=== PATIENT | male | born 1945 | race Asian ===

== ENCOUNTER 2018-11-30 23:59 | Inpatient (IN) | payer MEDICARE ==
[~2018-11-30] VITALS: Ht 160 cm; Wt 64.4 kg
[2018-12-01] VITALS (24 sets, daily range): BP systolic 87–156; BP diastolic 38–96
[2018-12-01] MEDS ORDERED: Cefepime HCl 1 GM in NS 55 ML IV STA (00:03)
--- NOTE | 2018-12-01 00:05 | NUR ---
ED Nurse Note: RECIEVED PT BIBA FROM SNF WITH C/O ALOC SINCE AM, PT IS ON GURNEY VERY LETHARGIC, NON-VERBAL, EYES CLOSED AND POOR RESPONSE, PT ONLY RESPONDS TO PAINFUL STIMULI WITH SWINGING OR ARMS AND HEAD, PT IS DIALYSIS PT AND HAS PATENT SHUNT IN LEFT AV WITH POSITIVE BRUIT AND THRILL, PT INCONTINENT OF STOOL, VERY LARGE AMOUNT SOFT FORMED STOOL, PT IMMEDIATELY PLACED ON CARDIAC MONITORING, O2 SAT=98% ON MD MAJO IMMEDIATELY AT BEDSIDE AND PREPARING FOR INTUBATION.
[2018-12-01] MEDS ORDERED: EPOGEN20000 UNI1 SUBQ (00:07)
[2018-12-01] MEDS ORDERED: ACETAMINOPHEN325 M1 ORAL (00:09)
[2018-12-01] MEDS ORDERED: AMLODIPINE BESY10 MG ORAL (00:09)
[2018-12-01] MEDS ORDERED: ASCORBIC ACID500 MG ORAL (00:09)
[2018-12-01] MEDS ORDERED: ASPIRIN EC81 MG ORAL (00:10)
[2018-12-01] MEDS ORDERED: ATIVAN2 MG ORAL (00:10)
[2018-12-01] MEDS ORDERED: CATAPRES0.1 MG ORAL (00:11)
[2018-12-01] MEDS ORDERED: CATAPRES-TTS-21 EA TDERMAL (00:11)
[2018-12-01] MEDS ORDERED: FAMOTIDINE20 MG/2 ML IV (00:12)
[2018-12-01] MEDS ORDERED: GABAPENTIN300 MG ORAL (00:13)
[2018-12-01] MEDS ORDERED: HEPARIN SO5000 UNIT2 SUBQ (00:14)
[2018-12-01] MEDS ORDERED: IPRATROPIU0.2 MG/1 M HHN (00:14)
[2018-12-01] MEDS ORDERED: NORCO 5-325 TA1 EACH ORAL (00:14)
[2018-12-01] MEDS ORDERED: ACIDOPHILUS1 EAC6 PO (00:15)
[2018-12-01] MEDS ORDERED: Vancomycin 1 GM in NS 275 ML IV ONE (00:15)
[2018-12-01] MEDS ORDERED: Azithromycin 500 MG in D5W 275 ML IVPB ONE (00:15)
[2018-12-01] MEDS ORDERED: LOSARTAN POTASS50 MG ORAL (00:16)
[2018-12-01] MEDS ORDERED: MEGESTROL ACETAT5 GM MC (00:17)
[2018-12-01] MEDS ORDERED: NEPHROVITE1 TAB ORAL (00:18)
[2018-12-01] MEDS ORDERED: QUETIAPINE FUMA50 MG ORAL (00:19)
[2018-12-01] MEDS ORDERED: POTASSIUM CHLO20 ME1 ORAL (00:19)
[2018-12-01] MEDS ORDERED: HUMALOG100 UNIT/4 SUBQ (00:25)
--- NOTE | 2018-12-01 00:26 | Emergency Room Report ---
History of Present Illness General Chief Complaint: Altered Level of Consciousness Source: Family Member, EMS Present Illness HPI Patient is brought in by EMS for altered level of consciousness with low oxygen. He is a [facility] facility. He is a dialysis patient had dialysis earlier today. His oxygen saturation was 64% in the field and it improved with 100% nonrebreather. Apparently the patient is been febrile also. Paramedics were uncertain what the baseline mental status is. According to the family the patient has had recent episode of sepsis. He states that the patient ate earlier today. The patient does not make urine at this time. Per family, he has had side effects from antibiotics - mainly diarrhea which was treated. Allergies: Coded Allergies: NEOMYCIN (Verified Allergy, Mild, 12/01/18) Uncoded Allergies: plastics (Allergy, Mild, 12/01/18) Patient History Past Medical History: see triage record Social History Narrative [facility] facility Reviewed Nursing Documentation: PMH: Agreed; PSxH: Agreed Nursing Documentation-PMH Past Medical History: No History, Except For Hx Hypertension: Yes Hx COPD: Yes Hx Diabetes: Yes Hx Dialysis: Yes - on dialysis,ESRD Review of Systems All Other Systems: limited Physical Exam Vital Signs Date Time Temp Pulse Resp B/P (MAP) Pulse Ox O2 Delivery O2 Flow Rate FiO2 11/30/18 23:58 94 20 135/64 79 Room Air Sp02 EP Interpretation: reviewed, abnormal - interpreted as low by me General Appearance: moderate distress, other - unresponsive to pain Eyes: bilateral eye PERRL ENT: moist mucus membranes Neck: supple Respiratory: rales, other - inadequate tidal volume, rales Cardiovascular #1: regular rate, rhythm, no edema Cardiovascular #2: 2+ radial (L) - thrill L Gastrointestinal: non tender, decreased bowel sounds, scaphoid Musculoskeletal: other - atrophy Neurologic: other - flaccid, min response to pain Psychiatric: other - stupor Skin: mottled, other - fever, stage 3 decubiti sacrum Procedures Critical Care Time Critical Care Time Total Critical Care Time: 90 min bedside evaluation and treatment excludes procedures (EKG, intubation). Reason for critical care: respiratory failure, pneumonia, ESRD, repeated evaluations, discussion with family, correction of hypoglycemia and hypocalcemia Possible complications: hypotension, hypertension, [place], shock, arrhythmias, metabolic acidosis, end organ damage, respiratory failure. Interventions: intubation, sepsis resuscitation, antibiotics, repeat evaluations , discussions with family Course: Patient with fever and respiratory failure. Intubated. Judicious fluid resuscitation. Antibiotic administration. Discussion with family. Repeat evaluations - vent adjustment and evaluation for possible sedation. Low sugar treated. Low calcium also treated. Consultations: nursing staff, EMS, family, RT, admitting MD Performed by: Dr. Baumann Tolerated well condition = critical Intubation Intubation : Consent: Emergent Intubation Method: orotracheal Tube Size (cm): 7.5 Medications: Other - none Breath Sounds after Intubation: equal Post Intubation Xray: Yes Attempts: One Patient Tolerated: Well Complications: None Medical Decision Making Diagnostic Impression: Primary Impression: Respiratory failure Qualified Codes: J96.01 - Acute respiratory failure with hypoxia; J96.02 - Acute respiratory failure with hypercapnia Additional Impressions: Left lower lobe pneumonia Qualified Codes: J18.1 - Lobar pneumonia, unspecified organism ESRD (end stage renal disease) on dialysis Hypoglycemia Hypocalcemia ER Course Patient presents with hypoxia, poor tidal volume and fever. Differential includes pneumonia, sepsis, acute myocardial infarction amongst others. Evaluation will be with EKG chest x-ray and labs including blood cultures and lactate. Due to the patient's hypoxia and inadequate tidal volume the patient needs to be intubated immediately. INtubated @ 0:15 Blood sugar low. D50W ordered. Calcium low. Antibiotics ordered. Transient low BP. Minimally elevated troponin. Aspirin ordered. FIO2 adjusted down. BP better with bolus. Slightly more responsive. Cap fill good. Calcium and magnesium ordered. Discussed with family. Patient with improved HR and more responsive. Sat 100% on 35%. Admit ICU Dr. Cyr. Laboratory Tests Test 12/01/18 00:00 12/01/18 00:03 White Blood Count 15.7 K/UL (4.8-10.8) H Red Blood Count 3.17 M/UL (4.70-6.10) L Hemoglobin 10.7 G/DL (14.2-18.0) L Hematocrit 32.8 % (42.0-52.0) L Mean Corpuscular Volume 104 FL (80-99) H Mean Corpuscular Hemoglobin 33.9 PG (27.0-31.0) H Mean Corpuscular Hemoglobin Concent 32.8 G/DL (32.0-36.0) Red Cell Distribution Width 16.6 % (11.6-14.8) H Platelet Count 426 K/UL (150-450) Mean Platelet Volume 6.0 FL (6.5-10.1) L Neutrophils (%) (Auto) 65.7 % (45.0-75.0) Lymphocytes (%) (Auto) 21.7 % (20.0-45.0) Monocytes (%) (Auto) 10.6 % (1.0-10.0) H Eosinophils (%) (Auto) 1.2 % (0.0-3.0) Basophils (%) (Auto) 0.8 % (0.0-2.0) Prothrombin Time 11.0 SEC (9.30-11.50) Prothrombin Time INR 1.0 (0.9-1.1) PTT 32 SEC (23-33) Sodium Level 146 MMOL/L (136-145) H Potassium Level 3.2 MMOL/L (3.5-5.1) L Chloride Level 112 MMOL/L (98-107) H Carbon Dioxide Level 22 MMOL/L (21-32) Anion Gap 12 mmol/L (5-15) Blood Urea Nitrogen 24 mg/dL (7-18) H Creatinine 2.9 MG/DL (0.55-1.30) H Estimate Glomerular Filtration Rate mL/min (>60) Glucose Level 55 MG/DL (74-106) L Lactic Acid Level 1.70 mmol/L (0.4-2.0) Calcium Level 5.7 MG/DL (8.5-10.1) *L Magnesium Level 1.2 MG/DL (1.8-2.4) L Total Bilirubin 0.4 MG/DL (0.2-1.0) Aspartate Amino Transferase (AST) 12 U/L (15-37) L Alanine Aminotransferase (ALT) 12 U/L (12-78) Alkaline Phosphatase 65 U/L (46-116) Total Creatine Kinase 33 U/L (26-308) Troponin I 0.066 ng/mL (0.000-0.056) Pro-B-Type Natriuretic Peptide > 66691 pg/mL (0-125) H Total Protein 5.0 G/DL (6.4-8.2) L Albumin 1.9 G/DL (3.4-5.0) L Globulin 3.1 g/dL Albumin/Globulin Ratio 0.6 (1.0-2.7) L Lipase 74 U/L (73-393) Arterial Blood pH 7.492 (7.350-7.450) Arterial Blood Partial Pressure CO2 29.6 mmHg (35.0-45.0) L Arterial Blood Partial Pressure O2 200.4 mmHg (75.0-100.0) H Arterial Blood HCO3 22.2 mmol/L (22.0-26.0) Arterial Blood Oxygen Saturation 94.0 % (95-100) L Arterial Blood Base Excess -0.6 (-2-2) Rashi Test Positive Microbiology Date/Time Source Procedure Growth Status 12/01/18 00:30 Nasal Nares - Final Complete 12/01/18 00:30 Nasal Nares - Final Complete EKG Diagnostic Results Rate: normal Rhythm: NSR ST Segments: no acute changes Rhythm Strip Diag. Results EP Interpretation: yes Rhythm: NSR, no PVC's, no ectopy Chest X-Ray Diagnostic Results Chest X-Ray Diagnostic Results : Chest X-Ray Ordered: Yes # of Views/Limited/Complete: 1 View Indication: Other EP Interpretation: Yes Interpretation: no effusion, no pneumothorax, other - ET OK and LLL infiltrate Impression: Other Status: improved Disposition: ADMITTED INPATIENT Condition: Critical Francisco Baumann MD Dec 01, 2018 00:26
[2018-12-01 00:41] LABS: BASOPHILS % (AUTO) 0.8 % (0.0-2.0); EOSINOPHILS % (AUTO) 1.2 % (0.0-3.0); HEMATOCRIT 32.8 % (42.0-52.0); HEMOGLOBIN 10.7 G/DL (14.2-18.0); LYMPHOCYTES % (AUTO) 21.7 % (20.0-45.0); MEAN CORPUSCULAR VOLUME 104 FL (80-99); MONOCYTES % (AUTO) 10.6 % (1.0-10.0); NEUTROPHILS % (AUTO) 65.7 % (45.0-75.0); PLATELET COUNT 426 K/UL (150-450); RED BLOOD COUNT 3.17 M/UL (4.70-6.10); RED CELL DISTRIBUTION WIDTH 16.6 % (11.6-14.8); WHITE BLOOD COUNT 15.7 K/UL (4.8-10.8)
[2018-12-01] MEDS ORDERED: MILK OF MA400 MG/51 ORAL (00:56)
[2018-12-01] MEDS ORDERED: DULCOLAX10 MG RC (00:57)
[2018-12-01 01:06] LABS: ALANINE AMINOTRANSFERASE 12 U/L (12-78); ALBUMIN 1.9 G/DL (3.4-5.0); ALBUMIN/GLOBULIN RATIO 0.6 (1.0-2.7); ALKALINE PHOSPHATASE 65 U/L (46-116); ANION GAP 12 mmol/L (5-15); ASPARTATE AMINO TRANSFERASE 12 U/L (15-37); BILIRUBIN,TOTAL 0.4 MG/DL (0.2-1.0); BLOOD UREA NITROGEN 24 mg/dL (7-18); CARBON DIOXIDE 22 MMOL/L (21-32); CHLORIDE 112 MMOL/L (98-107); CREATINE KINASE 33 U/L (26-308); CREATININE 2.9 MG/DL (0.55-1.30); POTASSIUM 3.2 MMOL/L (3.5-5.1); SODIUM 146 MMOL/L (136-145)
[2018-12-01 01:15] LABS: CALCIUM 5.7 MG/DL (8.5-10.1)
--- NOTE | 2018-12-01 01:30 | NUR ---
ED Nurse Note: NO ACUTE CHANGES, PT REMAINS INTUBATED AND ON VENTILATOR SUPPORT, TOLERATING WELL, NO NEED FOR RESTRAINTS OR SEDATIVE MEDS, PT TOLERATING WELL, PT IS RESPONDING TO PAINFUL STIMULI, PT FAMILY NOW AT BEDSIDE, PT SWABBED FOR ADMIT AND PHOTOS OF BEDSORE ON COCCYX TAKEN, PT CHANGED AND GIVEN LINEN CHANGE DUE TO INCONTINENCE OF STOOL AGAIN, MD AWARE, NO S/S OF PAIN, WILL CONTINUE TO CLOSELY MONITOR AND PREPARE FOR HOSPITAL ADMISSION.
--- NOTE | 2018-12-01 02:09 | Diagnostic Imaging Report ---
EXAM: XR Chest, 1 View CLINICAL HISTORY: TUBE PLCMT TECHNIQUE: Frontal view of the chest. COMPARISON: No relevant prior studies available. FINDINGS: Lungs: Linear left perihilar atelectasis without focal consolidation. Pleural space: No pleural effusion or pneumothorax. Heart: Unremarkable. No cardiomegaly. Mediastinum: Unremarkable. Bones/joints: Unremarkable. Soft tissues: Hyperdensities projecting over the proximal left upper extremity likely reflect metallic foreign bodies. Vasculature: Vascular stent in the proximal left upper extremity/axilla. Tubes, lines and devices: Endotracheal tube 4.8 cm above the casey. Upper abdomen: Elevated left hemidiaphragm. IMPRESSION: Endotracheal tube 4.8 cm above the casey.
[2018-12-01] MEDS ORDERED: Calcium Gluconate 10% 1 GM in NS 110 ML IVPB ONE (02:30)
--- NOTE | 2018-12-01 03:00 | NUR ---
ED Nurse Note: PT CONTINUES TO REST IN BED, ON VENTILATOR SUPPORT, FI02 WAS DECREASED TO 35%, PT TOLERATING WELL, PT BEING TURNED EVERY TWO HOURS WITH PILLOW SUPPORT, REMAINS ON CARDIAC MONITORING, IV SITE PATENT, NO S/S OF PAIN, PT FAMILY AT BEDSIDE, PT SUCTIONED NEEDED VIA ET-TUBE, IV FLUIDS AND MEDS CONTINUING ORDERED, NO S/S OF ADVERSE REACTION NOTED, WILL CONTINUE CARE AND MONITORING WHILE PREPARING FOR ICU ADMISSION.
--- NOTE | 2018-12-01 04:05 | NUR ---
ED Nurse Note: REPORT CALLED TO ZENAIDA SALAS IN ICU, PT IN BED ON VENTILATOR SUPPORT, NO CHANGES OR INCREASED DISTRESS, 02 DRE=345%, PT TOLERATING WELL, IV SITE INTACT AND PATENT, MAGNESIUM INFUSING, PT TOLERATING WELL, NO S/S OF PAIN, V/S STABLE, BELONGINGS LIST COMPLETED, PT BEING TAKEN TO UNIT VIA GURTACOS AND ACLS PROTOCOLS WITH RN AND ER-TECHA ND RESPIRATORY THERAPIST.
--- NOTE | 2018-12-01 05:08 | NUR ---
NURSE NOTES: Received report from Heidy ESTEVEZ. Patient came from ER via rwren accompanied by RN and electronic communications technician. Admitted from [facility] under the care of Dr. Cyr with admitting diagnosis of Respiratory failure and ESRD. Patient lethargic, disoriented and on and off restless with episode of trying to pull out tubing reality orientation provided but pt lethargic. ETT to vent 7.5/24cm lip line, AC 16, TV 500,Fi02 35 Peep of 5. HOB elevated. Skin dry and warm to touch. Body assessment done patient with Full thickness pressure sore stage 3 on sacrum area initial treatment done. Left AV shunt dressing removed and cover with bandage no bleeding with + bruit and thrill. IV line on Right F/A intact running magnesium. bed bath given patient with soft form brown small BM. Bed alarm on. bed locked and in low position. Will continue plan of care. Will call Dr. Cyr.
--- NOTE | 2018-12-01 05:55 | NUR ---
NURSE NOTES: Called patient daughter Kiera Rios regarding the patient being admitted to ER and pt came with pressure sore. Patient in bed no s/s of acute distress noted. No moaning no facial grimaces. Repositioned. Will continue plan of care.
--- NOTE | 2018-12-01 06:00 | NUR ---
NURSE NOTES: left message to Dr. Cyr regarding admission order.
--- NOTE | 2018-12-01 06:48 | NUR ---
RESPIRATORY NOTE: Received pt. on 840 vent. Vent settings are: A/C rate of 16, Vt 500, FI02 35%, PEEP +5. No respiratory distress noted, pt sP02 @ 100%. Vent plugged on red outlet. Will continue to monitor pt.
--- NOTE | 2018-12-01 07:20 | NUR ---
HAND-OFF: Report given to Jazmin ESTEVEZ.still waiting for Dr Cyr to return call. Endorsed to Jazmin ESTEVEZ.
--- NOTE | 2018-12-01 07:21 | NUR ---
NURSE NOTES: End of shift report received from Tessa ESTEVEZ. Pt is lethargic, PERRL, and intubated. ETT 7.5 at 24cm at right lipline, AC16, VT500, Peep 5.0, FIO2 35% with O2sat 100%. Lung sounds are clear. telemetry monitor displays Sinus Bradycardia with HR 56-59. Weak peripheral pulses palpated with no extremity edema. Left AV shunt present with bruit/thrill, and right peripheral IV access on Right FA #18G, saline lock, patent/intact. Abdomen is round, and soft to the touch. Hypoactive bowel sounds present in all four quadrants. Pt has BM, soft/formed/brown. Skin has full thickness wound on sacral/buttocks area, covered with optifoam dressing. Bilateral soft wrist restraints in place, and skin integrity is within normal range at the restraint site. Per setter helper report, pt was dialyzed yesterday, prior to admission. Bed is locked with three side rails up and call light within reach. Will continue to monitor and follow up with MD for further new admission orders. Addendum: 12/01/18 at 0884 by HALEIGH SANCHEZ RN Patient is lethargic, disoriented and in/out of restless with episodes of attempting to pull out tubing.
--- NOTE | 2018-12-01 08:59 | NUR ---
NURSE NOTES: Pt suctioned; output of small, clear, thin mucous drained. Oral care given. Pt cleaned, repositioned, and sacral wound dressing changed.
--- NOTE | 2018-12-01 09:10 | NUR ---
NURSE NOTES: Orders received/acknowledged for new admission from Dr Arcos.
[2018-12-01] MEDS ORDERED: Miralax 17gm pkt ORAL PRN (09:15)
[2018-12-01] MEDS ORDERED: Albuterol/Ipratropium 3ml neb HHN PRN (09:15)
[2018-12-01] MEDS: Pantoprazole Inj IV SCH (09:55)
--- NOTE | 2018-12-01 10:00 | NUR ---
NURSE NOTES: Dr Fu at bedside. Order received to infuse NS 500mL Bolus x1, and DC [id number] @100ml/hour. Also order received for STAT lab draw, and Albuminar IV wide open. Orders will be processed and followed. Addendum: 12/01/18 at 1258 by HALEIGH SANCHEZ RN Order also received for D5NS at 50ml/hour. IV infusing as ordered.
--- NOTE | 2018-12-01 10:15 | Consultation ---
Consult Note Consult Note asked to eval for dialysis management patient intubated on vent no history available known ESRD has left arm shunt for dialysis Patient is brought in by EMS for altered level of consciousness with low oxygen. [facility] is a [facility] facility. He is a dialysis patient had dialysis earlier today. His oxygen saturation was 64% in the field and it improved with 100% nonrebreather. Apparently the patient is been febrile also. Paramedics were uncertain what the baseline mental status is. According to the family the patient has had recent episode of sepsis. He states that the patient ate earlier today. The patient does not make urine at this time. Allergies: NEOMYCIN (Verified Allergy, Mild, 12/01/18) Uncoded Allergies: plastics (Allergy, Mild, 12/01/18) Past Medical History: No History, Except For Hx Hypertension: Yes Hx COPD: Yes Hx Diabetes: Yes Hx Dialysis: Yes - on dialysis,ESRD . Assessment/Plan Respiratory failure on vent Left lower lobe pneumonia ESRD (end stage renal disease) on dialysis Hypoglycemia Hypocalcemia Anemia Plan: recheck labs fluid challenge antibiotics hemodynamic support pulmonary support Boo Fu MD Dec 01, 2018 10:15
[2018-12-01 10:44] LABS: EOSINOPHILS % (AUTO) 2.9 % (0.0-3.0); HEMATOCRIT 26.5 % (42.0-52.0); HEMOGLOBIN 8.8 G/DL (14.2-18.0); LYMPHOCYTES % (AUTO) 22.8 % (20.0-45.0); MEAN CORPUSCULAR VOLUME 102 FL (80-99); MONOCYTES % (AUTO) 13.1 % (1.0-10.0); NEUTROPHILS % (AUTO) 60.2 % (45.0-75.0); PLATELET COUNT 346 K/UL (150-450); RED BLOOD COUNT 2.59 M/UL (4.70-6.10); RED CELL DISTRIBUTION WIDTH 16.1 % (11.6-14.8); WHITE BLOOD COUNT 9.2 K/UL (4.8-10.8)
[2018-12-01] MEDS: D5NS 1,000 ML IV SCH (10:47)
[2018-12-01 10:57] LABS: ANION GAP 11 mmol/L (5-15); BLOOD UREA NITROGEN 42 mg/dL (7-18); CALCIUM 8.1 MG/DL (8.5-10.1); CARBON DIOXIDE 27 MMOL/L (21-32); CHLORIDE 99 MMOL/L (98-107); CREATININE 5.1 MG/DL (0.55-1.30); POTASSIUM 4.6 MMOL/L (3.5-5.1); SODIUM 137 MMOL/L (136-145)
[2018-12-01 11:08] LABS: ALANINE AMINOTRANSFERASE 9 U/L (12-78); ALBUMIN 2.3 G/DL (3.4-5.0); ALBUMIN/GLOBULIN RATIO 0.5 (1.0-2.7); ALKALINE PHOSPHATASE 72 U/L (46-116); ASPARTATE AMINO TRANSFERASE 11 U/L (15-37); BILIRUBIN,TOTAL 0.6 MG/DL (0.2-1.0); CREATINE KINASE 29 U/L (26-308); GAMMA GLUTAMYL TRANSPEPTIDASE 51 U/L (5-85); PHOSPHORUS 5.9 MG/DL (2.5-4.9)
[2018-12-01] MEDS ORDERED: NovoLOG Insulin Flexpen SUBQ SCH (11:30)
--- NOTE | 2018-12-01 11:31 | Consultation ---
History of Present Illness General Date patient seen: Dec 01, 2018 Time patient seen: 11:21 Chief Complaint: ALOC, hypoxia Referring physician: Dr Cyr Reason for Consultation: resp failure Present Illness HPI 73 years old male with PMH of hypertension, COPD, diabetes, end-stage renal disease on hemodialysis, was sent from the [facility] for evaluation due to altered level of consciousness and hypoxia. Patient received dialysis earlier prior to presentation to ED. Pulse oximetry was 64% in the field and improved to 100% with nonrebreathing mask. On evaluation patient was febrile, altered and hypoxic. Laboratory workup revealed leukocytosis WBC 15.7 hemoglobin 10.7 hematocrit 32.8. Platelet count 426. Neutrophils 65%. Potassium 3.2. BUN 24, creatinine 2.9. Lactic acid 1.7 Glucose 55 . Calcium 5.7 Stable LFT. Troponin minimally elevated 0.066. Pro BNP over 35,000. Albumin 1.9 . EKG revealed sinus rhythm , no acute ischemic changes Patient required emergency oral intubation. Chest x-ray demonstrated endotracheal tube 4.8 cm above the casey, which was addressed and adjusted . Possible left lower lobe pneumonia. Patient received calcium gluconate and repeated calcium pending. Patient admitted to ICU for further management Pulmonary consult was requested for management of respiratory failure. Allergies: Coded Allergies: NEOMYCIN (Verified Allergy, Mild, 12/01/18) Uncoded Allergies: plastics (Allergy, Mild, 12/01/18) Medication History Scheduled Amlodipine Besylate* (Amlodipine Besylate*), 10 MG ORAL DAILY, (Reported) Ascorbic Acid* (Ascorbic Acid*), 500 MG ORAL DAILY, (Reported) Aspirin Ec* (Aspirin Ec*), 81 MG ORAL DAILY, (Reported) Clonidine HCl (Catapres-Tts 2), 1 PATCH TDERMAL ONCE A WEEK, (Reported) Clonidine Hcl* (Catapres*), 0.1 MG ORAL EVERY 6 HOURS, (Reported) Epoetin Julio C (Epogen), 10,000 UNIT SUBQ DAILY, (Reported) Gabapentin* (Gabapentin*), 300 MG ORAL BEDTIME, (Reported) Heparin Sod (Porcine) (Heparin Sodium*), 5,000 UNITS SUBQ EVERY 12 HOURS, ( Reported) Lorazepam* (Ativan*), 2 MG ORAL BEDTIME, (Reported) Losartan Potassium* (Losartan Potassium*), 100 MG ORAL DAILY, (Reported) Magnesium Hydroxide* (Milk Of Magnesia*), 30 ML ORAL DAILY, (Reported) Potassium Chloride* (K-Dur*), 20 MEQ ORAL DAILY, (Reported) Quetiapine Fumarate* (Quetiapine Fumarate*), 25 MG ORAL DAILY, (Reported) Vitamin B Cmplx/Vit C/Folic AC (Nephro-Alexandro Tablet), 0.8 MG ORAL DAILY, ( Reported) Scheduled PRN Acetaminophen* (Acetaminophen 325MG Tablet*), 650 MG ORAL Q6H PRN for Pain Scale (3-5), (Reported) Hydrocodone Bit/Acetaminophen 5-325* (Letha 5-325*), 1 TAB ORAL Q4H PRN for For Pain, (Reported) Ipratropium [place] 0.5MG/2.5ML (Ipratropium [place] 0.5MG/2.5ML), 0.5 MG HHN Q6H PRN for Shortness of Breath, (Reported) Miscellaneous Medications Bisacodyl (Dulcolax), 10 MG RC, (Reported) Famotidine/Pf (Famotidine 20 Mg/2 Ml Vial), 20 MG IV, (Reported) Insulin Lispro (Humalog), 100 SUBQ, (Reported) Lactobacillus Acidophilus (Acidophilus), 1 EACH PO, (Reported) Megestrol Acetate,Micronized (Megestrol Acetate), 10 ML MC, (Reported) Patient History History Provided By: Medical Record Healthcare decision maker Resuscitation status Full Code Advanced Directive on File No Past Medical/Surgical History Past Medical/Surgical History: (1) HTN (hypertension) (2) DM (diabetes mellitus) (3) COPD (chronic obstructive pulmonary disease) (4) ESRD (end stage renal disease) on dialysis Review of Systems ROS Narrative ROS not available due to ALOC Physical Exam General Appearance: lethargic, other - bedridden, intubated on vent AC 500-16- 35% Lines, tubes and drains: peripheral HEENT: normocephalic, atraumatic, other - OP with ET in place, intact Respiratory/Chest: crackles/rales - few bibasilar crackles Cardiovascular/Chest: regular rhythm, no JVD, bradycardia - in 50th, SB on tele Abdomen: non tender, soft Extremities: normal capillary refill, no edema Neurologic: abnormal gait, other - lethargic Musculoskeletal: atrophy - BLE Last 24 Hour Vital Signs Date Time Temp Pulse Resp B/P (MAP) Pulse Ox O2 Delivery O2 Flow Rate FiO2 12/01/18 11:00 52 16 110/40 (63) 100 12/01/18 10:00 55 17 111/41 (64) 100 12/01/18 09:00 55 16 99/46 (63) 100 12/01/18 08:00 97.6 56 16 105/56 (72) 100 12/01/18 08:00 Mechanical Ventilator 12/01/18 07:00 56 16 98/42 (60) 100 12/01/18 06:47 56 16 35 12/01/18 06:00 57 16 98/42 (60) 100 12/01/18 05:52 59 17 87/42 (57) 100 12/01/18 05:18 62 17 35 12/01/18 05:00 Mechanical Ventilator 12/01/18 05:00 35 12/01/18 05:00 Mechanical Ventilator 12/01/18 05:00 97.7 62 17 90/38 (55) 100 12/01/18 04:54 71 12/01/18 04:10 98.8 61 18 121/44 100 Mechanical Ventilator 35 12/01/18 03:30 98.8 61 18 121/44 100 Mechanical Ventilator 35 12/01/18 03:19 69 21 35 12/01/18 02:30 99.4 60 21 113/39 100 Mechanical Ventilator 60 12/01/18 01:30 99.4 89 21 117/83 100 Mechanical Ventilator 60 12/01/18 00:39 85 21 60 12/01/18 00:38 85 21 Mechanical Ventilator 60 12/01/18 00:30 99.4 83 20 140/96 100 Mechanical Ventilator 60 12/01/18 00:05 94 20 Room Air 11/30/18 23:58 94 20 135/64 79 Room Air Intake and Output 11/30/18 12/01/18 19:00 07:00 Output Total 0 ml Balance 0 ml Output Urine Total 0 ml # Bowel Movements 4 Laboratory Tests Test 12/01/18 00:00 12/01/18 00:03 12/01/18 10:30 White Blood Count 15.7 K/UL (4.8-10.8) H 9.2 K/UL (4.8-10.8) Red Blood Count 3.17 M/UL (4.70-6.10) L 2.59 M/UL (4.70-6.10) L Hemoglobin 10.7 G/DL (14.2-18.0) L 8.8 G/DL (14.2-18.0) L Hematocrit 32.8 % (42.0-52.0) L 26.5 % (42.0-52.0) L Mean Corpuscular Volume 104 FL (80-99) H 102 FL (80-99) H Mean Corpuscular Hemoglobin 33.9 PG (27.0-31.0) H 33.9 PG (27.0-31.0) H Mean Corpuscular Hemoglobin Concent 32.8 G/DL (32.0-36.0) 33.2 G/DL (32.0-36.0) Red Cell Distribution Width 16.6 % (11.6-14.8) H 16.1 % (11.6-14.8) H Platelet Count 426 K/UL (150-450) 346 K/UL (150-450) Mean Platelet Volume 6.0 FL (6.5-10.1) L 5.5 FL (6.5-10.1) L Neutrophils (%) (Auto) 65.7 % (45.0-75.0) 60.2 % (45.0-75.0) Lymphocytes (%) (Auto) 21.7 % (20.0-45.0) 22.8 % (20.0-45.0) Monocytes (%) (Auto) 10.6 % (1.0-10.0) H 13.1 % (1.0-10.0) H Eosinophils (%) (Auto) 1.2 % (0.0-3.0) 2.9 % (0.0-3.0) Basophils (%) (Auto) 0.8 % (0.0-2.0) 1.0 % (0.0-2.0) Prothrombin Time 11.0 SEC (9.30-11.50) Prothromb Time International Ratio 1.0 (0.9-1.1) Activated Partial Thromboplast Time 32 SEC (23-33) Sodium Level 146 MMOL/L (136-145) H 137 MMOL/L (136-145) Potassium Level 3.2 MMOL/L (3.5-5.1) L 4.6 MMOL/L (3.5-5.1) Chloride Level 112 MMOL/L (98-107) H 99 MMOL/L (98-107) Carbon Dioxide Level 22 MMOL/L (21-32) 27 MMOL/L (21-32) Anion Gap 12 mmol/L (5-15) 11 mmol/L (5-15) Blood Urea Nitrogen 24 mg/dL (7-18) H 42 mg/dL (7-18) H Creatinine 2.9 MG/DL (0.55-1.30) H 5.1 MG/DL (0.55-1.30) #H Estimat Glomerular Filtration Rate mL/min (>60) mL/min (>60) Glucose Level 55 MG/DL (74-106) L 150 MG/DL (74-106) H Lactic Acid Level 1.70 mmol/L (0.4-2.0) Calcium Level 5.7 MG/DL (8.5-10.1) *L 8.1 MG/DL (8.5-10.1) #L Magnesium Level 1.2 MG/DL (1.8-2.4) L 2.2 MG/DL (1.8-2.4) Total Bilirubin 0.4 MG/DL (0.2-1.0) 0.6 MG/DL (0.2-1.0) Aspartate Amino Transf (AST/SGOT) 12 U/L (15-37) L 11 U/L (15-37) L Alanine Aminotransferase (ALT/SGPT) 12 U/L (12-78) 9 U/L (12-78) L Alkaline Phosphatase 65 U/L (46-116) 72 U/L (46-116) Total Creatine Kinase 33 U/L (26-308) 29 U/L (26-308) Troponin I 0.066 ng/mL (0.000-0.056) Pro-B-Type Natriuretic Peptide > 31881 pg/mL (0-125) H > 87189 pg/mL (0-125) H Total Protein 5.0 G/DL (6.4-8.2) L 6.9 G/DL (6.4-8.2) # Albumin 1.9 G/DL (3.4-5.0) L 2.3 G/DL (3.4-5.0) L Globulin 3.1 g/dL 4.6 g/dL Albumin/Globulin Ratio 0.6 (1.0-2.7) L 0.5 (1.0-2.7) L Lipase 74 U/L (73-393) Arterial Blood pH 7.492 (7.350-7.450) Arterial Blood Partial Pressure CO2 29.6 mmHg (35.0-45.0) L Arterial Blood Partial Pressure O2 200.4 mmHg (75.0-100.0) H Arterial Blood HCO3 22.2 mmol/L (22.0-26.0) Arterial Blood Oxygen Saturation 94.0 % (95-100) L Arterial Blood Base Excess -0.6 (-2-2) Rashi Test Positive Uric Acid 3.4 MG/DL (2.6-7.2) Phosphorus Level 5.9 MG/DL (2.5-4.9) H Gamma Glutamyl Transpeptidase 51 U/L (5-85) C-Reactive Protein, Quantitative 6.1 mg/dL (0.00-0.90) H Microbiology Date/Time Source Procedure Growth Status 12/01/18 00:30 Nasal Nares - Final Complete 12/01/18 00:30 Nasal Nares - Final Complete Height (Feet): 5 Height (Inches): 3.00 Weight (Pounds): 115 Medications Current Medications Medications (Trade) Dose Ordered Sig/Amber Route PRN Reason Start Time Stop Time Status Last Admin Dose Admin Acetaminophen (Tylenol) 650 mg Q4H PRN ORAL fever 12/01/18 09:15 12/31/18 09:14 Albuterol/ Ipratropium (Albuterol/ Ipratropium) 3 ml Q4H PRN HHN Shortness of Breath 12/01/18 09:15 12/06/18 09:14 Dextrose (Dextrose 50%) 25 ml Q30M PRN IV Hypoglycemia 12/01/18 09:15 12/31/18 09:14 Dextrose (Dextrose 50%) 50 ml Q30M PRN IV Hypoglycemia 12/01/18 09:15 12/31/18 09:14 Dextrose/Sodium Chloride 1,000 ml @ 50 mls/hr Q20H IV 12/01/18 10:15 12/31/18 10:14 12/01/18 10:47 Ertapenem 1 gm/ Sodium Chloride 55 ml @ 110 mls/hr ONCE IV 12/01/18 12:00 12/01/18 16:00 Heparin Sodium (Porcine) (Heparin 5000 units/ml) 5,000 units EVERY 12 HOURS SUBQ 12/01/18 21:00 12/31/18 20:59 Lorazepam (Ativan 2mg/ml 1ml) 2 mg Q2H PRN IV For Anxiety 12/01/18 09:15 12/08/18 09:14 Morphine Sulfate (Morphine Sulfate) 4 mg Q4H PRN IVP Severe Pain (Pain Scale 7-10) 12/01/18 09:15 12/08/18 09:14 Norepinephrine Bitartrate 4 mg/ Dextrose 254 ml @ 0 mls/hr Q24H IV 12/01/18 09:15 12/31/18 09:14 Ondansetron HCl (Zofran) 4 mg Q6H PRN IVP Nausea & Vomiting 12/01/18 09:15 12/31/18 09:14 Pantoprazole (Protonix) 40 mg DAILY IV 12/01/18 09:30 12/31/18 09:29 12/01/18 09:55 Polyethylene Glycol (Miralax) 17 gm DAILYPRN PRN ORAL Constipation 12/01/18 09:15 12/31/18 09:14 Vancomycin HCl (Vanco rx to dose) 1 ea DAILY PRN MISC Per rx protocol 12/01/18 09:00 12/31/18 08:59 Assessment/Plan Assessment: ASSESSMENT Acute hypoxemic respiratory failure requiring intubation Pneumonia Possible sepsis Hypoglycemia with history of diabetes mellitus Hypocalcemia COPD End-stage renal disease on hemodialysis Elevated troponin Anemia of chronic kidney disease History of hypertension Sacral decubitus ulcer stage III , present on admission PLAN OF CARE ICU Vent support , pulmonary toilet F/-up with ABG and CXR in am titrate setting further as needed Venous duplex bilateral lower extremity monitor hemodynamic status , at this time stable, no need for pressors noted bradycardia , however SB, no pauses/block, apparently at the [facility] facility was on amiodarone empiric antibiotic Zosyn and Vanco for now until seen by ID fup with culture ID consul NPO for now gentle IVF with dextrose monitor BS closely, no sliding scale for now nephro follows HD as per nephro with close monitoring of volumes , renal parameters and electrolytes calcium gluconate infusing , follow-up with calcium level monitor HH with goal to keep Hgb above 7 anemia workup initiated elevated troponin possibly due to renal failure, but we will check another troponin in the morning wound care as per protocol supportive care DVT/GI prophylaxis case discussed and evaluated by supervising physician Penny Mejia NP Dec 01, 2018 11:31
[2018-12-01] MEDS ORDERED: Ertapenem 1 GM in NS 55 ML IV SCH (12:00)
--- NOTE | 2018-12-01 12:30 | NUR ---
NURSE NOTES: Pt's and daughter at bedside. Pt is more awake and responsive now, however still attempting to pull out vent-tubing. Pt is Faroese speaking; family at bedside explained to pt the rationale for intubation/restraints in pt's language. Pt calm for a minute, however, reattempts to move/pull tubing out. Skin integrity at restraint site is within normal range. Vent settings maintained at AC16, VT500, Peep 5.0, FIO2 35% with O2sat of 100%, ETT7.5, at 24cm right lip line; panel monitor displays HR fluctuating 54-60, SB-SR. Per MD order, pt is currently NPO; with IV fluid infusing D5NS at 50ml/hour as ordered, with BS at 156 currently with no Insulin coverage per MD order. Pt had 2nd BM during my shift, soft/formed/brown. Pt was changed, repositioned, and suctioned. Abdomen is round, soft/nontender to touch. No extremity edema noted. Will continue to monitor.
--- NOTE | 2018-12-01 13:45 | NUR ---
NURSE NOTES: Order received from Dr Harley for repeat ECG, and troponin tomorrow AM. Order will be processed/followed.
--- NOTE | 2018-12-01 13:54 | Cardiac Electrophysiology PN ---
Subjective Subjective [id number] Objective Last 24 Hour Vital Signs Date Time Temp Pulse Resp B/P (MAP) Pulse Ox O2 Delivery O2 Flow Rate FiO2 12/01/18 13:01 97.1 59 16 149/53 (85) 100 12/01/18 12:05 35 12/01/18 12:01 59 16 98/44 (62) 100 12/01/18 12:00 Mechanical Ventilator 12/01/18 12:00 66 12/01/18 11:32 65 17 35 12/01/18 11:00 52 16 110/40 (63) 100 12/01/18 10:00 55 17 111/41 (64) 100 12/01/18 09:00 55 16 99/46 (63) 100 12/01/18 08:00 97.6 56 16 105/56 (72) 100 12/01/18 08:00 Mechanical Ventilator 12/01/18 07:00 56 16 98/42 (60) 100 12/01/18 06:47 56 16 35 12/01/18 06:00 57 16 98/42 (60) 100 12/01/18 05:52 59 17 87/42 (57) 100 12/01/18 05:18 62 17 35 12/01/18 05:00 Mechanical Ventilator 12/01/18 05:00 35 12/01/18 05:00 Mechanical Ventilator 12/01/18 05:00 97.7 62 17 90/38 (55) 100 12/01/18 04:54 71 12/01/18 04:10 98.8 61 18 121/44 100 Mechanical Ventilator 35 12/01/18 03:30 98.8 61 18 121/44 100 Mechanical Ventilator 35 12/01/18 03:19 69 21 35 12/01/18 02:30 99.4 60 21 113/39 100 Mechanical Ventilator 60 12/01/18 01:30 99.4 89 21 117/83 100 Mechanical Ventilator 60 12/01/18 00:39 85 21 60 12/01/18 00:38 85 21 Mechanical Ventilator 60 12/01/18 00:30 99.4 83 20 140/96 100 Mechanical Ventilator 60 12/01/18 00:05 94 20 Room Air 11/30/18 23:58 94 20 135/64 79 Room Air Intake and Output 11/30/18 12/01/18 19:00 07:00 Output Total 0 ml Balance 0 ml Output Urine Total 0 ml # Bowel Movements 4 Laboratory Tests Test 12/01/18 00:00 12/01/18 00:03 12/01/18 10:30 White Blood Count 15.7 K/UL (4.8-10.8) H 9.2 K/UL (4.8-10.8) Red Blood Count 3.17 M/UL (4.70-6.10) L 2.59 M/UL (4.70-6.10) L Hemoglobin 10.7 G/DL (14.2-18.0) L 8.8 G/DL (14.2-18.0) L Hematocrit 32.8 % (42.0-52.0) L 26.5 % (42.0-52.0) L Mean Corpuscular Volume 104 FL (80-99) H 102 FL (80-99) H Mean Corpuscular Hemoglobin 33.9 PG (27.0-31.0) H 33.9 PG (27.0-31.0) H Mean Corpuscular Hemoglobin Concent 32.8 G/DL (32.0-36.0) 33.2 G/DL (32.0-36.0) Red Cell Distribution Width 16.6 % (11.6-14.8) H 16.1 % (11.6-14.8) H Platelet Count 426 K/UL (150-450) 346 K/UL (150-450) Mean Platelet Volume 6.0 FL (6.5-10.1) L 5.5 FL (6.5-10.1) L Neutrophils (%) (Auto) 65.7 % (45.0-75.0) 60.2 % (45.0-75.0) Lymphocytes (%) (Auto) 21.7 % (20.0-45.0) 22.8 % (20.0-45.0) Monocytes (%) (Auto) 10.6 % (1.0-10.0) H 13.1 % (1.0-10.0) H Eosinophils (%) (Auto) 1.2 % (0.0-3.0) 2.9 % (0.0-3.0) Basophils (%) (Auto) 0.8 % (0.0-2.0) 1.0 % (0.0-2.0) Prothrombin Time 11.0 SEC (9.30-11.50) Prothromb Time International Ratio 1.0 (0.9-1.1) Activated Partial Thromboplast Time 32 SEC (23-33) Sodium Level 146 MMOL/L (136-145) H 137 MMOL/L (136-145) Potassium Level 3.2 MMOL/L (3.5-5.1) L 4.6 MMOL/L (3.5-5.1) Chloride Level 112 MMOL/L (98-107) H 99 MMOL/L (98-107) Carbon Dioxide Level 22 MMOL/L (21-32) 27 MMOL/L (21-32) Anion Gap 12 mmol/L (5-15) 11 mmol/L (5-15) Blood Urea Nitrogen 24 mg/dL (7-18) H 42 mg/dL (7-18) H Creatinine 2.9 MG/DL (0.55-1.30) H 5.1 MG/DL (0.55-1.30) #H Estimat Glomerular Filtration Rate mL/min (>60) mL/min (>60) Glucose Level 55 MG/DL (74-106) L 150 MG/DL (74-106) H Lactic Acid Level 1.70 mmol/L (0.4-2.0) Calcium Level 5.7 MG/DL (8.5-10.1) *L 8.1 MG/DL (8.5-10.1) #L Magnesium Level 1.2 MG/DL (1.8-2.4) L 2.2 MG/DL (1.8-2.4) Total Bilirubin 0.4 MG/DL (0.2-1.0) 0.6 MG/DL (0.2-1.0) Aspartate Amino Transf (AST/SGOT) 12 U/L (15-37) L 11 U/L (15-37) L Alanine Aminotransferase (ALT/SGPT) 12 U/L (12-78) 9 U/L (12-78) L Alkaline Phosphatase 65 U/L (46-116) 72 U/L (46-116) Total Creatine Kinase 33 U/L (26-308) 29 U/L (26-308) Troponin I 0.066 ng/mL (0.000-0.056) Pro-B-Type Natriuretic Peptide > 79047 pg/mL (0-125) H > 04095 pg/mL (0-125) H Total Protein 5.0 G/DL (6.4-8.2) L 6.9 G/DL (6.4-8.2) # Albumin 1.9 G/DL (3.4-5.0) L 2.3 G/DL (3.4-5.0) L Globulin 3.1 g/dL 4.6 g/dL Albumin/Globulin Ratio 0.6 (1.0-2.7) L 0.5 (1.0-2.7) L Lipase 74 U/L (73-393) Arterial Blood pH 7.492 (7.350-7.450) Arterial Blood Partial Pressure CO2 29.6 mmHg (35.0-45.0) L Arterial Blood Partial Pressure O2 200.4 mmHg (75.0-100.0) H Arterial Blood HCO3 22.2 mmol/L (22.0-26.0) Arterial Blood Oxygen Saturation 94.0 % (95-100) L Arterial Blood Base Excess -0.6 (-2-2) Rashi Test Positive Uric Acid 3.4 MG/DL (2.6-7.2) Phosphorus Level 5.9 MG/DL (2.5-4.9) H Gamma Glutamyl Transpeptidase 51 U/L (5-85) C-Reactive Protein, Quantitative 6.1 mg/dL (0.00-0.90) H Random Vancomycin Level 17.6 ug/mL Microbiology Date/Time Source Procedure Growth Status 12/01/18 00:30 Nasal Nares - Final Complete 12/01/18 00:30 Nasal Nares - Final Complete Ryan Harley MD Dec 01, 2018 13:54
[2018-12-01] MEDS ORDERED: Piperacillin/Tazobactam 2.25 GM in D5W 55 ML IVPB SCH (14:00)
[2018-12-01] MEDS: LORazepam Inj 2mg/ml 1ml IV PRN (14:10)
--- NOTE | 2018-12-01 14:28 | NUR ---
NURSE NOTES: Pt had BM, small amount, soft/formed/brown; pt was cleaned and repositioned. Pt also suctioned. Restraint site at bilateral wrists with skin integrity within normal limits. Addendum: 12/01/18 at 1553 by HALEIGH SANCHEZ RN Pt is on P200 mattress.
--- NOTE | 2018-12-01 14:49 | History & Physical ---
History and Physical History & Physicial Dictated for Int Med Dr Cyr no. [id number]. Aryan Brody MD Dec 01, 2018 14:49
[2018-12-01] MEDS ORDERED: D5 1/2NS 1000ml IV ONE (15:17)
[2018-12-01] MEDS ORDERED: D5NS 1000ml IV ONE (15:17)
[2018-12-01] MEDS ORDERED: Tubing IV Secondary IV ONE (15:17)
[2018-12-01] MEDS ORDERED: NS 275ml ONE (15:17)
[2018-12-01] MEDS ORDERED: NS 500ML ONE (15:17)
--- NOTE | 2018-12-01 15:36 | Consultation ---
History of Present Illness General Date patient seen: Dec 01, 2018 Chief Complaint: Altered Level of Consciousness Referring physician: Dr Cyr Present Illness HPI 73 years old male multiple medical comorbidities including hypertension, COPD, diabetes, end-stage renal disease on hemodialysis, who is a [facility] facility resident was sent for evaluation due to altered level of consciousness and hypoxia. Admitted to ICU for care and management. Labs abnormal. On admission noted to have large sacral decubitus ulcer. surgery called to evaluate and assist with care and management. patient seen, chart reviewed, patient examined. Allergies: Coded Allergies: NEOMYCIN (Verified Allergy, Mild, 12/01/18) Uncoded Allergies: plastics (Allergy, Mild, 12/01/18) Medication History Scheduled Amlodipine Besylate* (Amlodipine Besylate*), 10 MG ORAL DAILY, (Reported) Ascorbic Acid* (Ascorbic Acid*), 500 MG ORAL DAILY, (Reported) Aspirin Ec* (Aspirin Ec*), 81 MG ORAL DAILY, (Reported) Clonidine HCl (Catapres-Tts 2), 1 PATCH TDERMAL ONCE A WEEK, (Reported) Clonidine Hcl* (Catapres*), 0.1 MG ORAL EVERY 6 HOURS, (Reported) Epoetin Julio C (Epogen), 10,000 UNIT SUBQ DAILY, (Reported) Gabapentin* (Gabapentin*), 300 MG ORAL BEDTIME, (Reported) Heparin Sod (Porcine) (Heparin Sodium*), 5,000 UNITS SUBQ EVERY 12 HOURS, ( Reported) Lorazepam* (Ativan*), 2 MG ORAL BEDTIME, (Reported) Losartan Potassium* (Losartan Potassium*), 100 MG ORAL DAILY, (Reported) Magnesium Hydroxide* (Milk Of Magnesia*), 30 ML ORAL DAILY, (Reported) Potassium Chloride* (K-Dur*), 20 MEQ ORAL DAILY, (Reported) Quetiapine Fumarate* (Quetiapine Fumarate*), 25 MG ORAL DAILY, (Reported) Vitamin B Cmplx/Vit C/Folic AC (Nephro-Alexandro Tablet), 0.8 MG ORAL DAILY, ( Reported) Scheduled PRN Acetaminophen* (Acetaminophen 325MG Tablet*), 650 MG ORAL Q6H PRN for Pain Scale (3-5), (Reported) Hydrocodone Bit/Acetaminophen 5-325* (Babbitt 5-325*), 1 TAB ORAL Q4H PRN for For Pain, (Reported) Ipratropium [place] 0.5MG/2.5ML (Ipratropium [place] 0.5MG/2.5ML), 0.5 MG HHN Q6H PRN for Shortness of Breath, (Reported) Miscellaneous Medications Bisacodyl (Dulcolax), 10 MG RC, (Reported) Famotidine/Pf (Famotidine 20 Mg/2 Ml Vial), 20 MG IV, (Reported) Insulin Lispro (Humalog), 100 SUBQ, (Reported) Lactobacillus Acidophilus (Acidophilus), 1 EACH PO, (Reported) Megestrol Acetate,Micronized (Megestrol Acetate), 10 ML MC, (Reported) Patient History Limited by: medical condition History Provided By: Medical Record, PMD Healthcare decision maker Resuscitation status Full Code Advanced Directive on File No Past Medical/Surgical History Past Medical/Surgical History: (1) Hypoglycemia (2) Left lower lobe pneumonia (3) Hypocalcemia (4) Respiratory failure (5) COPD (chronic obstructive pulmonary disease) (6) HTN (hypertension) (7) DM (diabetes mellitus) (8) ESRD (end stage renal disease) on dialysis Review of Systems ROS Narrative cannot obtain given medical condition Physical Exam General Appearance: mild distress Lines, tubes and drains: peripheral HEENT: mucous membranes moist Neck: normal inspection Respiratory/Chest: lungs clear, normal breath sounds, on vent Cardiovascular/Chest: normal peripheral pulses, normal rate Abdomen: soft, no organomegaly Extremities: other Skin Exam: other Last 24 Hour Vital Signs Date Time Temp Pulse Resp B/P (MAP) Pulse Ox O2 Delivery O2 Flow Rate FiO2 12/01/18 15:25 51 16 35 12/01/18 15:00 51 16 111/46 (67) 100 12/01/18 14:00 51 16 131/50 (77) 100 12/01/18 13:01 97.1 59 16 149/53 (85) 100 12/01/18 12:05 35 12/01/18 12:01 59 16 98/44 (62) 100 12/01/18 12:00 Mechanical Ventilator 12/01/18 12:00 66 12/01/18 11:32 65 17 35 12/01/18 11:00 52 16 110/40 (63) 100 12/01/18 10:00 55 17 111/41 (64) 100 12/01/18 09:00 55 16 99/46 (63) 100 12/01/18 08:00 97.6 56 16 105/56 (72) 100 12/01/18 08:00 56 12/01/18 08:00 Mechanical Ventilator 12/01/18 07:00 56 16 98/42 (60) 100 12/01/18 06:47 56 16 35 12/01/18 06:00 57 16 98/42 (60) 100 12/01/18 05:52 59 17 87/42 (57) 100 12/01/18 05:18 62 17 35 12/01/18 05:00 Mechanical Ventilator 12/01/18 05:00 35 12/01/18 05:00 Mechanical Ventilator 12/01/18 05:00 97.7 62 17 90/38 (55) 100 12/01/18 04:54 71 12/01/18 04:10 98.8 61 18 121/44 100 Mechanical Ventilator 35 12/01/18 03:30 98.8 61 18 121/44 100 Mechanical Ventilator 35 12/01/18 03:19 69 21 35 12/01/18 02:30 99.4 60 21 113/39 100 Mechanical Ventilator 60 12/01/18 01:30 99.4 89 21 117/83 100 Mechanical Ventilator 60 12/01/18 00:39 85 21 60 12/01/18 00:38 85 21 Mechanical Ventilator 60 12/01/18 00:30 99.4 83 20 140/96 100 Mechanical Ventilator 60 12/01/18 00:05 94 20 Room Air 11/30/18 23:58 94 20 135/64 79 Room Air Intake and Output 11/30/18 12/01/18 19:00 07:00 Output Total 0 ml Balance 0 ml Output Urine Total 0 ml # Bowel Movements 4 Laboratory Tests Test 12/01/18 00:00 12/01/18 00:03 12/01/18 10:30 White Blood Count 15.7 K/UL (4.8-10.8) H 9.2 K/UL (4.8-10.8) Red Blood Count 3.17 M/UL (4.70-6.10) L 2.59 M/UL (4.70-6.10) L Hemoglobin 10.7 G/DL (14.2-18.0) L 8.8 G/DL (14.2-18.0) L Hematocrit 32.8 % (42.0-52.0) L 26.5 % (42.0-52.0) L Mean Corpuscular Volume 104 FL (80-99) H 102 FL (80-99) H Mean Corpuscular Hemoglobin 33.9 PG (27.0-31.0) H 33.9 PG (27.0-31.0) H Mean Corpuscular Hemoglobin Concent 32.8 G/DL (32.0-36.0) 33.2 G/DL (32.0-36.0) Red Cell Distribution Width 16.6 % (11.6-14.8) H 16.1 % (11.6-14.8) H Platelet Count 426 K/UL (150-450) 346 K/UL (150-450) Mean Platelet Volume 6.0 FL (6.5-10.1) L 5.5 FL (6.5-10.1) L Neutrophils (%) (Auto) 65.7 % (45.0-75.0) 60.2 % (45.0-75.0) Lymphocytes (%) (Auto) 21.7 % (20.0-45.0) 22.8 % (20.0-45.0) Monocytes (%) (Auto) 10.6 % (1.0-10.0) H 13.1 % (1.0-10.0) H Eosinophils (%) (Auto) 1.2 % (0.0-3.0) 2.9 % (0.0-3.0) Basophils (%) (Auto) 0.8 % (0.0-2.0) 1.0 % (0.0-2.0) Prothrombin Time 11.0 SEC (9.30-11.50) Prothromb Time International Ratio 1.0 (0.9-1.1) Activated Partial Thromboplast Time 32 SEC (23-33) Sodium Level 146 MMOL/L (136-145) H 137 MMOL/L (136-145) Potassium Level 3.2 MMOL/L (3.5-5.1) L 4.6 MMOL/L (3.5-5.1) Chloride Level 112 MMOL/L (98-107) H 99 MMOL/L (98-107) Carbon Dioxide Level 22 MMOL/L (21-32) 27 MMOL/L (21-32) Anion Gap 12 mmol/L (5-15) 11 mmol/L (5-15) Blood Urea Nitrogen 24 mg/dL (7-18) H 42 mg/dL (7-18) H Creatinine 2.9 MG/DL (0.55-1.30) H 5.1 MG/DL (0.55-1.30) #H Estimat Glomerular Filtration Rate mL/min (>60) mL/min (>60) Glucose Level 55 MG/DL (74-106) L 150 MG/DL (74-106) H Lactic Acid Level 1.70 mmol/L (0.4-2.0) Calcium Level 5.7 MG/DL (8.5-10.1) *L 8.1 MG/DL (8.5-10.1) #L Magnesium Level 1.2 MG/DL (1.8-2.4) L 2.2 MG/DL (1.8-2.4) Total Bilirubin 0.4 MG/DL (0.2-1.0) 0.6 MG/DL (0.2-1.0) Aspartate Amino Transf (AST/SGOT) 12 U/L (15-37) L 11 U/L (15-37) L Alanine Aminotransferase (ALT/SGPT) 12 U/L (12-78) 9 U/L (12-78) L Alkaline Phosphatase 65 U/L (46-116) 72 U/L (46-116) Total Creatine Kinase 33 U/L (26-308) 29 U/L (26-308) Troponin I 0.066 ng/mL (0.000-0.056) Pro-B-Type Natriuretic Peptide > 38869 pg/mL (0-125) H > 59101 pg/mL (0-125) H Total Protein 5.0 G/DL (6.4-8.2) L 6.9 G/DL (6.4-8.2) # Albumin 1.9 G/DL (3.4-5.0) L 2.3 G/DL (3.4-5.0) L Globulin 3.1 g/dL 4.6 g/dL Albumin/Globulin Ratio 0.6 (1.0-2.7) L 0.5 (1.0-2.7) L Lipase 74 U/L (73-393) Arterial Blood pH 7.492 (7.350-7.450) Arterial Blood Partial Pressure CO2 29.6 mmHg (35.0-45.0) L Arterial Blood Partial Pressure O2 200.4 mmHg (75.0-100.0) H Arterial Blood HCO3 22.2 mmol/L (22.0-26.0) Arterial Blood Oxygen Saturation 94.0 % (95-100) L Arterial Blood Base Excess -0.6 (-2-2) Rashi Test Positive Uric Acid 3.4 MG/DL (2.6-7.2) Phosphorus Level 5.9 MG/DL (2.5-4.9) H Gamma Glutamyl Transpeptidase 51 U/L (5-85) C-Reactive Protein, Quantitative 6.1 mg/dL (0.00-0.90) H Random Vancomycin Level 17.6 ug/mL Microbiology Date/Time Source Procedure Growth Status 12/01/18 00:30 Nasal Nares - Final Complete 12/01/18 00:30 Nasal Nares - Final Complete Height (Feet): 5 Height (Inches): 3.00 Weight (Pounds): 115 Medications Current Medications Medications (Trade) Dose Ordered Sig/Amber Route PRN Reason Start Time Stop Time Status Last Admin Dose Admin Acetaminophen (Tylenol) 650 mg Q4H PRN ORAL fever 12/01/18 09:15 12/31/18 09:14 Albuterol/ Ipratropium (Albuterol/ Ipratropium) 3 ml Q4H PRN HHN Shortness of Breath 12/01/18 09:15 12/06/18 09:14 Dextrose (Dextrose 50%) 25 ml Q30M PRN IV Hypoglycemia 12/01/18 09:15 12/31/18 09:14 Dextrose (Dextrose 50%) 50 ml Q30M PRN IV Hypoglycemia 12/01/18 09:15 12/31/18 09:14 Dextrose/Sodium Chloride 1,000 ml @ 50 mls/hr Q20H IV 12/01/18 10:15 12/31/18 10:14 12/01/18 10:47 Heparin Sodium (Porcine) (Heparin 5000 units/ml) 5,000 units EVERY 12 HOURS SUBQ 12/01/18 21:00 12/31/18 20:59 Lorazepam (Ativan 2mg/ml 1ml) 2 mg Q2H PRN IV For Anxiety 12/01/18 09:15 12/08/18 09:14 12/01/18 14:10 Morphine Sulfate (Morphine Sulfate) 4 mg Q4H PRN IVP Severe Pain (Pain Scale 7-10) 12/01/18 09:15 12/08/18 09:14 Norepinephrine Bitartrate 4 mg/ Dextrose 254 ml @ 0 mls/hr Q24H IV 12/01/18 09:15 12/31/18 09:14 Ondansetron HCl (Zofran) 4 mg Q6H PRN IVP Nausea & Vomiting 12/01/18 09:15 12/31/18 09:14 Pantoprazole (Protonix) 40 mg DAILY IV 12/01/18 09:30 12/31/18 09:29 12/01/18 09:55 Piperacillin Sod/ Tazobactam Sod 2.25 gm/Dextrose 55 ml @ 110 mls/hr Q8HR IVPB 12/02/18 06:00 12/09/18 05:59 Polyethylene Glycol (Miralax) 17 gm DAILYPRN PRN ORAL Constipation 12/01/18 09:15 12/31/18 09:14 Vancomycin HCl (Vanco rx to dose) 1 ea DAILY PRN MISC Per rx protocol 12/01/18 12:30 12/31/18 12:29 Assessment/Plan Problem List: (1) Sacral decubitus ulcer, stage III Assessment & Plan: Patient presents to sacral decubitus ulcer on admission. Significant portion of wound is partial thickness and small portion with full thickness breakdown approximately 1cm x 1cm at inferior yellow white portion. no drainage. periwound intact and stable. wound bed of partial thickness with healthy viable tissue. no signs of infection. no odor Pt presented on admission with Irregular shaped, full thickness Sacral pressure injury.Scattered areas of biofilm noted at base of wound .Other muñoz wound is moist and viable. Edges adherent to base of wound . Periwound with darker skin tone without induration or fluctuance. No odor or exudate noted.(L)7.5cm x (W) 8.5cm. Non-blanchable erythema with fluctuance and delineated margins noted to R heel(L )3cm x (W)4cm.Periwound is pink and blanchable. Non-blanchable erythema with fluctuance noted to L heel. Periwound pink and blanchable without induration or fluctuance. (L)3.8cm x (W)4.5cm. Tx.Plan: Cleanse Sacral wound with Saline.Apply Therahoney. Apply Triad Paste periwound. Cover with Optifoam drsg Daily and prn. Apply Cavilon Skin Barrier to R and L heels.Cover each Heel with Optifoam drsg. Change every 7 days and prn. APM/BOOGIE Mattress overlay. Reposition at least every 2hours or as tolerated. Off-load heels with pillow. will follow with recs thank you ICD Codes: L89.153 - Pressure ulcer of sacral region, stage 3 SNOMED: 535650735, 411099044 (2) Hypoglycemia ICD Codes: E16.2 - Hypoglycemia, unspecified SNOMED: 478094969 (3) Left lower lobe pneumonia ICD Codes: J18.1 - Lobar pneumonia, unspecified organism SNOMED: 631280625 Qualifiers: Qualified Codes: J18.1 - Lobar pneumonia, unspecified organism (4) Hypocalcemia ICD Codes: E83.51 - Hypocalcemia; Z99.2 - Dependence on renal dialysis SNOMED: 6366694 (5) COPD (chronic obstructive pulmonary disease) ICD Codes: J44.9 - Chronic obstructive pulmonary disease, unspecified SNOMED: 59666481 (6) HTN (hypertension) ICD Codes: I10 - Essential (primary) hypertension SNOMED: 01439320 (7) DM (diabetes mellitus) ICD Codes: E11.9 - Type 2 diabetes mellitus without complications SNOMED: 09926457 (8) Respiratory failure Assessment & Plan: requiring intubated for airway protection wean vent as tolerated AM ABG ICD Codes: J96.90 - Respiratory failure, unspecified, unspecified whether with hypoxia or hypercapnia SNOMED: 704359309 Qualifiers: Qualified Codes: J96.01 - Acute respiratory failure with hypoxia; J96.02 - Acute respiratory failure with hypercapnia (9) ESRD (end stage renal disease) on dialysis ICD Codes: N18.6 - End stage renal disease; Z99.2 - Dependence on renal dialysis SNOMED: 997422018 Florencio Herrera Dec 01, 2018 15:36
--- NOTE | 2018-12-01 16:15 | NUR ---
NURSE NOTES: Pt is asleep, awakens to touch. O2sat 100% at AC16, VT500, Peep5.0, FIO2 35%. child monitor displays Sinus Isaiah, with HR fluctuating from 52-55. No s/s of pain or discomfort noted. Temp 97.6F axillary. Peripheral IV infusing D5NS at 50ml/hour. Bilateral soft/wrist restraints in place for attempts of pulling/out vent-tubing. Pt is on P200 mattress with bilateral heel floating. Optifoam dressing in place, dry/intact on sacral wound. Will continue to monitor.
--- NOTE | 2018-12-01 17:30 | Consultation ---
DATE OF CONSULTATION: 12/01/2018 CARDIAC ELECTROPHYSIOLOGY CONSULTATION CONSULTING PHYSICIAN: Ryan Harley M.D. REFERRING PHYSICIAN: Tony Cyr M.D. REASON FOR CONSULTATION: Bradycardia, the patient with history of atrial fibrillation. HISTORY OF PRESENT ILLNESS: The patient is a 73-year-old gentleman with history of hypertension, COPD, diabetes, end-stage renal disease on hemodialysis, and history of paroxysmal atrial fibrillation on amiodarone, [facility] due to altered level of consciousness and hypoxia. The patient received dialysis earlier prior to presentation to the emergency room. The patient's pulse oximetry was 64% and this did improve to 100% with non-rebreather mask. The patient was subsequently intubated and was admitted to intensive care unit. The patient was bradycardic, heart rate dropped into 40s, sinus bradycardia. Cardiac electrophysiology consultation was obtained for further evaluation and management. REVIEW OF SYSTEMS: Cannot be obtained at this time. PAST MEDICAL HISTORY: As mentioned above. FAMILY HISTORY: Noncontributory. MEDICATIONS: Per reconciliation. PHYSICAL EXAMINATION: VITAL SIGNS: Blood pressure of 149/53, pulse 52, respirations 18, and temperature 97.1. HEAD AND NECK: Shows no JVD. He is orally intubated. LUNGS: Coarse rhonchi. CARDIOVASCULAR: Bradycardic S1 and S2 with no gallop or murmur. ABDOMEN: Soft. EXTREMITIES: No pitting edema. DIAGNOSTIC DATA: EKG shows sinus rhythm with no acute ST-T wave abnormalities. Labs show white count of 9.2, hemoglobin of 8.8, hematocrit 26, and platelet count of 346,000. Sodium is 137, potassium 4.6, BUN of 43, creatinine 5.1. Troponin is mildly elevated at 0.066. BNP is more than 35,000. ASSESSMENT AND PLAN: 1. Bradycardia. The patient was on amiodarone that has been discontinued. The patient is also on clonidine patch that I will discontinue as well in view of the patient's bradycardia. The patient was hypotensive and was on Levophed earlier. We will watch the patient on telemetry and we will get an echocardiogram for further evaluation and management. It is of note, the patient's preliminary echo showed ejection fraction of 55%. 2. History of hypertension, currently off antihypertensives. 3. Respiratory failure, on broad-spectrum antibiotic. Further evaluation by Dr. Arcos. 4. Troponin leak, likely due to renal failure. 5. End-stage renal disease, on hemodialysis. Thank you very much for allowing me to participate in the care of this patient. Please do not hesitate to contact me for any questions regarding my evaluation. Sincerely, Ryan Harley M.D. DR: Divya JOB#: [id number] CC:
--- NOTE | 2018-12-01 18:16 | NUR ---
NURSE NOTES: Pt was cleaned and repositioned. Pt had small amount of formed/soft/brown stool. Oral care and suctioning done, with small/thin/clear sputum suctioned. BS was 144, pt on D5NS at 50mL/hour, with no insulin coverage per MD order, and currently diet as NPO.
--- NOTE | 2018-12-01 18:45 | History and Physical Report ---
DATE OF ADMISSION: 12/01/2018 CHIEF COMPLAINT: The patient is a 73-year-old male, presents with chief complaint of altered mental status and hypoxia. HISTORY OF PRESENT ILLNESS: The patient is a resident of [facility]. The patient is currently intubated in the intensive care unit. Much of the history and physical is taken from the patient's chart. According to the notes from [facility], the patient began to experience altered mental status yesterday, November 30, 2018. The patient also was having difficulty breathing. The patient also had fevers. The patient is found to be hypoxic with pulse oximetry in the 80s. The patient was transferred to [facility]. The patient was placed on a non-rebreather. The patient was emergently intubated. The patient is admitted with respiratory failure and altered mental status. REVIEW OF SYSTEMS: Unable to assess secondary to the patient's mental status. PAST MEDICAL HISTORY: Significant for: 1. Type 2 diabetes. 2. Chronic obstructive pulmonary disease. 3. Hypertension. 4. End-stage renal disease, on hemodialysis every Sunday, , and Sunday. PAST SURGICAL HISTORY: Significant for right femur fracture open reduction and internal fixation. CURRENT MEDICATIONS: 1. Tylenol 650 mg p.o. q.4 h. p.r.n. 2. Amiodarone 200 mg p.o. daily. 3. Amlodipine 10 mg p.o. daily. 4. Vitamin C 500 mg p.o. daily. 5. Aspirin 81 mg p.o. daily. 6. Ativan 2 mg p.o. p.r.n. 7. Catapres patch 0.2 mg per 24 hour one patch applied every Sunday. 8. Clonidine 0.1 mg p.o. q.4 h. p.r.n. 9. Pepcid 20 mg p.o. nightly. 10. Gabapentin 300 mg p.o. three times daily. 11. Humalog sliding scale. 12. Blackwell 5/325 mg one tablet p.o. q.6 h. p.r.n. 13. DuoNeb nebulizer q.4 h. p.r.n. 14. Losartan 100 mg p.o. daily. 15. Megace 40 mg p.o. before every meal breakfast and lunch. 16. Nephro-Alexandro one tablet p.o. daily. 17. Potassium chloride 20 mEq p.o. daily. 18. Seroquel 25 mg p.o. nightly. ALLERGIES: Neomycin. SOCIAL HISTORY: The patient is single. The patient is a resident of [facility]. PHYSICAL EXAMINATION: VITAL SIGNS: Temperature 99.4 degrees, respirations 20, pulse 83, blood pressure 140/96, and pulse oximetry initially was 79 on room air. GENERAL: The patient is well-developed and well-nourished male, who is intubated and sedated. HEENT: Eyes, pupils equal and responsive to light and accommodation. Extraocular movements are intact. NECK: Supple without lymphadenopathy. CHEST: Coarse expiratory wheezes bilaterally with coarse upper airway sounds. Otherwise, without rales. Neurologically unable to assess. CARDIOVASCULAR: Bradycardic, regular rate. S1 and S2 normal without murmurs, rubs, or gallops. ABDOMEN: Soft, nontender, and nondistended. Positive bowel sounds. No evidence of hepatosplenomegaly. Currently, no rebound or guarding noted. RECTAL: Refused. GENITALIA: Refused. EXTREMITIES: Negative for clubbing, cyanosis, or edema. NEUROLOGIC: Unable to assess. LABORATORY STUDIES: WBC 15.7, hemoglobin 10.7, hematocrit 32.8, and platelets 226,000. Sodium 146, potassium 3.3, chloride 112, CO2 22, BUN 24, creatinine 2.9, glucose 55, troponin 0.066. BNP elevated greater than 35,000. A chest x-ray is reported as no acute disease. ASSESSMENT: This is a 73-year-old male with: 1. Respiratory failure. 2. Altered mental status. 3. Acute congestive heart failure. 4. Hypoxia. 5. Diabetes. 6. Chronic obstructive pulmonary disease. 7. Hypertension. 8. End-stage renal disease. 9. Sacral decubitus ulcer. TREATMENT: 1. Respiratory failure/chronic obstructive pulmonary disease. A Pulmonary consultation has been obtained with Dr. Sulaiman Arcos. The patient is currently intubated and sedated. The patient has been started empirically on ertapenem. 2. Acute congestive heart failure. Cardiology consultation has been obtained with Dr. Ryan Harley. BNP will be performed. Congestive heart failure may be secondary to volume overload secondary to end-stage renal disease. 3. Diabetes type 2. The patient has been placed on NovoLog sliding scale. 4. Hypertension. Continue losartan as above. 5. End-stage renal disease. A Nephrology consultation has been obtained with Dr. Fu. 6. Sacral decubitus ulcer. Aryan Brody M.D. DR: Luana JOB#: [id number] CC:
--- NOTE | 2018-12-01 18:47 | NUR ---
NURSE NOTES: Repeat ECG done per Dr Harley's order; Sinus Bradycardia. Filed in paper/chart.
--- NOTE | 2018-12-01 19:10 | NUR ---
RESPIRATORY NOTE: PT RECEIVED STABLE ON AC/VC 16, 500, 35%, +5. ALARMS ON AND AUDIBLE. VENT CIRCUIT SECURE AND OUT OF THE WAY. PT IS BEING VENTILATED VIA AND ETT 7.5 @ 24 CM LIPLINE. BILATERAL SOFT WRIST RESTRAINS ARE SECURELY IN PLACE. RHONCHI BREATH SOUNDS HEARD UPON AUSCULTATION. SMALL AMOUNT OF CLEAR/ WHITE SECRETIONS OBTAINED FROM THIS PT. NO S/S OF RESPIRATORY DISTRESS NOTED AT THIS TIME. WILL CONTINUE TO MONITOR.
--- NOTE | 2018-12-01 19:15 | NUR ---
HAND-OFF: Change of shift report given to Ryan ESTEVEZ. Pt is resting in stable condition. Endorsed plan of care.
--- NOTE | 2018-12-01 19:30 | NUR ---
NURSE NOTES: Received pt in no acute distress; asleep but opens eyes to pain. Remains orally intubated with #7.5 ETT placed over right lip at 24cm. Noted vent settings of AC16 TV 500 fiO2 .35 peep 5; saturating 100%. Secretions small amt, thin, white; chest sounds with scattered rhonchi and diminished air entry at bases. Pt i mpulsive and remains on bilat soft wrist restraints. NPO; no tubes. Left arm AV graft with mod strong bruit and thrill. Anuric. No BM; wound dressing on sacral area dry and intact. PIV site on RFA patent with IVF of D5NS running at 50ml/h. Willl continue to monitor
[2018-12-01] MEDS: Heparin 5000 units/ml inj SUBQ SCH (21:13)
--- NOTE | 2018-12-01 22:00 | NUR ---
NURSE NOTES: Remains asleep; no distress; VSS.
[2018-12-01] MEDS ORDERED: Vancomycin 1 GM in D5W 275 ML IV SCH (23:45)
[2018-12-02] VITALS (24 sets, daily range): BP systolic 110–185; BP diastolic 39–72
--- NOTE | 2018-12-02 | NUR ---
NURSE NOTES: Afebrile. Oral care and suctioning done; obtained mod amt of whitish secretions. SB on the scope;BP stable; PIV site patent. Accucheck 145, no coverage. Restraints maintained.
[2018-12-02] MEDS: LORazepam Inj 2mg/ml 1ml IV PRN ×4 (01:45→16:32)
--- NOTE | 2018-12-02 01:45 | NUR ---
NURSE NOTES: Restless and agitated. Attempts to get up. Ativan 2mg IVP given
--- NOTE | 2018-12-02 04:00 | NUR ---
NURSE NOTES: Had 1 small amt of soft BM; wound dressing contaminated; redressed wound.Complete bed bath done. VSS otherwise.
[2018-12-02 04:43] LABS: HEMATOCRIT 24.6 % (42.0-52.0); HEMOGLOBIN 7.9 G/DL (14.2-18.0); MEAN CORPUSCULAR VOLUME 105 FL (80-99); PLATELET COUNT 349 K/UL (150-450); RED BLOOD COUNT 2.35 M/UL (4.70-6.10); RED CELL DISTRIBUTION WIDTH 16.3 % (11.6-14.8); WHITE BLOOD COUNT 8.6 K/UL (4.8-10.8)
[2018-12-02 04:53] LABS: INR 1.1 (0.9-1.1)
[2018-12-02 05:10] LABS: % IRON SATURATION 35 % (15-50); IRON 30 ug/dL (50-175); TOTAL IRON BINDING CAPACITY 85 ug/dL (250-450)
--- NOTE | 2018-12-02 05:10 | NUR ---
RESPIRATORY NOTE: PT REMAINED STABLE ON CMV WITH CURRENT SETTINGS. SXN'd PRN WITHOUT ADVERSE REACTION. VENT CIRCUIT SECURE AND OUT OF THE WAY. NO S/S OF RESPIRATORY DISTRESS NOTED AT THIS TIME.
[2018-12-02 05:12] LABS: ALANINE AMINOTRANSFERASE 8 U/L (12-78); ALBUMIN 2.4 G/DL (3.4-5.0); ALBUMIN/GLOBULIN RATIO 0.6 (1.0-2.7); ALKALINE PHOSPHATASE 58 U/L (46-116); ANION GAP 15 mmol/L (5-15); ASPARTATE AMINO TRANSFERASE 11 U/L (15-37); BILIRUBIN,TOTAL 0.5 MG/DL (0.2-1.0); BLOOD UREA NITROGEN 46 mg/dL (7-18); CALCIUM 7.5 MG/DL (8.5-10.1); CARBON DIOXIDE 23 MMOL/L (21-32); CHLORIDE 103 MMOL/L (98-107); PHOSPHORUS 6.5 MG/DL (2.5-4.9); POTASSIUM 3.9 MMOL/L (3.5-5.1); SODIUM 140 MMOL/L (136-145)
[2018-12-02] MEDS: D5NS 1,000 ML IV SCH (05:46)
[2018-12-02] MEDS ORDERED: Piperacillin/Tazobactam 2.25 GM in D5W 55 ML IVPB SCH (06:00)
--- NOTE | 2018-12-02 07:12 | NUR ---
RESPIRATORY NOTE: received pt, intubated with ett 7.5, placed 24cm at the lip. secured via anchor fast. no redness or skin breakdown visible around facial area noted. no resp distress noted on current vent settings. alarms are set and audible with ambu bag at bedside. will cont to monitor.
--- NOTE | 2018-12-02 07:17 | NUR ---
HAND-OFF: Report given to ZENAIDA Wu.
--- NOTE | 2018-12-02 07:18 | NUR ---
NURSE NOTES: End of shift report received from Ryan ESTEVEZ. Pt is asleep, awakens to touch/pain. Currently intubated, ETT 7.5 at 24cm left lipline, with vent settings, AC16, VT500, Peep 5.0, FIO2 35% with O2sat at 100%. Lung sounds are clear. quality assurance monitor final displays NSR with heart rate at 60. Weak pulses palpated on bilateral extremities. Pt has left upper extremity AV shunt for HD, with bruit/thrill present. Also, peripheral IV access on right FA, currently infusing D5NS at 50mL/hour. No edema on extremities. Skin has sacral st3 wound, covered with optifoam dressing, and bilateral heels DTI, covered with optifoam dressing. Pt is on P200 pressure-releasing mattress with bilateral heels floating. Abdomen is round, soft and nontender to touch. Hypoactive bowel sounds present in all four quadrants. Pt is currently NPO. Bilateral soft wrist restraints present with skin integrity at restraint site within normal limits. Pt opens eyes and attempts to pull out vent-tubing, despite multiple reorientation and distraction attempts. Bed is locked with three side rails up and call light within reach. Will continue to monitor pt and follow plan of care per MD orders and protocol. Addendum: 12/02/18 at 2008 by HALEIGH SANCHEZ RN CORRECTION: Bilateral heels have mild pink/redness, and heels are floated off mattress. Optifoam dressing on heels for cushion/support and to prevent pressure sore.
--- NOTE | 2018-12-02 08:14 | NUR ---
RADIOLOGY: PCXR COMPLETED 0815 HRS. BY NF, FA
[2018-12-02] MEDS: Pantoprazole Inj IV SCH (08:18)
[2018-12-02] MEDS: Heparin 5000 units/ml inj SUBQ SCH ×2 (08:19→21:09)
--- NOTE | 2018-12-02 10:05 | Pulmonolgy Critical Care Note ---
Critical Care - Asmt/Plan Problems: (1) Respiratory failure, acute (2) Sepsis (3) ESRD (end stage renal disease) on dialysis (4) COPD (chronic obstructive pulmonary disease) (5) HTN (hypertension) (6) DM (diabetes mellitus) (7) Bacteremia (8) Sacral decubitus ulcer, stage III Respiratory: monitor respiratory rate, adjust FIO2, CXR Cardiac: continue pressors, continue to monitor HR/BP Renal: F/U I&O, keep IV fluid Infectious Disease: check cultures, continue antibiotics Gastrointestinal: start feedings Endocrine: monitor blood sugar, continue sliding scale insulin Hematologic: monitor H/H Neurologic: PRN Morphine Affect: PRN ativan Prophylaxis: Protonix Disposition: keep in ICU 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, 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, 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 Discussed with: nurses, consultants, correctional counselor/case managerassembly manager - Objective Last 24 Hour Vital Signs Date Time Temp Pulse Resp B/P (MAP) Pulse Ox O2 Delivery O2 Flow Rate FiO2 12/02/18 09:00 61 16 158/58 (91) 100 60 12/02/18 08:35 60 17 35 12/02/18 08:00 98.0 60 16 159/42 (81) 100 60 12/02/18 08:00 35 12/02/18 07:08 59 16 35 12/02/18 07:00 66 19 152/47 (82) 100 12/02/18 06:06 59 16 164/58 (93) 100 12/02/18 05:10 54 16 35 12/02/18 05:00 57 16 168/64 (98) 100 12/02/18 04:00 63 12/02/18 04:00 Mechanical Ventilator 12/02/18 04:00 35 12/02/18 04:00 98.6 63 17 166/65 (98) 100 12/02/18 03:00 52 17 110/40 (63) 100 12/02/18 02:39 51 16 35 12/02/18 02:00 61 17 151/62 (91) 100 12/02/18 01:00 58 16 145/47 (79) 100 12/02/18 00:42 61 18 35 12/02/18 00:00 35 12/02/18 00:00 98.4 63 17 156/57 (90) 100 12/02/18 00:00 63 12/02/18 00:00 Mechanical Ventilator 12/01/18 23:06 52 16 35 12/01/18 23:00 52 16 140/49 (79) 100 12/01/18 22:00 63 18 156/45 (82) 100 12/01/18 21:00 56 18 149/50 (83) 100 12/01/18 20:35 58 16 35 12/01/18 20:00 60 12/01/18 20:00 98.5 60 18 143/53 (83) 100 12/01/18 20:00 Mechanical Ventilator 12/01/18 20:00 35 12/01/18 19:10 53 16 35 12/01/18 19:00 52 16 128/52 (77) 100 12/01/18 18:00 55 16 148/50 (82) 100 12/01/18 17:00 51 16 133/45 (74) 100 12/01/18 16:56 58 16 35 12/01/18 16:00 51 12/01/18 16:00 97.4 51 16 155/50 (85) 100 12/01/18 16:00 35 12/01/18 16:00 Mechanical Ventilator 12/01/18 15:25 51 16 35 12/01/18 15:00 51 16 111/46 (67) 100 12/01/18 14:00 51 16 131/50 (77) 100 12/01/18 13:01 97.1 59 16 149/53 (85) 100 12/01/18 12:05 35 12/01/18 12:01 59 16 98/44 (62) 100 12/01/18 12:00 Mechanical Ventilator 12/01/18 12:00 66 12/01/18 11:32 65 17 35 12/01/18 11:00 52 16 110/40 (63) 100 Status: sedated Condition: critical HEENT: atraumatic Lungs: clear Heart: HR/BP stable Abdomen: soft, non-tender Extremities: no C/C/E Decubiti: location Micro: Microbiology Date/Time Source Procedure Growth Status 12/01/18 00:15 Blood Blood Culture - Preliminary NO GROWTH AFTER 24 HOURS Resulted 12/01/18 00:00 Blood Blood Culture - Preliminary Gram Positive Cocci Resulted 12/01/18 00:30 Nasal Nares - Final Complete 12/01/18 00:30 Nasal Nares - Final Complete 12/01/18 08:30 Stool Clostridium difficile Toxin Assay - Final Complete 12/01/18 06:00 Sacral Wound Gram Stain - Final Resulted 12/01/18 06:00 Sacral Wound Wound Culture Pending Resulted Accucheck: 142 Critical Care - Subjective ROS Limited/Unobtainable: Yes ICU Day: 2 Intubation Day: 2 FI02: 35 Vent Support Breath Rate: 16 Vent Support Mode: AC Vent Tidal Volume: 500 Sputum Amount: Scant PEEP: 5.0 PIP: 18 I&O: Intake and Output 12/01/18 12/02/18 18:59 06:59 Intake Total 1510 ml 500 ml Output Total 0 ml 0 ml Balance 1510 ml 500 ml Intake Oral 0 ml IV Total 1510 ml 500 ml Output Urine Total 0 ml 0 ml # Bowel Movements 7 4 CXR: ET in good position ET-Tube: 7.5 ET Position: 24 Labs: Laboratory Tests Test 12/01/18 10:30 12/02/18 03:20 12/02/18 06:40 White Blood Count 9.2 K/UL (4.8-10.8) 8.6 K/UL (4.8-10.8) Red Blood Count 2.59 M/UL (4.70-6.10) L 2.35 M/UL (4.70-6.10) L Hemoglobin 8.8 G/DL (14.2-18.0) L 7.9 G/DL (14.2-18.0) L Hematocrit 26.5 % (42.0-52.0) L 24.6 % (42.0-52.0) L Mean Corpuscular Volume 102 FL (80-99) H 105 FL (80-99) H Mean Corpuscular Hemoglobin 33.9 PG (27.0-31.0) H 33.6 PG (27.0-31.0) H Mean Corpuscular Hemoglobin Concent 33.2 G/DL (32.0-36.0) 32.0 G/DL (32.0-36.0) Red Cell Distribution Width 16.1 % (11.6-14.8) H 16.3 % (11.6-14.8) H Platelet Count 346 K/UL (150-450) 349 K/UL (150-450) Mean Platelet Volume 5.5 FL (6.5-10.1) L 5.8 FL (6.5-10.1) L Neutrophils (%) (Auto) 60.2 % (45.0-75.0) % (45.0-75.0) Lymphocytes (%) (Auto) 22.8 % (20.0-45.0) % (20.0-45.0) Monocytes (%) (Auto) 13.1 % (1.0-10.0) H % (1.0-10.0) Eosinophils (%) (Auto) 2.9 % (0.0-3.0) % (0.0-3.0) Basophils (%) (Auto) 1.0 % (0.0-2.0) % (0.0-2.0) Sodium Level 137 MMOL/L (136-145) 140 MMOL/L (136-145) Potassium Level 4.6 MMOL/L (3.5-5.1) 3.9 MMOL/L (3.5-5.1) Chloride Level 99 MMOL/L (98-107) 103 MMOL/L (98-107) Carbon Dioxide Level 27 MMOL/L (21-32) 23 MMOL/L (21-32) Anion Gap 11 mmol/L (5-15) 15 mmol/L (5-15) Blood Urea Nitrogen 42 mg/dL (7-18) H 46 mg/dL (7-18) H Creatinine 5.1 MG/DL (0.55-1.30) #H 6.0 MG/DL (0.55-1.30) H Estimat Glomerular Filtration Rate mL/min (>60) mL/min (>60) Glucose Level 150 MG/DL (74-106) H 423 MG/DL (74-106) #H Uric Acid 3.4 MG/DL (2.6-7.2) Calcium Level 8.1 MG/DL (8.5-10.1) #L 7.5 MG/DL (8.5-10.1) L Phosphorus Level 5.9 MG/DL (2.5-4.9) H 6.5 MG/DL (2.5-4.9) H Magnesium Level 2.2 MG/DL (1.8-2.4) 1.9 MG/DL (1.8-2.4) Total Bilirubin 0.6 MG/DL (0.2-1.0) 0.5 MG/DL (0.2-1.0) Gamma Glutamyl Transpeptidase 51 U/L (5-85) Aspartate Amino Transf (AST/SGOT) 11 U/L (15-37) L 11 U/L (15-37) L Alanine Aminotransferase (ALT/SGPT) 9 U/L (12-78) L 8 U/L (12-78) L Alkaline Phosphatase 72 U/L (46-116) 58 U/L (46-116) Total Creatine Kinase 29 U/L (26-308) C-Reactive Protein, Quantitative 6.1 mg/dL (0.00-0.90) H 5.0 mg/dL (0.00-0.90) H Pro-B-Type Natriuretic Peptide > 74467 pg/mL (0-125) H 45379 pg/mL (0-125) H Total Protein 6.9 G/DL (6.4-8.2) # 6.2 G/DL (6.4-8.2) L Albumin 2.3 G/DL (3.4-5.0) L 2.4 G/DL (3.4-5.0) L Globulin 4.6 g/dL 3.8 g/dL Albumin/Globulin Ratio 0.5 (1.0-2.7) L 0.6 (1.0-2.7) L Random Vancomycin Level 17.6 ug/mL Prothrombin Time 12.0 SEC (9.30-11.50) H Prothromb Time International Ratio 1.1 (0.9-1.1) Activated Partial Thromboplast Time 34 SEC (23-33) H Hemoglobin A1c 5.8 % (4.3-6.0) Lactic Acid Level 0.70 mmol/L (0.4-2.0) Iron Level 30 ug/dL (50-175) L Total Iron Binding Capacity 85 ug/dL (250-450) L Percent Iron Saturation 35 % (15-50) Unsaturated Iron Binding 55 ug/dL (112-346) L Ferritin 1007 NG/ML (8-388) H Troponin I 0.079 ng/mL (0.000-0.056) Vitamin B12 Level 650 PG/ML (193-986) Folate 15.4 NG/ML (8.6-58.9) Thyroid Stimulating Hormone (TSH) 2.050 uiU/mL (0.358-3.740) Cortisol AM Sample Pending Arterial Blood pH 7.458 (7.350-7.450) Arterial Blood Partial Pressure CO2 30.6 mmHg (35.0-45.0) L Arterial Blood Partial Pressure O2 136.3 mmHg (75.0-100.0) H Arterial Blood HCO3 21.2 mmol/L (22.0-26.0) L Arterial Blood Oxygen Saturation 93.5 % (95-100) L Arterial Blood Base Excess -2.2 (-2-2) L Rashi Test Positive Sulaiman Arcos MD Dec 02, 2018 10:05
--- NOTE | 2018-12-02 10:19 | Diagnostic Imaging Report ---
Indication: Shortness of breath Technique: One view of the chest Comparison: 12/01/2018 Findings: Stable satisfactory position of endotracheal tube. Lungs and pleural spaces remain clear. No significant interim change Impression: Unchanged, over one day, findings as above.
--- NOTE | 2018-12-02 10:30 | NUR ---
NURSE NOTES: Oral care and suctioning provided. Pt cleaned and repositioned. Pt had small/formed/soft/brown BM/stool. Pt is still attempting to pull out vent/tubing despite reorientation/distraction. Bilateral soft wrist restraints continue. Skin integrity at restraint site is within normal range. Vital signs are stable. Pt is resting in stable condition.
[2018-12-02 10:38] LABS: ALANINE AMINOTRANSFERASE 8 U/L (12-78); ALBUMIN 2.6 G/DL (3.4-5.0); ALBUMIN/GLOBULIN RATIO 0.6 (1.0-2.7); ALKALINE PHOSPHATASE 65 U/L (46-116); ANION GAP 16 mmol/L (5-15); ASPARTATE AMINO TRANSFERASE 11 U/L (15-37); BILIRUBIN,TOTAL 0.6 MG/DL (0.2-1.0); BLOOD UREA NITROGEN 50 mg/dL (7-18); CALCIUM 8.2 MG/DL (8.5-10.1); CARBON DIOXIDE 23 MMOL/L (21-32); CHLORIDE 101 MMOL/L (98-107); CREATININE 6.9 MG/DL (0.55-1.30); POTASSIUM 4.1 MMOL/L (3.5-5.1); SODIUM 140 MMOL/L (136-145)
--- NOTE | 2018-12-02 10:58 | NUR ---
RD ASSESSMENT & RECOMMENDATIONS SEE CARE ACTIVITY FOR COMPLETE ASSESSMENT DAILY ESTIMATED NEEDS: Needs based on ESRD, HD, wounds, critical care 50kg 25-30 kcals/kg [id number] total kcals 1.25-2 g protein/kg 63-100 g total protein Fluid per MD, on HD NUTRITION DIAGNOSIS: 1) Swallowing difficulty r/t respiratory status as evidenced by s/p acute resp failure w/ oral intubation, pending NGT/ OGT feeds. 2) Increased kcal and protein needs r/t renal dysfunction, wound healing as evidenced by pt w/ ESRD on HD, w/ open sacral and buttock wound, pending eval. CURRENT TF: Glucerna 1.2 @30 ENTERAL NUTRITION RECOMMENDATIONS: NEPRO @35ml/hr x24 hrs + Prosource 1 pack daily to provide 840ml, 1512 kcal, 68g + 11g pro, 611ml free fluid per day - With stability rec to start NEPRO @15ml/hr x6 hrs. - Advance as tolerated 10ml/hr q4-6 hrs to goal - Add PROSOURCE 1 pack daily to better meet est pro needs - Flush per , HOB over 30 degrees ADDITIONAL RECOMMENDATIONS: 1) TF recs as above 2) F/up w/ WC eval -> rec to add VERONICA BID + Nephrovite x1 daily 3) Per SNF: weight 110#/ 50kg (11/11/18) 4) Feed w/ hemodynamic stability 5) Weekly weights on calibrated bed scale
[2018-12-02] MEDS ORDERED: Vancomycin 1gm in D5W 275ml IVPB SCH (11:00)
--- NOTE | 2018-12-02 11:13 | Diagnostic Imaging Report ---
APPROVED REPORT CPT Code: 84764 Present Symptoms Shortness of breath BILATERAL: Imaging reveals a patent deep venous system bilaterally. There is no evidence of thrombus within the common femoral, superficial femoral, popliteal or tibial segments. The greater saphenous veins are within normal limits. Doppler indicates normal spontaneous flow within these segments.
--- NOTE | 2018-12-02 12:11 | NUR ---
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 HYPOGLYCEMIA . LL PNA VS; BP113/39, P 83, T 99.4, RR 21, SpO2 79 RBC 2.35,Hgb 7.9, Hct 24.6, BUN 50, CR 6.9 IS:CEFEPIME HCI 55ml IV NS x1L IV AZITHROMYCIN 275ml IVPB VANCOMYCIN HCI 275ml IV D50 50ml IV MAGNESIUM 100ml IVPB CALCIUM GLUCONATE 120ml IVPB ADMITTED TO ICU DCP: RETURN TO [facility]
--- NOTE | 2018-12-02 12:23 | Cardiology Report ---
APPROVED REPORT EKG Measurement Heart [id number] Sinus bradycardia with premature atrial complexes Prolonged QT Abnormal ECG
--- NOTE | 2018-12-02 12:25 | Cardiology Report ---
APPROVED REPORT EKG Measurement Heart [id number] [place] [id number] Sinus bradycardia Septal infarct, age undetermined Abnormal ECG
[2018-12-02] MEDS: NovoLOG Insulin Flexpen SUBQ SCH ×3 (12:29→21:10)
--- NOTE | 2018-12-02 12:30 | NUR ---
NURSE NOTES: Pt is asleep, awakens to touch/pain, still confused. Continues AC16, VT500, Peep 5.0, FIO2 35% with O2sat at 100% on oral intubation. shelter monitor displays sinus dona with heart rate fluctuating from 54-68. Weak pulses palpated on bilateral extremities. No edema on extremities. Currently NPO, with hypoactive bowel sounds, and BM of soft/brown/formed stool. Sacral dressing was changed. Bilateral heel mild pink/redness noted, and covered with optifoam dressing per wound care nurse recommendation. Bilateral soft wrist restraints present with skin integrity at restraint site within normal limits. Pt opens eyes and attempts to pull out vent-tubing, despite multiple reorientation and distraction attempts. Bed is locked with three side rails up and call light within reach. Will continue to monitor pt and follow plan of care per MD orders and protocol.
--- NOTE | 2018-12-02 12:50 | Consultation ---
History of Present Illness General Date patient seen: Dec 02, 2018 Chief Complaint: Altered Level of Consciousness Referring physician: Dr Cyr Present Illness HPI 73 y/o M with hx of HTN, COPD, DM2, R femur fx s/p ORIF, ESRD on HD via L arm shunt, pAfib on amiodarone, SNF resident presents to ED on 12/01 with AMS, hypoxia. Patient was hypoxic to 64% and which improved to 100% with NRB mask. Patient subsequently required intubation and was admitted to ICU. Patient was bradycardic to 40s (sinus bradycardia). Patient also noted ot have large sacral decubitus ulcer and leukocytosis to 15.7 upon admission. CXR showed possible LLL PNA. Allergies: Coded Allergies: NEOMYCIN (Verified Allergy, Mild, 12/01/18) Uncoded Allergies: plastics (Allergy, Mild, 12/01/18) Medication History Scheduled Amlodipine Besylate* (Amlodipine Besylate*), 10 MG ORAL DAILY, (Reported) Ascorbic Acid* (Ascorbic Acid*), 500 MG ORAL DAILY, (Reported) Aspirin Ec* (Aspirin Ec*), 81 MG ORAL DAILY, (Reported) Clonidine HCl (Catapres-Tts 2), 1 PATCH TDERMAL ONCE A WEEK, (Reported) Clonidine Hcl* (Catapres*), 0.1 MG ORAL EVERY 6 HOURS, (Reported) Epoetin Julio C (Epogen), 10,000 UNIT SUBQ DAILY, (Reported) Gabapentin* (Gabapentin*), 300 MG ORAL BEDTIME, (Reported) Heparin Sod (Porcine) (Heparin Sodium*), 5,000 UNITS SUBQ EVERY 12 HOURS, ( Reported) Lorazepam* (Ativan*), 2 MG ORAL BEDTIME, (Reported) Losartan Potassium* (Losartan Potassium*), 100 MG ORAL DAILY, (Reported) Magnesium Hydroxide* (Milk Of Magnesia*), 30 ML ORAL DAILY, (Reported) Potassium Chloride* (K-Dur*), 20 MEQ ORAL DAILY, (Reported) Quetiapine Fumarate* (Quetiapine Fumarate*), 25 MG ORAL DAILY, (Reported) Vitamin B Cmplx/Vit C/Folic AC (Nephro-Alexanrdo Tablet), 0.8 MG ORAL DAILY, ( Reported) Scheduled PRN Acetaminophen* (Acetaminophen 325MG Tablet*), 650 MG ORAL Q6H PRN for Pain Scale (3-5), (Reported) Hydrocodone Bit/Acetaminophen 5-325* ([place] 5-325*), 1 TAB ORAL Q4H PRN for For Pain, (Reported) Ipratropium Linneus 0.5MG/2.5ML (Ipratropium Linneus 0.5MG/2.5ML), 0.5 MG HHN Q6H PRN for Shortness of Breath, (Reported) Miscellaneous Medications Bisacodyl (Dulcolax), 10 MG RC, (Reported) Famotidine/Pf (Famotidine 20 Mg/2 Ml Vial), 20 MG IV, (Reported) Insulin Lispro (Humalog), 100 SUBQ, (Reported) Lactobacillus Acidophilus (Acidophilus), 1 EACH PO, (Reported) Megestrol Acetate,Micronized (Megestrol Acetate), 10 ML MC, (Reported) Patient History Healthcare decision maker Resuscitation status Full Code Advanced Directive on File No Patient History Narrative Pmhx: as above Shx: The patient is single. The patient is a resident of [facility]. Fhx: non contributory Review of Systems All Other Systems: negative except mentioned in HPI Physical Exam Physical Exam Narrative GENERAL: The patient is well-developed and well-nourished male, who is intubated and sedated. HEENT: Eyes, pupils equal and responsive to light and accommodation. Extraocular movements are intact. NECK: Supple without lymphadenopathy. CHEST: Coarse expiratory wheezes bilaterally with coarse upper airway sounds. Otherwise, without rales. Neurologically unable to assess. CARDIOVASCULAR: Bradycardic, regular rate. S1 and S2 normal without murmurs, rubs, or gallops. ABDOMEN: Soft, nontender, and nondistended. Positive bowel sounds. No evidence of hepatosplenomegaly. Currently, no rebound or guarding noted. EXTREMITIES: Negative for clubbing, cyanosis, or edema. NEUROLOGIC: Unable to assess. Last 24 Hour Vital Signs Date Time Temp Pulse Resp B/P (MAP) Pulse Ox O2 Delivery O2 Flow Rate FiO2 12/02/18 12:00 35 12/02/18 11:00 60 15 171/51 (91) 100 60 12/02/18 10:34 50 17 35 12/02/18 10:00 56 16 151/48 (82) 100 60 12/02/18 09:00 61 16 158/58 (91) 100 60 12/02/18 08:35 60 17 35 12/02/18 08:00 98.0 60 16 159/42 (81) 100 60 12/02/18 08:00 64 12/02/18 08:00 35 12/02/18 08:00 Mechanical Ventilator 12/02/18 07:08 59 16 35 12/02/18 07:00 66 19 152/47 (82) 100 12/02/18 06:06 59 16 164/58 (93) 100 12/02/18 05:10 54 16 35 12/02/18 05:00 57 16 168/64 (98) 100 12/02/18 04:00 63 12/02/18 04:00 Mechanical Ventilator 12/02/18 04:00 35 12/02/18 04:00 98.6 63 17 166/65 (98) 100 12/02/18 03:00 52 17 110/40 (63) 100 12/02/18 02:39 51 16 35 12/02/18 02:00 61 17 151/62 (91) 100 12/02/18 01:00 58 16 145/47 (79) 100 12/02/18 00:42 61 18 35 12/02/18 00:00 35 12/02/18 00:00 98.4 63 17 156/57 (90) 100 12/02/18 00:00 63 12/02/18 00:00 Mechanical Ventilator 12/01/18 23:06 52 16 35 12/01/18 23:00 52 16 140/49 (79) 100 12/01/18 22:00 63 18 156/45 (82) 100 12/01/18 21:00 56 18 149/50 (83) 100 12/01/18 20:35 58 16 35 12/01/18 20:00 60 12/01/18 20:00 98.5 60 18 143/53 (83) 100 12/01/18 20:00 Mechanical Ventilator 12/01/18 20:00 35 12/01/18 19:10 53 16 35 12/01/18 19:00 52 16 128/52 (77) 100 12/01/18 18:00 55 16 148/50 (82) 100 12/01/18 17:00 51 16 133/45 (74) 100 12/01/18 16:56 58 16 35 12/01/18 16:00 51 12/01/18 16:00 97.4 51 16 155/50 (85) 100 12/01/18 16:00 35 12/01/18 16:00 Mechanical Ventilator 12/01/18 15:25 51 16 35 12/01/18 15:00 51 16 111/46 (67) 100 12/01/18 14:00 51 16 131/50 (77) 100 12/01/18 13:01 97.1 59 16 149/53 (85) 100 Intake and Output 12/01/18 12/02/18 18:59 06:59 Intake Total 1510 ml 500 ml Output Total 0 ml 0 ml Balance 1510 ml 500 ml Intake Oral 0 ml IV Total 1510 ml 500 ml Output Urine Total 0 ml 0 ml # Bowel Movements 7 4 Laboratory Tests Test 12/02/18 03:20 12/02/18 06:40 12/02/18 09:40 White Blood Count 8.6 K/UL (4.8-10.8) Red Blood Count 2.35 M/UL (4.70-6.10) L Hemoglobin 7.9 G/DL (14.2-18.0) L Hematocrit 24.6 % (42.0-52.0) L Mean Corpuscular Volume 105 FL (80-99) H Mean Corpuscular Hemoglobin 33.6 PG (27.0-31.0) H Mean Corpuscular Hemoglobin Concent 32.0 G/DL (32.0-36.0) Red Cell Distribution Width 16.3 % (11.6-14.8) H Platelet Count 349 K/UL (150-450) Mean Platelet Volume 5.8 FL (6.5-10.1) L Neutrophils (%) (Auto) % (45.0-75.0) Lymphocytes (%) (Auto) % (20.0-45.0) Monocytes (%) (Auto) % (1.0-10.0) Eosinophils (%) (Auto) % (0.0-3.0) Basophils (%) (Auto) % (0.0-2.0) Prothrombin Time 12.0 SEC (9.30-11.50) H Prothromb Time International Ratio 1.1 (0.9-1.1) Activated Partial Thromboplast Time 34 SEC (23-33) H Sodium Level 140 MMOL/L (136-145) 140 MMOL/L (136-145) Potassium Level 3.9 MMOL/L (3.5-5.1) 4.1 MMOL/L (3.5-5.1) Chloride Level 103 MMOL/L (98-107) 101 MMOL/L (98-107) Carbon Dioxide Level 23 MMOL/L (21-32) 23 MMOL/L (21-32) Anion Gap 15 mmol/L (5-15) 16 mmol/L (5-15) H Blood Urea Nitrogen 46 mg/dL (7-18) H 50 mg/dL (7-18) H Creatinine 6.0 MG/DL (0.55-1.30) H 6.9 MG/DL (0.55-1.30) H Estimat Glomerular Filtration Rate mL/min (>60) mL/min (>60) Glucose Level 423 MG/DL (74-106) #H 207 MG/DL (74-106) #H Hemoglobin A1c 5.8 % (4.3-6.0) Lactic Acid Level 0.70 mmol/L (0.4-2.0) Calcium Level 7.5 MG/DL (8.5-10.1) L 8.2 MG/DL (8.5-10.1) L Phosphorus Level 6.5 MG/DL (2.5-4.9) H Magnesium Level 1.9 MG/DL (1.8-2.4) Iron Level 30 ug/dL (50-175) L Total Iron Binding Capacity 85 ug/dL (250-450) L Percent Iron Saturation 35 % (15-50) Unsaturated Iron Binding 55 ug/dL (112-346) L Ferritin 1007 NG/ML (8-388) H Total Bilirubin 0.5 MG/DL (0.2-1.0) 0.6 MG/DL (0.2-1.0) Aspartate Amino Transf (AST/SGOT) 11 U/L (15-37) L 11 U/L (15-37) L Alanine Aminotransferase (ALT/SGPT) 8 U/L (12-78) L 8 U/L (12-78) L Alkaline Phosphatase 58 U/L (46-116) 65 U/L (46-116) Troponin I 0.079 ng/mL (0.000-0.056) C-Reactive Protein, Quantitative 5.0 mg/dL (0.00-0.90) H Pro-B-Type Natriuretic Peptide 88979 pg/mL (0-125) H Total Protein 6.2 G/DL (6.4-8.2) L 7.1 G/DL (6.4-8.2) Albumin 2.4 G/DL (3.4-5.0) L 2.6 G/DL (3.4-5.0) L Globulin 3.8 g/dL 4.5 g/dL Albumin/Globulin Ratio 0.6 (1.0-2.7) L 0.6 (1.0-2.7) L Vitamin B12 Level 650 PG/ML (193-986) Folate 15.4 NG/ML (8.6-58.9) Thyroid Stimulating Hormone (TSH) 2.050 uiU/mL (0.358-3.740) Cortisol AM Sample Pending Arterial Blood pH 7.458 (7.350-7.450) Arterial Blood Partial Pressure CO2 30.6 mmHg (35.0-45.0) L Arterial Blood Partial Pressure O2 136.3 mmHg (75.0-100.0) H Arterial Blood HCO3 21.2 mmol/L (22.0-26.0) L Arterial Blood Oxygen Saturation 93.5 % (95-100) L Arterial Blood Base Excess -2.2 (-2-2) L Rashi Test Positive Height (Feet): 5 Height (Inches): 3.00 Weight (Pounds): 120 Medications Current Medications Medications (Trade) Dose Ordered Sig/Amber Route PRN Reason Start Time Stop Time Status Last Admin Dose Admin Acetaminophen (Tylenol) 650 mg Q4H PRN ORAL fever 12/01/18 09:15 12/31/18 09:14 Albuterol/ Ipratropium (Albuterol/ Ipratropium) 3 ml Q4H PRN HHN Shortness of Breath 12/01/18 09:15 12/06/18 09:14 Dextrose (Dextrose 50%) 25 ml Q30M PRN IV Hypoglycemia 12/01/18 09:15 12/31/18 09:14 Dextrose (Dextrose 50%) 50 ml Q30M PRN IV Hypoglycemia 12/01/18 09:15 12/31/18 09:14 Heparin Sodium (Porcine) (Heparin 5000 units/ml) 5,000 units EVERY 12 HOURS SUBQ 12/01/18 21:00 12/31/18 20:59 12/02/18 08:19 Insulin Aspart (NovoLOG) BEFORE MEALS AND HS SUBQ 12/02/18 11:30 01/01/19 11:29 Lorazepam (Ativan 2mg/ml 1ml) 2 mg Q2H PRN IV For Anxiety 12/01/18 09:15 12/08/18 09:14 12/02/18 12:03 Morphine Sulfate (Morphine Sulfate) 4 mg Q4H PRN IVP Severe Pain (Pain Scale 7-10) 12/01/18 09:15 12/08/18 09:14 Norepinephrine Bitartrate 4 mg/ Dextrose 254 ml @ 0 mls/hr Q24H IV 12/01/18 09:15 12/31/18 09:14 Ondansetron HCl (Zofran) 4 mg Q6H PRN IVP Nausea & Vomiting 12/01/18 09:15 12/31/18 09:14 Pantoprazole (Protonix) 40 mg DAILY IV 12/01/18 09:30 12/31/18 09:29 12/02/18 08:18 Piperacillin Sod/ Tazobactam Sod 2.25 gm/Dextrose 55 ml @ 110 mls/hr Q8HR IVPB 12/02/18 06:00 12/09/18 05:59 12/02/18 05:46 Polyethylene Glycol (Miralax) 17 gm DAILYPRN PRN ORAL Constipation 12/01/18 09:15 12/31/18 09:14 Vancomycin HCl (Vanco rx to dose) 1 ea DAILY PRN MISC Per rx protocol 12/01/18 12:30 12/31/18 12:29 Vancomycin HCl 1 gm/Dextrose 275 ml @ 183.708 mls/hr ONCE IVPB 12/02/18 11:00 12/02/18 13:00 12/02/18 11:37 Assessment/Plan Assessment: Abx: IV Vancomycin 12/01- Zosyn 12/01- Ertapenem x1 12/01 Azithromycin x1 12/01 Cefepime x1 12/01 Assessment: Probable Sepsis Gram positive bacteremia- ? real vs contaminant Acute hypoxic respiratory failure s/p intubation 12/01- likely 2ry to Acute CHF and COPD exacerbation- no obvious PNA on CXR -12/02 CXR: Stable satisfactory position of endotracheal tube. Lungs and pleural spaces remain clear. No significant interim change -influenza sc neg -sp cx p Afebrile Leukocytosis , SP Diarrhea -cdiff neg Bradycardia Acute encephalopathy Sacral decubitus ulcer- not infected HTN COPD DM2 R femur fx s/p ORIF ESRD on HD via L arm shunt pAfib on amiodarone SNF resident Plan: -Continue empiric IV Vancomycin #2 and d/c ZOsyn #2 -Repeat Bcx x2 -f/u cx -Monitor CBC/CMP, temperatures -ICU/ETT care -wound care per surgical team Thank you for this consultation. Will continue to follow along with you. Discussed with ZENAIDA. Joyce Jones M.D. Dec 02, 2018 12:50
--- NOTE | 2018-12-02 13:09 | Nephrology Progress Note ---
Assessment/Plan Problem List: (1) ESRD (end stage renal disease) on dialysis (2) Respiratory failure, acute (3) Sepsis (4) Left lower lobe pneumonia (5) Anemia in chronic kidney disease (CKD) Assessment Respiratory failure on vent Left lower lobe pneumonia ESRD (end stage renal disease) on dialysis Hypoglycemia Hypocalcemia on admit Anemia Plan start OG feeding with Nepro antibiotics hemodynamic support pulmonary support HD in am Objective Objective Last 24 Hour Vital Signs Date Time Temp Pulse Resp B/P (MAP) Pulse Ox O2 Delivery O2 Flow Rate FiO2 12/02/18 12:55 52 16 35 12/02/18 12:00 98.1 61 16 169/54 (92) 100 60 12/02/18 12:00 Mechanical Ventilator 12/02/18 12:00 35 12/02/18 11:00 60 15 171/51 (91) 100 60 12/02/18 10:34 50 17 35 12/02/18 10:00 56 16 151/48 (82) 100 60 12/02/18 09:00 61 16 158/58 (91) 100 60 12/02/18 08:35 60 17 35 12/02/18 08:00 98.0 60 16 159/42 (81) 100 60 12/02/18 08:00 64 12/02/18 08:00 35 12/02/18 08:00 Mechanical Ventilator 12/02/18 07:08 59 16 35 12/02/18 07:00 66 19 152/47 (82) 100 12/02/18 06:06 59 16 164/58 (93) 100 12/02/18 05:10 54 16 35 12/02/18 05:00 57 16 168/64 (98) 100 12/02/18 04:00 63 12/02/18 04:00 Mechanical Ventilator 12/02/18 04:00 35 12/02/18 04:00 98.6 63 17 166/65 (98) 100 12/02/18 03:00 52 17 110/40 (63) 100 12/02/18 02:39 51 16 35 12/02/18 02:00 61 17 151/62 (91) 100 12/02/18 01:00 58 16 145/47 (79) 100 12/02/18 00:42 61 18 35 12/02/18 00:00 35 12/02/18 00:00 98.4 63 17 156/57 (90) 100 12/02/18 00:00 63 12/02/18 00:00 Mechanical Ventilator 12/01/18 23:06 52 16 35 12/01/18 23:00 52 16 140/49 (79) 100 12/01/18 22:00 63 18 156/45 (82) 100 12/01/18 21:00 56 18 149/50 (83) 100 12/01/18 20:35 58 16 35 12/01/18 20:00 60 12/01/18 20:00 98.5 60 18 143/53 (83) 100 12/01/18 20:00 Mechanical Ventilator 12/01/18 20:00 35 12/01/18 19:10 53 16 35 12/01/18 19:00 52 16 128/52 (77) 100 12/01/18 18:00 55 16 148/50 (82) 100 12/01/18 17:00 51 16 133/45 (74) 100 12/01/18 16:56 58 16 35 12/01/18 16:00 51 12/01/18 16:00 97.4 51 16 155/50 (85) 100 12/01/18 16:00 35 12/01/18 16:00 Mechanical Ventilator 12/01/18 15:25 51 16 35 12/01/18 15:00 51 16 111/46 (67) 100 12/01/18 14:00 51 16 131/50 (77) 100 Intake and Output 12/01/18 12/02/18 18:59 06:59 Intake Total 1510 ml 500 ml Output Total 0 ml 0 ml Balance 1510 ml 500 ml Intake Oral 0 ml IV Total 1510 ml 500 ml Output Urine Total 0 ml 0 ml # Bowel Movements 7 4 Laboratory Tests 12/02/18 03:20: White Blood Count 8.6, Red Blood Count 2.35L, Hemoglobin 7.9L, Hematocrit 24.6L , Mean Corpuscular Volume 105H, Mean Corpuscular Hemoglobin 33.6H, Mean Corpuscular Hemoglobin Concent 32.0, Red Cell Distribution Width 16.3H, Platelet Count 349, Mean Platelet Volume 5.8L, Neutrophils (%) (Auto) , Lymphocytes (%) (Auto) , Monocytes (%) (Auto) , Eosinophils (%) (Auto) , Basophils (%) (Auto) , Prothrombin Time 12.0H, Prothromb Time International Ratio 1.1, Activated Partial Thromboplast Time 34H, Sodium Level 140, Potassium Level 3.9, Chloride Level 103, Carbon Dioxide Level 23, Anion Gap 15, Blood Urea Nitrogen 46H, Creatinine 6.0H, Estimat Glomerular Filtration Rate , Glucose Level 423#H, Hemoglobin A1c 5.8, Lactic Acid Level 0.70, Calcium Level 7.5L, Phosphorus Level 6.5H, Magnesium Level 1.9, Iron Level 30L, Total Iron Binding Capacity 85L, Percent Iron Saturation 35, Unsaturated Iron Binding 55L, Ferritin 1007H, Total Bilirubin 0.5, Aspartate Amino Transf (AST/SGOT) 11L, Alanine Aminotransferase (ALT/SGPT) 8L, Alkaline Phosphatase 58, Troponin I 0.079H, C-Reactive Protein, Quantitative 5.0H, Pro-B-Type Natriuretic Peptide 71069T, Total Protein 6.2L, Albumin 2.4L, Globulin 3.8, Albumin/Globulin Ratio 0.6L, Vitamin B12 Level 650, Folate 15.4, Thyroid Stimulating Hormone (TSH) 2.050, Cortisol AM Sample < 1.0 12/02/18 06:40: Arterial Blood pH 7.458H, Arterial Blood Partial Pressure CO2 30.6L, Arterial Blood Partial Pressure O2 136.3H, Arterial Blood HCO3 21.2L, Arterial Blood Oxygen Saturation 93.5L, Arterial Blood Base Excess -2.2L, Rashi Test Positive 12/02/18 09:40: Sodium Level 140, Potassium Level 4.1, Chloride Level 101, Carbon Dioxide Level 23, Anion Gap 16H, Blood Urea Nitrogen 50H, Creatinine 6.9H, Estimat Glomerular Filtration Rate , Glucose Level 207#H, Calcium Level 8.2L, Total Bilirubin 0.6, Aspartate Amino Transf (AST/SGOT) 11L, Alanine Aminotransferase (ALT/SGPT) 8L, Alkaline Phosphatase 65, Total Protein 7.1, Albumin 2.6L, Globulin 4.5, Albumin/ Globulin Ratio 0.6L Height (Feet): 5 Height (Inches): 3.00 Weight (Pounds): 120 Boo Fu MD Dec 02, 2018 13:09
--- NOTE | 2018-12-02 13:15 | NUR ---
NURSE NOTES: Order acknowledged for HD tomorrow, [facility] contacted at [phone], spoke with Gel and confirmed tomorrow's dialysis schedule. Call back received from audio technician and confirmed for tomorrow.
--- NOTE | 2018-12-02 13:21 | Cardiac Electrophysiology PN ---
Assessment/Plan Assessment/Plan 1. Bradycardia. Now off clonidine patch We will watch the patient on telemetry.E cho showed ejection fraction of 55%. 2. History of hypertension, currently off antihypertensives. 3. Respiratory failure, on the vent and broad-spectrum antibiotic. Further evaluation by Dr. Arcos. 4. Troponin leak, likely due to renal failure. 5. End-stage renal disease, on hemodialysis. JOSE ALEJANDRO RN Subjective Subjective In ICU on the vent off pressors. Weaning in progress. Dialysis scheduled for tomorrow.Still in 50s Objective Last 24 Hour Vital Signs Date Time Temp Pulse Resp B/P (MAP) Pulse Ox O2 Delivery O2 Flow Rate FiO2 12/02/18 13:00 52 16 148/39 (75) 52 12/02/18 12:55 52 16 35 12/02/18 12:00 98.1 61 16 169/54 (92) 100 61 12/02/18 12:00 Mechanical Ventilator 12/02/18 12:00 35 12/02/18 12:00 59 12/02/18 11:00 60 15 171/51 (91) 100 60 12/02/18 10:34 50 17 35 12/02/18 10:00 56 16 151/48 (82) 100 56 12/02/18 09:00 61 16 158/58 (91) 100 61 12/02/18 08:35 60 17 35 12/02/18 08:00 98.0 60 16 159/42 (81) 100 60 12/02/18 08:00 64 12/02/18 08:00 35 12/02/18 08:00 Mechanical Ventilator 12/02/18 07:08 59 16 35 12/02/18 07:00 66 19 152/47 (82) 100 12/02/18 06:06 59 16 164/58 (93) 100 12/02/18 05:10 54 16 35 12/02/18 05:00 57 16 168/64 (98) 100 12/02/18 04:00 63 12/02/18 04:00 Mechanical Ventilator 12/02/18 04:00 35 12/02/18 04:00 98.6 63 17 166/65 (98) 100 12/02/18 03:00 52 17 110/40 (63) 100 12/02/18 02:39 51 16 35 12/02/18 02:00 61 17 151/62 (91) 100 12/02/18 01:00 58 16 145/47 (79) 100 12/02/18 00:42 61 18 35 12/02/18 00:00 35 12/02/18 00:00 98.4 63 17 156/57 (90) 100 12/02/18 00:00 63 12/02/18 00:00 Mechanical Ventilator 12/01/18 23:06 52 16 35 12/01/18 23:00 52 16 140/49 (79) 100 12/01/18 22:00 63 18 156/45 (82) 100 12/01/18 21:00 56 18 149/50 (83) 100 12/01/18 20:35 58 16 35 12/01/18 20:00 60 12/01/18 20:00 98.5 60 18 143/53 (83) 100 12/01/18 20:00 Mechanical Ventilator 12/01/18 20:00 35 12/01/18 19:10 53 16 35 12/01/18 19:00 52 16 128/52 (77) 100 12/01/18 18:00 55 16 148/50 (82) 100 12/01/18 17:00 51 16 133/45 (74) 100 12/01/18 16:56 58 16 35 12/01/18 16:00 51 12/01/18 16:00 97.4 51 16 155/50 (85) 100 12/01/18 16:00 35 12/01/18 16:00 Mechanical Ventilator 12/01/18 15:25 51 16 35 12/01/18 15:00 51 16 111/46 (67) 100 12/01/18 14:00 51 16 131/50 (77) 100 Intake and Output 12/01/18 12/02/18 18:59 06:59 Intake Total 1510 ml 500 ml Output Total 0 ml 0 ml Balance 1510 ml 500 ml Intake Oral 0 ml IV Total 1510 ml 500 ml Output Urine Total 0 ml 0 ml # Bowel Movements 7 4 Laboratory Tests Test 12/02/18 03:20 12/02/18 06:40 12/02/18 09:40 White Blood Count 8.6 K/UL (4.8-10.8) Red Blood Count 2.35 M/UL (4.70-6.10) L Hemoglobin 7.9 G/DL (14.2-18.0) L Hematocrit 24.6 % (42.0-52.0) L Mean Corpuscular Volume 105 FL (80-99) H Mean Corpuscular Hemoglobin 33.6 PG (27.0-31.0) H Mean Corpuscular Hemoglobin Concent 32.0 G/DL (32.0-36.0) Red Cell Distribution Width 16.3 % (11.6-14.8) H Platelet Count 349 K/UL (150-450) Mean Platelet Volume 5.8 FL (6.5-10.1) L Neutrophils (%) (Auto) % (45.0-75.0) Lymphocytes (%) (Auto) % (20.0-45.0) Monocytes (%) (Auto) % (1.0-10.0) Eosinophils (%) (Auto) % (0.0-3.0) Basophils (%) (Auto) % (0.0-2.0) Prothrombin Time 12.0 SEC (9.30-11.50) H Prothromb Time International Ratio 1.1 (0.9-1.1) Activated Partial Thromboplast Time 34 SEC (23-33) H Sodium Level 140 MMOL/L (136-145) 140 MMOL/L (136-145) Potassium Level 3.9 MMOL/L (3.5-5.1) 4.1 MMOL/L (3.5-5.1) Chloride Level 103 MMOL/L (98-107) 101 MMOL/L (98-107) Carbon Dioxide Level 23 MMOL/L (21-32) 23 MMOL/L (21-32) Anion Gap 15 mmol/L (5-15) 16 mmol/L (5-15) H Blood Urea Nitrogen 46 mg/dL (7-18) H 50 mg/dL (7-18) H Creatinine 6.0 MG/DL (0.55-1.30) H 6.9 MG/DL (0.55-1.30) H Estimat Glomerular Filtration Rate mL/min (>60) mL/min (>60) Glucose Level 423 MG/DL (74-106) #H 207 MG/DL (74-106) #H Hemoglobin A1c 5.8 % (4.3-6.0) Lactic Acid Level 0.70 mmol/L (0.4-2.0) Calcium Level 7.5 MG/DL (8.5-10.1) L 8.2 MG/DL (8.5-10.1) L Phosphorus Level 6.5 MG/DL (2.5-4.9) H Magnesium Level 1.9 MG/DL (1.8-2.4) Iron Level 30 ug/dL (50-175) L Total Iron Binding Capacity 85 ug/dL (250-450) L Percent Iron Saturation 35 % (15-50) Unsaturated Iron Binding 55 ug/dL (112-346) L Ferritin 1007 NG/ML (8-388) H Total Bilirubin 0.5 MG/DL (0.2-1.0) 0.6 MG/DL (0.2-1.0) Aspartate Amino Transf (AST/SGOT) 11 U/L (15-37) L 11 U/L (15-37) L Alanine Aminotransferase (ALT/SGPT) 8 U/L (12-78) L 8 U/L (12-78) L Alkaline Phosphatase 58 U/L (46-116) 65 U/L (46-116) Troponin I 0.079 ng/mL (0.000-0.056) C-Reactive Protein, Quantitative 5.0 mg/dL (0.00-0.90) H Pro-B-Type Natriuretic Peptide 14954 pg/mL (0-125) H Total Protein 6.2 G/DL (6.4-8.2) L 7.1 G/DL (6.4-8.2) Albumin 2.4 G/DL (3.4-5.0) L 2.6 G/DL (3.4-5.0) L Globulin 3.8 g/dL 4.5 g/dL Albumin/Globulin Ratio 0.6 (1.0-2.7) L 0.6 (1.0-2.7) L Vitamin B12 Level 650 PG/ML (193-986) Folate 15.4 NG/ML (8.6-58.9) Thyroid Stimulating Hormone (TSH) 2.050 uiU/mL (0.358-3.740) Cortisol AM Sample < 1.0 UG/DL Arterial Blood pH 7.458 (7.350-7.450) Arterial Blood Partial Pressure CO2 30.6 mmHg (35.0-45.0) L Arterial Blood Partial Pressure O2 136.3 mmHg (75.0-100.0) H Arterial Blood HCO3 21.2 mmol/L (22.0-26.0) L Arterial Blood Oxygen Saturation 93.5 % (95-100) L Arterial Blood Base Excess -2.2 (-2-2) L Rashi Test Positive Microbiology Date/Time Source Procedure Growth Status 12/01/18 00:15 Blood Blood Culture - Preliminary NO GROWTH AFTER 24 HOURS Resulted 12/01/18 00:00 Blood Blood Culture - Preliminary Gram Positive Cocci Resulted 12/01/18 00:30 Nasal Nares - Final Complete 12/01/18 00:30 Nasal Nares - Final Complete 12/01/18 08:30 Stool Clostridium difficile Toxin Assay - Final Complete 12/01/18 06:00 Sacral Wound Gram Stain - Final Resulted 12/01/18 06:00 Sacral Wound Wound Culture Pending Resulted Objective HEAD AND NECK: Shows no JVD. He is orally intubated. LUNGS: Coarse rhonchi. CARDIOVASCULAR: Bradycardic S1 and S2 with no gallop or murmur. ABDOMEN: Soft. EXTREMITIES: No pitting edema. Ryan Harley MD Dec 02, 2018 13:21
--- NOTE | 2018-12-02 14:38 | Surgery Progress Note ---
Surgery Progress Note Subjective Additional Comments no acute events. off pressors. vent weaned a bit. exam unchanged. slowly improving. labs noted. Objective Last 24 Hour Vital Signs Date Time Temp Pulse Resp B/P (MAP) Pulse Ox O2 Delivery O2 Flow Rate FiO2 12/02/18 14:00 49 16 124/41 (68) 100 49 12/02/18 13:00 52 16 148/39 (75) 100 52 12/02/18 12:55 52 16 35 12/02/18 12:00 98.1 61 16 169/54 (92) 100 61 12/02/18 12:00 Mechanical Ventilator 12/02/18 12:00 35 12/02/18 12:00 59 12/02/18 11:00 60 15 171/51 (91) 100 60 12/02/18 10:34 50 17 35 12/02/18 10:00 56 16 151/48 (82) 100 56 12/02/18 09:00 61 16 158/58 (91) 100 61 12/02/18 08:35 60 17 35 12/02/18 08:00 98.0 60 16 159/42 (81) 100 60 12/02/18 08:00 64 12/02/18 08:00 35 12/02/18 08:00 Mechanical Ventilator 12/02/18 07:08 59 16 35 12/02/18 07:00 66 19 152/47 (82) 100 12/02/18 06:06 59 16 164/58 (93) 100 12/02/18 05:10 54 16 35 12/02/18 05:00 57 16 168/64 (98) 100 12/02/18 04:00 63 12/02/18 04:00 Mechanical Ventilator 12/02/18 04:00 35 12/02/18 04:00 98.6 63 17 166/65 (98) 100 12/02/18 03:00 52 17 110/40 (63) 100 12/02/18 02:39 51 16 35 12/02/18 02:00 61 17 151/62 (91) 100 12/02/18 01:00 58 16 145/47 (79) 100 12/02/18 00:42 61 18 35 12/02/18 00:00 35 12/02/18 00:00 98.4 63 17 156/57 (90) 100 12/02/18 00:00 63 12/02/18 00:00 Mechanical Ventilator 12/01/18 23:06 52 16 35 12/01/18 23:00 52 16 140/49 (79) 100 12/01/18 22:00 63 18 156/45 (82) 100 12/01/18 21:00 56 18 149/50 (83) 100 12/01/18 20:35 58 16 35 12/01/18 20:00 60 12/01/18 20:00 98.5 60 18 143/53 (83) 100 12/01/18 20:00 Mechanical Ventilator 12/01/18 20:00 35 12/01/18 19:10 53 16 35 12/01/18 19:00 52 16 128/52 (77) 100 12/01/18 18:00 55 16 148/50 (82) 100 12/01/18 17:00 51 16 133/45 (74) 100 12/01/18 16:56 58 16 35 12/01/18 16:00 51 12/01/18 16:00 97.4 51 16 155/50 (85) 100 12/01/18 16:00 35 12/01/18 16:00 Mechanical Ventilator 12/01/18 15:25 51 16 35 12/01/18 15:00 51 16 111/46 (67) 100 I&O Intake and Output 12/01/18 12/02/18 19:00 07:00 Intake Total 1510 ml 500 ml Output Total 0 ml 0 ml Balance 1510 ml 500 ml Intake Oral 0 ml IV Total 1510 ml 500 ml Output Urine Total 0 ml 0 ml # Bowel Movements 7 4 Dressing: saturated Wound: other Drains: other Cardiovascular: RSR Respiratory: clear Abdomen: soft, present bowel sounds Laboratory Tests Test 12/02/18 03:20 12/02/18 06:40 12/02/18 09:40 White Blood Count 8.6 K/UL (4.8-10.8) Red Blood Count 2.35 M/UL (4.70-6.10) L Hemoglobin 7.9 G/DL (14.2-18.0) L Hematocrit 24.6 % (42.0-52.0) L Mean Corpuscular Volume 105 FL (80-99) H Mean Corpuscular Hemoglobin 33.6 PG (27.0-31.0) H Mean Corpuscular Hemoglobin Concent 32.0 G/DL (32.0-36.0) Red Cell Distribution Width 16.3 % (11.6-14.8) H Platelet Count 349 K/UL (150-450) Mean Platelet Volume 5.8 FL (6.5-10.1) L Neutrophils (%) (Auto) % (45.0-75.0) Lymphocytes (%) (Auto) % (20.0-45.0) Monocytes (%) (Auto) % (1.0-10.0) Eosinophils (%) (Auto) % (0.0-3.0) Basophils (%) (Auto) % (0.0-2.0) Prothrombin Time 12.0 SEC (9.30-11.50) H Prothromb Time International Ratio 1.1 (0.9-1.1) Activated Partial Thromboplast Time 34 SEC (23-33) H Sodium Level 140 MMOL/L (136-145) 140 MMOL/L (136-145) Potassium Level 3.9 MMOL/L (3.5-5.1) 4.1 MMOL/L (3.5-5.1) Chloride Level 103 MMOL/L (98-107) 101 MMOL/L (98-107) Carbon Dioxide Level 23 MMOL/L (21-32) 23 MMOL/L (21-32) Anion Gap 15 mmol/L (5-15) 16 mmol/L (5-15) H Blood Urea Nitrogen 46 mg/dL (7-18) H 50 mg/dL (7-18) H Creatinine 6.0 MG/DL (0.55-1.30) H 6.9 MG/DL (0.55-1.30) H Estimat Glomerular Filtration Rate mL/min (>60) mL/min (>60) Glucose Level 423 MG/DL (74-106) #H 207 MG/DL (74-106) #H Hemoglobin A1c 5.8 % (4.3-6.0) Lactic Acid Level 0.70 mmol/L (0.4-2.0) Calcium Level 7.5 MG/DL (8.5-10.1) L 8.2 MG/DL (8.5-10.1) L Phosphorus Level 6.5 MG/DL (2.5-4.9) H Magnesium Level 1.9 MG/DL (1.8-2.4) Iron Level 30 ug/dL (50-175) L Total Iron Binding Capacity 85 ug/dL (250-450) L Percent Iron Saturation 35 % (15-50) Unsaturated Iron Binding 55 ug/dL (112-346) L Ferritin 1007 NG/ML (8-388) H Total Bilirubin 0.5 MG/DL (0.2-1.0) 0.6 MG/DL (0.2-1.0) Aspartate Amino Transf (AST/SGOT) 11 U/L (15-37) L 11 U/L (15-37) L Alanine Aminotransferase (ALT/SGPT) 8 U/L (12-78) L 8 U/L (12-78) L Alkaline Phosphatase 58 U/L (46-116) 65 U/L (46-116) Troponin I 0.079 ng/mL (0.000-0.056) C-Reactive Protein, Quantitative 5.0 mg/dL (0.00-0.90) H Pro-B-Type Natriuretic Peptide 75127 pg/mL (0-125) H Total Protein 6.2 G/DL (6.4-8.2) L 7.1 G/DL (6.4-8.2) Albumin 2.4 G/DL (3.4-5.0) L 2.6 G/DL (3.4-5.0) L Globulin 3.8 g/dL 4.5 g/dL Albumin/Globulin Ratio 0.6 (1.0-2.7) L 0.6 (1.0-2.7) L Vitamin B12 Level 650 PG/ML (193-986) Folate 15.4 NG/ML (8.6-58.9) Thyroid Stimulating Hormone (TSH) 2.050 uiU/mL (0.358-3.740) Cortisol AM Sample < 1.0 UG/DL Arterial Blood pH 7.458 (7.350-7.450) Arterial Blood Partial Pressure CO2 30.6 mmHg (35.0-45.0) L Arterial Blood Partial Pressure O2 136.3 mmHg (75.0-100.0) H Arterial Blood HCO3 21.2 mmol/L (22.0-26.0) L Arterial Blood Oxygen Saturation 93.5 % (95-100) L Arterial Blood Base Excess -2.2 (-2-2) L Rashi Test Positive Plan Problems: (1) Sacral decubitus ulcer, stage III Assessment & Plan: Patient presents to sacral decubitus ulcer on admission. Significant portion of wound is partial thickness and small portion with full thickness breakdown approximately 1cm x 1cm at inferior yellow white portion. no drainage. periwound intact and stable. wound bed of partial thickness with healthy viable tissue. no signs of infection. no odor Pt presented on admission with Irregular shaped, full thickness Sacral pressure injury.Scattered areas of biofilm noted at base of wound .Other muñoz wound is moist and viable. Edges adherent to base of wound . Periwound with darker skin tone without induration or fluctuance. No odor or exudate noted.(L)7.5cm x (W) 8.5cm. Non-blanchable erythema with fluctuance and delineated margins noted to R heel(L )3cm x (W)4cm.Periwound is pink and blanchable. Non-blanchable erythema with fluctuance noted to L heel. Periwound pink and blanchable without induration or fluctuance. (L)3.8cm x (W)4.5cm. Tx.Plan: Cleanse Sacral wound with Saline.Apply Therahoney. Apply Triad Paste periwound. Cover with Optifoam drsg Daily and prn. Apply Cavilon Skin Barrier to R and L heels.Cover each Heel with Optifoam drsg. Change every 7 days and prn. APM/BOOGIE Mattress overlay. Reposition at least every 2hours or as tolerated. Off-load heels with pillow. will follow with recs thank you (2) Hypoglycemia (3) Left lower lobe pneumonia (4) Hypocalcemia (5) COPD (chronic obstructive pulmonary disease) (6) HTN (hypertension) (7) DM (diabetes mellitus) (8) Respiratory failure Assessment & Plan: requiring intubated for airway protection wean vent as tolerated AM ABG (9) ESRD (end stage renal disease) on dialysis Florencio Herrera Dec 02, 2018 14:38
--- NOTE | 2018-12-02 14:47 | NUR ---
NURSE NOTES: Pt's daughter Kiera ARCHULETA (listed on facesheet as NOK) is here at bedside requesting to have case preparer and liner see if [facility] will accept her father during [place] [facility]. Per daughter, [facility] is a temporary stay with max stay of 3 months (where her father was staying prior to admission). Spoke with Hellen and relayed the message.
--- NOTE | 2018-12-02 15:30 | Diagnostic Imaging Report ---
Indication: Post orogastric tube placement Technique: Supine view of the upper abdomen Comparison: none Findings: There is an orogastric tube in place, tip projected level gastric fundus, proximal side port at or just beyond the gastroesophageal junction. There is suggestion of a small left pleural effusion incidentally noted Impression: Borderline adequate orogastric tube placement; slight advancement would be prudent Findings discussed by phone with patient's nurse at the time of interpretation
--- NOTE | 2018-12-02 15:34 | NUR ---
NURSE NOTES: OG tube inserted and KUB done. Per Dr Miller's order, OG tube was advanced by 5cm. Will set up feeding as ordered.
--- NOTE | 2018-12-02 15:37 | NUR ---
NURSE NOTES:WOUND CARE NOTES:Pt presented on admission with Irregular shaped, full thickness Sacral pressure injury.Scattered areas of biofilm noted at base of wound .Other muñoz wound is moist and viable. Edges adherent to base of wound . Periwound with darker skin tone without induration or fluctuance. No odor or exudate noted.(L)7.5cm x (W)8.5cm. Non-blanchable erythema with fluctuance and delineated margins noted to R heel(L)3cm x (W)4cm.Periwound is pink and blanchable. Non-blanchable erythema with fluctuance noted to L heel. Periwound pink and blanchable without induration or fluctuance. (L)3.8cm x (W)4.5cm. Tx.Plan: Cleanse Sacral wound with Saline.Apply Therahoney. Apply Triad Paste periwound. Cover with Optifoam drsg Daily and prn. Apply Cavilon Skin Barrier to R and L heels.Cover each Heel with Optifoam drsg. Change every 7 days and prn. APM/BOOGIE Mattress overlay. Reposition at least every 2hours or as tolerated. Off-load heels with pillow.
--- NOTE | 2018-12-02 16:00 | NUR ---
NURSE NOTES: OG feeding started as ordered; feeding is infusing Nepro at start rate of 10ml/hour with goal of 30ml/hour. Tube placement was confirmed with KUB/Dr Guzman from radiology. VS are within normal range. Head of bed at 30 degrees. Oral care provided. Will continue to monitor.
--- NOTE | 2018-12-02 18:00 | NUR ---
NURSE NOTES: Pt was cleaned and repositioned. Oral care provided, and pt suctioned, with output of small/thin/clear sputum.
--- NOTE | 2018-12-02 18:58 | Internal Med Progress Note ---
Subjective Date of Service: Dec 02, 2018 Physician Name Aryan Brody Attending Physician Tony Cyr MD Current Medications Medications (Trade) Dose Ordered Sig/Amber Route PRN Reason Start Time Stop Time Status Last Admin Dose Admin Acetaminophen (Tylenol) 650 mg Q4H PRN ORAL fever 12/01/18 09:15 12/31/18 09:14 Albuterol/ Ipratropium (Albuterol/ Ipratropium) 3 ml Q4H PRN HHN Shortness of Breath 12/01/18 09:15 12/06/18 09:14 Dextrose (Dextrose 50%) 25 ml Q30M PRN IV Hypoglycemia 12/01/18 09:15 12/31/18 09:14 Dextrose (Dextrose 50%) 50 ml Q30M PRN IV Hypoglycemia 12/01/18 09:15 12/31/18 09:14 Heparin Sodium (Porcine) (Heparin 5000 units/ml) 5,000 units EVERY 12 HOURS SUBQ 12/01/18 21:00 12/31/18 20:59 12/02/18 08:19 Insulin Aspart (NovoLOG) BEFORE MEALS AND HS SUBQ 12/02/18 11:30 01/01/19 11:29 12/02/18 16:44 Lorazepam (Ativan 2mg/ml 1ml) 2 mg Q2H PRN IV For Anxiety 12/01/18 09:15 12/08/18 09:14 12/02/18 16:32 Morphine Sulfate (Morphine Sulfate) 4 mg Q4H PRN IVP Severe Pain (Pain Scale 7-10) 12/01/18 09:15 12/08/18 09:14 Norepinephrine Bitartrate 4 mg/ Dextrose 254 ml @ 0 mls/hr Q24H IV 12/01/18 09:15 12/31/18 09:14 Ondansetron HCl (Zofran) 4 mg Q6H PRN IVP Nausea & Vomiting 12/01/18 09:15 12/31/18 09:14 Pantoprazole (Protonix) 40 mg DAILY IV 12/01/18 09:30 12/31/18 09:29 12/02/18 08:18 Polyethylene Glycol (Miralax) 17 gm DAILYPRN PRN ORAL Constipation 12/01/18 09:15 12/31/18 09:14 Vancomycin HCl (Vanco rx to dose) 1 ea DAILY PRN MISC Per rx protocol 12/01/18 12:30 12/31/18 12:29 Allergies: Coded Allergies: NEOMYCIN (Verified Allergy, Mild, 12/01/18) Uncoded Allergies: plastics (Allergy, Mild, 12/01/18) ROS Limited/Unobtainable: Yes Subjective 73 YO M admitted with respiratory failure. Intubated and sedated. Cover for Int Jareth-Dr Cyr. ICU Objective Last Vital Signs Date Time Temp Pulse Resp B/P (MAP) Pulse Ox O2 Delivery O2 Flow Rate FiO2 12/02/18 17:09 56 16 35 12/02/18 17:00 180/50 (93) 100 12/02/18 16:00 Mechanical Ventilator 12/02/18 16:00 98.1 Laboratory Tests Test 12/02/18 03:20 12/02/18 06:40 12/02/18 09:40 White Blood Count 8.6 K/UL (4.8-10.8) Red Blood Count 2.35 M/UL (4.70-6.10) L Hemoglobin 7.9 G/DL (14.2-18.0) L Hematocrit 24.6 % (42.0-52.0) L Mean Corpuscular Volume 105 FL (80-99) H Mean Corpuscular Hemoglobin 33.6 PG (27.0-31.0) H Mean Corpuscular Hemoglobin Concent 32.0 G/DL (32.0-36.0) Red Cell Distribution Width 16.3 % (11.6-14.8) H Platelet Count 349 K/UL (150-450) Mean Platelet Volume 5.8 FL (6.5-10.1) L Neutrophils (%) (Auto) % (45.0-75.0) Lymphocytes (%) (Auto) % (20.0-45.0) Monocytes (%) (Auto) % (1.0-10.0) Eosinophils (%) (Auto) % (0.0-3.0) Basophils (%) (Auto) % (0.0-2.0) Prothrombin Time 12.0 SEC (9.30-11.50) H Prothromb Time International Ratio 1.1 (0.9-1.1) Activated Partial Thromboplast Time 34 SEC (23-33) H Sodium Level 140 MMOL/L (136-145) 140 MMOL/L (136-145) Potassium Level 3.9 MMOL/L (3.5-5.1) 4.1 MMOL/L (3.5-5.1) Chloride Level 103 MMOL/L (98-107) 101 MMOL/L (98-107) Carbon Dioxide Level 23 MMOL/L (21-32) 23 MMOL/L (21-32) Anion Gap 15 mmol/L (5-15) 16 mmol/L (5-15) H Blood Urea Nitrogen 46 mg/dL (7-18) H 50 mg/dL (7-18) H Creatinine 6.0 MG/DL (0.55-1.30) H 6.9 MG/DL (0.55-1.30) H Estimat Glomerular Filtration Rate mL/min (>60) mL/min (>60) Glucose Level 423 MG/DL (74-106) #H 207 MG/DL (74-106) #H Hemoglobin A1c 5.8 % (4.3-6.0) Lactic Acid Level 0.70 mmol/L (0.4-2.0) Calcium Level 7.5 MG/DL (8.5-10.1) L 8.2 MG/DL (8.5-10.1) L Phosphorus Level 6.5 MG/DL (2.5-4.9) H Magnesium Level 1.9 MG/DL (1.8-2.4) Iron Level 30 ug/dL (50-175) L Total Iron Binding Capacity 85 ug/dL (250-450) L Percent Iron Saturation 35 % (15-50) Unsaturated Iron Binding 55 ug/dL (112-346) L Ferritin 1007 NG/ML (8-388) H Total Bilirubin 0.5 MG/DL (0.2-1.0) 0.6 MG/DL (0.2-1.0) Aspartate Amino Transf (AST/SGOT) 11 U/L (15-37) L 11 U/L (15-37) L Alanine Aminotransferase (ALT/SGPT) 8 U/L (12-78) L 8 U/L (12-78) L Alkaline Phosphatase 58 U/L (46-116) 65 U/L (46-116) Troponin I 0.079 ng/mL (0.000-0.056) C-Reactive Protein, Quantitative 5.0 mg/dL (0.00-0.90) H Pro-B-Type Natriuretic Peptide 99708 pg/mL (0-125) H Total Protein 6.2 G/DL (6.4-8.2) L 7.1 G/DL (6.4-8.2) Albumin 2.4 G/DL (3.4-5.0) L 2.6 G/DL (3.4-5.0) L Globulin 3.8 g/dL 4.5 g/dL Albumin/Globulin Ratio 0.6 (1.0-2.7) L 0.6 (1.0-2.7) L Vitamin B12 Level 650 PG/ML (193-986) Folate 15.4 NG/ML (8.6-58.9) Thyroid Stimulating Hormone (TSH) 2.050 uiU/mL (0.358-3.740) Cortisol AM Sample < 1.0 UG/DL Arterial Blood pH 7.458 (7.350-7.450) Arterial Blood Partial Pressure CO2 30.6 mmHg (35.0-45.0) L Arterial Blood Partial Pressure O2 136.3 mmHg (75.0-100.0) H Arterial Blood HCO3 21.2 mmol/L (22.0-26.0) L Arterial Blood Oxygen Saturation 93.5 % (95-100) L Arterial Blood Base Excess -2.2 (-2-2) L Rashi Test Positive Microbiology Date/Time Source Procedure Growth Status 12/01/18 00:15 Blood Blood Culture - Preliminary NO GROWTH AFTER 24 HOURS Resulted 12/01/18 00:00 Blood Blood Culture - Preliminary Gram Positive Cocci Resulted 12/01/18 00:30 Nasal Nares - Final Complete 12/01/18 00:30 Nasal Nares - Final Complete 12/01/18 08:30 Stool Clostridium difficile Toxin Assay - Final Complete 12/01/18 06:00 Sacral Wound Gram Stain - Final Resulted 12/01/18 06:00 Sacral Wound Wound Culture Pending Resulted Intake and Output 12/01/18 12/02/18 19:00 07:00 Intake Total 1510 ml 605 ml Output Total 0 ml 0 ml Balance 1510 ml 605 ml Intake Oral 0 ml IV Total 1510 ml 605 ml Output Urine Total 0 ml 0 ml # Bowel Movements 7 4 Objective PHYSICAL EXAMINATION: VITAL SIGNS: Temperature 99.4 degrees, respirations 20, pulse 83, blood pressure 140/96, and pulse oximetry initially was 79 on room air. GENERAL: The patient is well-developed and well-nourished male, who is intubated and sedated. HEENT: Eyes, pupils equal and responsive to light and accommodation. Extraocular movements are intact. NECK: Supple without lymphadenopathy. CHEST: Mech vent; Coarse expiratory wheezes bilaterally with coarse upper airway sounds. Otherwise, without rales. Neurologically unable to assess. CARDIOVASCULAR: Bradycardic, regular rate. S1 and S2 normal without murmurs, rubs, or gallops. ABDOMEN: Soft, nontender, and nondistended. Positive bowel sounds. No evidence of hepatosplenomegaly. Currently, no rebound or guarding noted. RECTAL: Refused. GENITALIA: Refused. EXTREMITIES: Negative for clubbing, cyanosis, or edema. NEUROLOGIC: Unable to assess. Assessment/Plan Assessment/Plan ASSESSMENT: This is a 73-year-old male with: 1. Respiratory failure. 2. Altered mental status. 3. Acute congestive heart failure. 4. Hypoxia. 5. Diabetes. 6. Chronic obstructive pulmonary disease. 7. Hypertension. 8. End-stage renal disease. 9. Sacral decubitus ulcer. TREATMENT: 1. Respiratory failure/chronic obstructive pulmonary disease. A Pulmonary consultation has been obtained with Dr. Sulaiman Arcos. The patient is currently intubated and sedated. The patient has been started empirically on ertapenem. 2. Acute congestive heart failure. Cardiology consultation has been obtained with Dr. Ryan Harley. BNP will be performed. Congestive heart failure may be secondary to volume overload secondary to end-stage renal disease. 3. Diabetes type 2. The patient has been placed on NovoLog sliding scale. 4. Hypertension. Continue losartan as above. 5. End-stage renal disease. A Nephrology consultation has been obtained with Dr. Fu. 6. Sacral decubitus ulcer. Aryan Brody MD Dec 02, 2018 18:58
--- NOTE | 2018-12-02 19:00 | NUR ---
NURSE NOTES: Photos taken of bilateral heels and uploaded into system/computer chart.
--- NOTE | 2018-12-02 19:16 | NUR ---
RESPIRATORY NOTE: Received pt. on 840 vent. Vent setting are: A/C rate of 16, Vt 500, FI02 35%, PEEP +5. No respiratory distress noted, pt. sP02 @100%. Ambu bag @ BS. Vent plugged on red outlet. Will continue to monitor pt.
--- NOTE | 2018-12-02 19:30 | NUR ---
HAND-OFF: End of shift report given to Zane ESTEVEZ. Pt is resting in stable condition. Endorsed plan of care.
--- NOTE | 2018-12-02 19:44 | NUR ---
NURSE NOTES: pt ORALY INTUBATED -VENT WITH O2 SAT 100 0/0 NO ACUTE RESP DISTRESS NOTED ON JOHANNE SOFT WEST RESTRAINTS NON COMPLAINTS ON HD IN AM AV SHUNI LEFT AAYUSH REPOSITION AND SUCTION
--- NOTE | 2018-12-02 22:00 | NUR ---
NURSE NOTES: asleep reposition and suction tolerating tube feeding at 2o cc no residual
[2018-12-03] VITALS (24 sets, daily range): BP systolic 95–189; BP diastolic 18–160
--- NOTE | 2018-12-03 | NUR ---
NURSE NOTES: restless and adgited soft restraint on medicated with ativan as order
[2018-12-03] MEDS: LORazepam Inj 2mg/ml 1ml IV PRN ×3 (00:55→19:56)
--- NOTE | 2018-12-03 02:00 | NUR ---
NURSE NOTES: restless at in verble no c/o pain reposition and suction
--- NOTE | 2018-12-03 04:00 | NUR ---
NURSE NOTES: complete bed bath oral care and back care wound care done reposition and suction
[2018-12-03 04:27] LABS: BASOPHILS % (AUTO) 1.1 % (0.0-2.0); EOSINOPHILS % (AUTO) 7.3 % (0.0-3.0); HEMATOCRIT 28.8 % (42.0-52.0); HEMOGLOBIN 9.5 G/DL (14.2-18.0); MEAN CORPUSCULAR VOLUME 102 FL (80-99); MONOCYTES % (AUTO) 9.9 % (1.0-10.0); NEUTROPHILS % (AUTO) 60.6 % (45.0-75.0); PLATELET COUNT 426 K/UL (150-450); RED BLOOD COUNT 2.82 M/UL (4.70-6.10); RED CELL DISTRIBUTION WIDTH 16.2 % (11.6-14.8); WHITE BLOOD COUNT 10.8 K/UL (4.8-10.8)
[2018-12-03 05:04] LABS: ALANINE AMINOTRANSFERASE 6 U/L (12-78); ALBUMIN 2.7 G/DL (3.4-5.0); ALBUMIN/GLOBULIN RATIO 0.6 (1.0-2.7); ALKALINE PHOSPHATASE 86 U/L (46-116); ANION GAP 18 mmol/L (5-15); ASPARTATE AMINO TRANSFERASE 13 U/L (15-37); BILIRUBIN,TOTAL 0.6 MG/DL (0.2-1.0); BLOOD UREA NITROGEN 60 mg/dL (7-18); CALCIUM 8.6 MG/DL (8.5-10.1); CARBON DIOXIDE 20 MMOL/L (21-32); CHLORIDE 97 MMOL/L (98-107); CREATININE 8.5 MG/DL (0.55-1.30); PHOSPHORUS 7.8 MG/DL (2.5-4.9); POTASSIUM 4.2 MMOL/L (3.5-5.1); SODIUM 135 MMOL/L (136-145)
[2018-12-03] MEDS: NovoLOG Insulin Flexpen SUBQ SCH ×4 (05:40→20:25)
--- NOTE | 2018-12-03 06:00 | NUR ---
NURSE NOTES: asleep on dalton soft restraints non complaints
--- NOTE | 2018-12-03 07:00 | NUR ---
RESPIRATORY NOTE: Received Patient on Vent ACVC RR 16, VT 500, FIO2 35%, PEEP +5. Patient is intubated with a 7.5 ETT with a 24cm lip line, secured by anchorfast. Diminished breath sounds/ rhonchi heard bilaterally throughout both lung harris. Patient alert but lethargic. Vent plugged into red outlet. Alarms on and audible. Will continue to monitor throughout the day.
--- NOTE | 2018-12-03 07:42 | NUR ---
NURSE NOTES: Report received from Ruthy ESTEVEZ. Pt alert and oriented x1 , confused, icelandic speaking. 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 Pt orally intubated ETT 7.5, 24 cm lip line, AC 16. TV 500, 35 % fiO2, PEEP 5. GTF Nepro at 30 cc/hr. Pt with AAYUSH AV fistula, positive bruit/thrill, RH 20 G and RFA 20 G heplock noted and intact. Bilateral soft wrist restraints noted intact, pt trying to pull out lines and tubes and attempts to climb out of bed. Safety measures in place with bed locked and in lowest position, side rails x3 up and bed alarm on. Will continue to monitor and continue plan of care.
--- NOTE | 2018-12-03 07:43 | NUR ---
HAND-OFF: Report given to geri nice using rn
[2018-12-03] MEDS: Renvela 800mg Pkt NG SCH ×4 (08:21→23:58)
[2018-12-03] MEDS: Pantoprazole Inj IV SCH (08:21)
--- NOTE | 2018-12-03 08:21 | NUR ---
NURSE NOTES: Pt is confused and agitated, constantly trying to get up and pull out ETT even with the bilateral soft wrist restraints on. Ativan 2mg IV PRN given for agitation and restlessness. Will closely monitor pt.
[2018-12-03] MEDS: Heparin 5000 units/ml inj SUBQ SCH ×2 (08:22→20:24)
--- NOTE | 2018-12-03 08:55 | NUR ---
NURSE NOTES: Hydralazine 10mg IV PRN given for BP 204/48. Will continue to monitor BP.
--- NOTE | 2018-12-03 09:15 | Diagnostic Imaging Report ---
Indication: Dyspnea Technique: One view of the chest Comparison: 12/02/2018 Findings: Stable satisfactory position of endotracheal tube. Interim placement of nasogastric tube, tip which projects beyond the edge of image, presumably good position. The lungs and pleural spaces remain clear. The heart size is normal. Left axillary vascular stent again demonstrated Impression: Apparent satisfactory nasogastric intubation. Otherwise, little change of address clerk one day, findings as noted
--- NOTE | 2018-12-03 10:26 | NUR ---
Weaning started at 1026. Placed Patient on PS +8 PEEP +5 Fio2 35%. Continuing with SBT. Will continue to monitor.
--- NOTE | 2018-12-03 10:33 | Pulmonolgy Critical Care Note ---
Critical Care - Asmt/Plan Problems: (1) Respiratory failure, acute (2) Sepsis (3) ESRD (end stage renal disease) on dialysis (4) COPD (chronic obstructive pulmonary disease) (5) HTN (hypertension) (6) DM (diabetes mellitus) (7) Bacteremia (8) Sacral decubitus ulcer, stage III Respiratory: monitor respiratory rate, adjust FIO2, CXR Cardiac: continue to monitor HR/BP Renal: F/U I&O, keep IV fluid Infectious Disease: check cultures Gastrointestinal: continue feedings/current rate Endocrine: monitor blood sugar, check HgA1C, continue sliding scale insulin Hematologic: transfuse if hgb<8.5 Neurologic: PRN Ativan, keep patient comfortable Affect: PRN ativan Prophylaxis: Protonix, Heparin Time Spent (Minutes): 40 Notes Reviewed: cardio, renal Discussed with: nurses, consultants, geriatric case managerhotel sales manager - Objective Last 24 Hour Vital Signs Date Time Temp Pulse Resp B/P (MAP) Pulse Ox O2 Delivery O2 Flow Rate FiO2 12/03/18 10:00 69 16 148/41 (76) 100 12/03/18 09:00 67 19 181/60 (100) 100 12/03/18 08:55 204/48 12/03/18 08:47 66 21 35 12/03/18 08:17 189/160 12/03/18 08:00 35 12/03/18 08:00 98.3 69 20 189/160 (170) 100 12/03/18 08:00 Mechanical Ventilator 12/03/18 07:32 62 12/03/18 07:00 65 18 189/50 (96) 100 12/03/18 06:49 65 19 35 12/03/18 06:00 66 18 182/48 (92) 100 12/03/18 05:21 69 19 35 12/03/18 05:00 66 18 186/60 (102) 100 12/03/18 04:00 Mechanical Ventilator 12/03/18 04:00 35 12/03/18 04:00 64 12/03/18 04:00 67 17 181/57 (98) 100 12/03/18 03:27 63 19 35 12/03/18 03:00 65 17 164/90 (114) 100 12/03/18 02:00 68 17 187/48 (94) 100 12/03/18 01:07 67 18 35 12/03/18 01:00 67 17 187/50 (95) 100 12/03/18 00:00 Mechanical Ventilator 12/03/18 00:00 67 12/03/18 00:00 35 12/03/18 00:00 98.5 65 17 186/62 (103) 100 12/02/18 23:26 75 19 35 12/02/18 23:00 60 15 177/48 (91) 100 12/02/18 22:00 66 17 162/53 (89) 100 12/02/18 21:00 63 15 177/44 (88) 99 12/02/18 20:03 Mechanical Ventilator 12/02/18 20:00 35 12/02/18 20:00 61 12/02/18 20:00 98.0 62 17 172/52 (92) 100 12/02/18 19:16 60 16 35 12/02/18 19:00 62 14 170/72 (104) 100 62 12/02/18 18:00 53 16 133/47 (75) 100 53 12/02/18 17:09 56 16 35 12/02/18 17:00 63 14 180/50 (93) 100 63 12/02/18 16:00 35 12/02/18 16:00 61 12/02/18 16:00 Mechanical Ventilator 12/02/18 16:00 98.1 66 8 185/56 (99) 81 66 12/02/18 15:00 57 16 167/47 (87) 100 57 12/02/18 14:41 60 19 35 12/02/18 14:00 49 16 124/41 (68) 100 49 12/02/18 13:00 52 16 148/39 (75) 100 52 12/02/18 12:55 52 16 35 12/02/18 12:00 98.1 61 16 169/54 (92) 100 61 12/02/18 12:00 Mechanical Ventilator 12/02/18 12:00 35 12/02/18 12:00 59 12/02/18 11:00 60 15 171/51 (91) 100 60 12/02/18 10:34 50 17 35 Status: sedated Condition: critical HEENT: atraumatic Neck: full ROM Lungs: rhonchi Heart: HR/BP stable Abdomen: soft, non-tender, active bowel sounds, feeding tube, low residual Extremities: no C/C/E, edema Micro: Microbiology Date/Time Source Procedure Growth Status 12/01/18 00:15 Blood Blood Culture - Preliminary Gram Positive Cocci Resulted 12/01/18 00:00 Blood Blood Culture - Preliminary Staphylococcus Species Resulted 12/01/18 00:30 Nasal Nares - Final Complete 12/01/18 00:30 Nasal Nares - Final Complete 12/01/18 08:30 Stool Clostridium difficile Toxin Assay - Final Complete 12/01/18 06:00 Sacral Wound Gram Stain - Final Resulted 12/01/18 06:00 Wound Culture - Preliminary Streptococcus Group G Diphtheroids Resulted Accucheck: 156 Critical Care - Subjective ROS Limited/Unobtainable: Yes Condition: critical EKG Rhythm: Sinus Bradycardia FI02: 35 Vent Support Breath Rate: 16 Vent Support Mode: AC Vent Tidal Volume: 500 Sputum Amount: Scant PEEP: 5.0 PIP: 19 Tube Feeding Amount: 30 I&O: Intake and Output 12/02/18 12/03/18 19:00 07:00 Intake Total 727.416 ml 350 ml Output Total 0 ml 0 ml Balance 727.416 ml 350 ml Intake Oral 0 ml 0 ml Free Water 120 ml 30 ml IV Total 567.416 ml Tube Feeding 40 ml 320 ml Output Urine Total 0 ml 0 ml # Bowel Movements 5 5 CXR: no change ET-Tube: 7.5 ET Position: 24 Labs: Laboratory Tests Test 12/03/18 03:45 12/03/18 08:25 White Blood Count 10.8 K/UL (4.8-10.8) Red Blood Count 2.82 M/UL (4.70-6.10) L Hemoglobin 9.5 G/DL (14.2-18.0) L Hematocrit 28.8 % (42.0-52.0) L Mean Corpuscular Volume 102 FL (80-99) H Mean Corpuscular Hemoglobin 33.5 PG (27.0-31.0) H Mean Corpuscular Hemoglobin Concent 32.8 G/DL (32.0-36.0) Red Cell Distribution Width 16.2 % (11.6-14.8) H Platelet Count 426 K/UL (150-450) Mean Platelet Volume 6.0 FL (6.5-10.1) L Neutrophils (%) (Auto) 60.6 % (45.0-75.0) Lymphocytes (%) (Auto) 21.0 % (20.0-45.0) Monocytes (%) (Auto) 9.9 % (1.0-10.0) Eosinophils (%) (Auto) 7.3 % (0.0-3.0) H Basophils (%) (Auto) 1.1 % (0.0-2.0) Sodium Level 135 MMOL/L (136-145) L Potassium Level 4.2 MMOL/L (3.5-5.1) Chloride Level 97 MMOL/L (98-107) L Carbon Dioxide Level 20 MMOL/L (21-32) L Anion Gap 18 mmol/L (5-15) H Blood Urea Nitrogen 60 mg/dL (7-18) H Creatinine 8.5 MG/DL (0.55-1.30) H Estimat Glomerular Filtration Rate mL/min (>60) Glucose Level 150 MG/DL (74-106) H Calcium Level 8.6 MG/DL (8.5-10.1) Phosphorus Level 7.8 MG/DL (2.5-4.9) H Magnesium Level 2.3 MG/DL (1.8-2.4) Total Bilirubin 0.6 MG/DL (0.2-1.0) Aspartate Amino Transf (AST/SGOT) 13 U/L (15-37) L Alanine Aminotransferase (ALT/SGPT) 6 U/L (12-78) L Alkaline Phosphatase 86 U/L (46-116) Total Protein 7.4 G/DL (6.4-8.2) Albumin 2.7 G/DL (3.4-5.0) L Globulin 4.7 g/dL Albumin/Globulin Ratio 0.6 (1.0-2.7) L Arterial Blood pH 7.454 (7.350-7.450) Arterial Blood Partial Pressure CO2 30.5 mmHg (35.0-45.0) L Arterial Blood Partial Pressure O2 135.8 mmHg (75.0-100.0) H Arterial Blood HCO3 20.9 mmol/L (22.0-26.0) L Arterial Blood Oxygen Saturation 93.8 % (95-100) L Arterial Blood Base Excess -2.4 (-2-2) L Rashi Test Positive Sulaiman Arcos MD Dec 03, 2018 10:33
--- NOTE | 2018-12-03 10:52 | Infectious Diseases Prog Note ---
Assessment/Plan Assessment/Plan Abx: IV Vancomycin 12/01- Zosyn 12/01- Ertapenem x1 12/01 Azithromycin x1 12/01 Cefepime x1 12/01 Assessment: Probable Sepsis Gram positive bacteremia- ? real vs contaminant -12/01 10/14 Staph sp Acute hypoxic respiratory failure s/p intubation 12/01- likely 2ry to Acute CHF and COPD exacerbation- no obvious PNA on CXR -12/02 CXR: Stable satisfactory position of endotracheal tube. Lungs and pleural spaces remain clear. No significant interim change -influenza sc neg -sp cx p Afebrile Leukocytosis , SP Diarrhea -cdiff neg Bradycardia Acute encephalopathy Sacral decubitus ulcer- not infected -wound cx: Group G strep, diphteroids HTN COPD DM2 R femur fx s/p ORIF ESRD on HD via L arm shunt pAfib on [facility] SN[facility] resident Plan: -Continue empiric IV Vancomycin #3 -12/02 SP ZOsyn #2 -12/01 SP Ertapenem, Cefepime, azithromycin x1 -f/u Repeat Bcx x2 -f/u cx -Monitor CBC/CMP, temperatures -ICU/ETT care -wound care per surgical team Thank you for this consultation. Will continue to follow along with you. Discussed with RN. Subjective Allergies: Coded Allergies: NEOMYCIN (Verified Allergy, Mild, 12/01/18) Uncoded Allergies: plastics (Allergy, Mild, 12/01/18) Subjective afebrile no leukocytosis repeat Bcx p Objective Vital Signs Last 24 Hour Vital Signs Date Time Temp Pulse Resp B/P (MAP) Pulse Ox O2 Delivery O2 Flow Rate FiO2 12/03/18 10:33 67 16 35 12/03/18 10:26 63 13 35 35 12/03/18 10:00 69 16 148/41 (76) 100 12/03/18 09:00 67 19 181/60 (100) 100 12/03/18 08:55 204/48 12/03/18 08:47 66 21 35 12/03/18 08:17 189/160 12/03/18 08:00 35 12/03/18 08:00 98.3 69 20 189/160 (170) 100 12/03/18 08:00 Mechanical Ventilator 12/03/18 07:32 62 12/03/18 07:00 65 18 189/50 (96) 100 12/03/18 06:49 65 19 35 12/03/18 06:00 66 18 182/48 (92) 100 12/03/18 05:21 69 19 35 12/03/18 05:00 66 18 186/60 (102) 100 12/03/18 04:00 Mechanical Ventilator 12/03/18 04:00 35 12/03/18 04:00 64 12/03/18 04:00 67 17 181/57 (98) 100 12/03/18 03:27 63 19 35 12/03/18 03:00 65 17 164/90 (114) 100 12/03/18 02:00 68 17 187/48 (94) 100 12/03/18 01:07 67 18 35 12/03/18 01:00 67 17 187/50 (95) 100 12/03/18 00:00 Mechanical Ventilator 12/03/18 00:00 67 12/03/18 00:00 35 12/03/18 00:00 98.5 65 17 186/62 (103) 100 12/02/18 23:26 75 19 35 12/02/18 23:00 60 15 177/48 (91) 100 12/02/18 22:00 66 17 162/53 (89) 100 12/02/18 21:00 63 15 177/44 (88) 99 12/02/18 20:03 Mechanical Ventilator 12/02/18 20:00 35 12/02/18 20:00 61 12/02/18 20:00 98.0 62 17 172/52 (92) 100 12/02/18 19:16 60 16 35 12/02/18 19:00 62 14 170/72 (104) 100 62 12/02/18 18:00 53 16 133/47 (75) 100 53 12/02/18 17:09 56 16 35 12/02/18 17:00 63 14 180/50 (93) 100 63 12/02/18 16:00 35 12/02/18 16:00 61 12/02/18 16:00 Mechanical Ventilator 12/02/18 16:00 98.1 66 8 185/56 (99) 81 66 12/02/18 15:00 57 16 167/47 (87) 100 57 12/02/18 14:41 60 19 35 12/02/18 14:00 49 16 124/41 (68) 100 49 12/02/18 13:00 52 16 148/39 (75) 100 52 12/02/18 12:55 52 16 35 12/02/18 12:00 98.1 61 16 169/54 (92) 100 61 12/02/18 12:00 Mechanical Ventilator 12/02/18 12:00 35 12/02/18 12:00 59 12/02/18 11:00 60 15 171/51 (91) 100 60 Height (Feet): 5 Height (Inches): 3.00 Weight (Pounds): 126 Objective GENERAL: The patient is well-developed and well-nourished male, who is intubated and sedated. HEENT: Eyes, pupils equal and responsive to light and accommodation. Extraocular movements are intact. NECK: Supple without lymphadenopathy. CHEST: Coarse expiratory wheezes bilaterally with coarse upper airway sounds. Otherwise, without rales. Neurologically unable to assess. CARDIOVASCULAR: Bradycardic, regular rate. S1 and S2 normal without murmurs, rubs, or gallops. ABDOMEN: Soft, nontender, and nondistended. Positive bowel sounds. No evidence of hepatosplenomegaly. Currently, no rebound or guarding noted. EXTREMITIES: Negative for clubbing, cyanosis, or edema. NEUROLOGIC: Unable to assess. Microbiology Date/Time Source Procedure Growth Status 12/01/18 00:15 Blood Blood Culture - Preliminary Gram Positive Cocci Resulted 12/01/18 00:00 Blood Blood Culture - Preliminary Staphylococcus Species Resulted 12/01/18 00:30 Nasal Nares - Final Complete 12/01/18 00:30 Nasal Nares - Final Complete 12/01/18 08:30 Stool Clostridium difficile Toxin Assay - Final Complete 12/01/18 06:00 Sacral Wound Gram Stain - Final Resulted 12/01/18 06:00 Wound Culture - Preliminary Streptococcus Group G Diphtheroids Resulted Laboratory Tests Test 12/03/18 03:45 12/03/18 08:25 White Blood Count 10.8 K/UL (4.8-10.8) Red Blood Count 2.82 M/UL (4.70-6.10) L Hemoglobin 9.5 G/DL (14.2-18.0) L Hematocrit 28.8 % (42.0-52.0) L Mean Corpuscular Volume 102 FL (80-99) H Mean Corpuscular Hemoglobin 33.5 PG (27.0-31.0) H Mean Corpuscular Hemoglobin Concent 32.8 G/DL (32.0-36.0) Red Cell Distribution Width 16.2 % (11.6-14.8) H Platelet Count 426 K/UL (150-450) Mean Platelet Volume 6.0 FL (6.5-10.1) L Neutrophils (%) (Auto) 60.6 % (45.0-75.0) Lymphocytes (%) (Auto) 21.0 % (20.0-45.0) Monocytes (%) (Auto) 9.9 % (1.0-10.0) Eosinophils (%) (Auto) 7.3 % (0.0-3.0) H Basophils (%) (Auto) 1.1 % (0.0-2.0) Sodium Level 135 MMOL/L (136-145) L Potassium Level 4.2 MMOL/L (3.5-5.1) Chloride Level 97 MMOL/L (98-107) L Carbon Dioxide Level 20 MMOL/L (21-32) L Anion Gap 18 mmol/L (5-15) H Blood Urea Nitrogen 60 mg/dL (7-18) H Creatinine 8.5 MG/DL (0.55-1.30) H Estimat Glomerular Filtration Rate mL/min (>60) Glucose Level 150 MG/DL (74-106) H Calcium Level 8.6 MG/DL (8.5-10.1) Phosphorus Level 7.8 MG/DL (2.5-4.9) H Magnesium Level 2.3 MG/DL (1.8-2.4) Total Bilirubin 0.6 MG/DL (0.2-1.0) Aspartate Amino Transf (AST/SGOT) 13 U/L (15-37) L Alanine Aminotransferase (ALT/SGPT) 6 U/L (12-78) L Alkaline Phosphatase 86 U/L (46-116) Total Protein 7.4 G/DL (6.4-8.2) Albumin 2.7 G/DL (3.4-5.0) L Globulin 4.7 g/dL Albumin/Globulin Ratio 0.6 (1.0-2.7) L Arterial Blood pH 7.454 (7.350-7.450) Arterial Blood Partial Pressure CO2 30.5 mmHg (35.0-45.0) L Arterial Blood Partial Pressure O2 135.8 mmHg (75.0-100.0) H Arterial Blood HCO3 20.9 mmol/L (22.0-26.0) L Arterial Blood Oxygen Saturation 93.8 % (95-100) L Arterial Blood Base Excess -2.4 (-2-2) L Rashi Test Positive Current Medications Medications (Trade) Dose Ordered Sig/Amber Route PRN Reason Start Time Stop Time Status Last Admin Dose Admin Acetaminophen (Tylenol) 650 mg Q4H PRN ORAL fever 12/01/18 09:15 12/31/18 09:14 Albuterol/ Ipratropium (Albuterol/ Ipratropium) 3 ml Q4H PRN HHN Shortness of Breath 12/01/18 09:15 12/06/18 09:14 Dextrose (Dextrose 50%) 25 ml Q30M PRN IV Hypoglycemia 12/01/18 09:15 12/31/18 09:14 Dextrose (Dextrose 50%) 50 ml Q30M PRN IV Hypoglycemia 12/01/18 09:15 12/31/18 09:14 Heparin Sodium (Porcine) (Heparin 5000 units/ml) 5,000 units EVERY 12 HOURS SUBQ 12/01/18 21:00 12/31/18 20:59 12/03/18 08:22 Hydralazine HCl (Apresoline) 10 mg Q4H PRN IV bp over 160 syst 12/03/18 08:00 01/02/19 07:59 12/03/18 08:55 Insulin Aspart (NovoLOG) BEFORE MEALS AND HS SUBQ 12/02/18 11:30 01/01/19 11:29 12/03/18 05:40 Lorazepam (Ativan 2mg/ml 1ml) 2 mg Q2H PRN IV For Anxiety 12/01/18 09:15 12/08/18 09:14 12/03/18 08:21 Morphine Sulfate (Morphine Sulfate) 4 mg Q4H PRN IVP Severe Pain (Pain Scale 7-10) 12/01/18 09:15 12/08/18 09:14 Norepinephrine Bitartrate 4 mg/ Dextrose 254 ml @ 0 mls/hr Q24H IV 12/01/18 09:15 12/31/18 09:14 Ondansetron HCl (Zofran) 4 mg Q6H PRN IVP Nausea & Vomiting 12/01/18 09:15 12/31/18 09:14 Pantoprazole (Protonix) 40 mg DAILY IV 12/01/18 09:30 12/31/18 09:29 12/03/18 08:21 Polyethylene Glycol (Miralax) 17 gm DAILYPRN PRN ORAL Constipation 12/01/18 09:15 12/31/18 09:14 Sevelamer Carbonate (Renvela) 800 mg Q6HR NG 12/03/18 08:00 01/02/19 07:59 12/03/18 08:21 Vancomycin HCl (Vanco rx to dose) 1 ea DAILY PRN MISC Per rx protocol 12/01/18 12:30 12/31/18 12:29 Joyce Jones M.D. Dec 03, 2018 10:52
--- NOTE | 2018-12-03 12:33 | NUR ---
NURSE NOTES: Pt turned and repositioned. Pt had BM. VSS. Will continue to monitor.
--- NOTE | 2018-12-03 12:50 | NUR ---
Weaning stopped. Placed back onto previous settings for dialysis.
--- NOTE | 2018-12-03 13:29 | NUR ---
NURSE NOTES: Dialysis on-going. VSS. Will continue to monitor.
--- NOTE | 2018-12-03 13:45 | Surgery Progress Note ---
Surgery Progress Note Subjective Additional Comments no acute events. slowly improving. HD stable. labs improved. Objective Last 24 Hour Vital Signs Date Time Temp Pulse Resp B/P (MAP) Pulse Ox O2 Delivery O2 Flow Rate FiO2 12/03/18 13:00 68 10 138/40 (72) 100 12/03/18 12:00 Mechanical Ventilator 12/03/18 12:00 35 12/03/18 12:00 98.0 58 14 118/47 (70) 100 12/03/18 11:27 57 12/03/18 11:00 60 11 147/37 (73) 100 12/03/18 10:33 67 16 35 12/03/18 10:26 63 13 35 35 12/03/18 10:00 69 16 148/41 (76) 100 12/03/18 09:00 67 19 181/60 (100) 100 12/03/18 08:55 204/48 12/03/18 08:47 66 21 35 12/03/18 08:17 189/160 12/03/18 08:00 35 12/03/18 08:00 98.3 69 20 189/160 (170) 100 12/03/18 08:00 Mechanical Ventilator 12/03/18 07:32 62 12/03/18 07:00 65 18 189/50 (96) 100 12/03/18 06:49 65 19 35 12/03/18 06:00 66 18 182/48 (92) 100 12/03/18 05:21 69 19 35 12/03/18 05:00 66 18 186/60 (102) 100 12/03/18 04:00 Mechanical Ventilator 12/03/18 04:00 35 12/03/18 04:00 64 12/03/18 04:00 67 17 181/57 (98) 100 12/03/18 03:27 63 19 35 12/03/18 03:00 65 17 164/90 (114) 100 12/03/18 02:00 68 17 187/48 (94) 100 12/03/18 01:07 67 18 35 12/03/18 01:00 67 17 187/50 (95) 100 12/03/18 00:00 Mechanical Ventilator 12/03/18 00:00 67 12/03/18 00:00 35 12/03/18 00:00 98.5 65 17 186/62 (103) 100 12/02/18 23:26 75 19 35 12/02/18 23:00 60 15 177/48 (91) 100 12/02/18 22:00 66 17 162/53 (89) 100 12/02/18 21:00 63 15 177/44 (88) 99 12/02/18 20:03 Mechanical Ventilator 12/02/18 20:00 35 12/02/18 20:00 61 12/02/18 20:00 98.0 62 17 172/52 (92) 100 12/02/18 19:16 60 16 35 12/02/18 19:00 62 14 170/72 (104) 100 62 12/02/18 18:00 53 16 133/47 (75) 100 53 12/02/18 17:09 56 16 35 12/02/18 17:00 63 14 180/50 (93) 100 63 12/02/18 16:00 35 12/02/18 16:00 61 12/02/18 16:00 Mechanical Ventilator 12/02/18 16:00 98.1 66 8 185/56 (99) 81 66 12/02/18 15:00 57 16 167/47 (87) 100 57 12/02/18 14:41 60 19 35 12/02/18 14:00 49 16 124/41 (68) 100 49 I&O Intake and Output 12/02/18 12/03/18 18:59 06:59 Intake Total 792.416 ml 360 ml Output Total 0 ml 0 ml Balance 792.416 ml 360 ml Intake Oral 0 ml 0 ml Free Water 90 ml 60 ml IV Total 672.416 ml Tube Feeding 30 ml 300 ml Output Urine Total 0 ml 0 ml # Bowel Movements 5 5 Dressing: saturated Wound: clean Drains: other Cardiovascular: RSR Respiratory: decreased breath sounds Abdomen: soft, present bowel sounds Extremities: no cyanosis Laboratory Tests Test 12/03/18 03:45 12/03/18 08:25 White Blood Count 10.8 K/UL (4.8-10.8) Red Blood Count 2.82 M/UL (4.70-6.10) L Hemoglobin 9.5 G/DL (14.2-18.0) L Hematocrit 28.8 % (42.0-52.0) L Mean Corpuscular Volume 102 FL (80-99) H Mean Corpuscular Hemoglobin 33.5 PG (27.0-31.0) H Mean Corpuscular Hemoglobin Concent 32.8 G/DL (32.0-36.0) Red Cell Distribution Width 16.2 % (11.6-14.8) H Platelet Count 426 K/UL (150-450) Mean Platelet Volume 6.0 FL (6.5-10.1) L Neutrophils (%) (Auto) 60.6 % (45.0-75.0) Lymphocytes (%) (Auto) 21.0 % (20.0-45.0) Monocytes (%) (Auto) 9.9 % (1.0-10.0) Eosinophils (%) (Auto) 7.3 % (0.0-3.0) H Basophils (%) (Auto) 1.1 % (0.0-2.0) Sodium Level 135 MMOL/L (136-145) L Potassium Level 4.2 MMOL/L (3.5-5.1) Chloride Level 97 MMOL/L (98-107) L Carbon Dioxide Level 20 MMOL/L (21-32) L Anion Gap 18 mmol/L (5-15) H Blood Urea Nitrogen 60 mg/dL (7-18) H Creatinine 8.5 MG/DL (0.55-1.30) H Estimat Glomerular Filtration Rate mL/min (>60) Glucose Level 150 MG/DL (74-106) H Calcium Level 8.6 MG/DL (8.5-10.1) Phosphorus Level 7.8 MG/DL (2.5-4.9) H Magnesium Level 2.3 MG/DL (1.8-2.4) Total Bilirubin 0.6 MG/DL (0.2-1.0) Aspartate Amino Transf (AST/SGOT) 13 U/L (15-37) L Alanine Aminotransferase (ALT/SGPT) 6 U/L (12-78) L Alkaline Phosphatase 86 U/L (46-116) Total Protein 7.4 G/DL (6.4-8.2) Albumin 2.7 G/DL (3.4-5.0) L Globulin 4.7 g/dL Albumin/Globulin Ratio 0.6 (1.0-2.7) L Arterial Blood pH 7.454 (7.350-7.450) Arterial Blood Partial Pressure CO2 30.5 mmHg (35.0-45.0) L Arterial Blood Partial Pressure O2 135.8 mmHg (75.0-100.0) H Arterial Blood HCO3 20.9 mmol/L (22.0-26.0) L Arterial Blood Oxygen Saturation 93.8 % (95-100) L Arterial Blood Base Excess -2.4 (-2-2) L Rashi Test Positive Plan Problems: (1) Sacral decubitus ulcer, stage III Assessment & Plan: Pt presented on admission with Irregular shaped, full thickness Sacral pressure injury.Scattered areas of biofilm noted at base of wound .Other muñoz wound is moist and viable. Edges adherent to base of wound . Periwound with darker skin tone without induration or fluctuance. No odor or exudate noted.(L)7.5cm x (W)8.5cm.Significant portion of wound is partial thickness and small portion with full thickness breakdown approximately 1cm x 1cm at inferior yellow white portion. no drainage. periwound intact and stable. wound bed of partial thickness with healthy viable tissue. no signs of infection. no odor Non-blanchable erythema with fluctuance and delineated margins noted to R heel(L )3cm x (W)4cm.Periwound is pink and blanchable. Non-blanchable erythema with fluctuance noted to L heel. Periwound pink and blanchable without induration or fluctuance. (L)3.8cm x (W)4.5cm. Tx.Plan: Cleanse Sacral wound with Saline.Apply Therahoney. Apply Triad Paste periwound. Cover with Optifoam drsg Daily and prn. Apply Cavilon Skin Barrier to R and L heels.Cover each Heel with Optifoam drsg. Change every 7 days and prn. APM/BOOGIE Mattress overlay. Reposition at least every 2hours or as tolerated. Off-load heels with pillow. will follow with recs thank you (2) Hypoglycemia (3) Left lower lobe pneumonia (4) Hypocalcemia (5) COPD (chronic obstructive pulmonary disease) (6) HTN (hypertension) (7) DM (diabetes mellitus) (8) Respiratory failure Assessment & Plan: slowly improving will follow with recs thank you (9) ESRD (end stage renal disease) on dialysis (10) Bacteremia (11) Respiratory failure, acute (12) Sepsis (13) Anemia in chronic kidney disease (CKD) Florencio Herrera Dec 03, 2018 13:45
[2018-12-03] MEDS ORDERED: 1/2 NS 1000ml IV ONE (15:37)
[2018-12-03] MEDS ORDERED: NS 275ml ONE (15:37)
[2018-12-03] MEDS ORDERED: Tubing IV Secondary IV ONE (15:37)
--- NOTE | 2018-12-03 15:38 | Nephrology Progress Note ---
Assessment/Plan Problem List: (1) ESRD (end stage renal disease) on dialysis (2) Respiratory failure, acute (3) Sepsis (4) Left lower lobe pneumonia (5) Anemia in chronic kidney disease (CKD) Assessment Respiratory failure on vent Left lower lobe pneumonia ESRD (end stage renal disease) on dialysis Hypoglycemia Hypocalcemia on admit Anemia Plan start OG feeding with Nepro antibiotics hemodynamic support pulmonary support HD today Subjective ROS Limited/Unobtainable: Yes Objective Objective Last 24 Hour Vital Signs Date Time Temp Pulse Resp B/P (MAP) Pulse Ox O2 Delivery O2 Flow Rate FiO2 12/03/18 15:15 79 23 35 12/03/18 14:00 81 16 132/100 (111) 100 12/03/18 13:28 81 24 35 12/03/18 13:00 68 10 138/40 (72) 100 12/03/18 12:00 Mechanical Ventilator 12/03/18 12:00 35 12/03/18 12:00 98.0 58 14 118/47 (70) 100 12/03/18 11:27 57 12/03/18 11:00 60 11 147/37 (73) 100 12/03/18 10:33 67 16 35 12/03/18 10:26 63 13 35 35 12/03/18 10:00 69 16 148/41 (76) 100 12/03/18 09:00 67 19 181/60 (100) 100 12/03/18 08:55 204/48 12/03/18 08:47 66 21 35 12/03/18 08:17 189/160 12/03/18 08:00 35 12/03/18 08:00 98.3 69 20 189/160 (170) 100 12/03/18 08:00 Mechanical Ventilator 12/03/18 07:32 62 12/03/18 07:00 65 18 189/50 (96) 100 12/03/18 06:49 65 19 35 12/03/18 06:00 66 18 182/48 (92) 100 12/03/18 05:21 69 19 35 12/03/18 05:00 66 18 186/60 (102) 100 12/03/18 04:00 Mechanical Ventilator 12/03/18 04:00 35 12/03/18 04:00 64 12/03/18 04:00 67 17 181/57 (98) 100 12/03/18 03:27 63 19 35 12/03/18 03:00 65 17 164/90 (114) 100 12/03/18 02:00 68 17 187/48 (94) 100 12/03/18 01:07 67 18 35 12/03/18 01:00 67 17 187/50 (95) 100 12/03/18 00:00 Mechanical Ventilator 12/03/18 00:00 67 12/03/18 00:00 35 12/03/18 00:00 98.5 65 17 186/62 (103) 100 12/02/18 23:26 75 19 35 12/02/18 23:00 60 15 177/48 (91) 100 12/02/18 22:00 66 17 162/53 (89) 100 12/02/18 21:00 63 15 177/44 (88) 99 12/02/18 20:03 Mechanical Ventilator 12/02/18 20:00 35 12/02/18 20:00 61 12/02/18 20:00 98.0 62 17 172/52 (92) 100 12/02/18 19:16 60 16 35 12/02/18 19:00 62 14 170/72 (104) 100 62 12/02/18 18:00 53 16 133/47 (75) 100 53 12/02/18 17:09 56 16 35 12/02/18 17:00 63 14 180/50 (93) 100 63 12/02/18 16:00 35 12/02/18 16:00 61 12/02/18 16:00 Mechanical Ventilator 12/02/18 16:00 98.1 66 8 185/56 (99) 81 66 Intake and Output 12/02/18 12/03/18 18:59 06:59 Intake Total 792.416 ml 360 ml Output Total 0 ml 0 ml Balance 792.416 ml 360 ml Intake Oral 0 ml 0 ml Free Water 90 ml 60 ml IV Total 672.416 ml Tube Feeding 30 ml 300 ml Output Urine Total 0 ml 0 ml # Bowel Movements 5 5 Laboratory Tests 12/03/18 03:45: White Blood Count 10.8, Red Blood Count 2.82L, Hemoglobin 9.5L, Hematocrit 28.8L , Mean Corpuscular Volume 102H, Mean Corpuscular Hemoglobin 33.5H, Mean Corpuscular Hemoglobin Concent 32.8, Red Cell Distribution Width 16.2H, Platelet Count 426, Mean Platelet Volume 6.0L, Neutrophils (%) (Auto) 60.6, Lymphocytes (%) (Auto) 21.0, Monocytes (%) (Auto) 9.9, Eosinophils (%) (Auto) 7.3H, Basophils (%) (Auto) 1.1, Sodium Level 135L, Potassium Level 4.2, Chloride Level 97L, Carbon Dioxide Level 20L, Anion Gap 18H, Blood Urea Nitrogen 60H, Creatinine 8.5H, Estimat Glomerular Filtration Rate , Glucose Level 150H, Calcium Level 8.6, Phosphorus Level 7.8H, Magnesium Level 2.3, Total Bilirubin 0.6, Aspartate Amino Transf (AST/SGOT) 13L, Alanine Aminotransferase (ALT/SGPT) 6L, Alkaline Phosphatase 86, Total Protein 7.4, Albumin 2.7L, Globulin 4.7, Albumin/Globulin Ratio 0.6L 12/03/18 08:25: Arterial Blood pH 7.454H, Arterial Blood Partial Pressure CO2 30.5L, Arterial Blood Partial Pressure O2 135.8H, Arterial Blood HCO3 20.9L, Arterial Blood Oxygen Saturation 93.8L, Arterial Blood Base Excess -2.4L, Rashi Test Positive Height (Feet): 5 Height (Inches): 3.00 Weight (Pounds): 126 EENT: other - on vent Cardiovascular: normal rate Respiratory/Chest: decreased breath sounds Abdomen: soft, distended Boo Fu MD Dec 03, 2018 15:38
--- NOTE | 2018-12-03 16:32 | Cardiac Electrophysiology PN ---
Assessment/Plan Assessment/Plan 1. Bradycardia. Better off clonidine patch Echo showed ejection fraction of 55%. 2. History of hypertension, currently off antihypertensives. 3. Respiratory failure, on the vent and broad-spectrum antibiotic. Further evaluation by Dr. Arcos. 4. Troponin leak, likely due to renal failure. 5. End-stage renal disease, on hemodialysis. JOSE ALEJANDRO RN Subjective Subjective In ICU on the vent off pressors. Had Dialysis today with 2 liters out. Had 6 brownish BM today. Objective Last 24 Hour Vital Signs Date Time Temp Pulse Resp B/P (MAP) Pulse Ox O2 Delivery O2 Flow Rate FiO2 12/03/18 16:00 98.2 79 17 105/74 (84) 98 12/03/18 15:15 79 23 35 12/03/18 15:00 79 19 112/76 (88) 100 12/03/18 14:00 81 16 132/100 (111) 100 12/03/18 13:28 81 24 35 12/03/18 13:00 68 10 138/40 (72) 100 12/03/18 12:00 Mechanical Ventilator 12/03/18 12:00 35 12/03/18 12:00 98.0 58 14 118/47 (70) 100 12/03/18 11:27 57 12/03/18 11:00 60 11 147/37 (73) 100 12/03/18 10:33 67 16 35 12/03/18 10:26 63 13 35 35 12/03/18 10:00 69 16 148/41 (76) 100 12/03/18 09:00 67 19 181/60 (100) 100 12/03/18 08:55 204/48 12/03/18 08:47 66 21 35 12/03/18 08:17 189/160 12/03/18 08:00 35 12/03/18 08:00 98.3 69 20 189/160 (170) 100 12/03/18 08:00 Mechanical Ventilator 12/03/18 07:32 62 12/03/18 07:00 65 18 189/50 (96) 100 12/03/18 06:49 65 19 35 12/03/18 06:00 66 18 182/48 (92) 100 12/03/18 05:21 69 19 35 12/03/18 05:00 66 18 186/60 (102) 100 12/03/18 04:00 Mechanical Ventilator 12/03/18 04:00 35 12/03/18 04:00 64 12/03/18 04:00 67 17 181/57 (98) 100 12/03/18 03:27 63 19 35 12/03/18 03:00 65 17 164/90 (114) 100 12/03/18 02:00 68 17 187/48 (94) 100 12/03/18 01:07 67 18 35 12/03/18 01:00 67 17 187/50 (95) 100 12/03/18 00:00 Mechanical Ventilator 12/03/18 00:00 67 12/03/18 00:00 35 12/03/18 00:00 98.5 65 17 186/62 (103) 100 12/02/18 23:26 75 19 35 12/02/18 23:00 60 15 177/48 (91) 100 12/02/18 22:00 66 17 162/53 (89) 100 12/02/18 21:00 63 15 177/44 (88) 99 12/02/18 20:03 Mechanical Ventilator 12/02/18 20:00 35 12/02/18 20:00 61 12/02/18 20:00 98.0 62 17 172/52 (92) 100 12/02/18 19:16 60 16 35 12/02/18 19:00 62 14 170/72 (104) 100 62 12/02/18 18:00 53 16 133/47 (75) 100 53 12/02/18 17:09 56 16 35 12/02/18 17:00 63 14 180/50 (93) 100 63 Intake and Output 12/02/18 12/03/18 18:59 06:59 Intake Total 792.416 ml 360 ml Output Total 0 ml 0 ml Balance 792.416 ml 360 ml Intake Oral 0 ml 0 ml Free Water 90 ml 60 ml IV Total 672.416 ml Tube Feeding 30 ml 300 ml Output Urine Total 0 ml 0 ml # Bowel Movements 5 5 Laboratory Tests Test 12/03/18 03:45 12/03/18 08:25 White Blood Count 10.8 K/UL (4.8-10.8) Red Blood Count 2.82 M/UL (4.70-6.10) L Hemoglobin 9.5 G/DL (14.2-18.0) L Hematocrit 28.8 % (42.0-52.0) L Mean Corpuscular Volume 102 FL (80-99) H Mean Corpuscular Hemoglobin 33.5 PG (27.0-31.0) H Mean Corpuscular Hemoglobin Concent 32.8 G/DL (32.0-36.0) Red Cell Distribution Width 16.2 % (11.6-14.8) H Platelet Count 426 K/UL (150-450) Mean Platelet Volume 6.0 FL (6.5-10.1) L Neutrophils (%) (Auto) 60.6 % (45.0-75.0) Lymphocytes (%) (Auto) 21.0 % (20.0-45.0) Monocytes (%) (Auto) 9.9 % (1.0-10.0) Eosinophils (%) (Auto) 7.3 % (0.0-3.0) H Basophils (%) (Auto) 1.1 % (0.0-2.0) Sodium Level 135 MMOL/L (136-145) L Potassium Level 4.2 MMOL/L (3.5-5.1) Chloride Level 97 MMOL/L (98-107) L Carbon Dioxide Level 20 MMOL/L (21-32) L Anion Gap 18 mmol/L (5-15) H Blood Urea Nitrogen 60 mg/dL (7-18) H Creatinine 8.5 MG/DL (0.55-1.30) H Estimat Glomerular Filtration Rate mL/min (>60) Glucose Level 150 MG/DL (74-106) H Calcium Level 8.6 MG/DL (8.5-10.1) Phosphorus Level 7.8 MG/DL (2.5-4.9) H Magnesium Level 2.3 MG/DL (1.8-2.4) Total Bilirubin 0.6 MG/DL (0.2-1.0) Aspartate Amino Transf (AST/SGOT) 13 U/L (15-37) L Alanine Aminotransferase (ALT/SGPT) 6 U/L (12-78) L Alkaline Phosphatase 86 U/L (46-116) Total Protein 7.4 G/DL (6.4-8.2) Albumin 2.7 G/DL (3.4-5.0) L Globulin 4.7 g/dL Albumin/Globulin Ratio 0.6 (1.0-2.7) L Arterial Blood pH 7.454 (7.350-7.450) Arterial Blood Partial Pressure CO2 30.5 mmHg (35.0-45.0) L Arterial Blood Partial Pressure O2 135.8 mmHg (75.0-100.0) H Arterial Blood HCO3 20.9 mmol/L (22.0-26.0) L Arterial Blood Oxygen Saturation 93.8 % (95-100) L Arterial Blood Base Excess -2.4 (-2-2) L Rashi Test Positive Microbiology Date/Time Source Procedure Growth Status 12/01/18 00:15 Blood Blood Culture - Preliminary Gram Positive Cocci Resulted 12/01/18 00:00 Blood Blood Culture - Preliminary Staphylococcus Species Resulted 12/01/18 00:30 Nasal Nares - Final Complete 12/01/18 00:30 Nasal Nares - Final Complete 12/01/18 08:30 Stool Clostridium difficile Toxin Assay - Final Complete 12/01/18 06:00 Sacral Wound Gram Stain - Final Resulted 12/01/18 06:00 Wound Culture - Preliminary Streptococcus Group G Diphtheroids Resulted Objective HEAD AND NECK: No JVD, orally intubated. LUNGS: Coarse rhonchi. CARDIOVASCULAR: Regular S1 and S2 with no gallop or murmur. ABDOMEN: Soft. EXTREMITIES: No pitting edema. Ryan Harley MD Dec 03, 2018 16:32
--- NOTE | 2018-12-03 16:38 | NUR ---
NURSE NOTES: Pt had 5th BM this shift, pasty. Pt turned and repositioned. Will continue to monitor.
--- NOTE | 2018-12-03 18:49 | Internal Med Progress Note ---
Subjective Date of Service: Dec 03, 2018 Physician Name Aryan Brody Attending Physician Tony Cyr MD Current Medications Medications (Trade) Dose Ordered Sig/Amber Route PRN Reason Start Time Stop Time Status Last Admin Dose Admin Acetaminophen (Tylenol) 650 mg Q4H PRN ORAL fever 12/01/18 09:15 12/31/18 09:14 Albuterol/ Ipratropium (Albuterol/ Ipratropium) 3 ml Q4H PRN HHN Shortness of Breath 12/01/18 09:15 12/06/18 09:14 Dextrose (Dextrose 50%) 25 ml Q30M PRN IV Hypoglycemia 12/01/18 09:15 12/31/18 09:14 Dextrose (Dextrose 50%) 50 ml Q30M PRN IV Hypoglycemia 12/01/18 09:15 12/31/18 09:14 Heparin Sodium (Porcine) (Heparin 5000 units/ml) 5,000 units EVERY 12 HOURS SUBQ 12/01/18 21:00 12/31/18 20:59 12/03/18 08:22 Hydralazine HCl (Apresoline) 10 mg Q4H PRN IV bp over 160 syst 12/03/18 08:00 01/02/19 07:59 12/03/18 08:55 Insulin Aspart (NovoLOG) BEFORE MEALS AND HS SUBQ 12/02/18 11:30 01/01/19 11:29 12/03/18 12:00 Lorazepam (Ativan 2mg/ml 1ml) 2 mg Q2H PRN IV For Anxiety 12/01/18 09:15 12/08/18 09:14 12/03/18 08:21 Morphine Sulfate (Morphine Sulfate) 4 mg Q4H PRN IVP Severe Pain (Pain Scale 7-10) 12/01/18 09:15 12/08/18 09:14 Norepinephrine Bitartrate 4 mg/ Dextrose 254 ml @ 0 mls/hr Q24H IV 12/01/18 09:15 12/31/18 09:14 Ondansetron HCl (Zofran) 4 mg Q6H PRN IVP Nausea & Vomiting 12/01/18 09:15 12/31/18 09:14 Pantoprazole (Protonix) 40 mg DAILY IV 12/01/18 09:30 12/31/18 09:29 12/03/18 08:21 Polyethylene Glycol (Miralax) 17 gm DAILYPRN PRN ORAL Constipation 12/01/18 09:15 12/31/18 09:14 Sevelamer Carbonate (Renvela) 800 mg Q6HR NG 12/03/18 08:00 01/02/19 07:59 12/03/18 18:24 Vancomycin HCl (Vanco rx to dose) 1 ea DAILY PRN MISC Per rx protocol 12/01/18 12:30 12/31/18 12:29 Allergies: Coded Allergies: NEOMYCIN (Verified Allergy, Mild, 12/01/18) Uncoded Allergies: plastics (Allergy, Mild, 12/01/18) Subjective 73 YO M admitted with respiratory failure. Intubated and sedated. Cover for Int Jareth-Dr Cyr. ICU Objective Last Vital Signs Date Time Temp Pulse Resp B/P (MAP) Pulse Ox O2 Delivery O2 Flow Rate FiO2 12/03/18 18:00 81 19 134/72 (92) 100 12/03/18 17:29 35 12/03/18 16:00 98.2 12/03/18 16:00 Mechanical Ventilator Laboratory Tests Test 12/03/18 03:45 12/03/18 08:25 White Blood Count 10.8 K/UL (4.8-10.8) Red Blood Count 2.82 M/UL (4.70-6.10) L Hemoglobin 9.5 G/DL (14.2-18.0) L Hematocrit 28.8 % (42.0-52.0) L Mean Corpuscular Volume 102 FL (80-99) H Mean Corpuscular Hemoglobin 33.5 PG (27.0-31.0) H Mean Corpuscular Hemoglobin Concent 32.8 G/DL (32.0-36.0) Red Cell Distribution Width 16.2 % (11.6-14.8) H Platelet Count 426 K/UL (150-450) Mean Platelet Volume 6.0 FL (6.5-10.1) L Neutrophils (%) (Auto) 60.6 % (45.0-75.0) Lymphocytes (%) (Auto) 21.0 % (20.0-45.0) Monocytes (%) (Auto) 9.9 % (1.0-10.0) Eosinophils (%) (Auto) 7.3 % (0.0-3.0) H Basophils (%) (Auto) 1.1 % (0.0-2.0) Sodium Level 135 MMOL/L (136-145) L Potassium Level 4.2 MMOL/L (3.5-5.1) Chloride Level 97 MMOL/L (98-107) L Carbon Dioxide Level 20 MMOL/L (21-32) L Anion Gap 18 mmol/L (5-15) H Blood Urea Nitrogen 60 mg/dL (7-18) H Creatinine 8.5 MG/DL (0.55-1.30) H Estimat Glomerular Filtration Rate mL/min (>60) Glucose Level 150 MG/DL (74-106) H Calcium Level 8.6 MG/DL (8.5-10.1) Phosphorus Level 7.8 MG/DL (2.5-4.9) H Magnesium Level 2.3 MG/DL (1.8-2.4) Total Bilirubin 0.6 MG/DL (0.2-1.0) Aspartate Amino Transf (AST/SGOT) 13 U/L (15-37) L Alanine Aminotransferase (ALT/SGPT) 6 U/L (12-78) L Alkaline Phosphatase 86 U/L (46-116) Total Protein 7.4 G/DL (6.4-8.2) Albumin 2.7 G/DL (3.4-5.0) L Globulin 4.7 g/dL Albumin/Globulin Ratio 0.6 (1.0-2.7) L Arterial Blood pH 7.454 (7.350-7.450) Arterial Blood Partial Pressure CO2 30.5 mmHg (35.0-45.0) L Arterial Blood Partial Pressure O2 135.8 mmHg (75.0-100.0) H Arterial Blood HCO3 20.9 mmol/L (22.0-26.0) L Arterial Blood Oxygen Saturation 93.8 % (95-100) L Arterial Blood Base Excess -2.4 (-2-2) L Rashi Test Positive Microbiology Date/Time Source Procedure Growth Status 12/01/18 00:15 Blood Blood Culture - Preliminary Gram Positive Cocci Resulted 12/01/18 00:00 Blood Blood Culture - Preliminary Staphylococcus Species Resulted 12/01/18 00:30 Nasal Nares - Final Complete 12/01/18 00:30 Nasal Nares - Final Complete 12/01/18 08:30 Stool Clostridium difficile Toxin Assay - Final Complete 12/01/18 06:00 Sacral Wound Gram Stain - Final Resulted 12/01/18 06:00 Wound Culture - Preliminary Streptococcus Group G Diphtheroids Resulted Intake and Output 12/02/18 12/03/18 19:00 07:00 Intake Total 727.416 ml 350 ml Output Total 0 ml 0 ml Balance 727.416 ml 350 ml Intake Oral 0 ml 0 ml Free Water 120 ml 30 ml IV Total 567.416 ml Tube Feeding 40 ml 320 ml Output Urine Total 0 ml 0 ml # Bowel Movements 5 5 Objective PHYSICAL EXAMINATION: VITAL SIGNS: Temperature 99.4 degrees, respirations 20, pulse 83, blood pressure 140/96, and pulse oximetry initially was 79 on room air. GENERAL: The patient is well-developed and well-nourished male, who is intubated and sedated. HEENT: Eyes, pupils equal and responsive to light and accommodation. Extraocular movements are intact. NECK: Supple without lymphadenopathy. CHEST: Mech vent; Coarse expiratory wheezes bilaterally with coarse upper airway sounds. Otherwise, without rales. Neurologically unable to assess. CARDIOVASCULAR: Bradycardic, regular rate. S1 and S2 normal without murmurs, rubs, or gallops. ABDOMEN: Soft, nontender, and nondistended. Positive bowel sounds. No evidence of hepatosplenomegaly. Currently, no rebound or guarding noted. RECTAL: Refused. GENITALIA: Refused. EXTREMITIES: Negative for clubbing, cyanosis, or edema. NEUROLOGIC: Unable to assess. Assessment/Plan Assessment/Plan ASSESSMENT: This is a 73-year-old male with: 1. Respiratory failure. 2. Altered mental status. 3. Acute congestive heart failure. 4. Hypoxia. 5. Diabetes. 6. Chronic obstructive pulmonary disease. 7. Hypertension. 8. End-stage renal disease. 9. Sacral decubitus ulcer. TREATMENT: 1. Respiratory failure/chronic obstructive pulmonary disease. A Pulmonary consultation has been obtained with Dr. Sulaiman Arcos. The patient is currently intubated and sedated. The patient has been started empirically on ertapenem. 2. Acute congestive heart failure. Cardiology consultation has been obtained with Dr. Ryan Harley. BNP will be performed. Congestive heart failure may be secondary to volume overload secondary to end-stage renal disease. 3. Diabetes type 2. The patient has been placed on NovoLog sliding scale. 4. Hypertension. Continue losartan as above. 5. End-stage renal disease. A Nephrology consultation has been obtained with Dr. Fu. 6. Sacral decubitus ulcer. Aryan Brody MD Dec 03, 2018 18:49
--- NOTE | 2018-12-03 19:07 | NUR ---
HAND-OFF: Report given to Dl ESTEVEZ.
--- NOTE | 2018-12-03 19:21 | NUR ---
RESPIRATORY NOTE: Received pt on AC 16, 500VT, 35%, PEEP +5. Pt intubated w/ ETT 7.5 @ 24cm lipline, secured by anchorfast. Pt awake, needs a little reinforcement. B/S dalton. diminished, sxn minimal amounts of thin, frothy, clear-white secretions. Vent plugged into red outlet, ambubag at bedside. Pt resting comfortably, in no apparent distress at this time. Will continue to monitor pt.
--- NOTE | 2018-12-03 19:23 | NUR ---
NURSE NOTES: Report received from Otilio RN. Pt alert and oriented x1 , confused, vietnamese speaking. Pt on manager cardiac, SR. Pt orally intubated ETT 7.5, 24 cm lip line, AC 16. TV 500, 35 % fiO2, PEEP 5. GTF Nepro at 30 cc/hr. Pt with AAYUSH AV fistula, positive bruit/thrill, RH 20 G and RFA 20 G heplock noted and intact. Bilateral soft wrist restraints noted intact, pt trying to pull out lines and tubes and attempts to climb out of bed. Safety measures in place with bed locked and in lowest position, side rails x3 up and bed alarm on. Will continue to monitor and continue plan of care.
[2018-12-03] MEDS: Morphine Sulfate 4mg/ml Inj (IV USE ONLY) IVP PRN (19:56)
--- NOTE | 2018-12-03 20:00 | NUR ---
NURSE NOTES: Patient had small BM. Skin assessment performed. Patient cleaned and repositioned. VS remains stable.
--- NOTE | 2018-12-03 22:00 | NUR ---
NURSE NOTES: Patient repositioned and performed oral care. VS remains stable.
[2018-12-04] VITALS (27 sets, daily range): BP systolic 93–210; BP diastolic 19–76
--- NOTE | 2018-12-04 | NUR ---
NURSE NOTES: Repositioned patient and provided oral care. Vitals remains stable at this time, no new changes, will continue to monitor.
--- NOTE | 2018-12-04 02:00 | NUR ---
NURSE NOTES: Repositioned patient and provided oral care. Vitals remains stable
--- NOTE | 2018-12-04 04:00 | NUR ---
NURSE NOTES: Patient cleaned, pericare done, AM blood drawn and sent to lab, vitals remains stable.
[2018-12-04 04:54] LABS: BASOPHILS % (AUTO) 1.8 % (0.0-2.0); EOSINOPHILS % (AUTO) 6.1 % (0.0-3.0); HEMATOCRIT 32.8 % (42.0-52.0); HEMOGLOBIN 10.7 G/DL (14.2-18.0); LYMPHOCYTES % (AUTO) 30.1 % (20.0-45.0); MEAN CORPUSCULAR VOLUME 104 FL (80-99); MONOCYTES % (AUTO) 14.6 % (1.0-10.0); NEUTROPHILS % (AUTO) 47.4 % (45.0-75.0); PLATELET COUNT 412 K/UL (150-450); RED BLOOD COUNT 3.16 M/UL (4.70-6.10); RED CELL DISTRIBUTION WIDTH 16.5 % (11.6-14.8); WHITE BLOOD COUNT 7.8 K/UL (4.8-10.8)
[2018-12-04] MEDS: Renvela 800mg Pkt NG SCH ×3 (05:18→17:07)
[2018-12-04] MEDS: NovoLOG Insulin Flexpen SUBQ SCH ×4 (05:19→20:52)
[2018-12-04 05:31] LABS: ALANINE AMINOTRANSFERASE 10 U/L (12-78); ALBUMIN 2.9 G/DL (3.4-5.0); ALBUMIN/GLOBULIN RATIO 0.5 (1.0-2.7); ALKALINE PHOSPHATASE 90 U/L (46-116); ANION GAP 14 mmol/L (5-15); ASPARTATE AMINO TRANSFERASE 14 U/L (15-37); BILIRUBIN,TOTAL 0.7 MG/DL (0.2-1.0); BLOOD UREA NITROGEN 37 mg/dL (7-18); CALCIUM 9.2 MG/DL (8.5-10.1); CARBON DIOXIDE 29 MMOL/L (21-32); CHLORIDE 95 MMOL/L (98-107); CREATININE 6.4 MG/DL (0.55-1.30); PHOSPHORUS 6.5 MG/DL (2.5-4.9); POTASSIUM 4.3 MMOL/L (3.5-5.1); SODIUM 138 MMOL/L (136-145)
--- NOTE | 2018-12-04 06:00 | NUR ---
NURSE NOTES: Patient repositioned and provided oral care. NAD at this time.
--- NOTE | 2018-12-04 07:36 | NUR ---
RESPIRATORY NOTE: Patient received mechanically ventilated on PB 840 with current ordered vent settings. Patient is orally intubated with 7.5 ETT tube ans 24cm at the lip line and it is secured with an anchor fast. There are bilateral decreased breath sounds auscultated and small amount of thick clear and white secretions were suctioned without incident. There is an ambu bag available at the bedside and the vent is connected to a red outlet. Vent alarms are functional and audible. Will continue to monitor.
--- NOTE | 2018-12-04 07:47 | NUR ---
NURSE NOTES: Received the patient from ZENAIDA Lizama. Patient is asleep, easily arousable, able to follow simple commands, communicates by nodding. Patient is orally intubated, ETT size 7.5, 24cm at lip line, vent settings: AC 16, TV 500, FIO2 35%, PEEP 5, O2 sat 100%. No acute distress noted. SR noted on the monitor. OGT intact, running Nepro at 30ml/hr. Right wrist 20G intact, saline locked, Left upper arm AV shunt noted. Patient on bilateral soft wrist restraints, no skin breakdown noted, pulses present. Bed in lowest position, locked, side rails upx3. Bed alarm on. Will continue to monitor.
[2018-12-04] MEDS: Pantoprazole Inj IV SCH (08:51)
[2018-12-04] MEDS: Heparin 5000 units/ml inj SUBQ SCH ×2 (08:55→20:51)
--- NOTE | 2018-12-04 09:03 | NUR ---
RADIOLOGY DEPT., CHEST X-RAY DONE.-P.DYE
--- NOTE | 2018-12-04 09:57 | Pulmonolgy Critical Care Note ---
Critical Care - Asmt/Plan Problems: (1) Respiratory failure, acute (2) Sepsis (3) ESRD (end stage renal disease) on dialysis (4) HTN (hypertension) (5) COPD (chronic obstructive pulmonary disease) (6) DM (diabetes mellitus) (7) Bacteremia (8) Sacral decubitus ulcer, stage III Respiratory: monitor respiratory rate, adjust FIO2, CXR Cardiac: continue pressors, continue to monitor HR/BP Renal: F/U I&O, keep IV fluid Infectious Disease: check cultures Gastrointestinal: continue feedings/current rate Endocrine: monitor blood sugar, check HgA1C Hematologic: monitor H/H, transfuse if hgb<8.5 Neurologic: keep patient comfortable Time Spent (Minutes): 40 Notes 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, 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 Discussed with: nurses, consultants, 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 - Objective Last 24 Hour Vital Signs Date Time Temp Pulse Resp B/P (MAP) Pulse Ox O2 Delivery O2 Flow Rate FiO2 12/04/18 09:18 66 21 35 12/04/18 09:16 210/56 12/04/18 09:00 67 17 210/56 (107) 100 12/04/18 08:53 65 18 163/35 (77) 100 12/04/18 08:00 64 12/04/18 08:00 Mechanical Ventilator 12/04/18 08:00 97.8 69 16 93/76 (82) 100 12/04/18 08:00 35 12/04/18 07:31 67 24 35 12/04/18 07:00 65 16 129/27 (61) 99 12/04/18 06:00 64 18 104/32 (56) 99 12/04/18 05:22 70 16 35 12/04/18 05:00 73 18 118/62 (80) 99 12/04/18 04:00 Mechanical Ventilator 12/04/18 04:00 71 12/04/18 04:00 99.1 71 15 118/19 (52) 100 12/04/18 04:00 35 12/04/18 03:01 69 16 35 12/04/18 03:00 65 16 160/44 (82) 100 12/04/18 02:00 64 16 137/29 (65) 100 12/04/18 01:00 70 16 134/29 (64) 100 12/04/18 01:00 65 16 35 12/04/18 00:00 98.5 62 16 119/51 (73) 100 12/04/18 00:00 35 12/04/18 00:00 Mechanical Ventilator 12/03/18 23:22 62 16 35 12/03/18 23:00 61 18 106/18 (47) 100 12/03/18 22:00 69 18 100/55 (70) 100 12/03/18 21:20 70 17 35 12/03/18 21:00 68 17 95/54 (68) 98 12/03/18 20:23 68 12/03/18 20:00 35 12/03/18 20:00 Mechanical Ventilator 12/03/18 20:00 99.2 77 14 129/86 (100) 100 12/03/18 19:18 75 17 35 12/03/18 19:00 76 19 119/31 (60) 100 12/03/18 18:00 81 19 134/72 (92) 100 12/03/18 17:29 69 18 35 12/03/18 17:00 76 19 149/88 (108) 96 12/03/18 16:00 98.2 79 17 105/74 (84) 98 12/03/18 16:00 Mechanical Ventilator 12/03/18 16:00 35 12/03/18 16:00 74 12/03/18 15:15 79 23 35 12/03/18 15:00 79 19 112/76 (88) 100 12/03/18 14:00 81 16 132/100 (111) 100 12/03/18 13:28 81 24 35 12/03/18 13:00 68 10 138/40 (72) 100 12/03/18 12:00 Mechanical Ventilator 12/03/18 12:00 35 12/03/18 12:00 98.0 58 14 118/47 (70) 100 12/03/18 11:27 57 12/03/18 11:00 60 11 147/37 (73) 100 12/03/18 10:33 67 16 35 12/03/18 10:26 63 13 35 35 12/03/18 10:00 69 16 148/41 (76) 100 Status: awake Condition: critical HEENT: atraumatic Neck: full ROM Lungs: chest wall tender Heart: HR/BP stable Abdomen: non-tender, feeding tube Extremities: no C/C/E Decubiti: stage Micro: Microbiology Date/Time Source Procedure Growth Status 12/02/18 15:50 Blood Blood Culture - Preliminary NO GROWTH AFTER 24 HOURS Resulted 12/02/18 15:40 Blood Blood Culture - Preliminary NO GROWTH AFTER 24 HOURS Resulted Accucheck: 150 Critical Care - Subjective ROS Limited/Unobtainable: Yes Condition: critical EKG Rhythm: Sinus Rhythm FI02: 35 Vent Support Breath Rate: 16 Vent Support Mode: AC Vent Tidal Volume: 500 Sputum Amount: Scant PEEP: 5.0 PIP: 29 Tube Feeding Amount: 30 I&O: Intake and Output 12/03/18 12/04/18 19:00 07:00 Intake Total 420 ml 440 ml Output Total 2000 ml 0 ml Balance -1580 ml 440 ml Free Water 60 ml 80 ml Tube Feeding 360 ml 360 ml Output Urine Total 0 ml 0 ml Hemodialysis UF 2000 ml # Bowel Movements 10 2 CXR: no change ET-Tube: 7.5 ET Position: 24 Labs: Laboratory Tests Test 12/04/18 04:30 12/04/18 09:16 White Blood Count 7.8 K/UL (4.8-10.8) Red Blood Count 3.16 M/UL (4.70-6.10) L Hemoglobin 10.7 G/DL (14.2-18.0) L Hematocrit 32.8 % (42.0-52.0) L Mean Corpuscular Volume 104 FL (80-99) H Mean Corpuscular Hemoglobin 33.7 PG (27.0-31.0) H Mean Corpuscular Hemoglobin Concent 32.6 G/DL (32.0-36.0) Red Cell Distribution Width 16.5 % (11.6-14.8) H Platelet Count 412 K/UL (150-450) Mean Platelet Volume 5.8 FL (6.5-10.1) L Neutrophils (%) (Auto) 47.4 % (45.0-75.0) Lymphocytes (%) (Auto) 30.1 % (20.0-45.0) Monocytes (%) (Auto) 14.6 % (1.0-10.0) H Eosinophils (%) (Auto) 6.1 % (0.0-3.0) H Basophils (%) (Auto) 1.8 % (0.0-2.0) Sodium Level 138 MMOL/L (136-145) Potassium Level 4.3 MMOL/L (3.5-5.1) Chloride Level 95 MMOL/L (98-107) L Carbon Dioxide Level 29 MMOL/L (21-32) Anion Gap 14 mmol/L (5-15) Blood Urea Nitrogen 37 mg/dL (7-18) H Creatinine 6.4 MG/DL (0.55-1.30) H Estimat Glomerular Filtration Rate mL/min (>60) Glucose Level 137 MG/DL (74-106) H Uric Acid 4.2 MG/DL (2.6-7.2) Calcium Level 9.2 MG/DL (8.5-10.1) Phosphorus Level 6.5 MG/DL (2.5-4.9) H Magnesium Level 2.1 MG/DL (1.8-2.4) Total Bilirubin 0.7 MG/DL (0.2-1.0) Aspartate Amino Transf (AST/SGOT) 14 U/L (15-37) L Alanine Aminotransferase (ALT/SGPT) 10 U/L (12-78) L Alkaline Phosphatase 90 U/L (46-116) C-Reactive Protein, Quantitative 7.5 mg/dL (0.00-0.90) H Pro-B-Type Natriuretic Peptide 49191 pg/mL (0-125) H Total Protein 8.2 G/DL (6.4-8.2) Albumin 2.9 G/DL (3.4-5.0) L Globulin 5.3 g/dL Albumin/Globulin Ratio 0.5 (1.0-2.7) L Arterial Blood pH 7.501 (7.350-7.450) Arterial Blood Partial Pressure CO2 36.6 mmHg (35.0-45.0) Arterial Blood Partial Pressure O2 114.3 mmHg (75.0-100.0) H Arterial Blood HCO3 28.0 mmol/L (22.0-26.0) H Arterial Blood Oxygen Saturation 93.8 % (95-100) L Arterial Blood Base Excess 4.6 (-2-2) H Rashi Test Positive Sulaiman Arcos MD Dec 04, 2018 09:57
--- NOTE | 2018-12-04 10:47 | NUR ---
Social Work This SW met with patient, currently unresponsive, on vent. Patient is from [facility] and has a POLST on file requesting full code, full treatment. Kiera ARCHULETA ([phone]) is the primary contact/decision maker for patient. No further changes or concerns at this time.
[2018-12-04] MEDS ORDERED: Acetaminophen 650mg/20.3ml NG PRN (11:00)
[2018-12-04] MEDS ORDERED: Miralax 17gm pkt NG PRN (11:00)
--- NOTE | 2018-12-04 11:07 | NUR ---
NURSE NOTES: Started weaning by RT. pt on CPAP PS 8. will continue to monitor.
--- NOTE | 2018-12-04 11:07 | NUR ---
RESPIRATORY NOTE: Patient initiated on weaning per Dr's order. RN made aware. Will follow with ABG.
--- NOTE | 2018-12-04 12:28 | Infectious Diseases Prog Note ---
Assessment/Plan Assessment/Plan Abx: IV Vancomycin 12/01- Zosyn 12/01- Ertapenem x1 12/01 Azithromycin x1 12/01 Cefepime x1 12/01 Assessment: Probable Sepsis Gram positive bacteremia- ? real vs contaminant -12/01 10/14 Staph capitis; 12/02 Bcx NTD Acute hypoxic respiratory failure s/p intubation 12/01- likely 2ry to Acute CHF and COPD exacerbation- no obvious PNA on CXR -12/02 CXR: Stable satisfactory position of endotracheal tube. Lungs and pleural spaces remain clear. No significant interim change -influenza sc neg -sp cx p Afebrile Leukocytosis , SP Diarrhea -cdiff neg Bradycardia Acute encephalopathy Sacral decubitus ulcer- not infected -wound cx: Group G strep, diphteroids HTN COPD DM2 R femur fx s/p ORIF ESRD on HD via L arm shunt pAfib on amiodarone SNF resident Plan: -Continue empiric IV Vancomycin #4/5-7 -12/02 SP ZOsyn #2 -12/01 SP Ertapenem, Cefepime, azithromycin x1 -f/u Repeat Bcx x2 -f/u cx -Monitor CBC/CMP, temperatures -ICU/ETT care -wound care per surgical team Thank you for this consultation. Will continue to follow along with you. Discussed with RN. Subjective Allergies: Coded Allergies: NEOMYCIN (Verified Allergy, Mild, 12/01/18) Uncoded Allergies: plastics (Allergy, Mild, 12/01/18) Subjective afebrile no leukocytosis repeat Bcx NTD Objective Vital Signs Last 24 Hour Vital Signs Date Time Temp Pulse Resp B/P (MAP) Pulse Ox O2 Delivery O2 Flow Rate FiO2 12/04/18 12:00 Mechanical Ventilator 12/04/18 11:10 70 171/43 12/04/18 11:03 35 12/04/18 11:00 75 18 171/43 (85) 100 12/04/18 10:50 71 22 35 12/04/18 10:00 76 19 183/54 (97) 100 12/04/18 09:30 74 15 170/49 (89) 100 12/04/18 09:18 66 21 35 12/04/18 09:16 210/56 12/04/18 09:00 67 17 210/56 (107) 100 12/04/18 08:53 65 18 163/35 (77) 100 12/04/18 08:00 64 12/04/18 08:00 Mechanical Ventilator 12/04/18 08:00 97.8 69 16 93/76 (82) 100 12/04/18 08:00 35 12/04/18 07:31 67 24 35 12/04/18 07:00 65 16 129/27 (61) 99 12/04/18 06:00 64 18 104/32 (56) 99 12/04/18 05:22 70 16 35 12/04/18 05:00 73 18 118/62 (80) 99 12/04/18 04:00 Mechanical Ventilator 12/04/18 04:00 71 12/04/18 04:00 99.1 71 15 118/19 (52) 100 12/04/18 04:00 35 12/04/18 03:01 69 16 35 12/04/18 03:00 65 16 160/44 (82) 100 12/04/18 02:00 64 16 137/29 (65) 100 12/04/18 01:00 70 16 134/29 (64) 100 12/04/18 01:00 65 16 35 12/04/18 00:00 98.5 62 16 119/51 (73) 100 12/04/18 00:00 35 12/04/18 00:00 Mechanical Ventilator 12/03/18 23:22 62 16 35 12/03/18 23:00 61 18 106/18 (47) 100 12/03/18 22:00 69 18 100/55 (70) 100 12/03/18 21:20 70 17 35 12/03/18 21:00 68 17 95/54 (68) 98 12/03/18 20:23 68 12/03/18 20:00 35 12/03/18 20:00 Mechanical Ventilator 12/03/18 20:00 99.2 77 14 129/86 (100) 100 12/03/18 19:18 75 17 35 12/03/18 19:00 76 19 119/31 (60) 100 12/03/18 18:00 81 19 134/72 (92) 100 12/03/18 17:29 69 18 35 12/03/18 17:00 76 19 149/88 (108) 96 12/03/18 16:00 98.2 79 17 105/74 (84) 98 12/03/18 16:00 Mechanical Ventilator 12/03/18 16:00 35 12/03/18 16:00 74 12/03/18 15:15 79 23 35 12/03/18 15:00 79 19 112/76 (88) 100 12/03/18 14:00 81 16 132/100 (111) 100 12/03/18 13:28 81 24 35 12/03/18 13:00 68 10 138/40 (72) 100 Height (Feet): 5 Height (Inches): 3.00 Weight (Pounds): 123 Objective GENERAL: The patient is well-developed and well-nourished male, who is intubated and sedated. HEENT: Eyes, pupils equal and responsive to light and accommodation. Extraocular movements are intact. NECK: Supple without lymphadenopathy. CHEST: Coarse expiratory wheezes bilaterally with coarse upper airway sounds. Otherwise, without rales. Neurologically unable to assess. CARDIOVASCULAR: Bradycardic, regular rate. S1 and S2 normal without murmurs, rubs, or gallops. ABDOMEN: Soft, nontender, and nondistended. Positive bowel sounds. No evidence of hepatosplenomegaly. Currently, no rebound or guarding noted. EXTREMITIES: Negative for clubbing, cyanosis, or edema. NEUROLOGIC: Unable to assess. Microbiology Date/Time Source Procedure Growth Status 12/02/18 15:50 Blood Blood Culture - Preliminary NO GROWTH AFTER 24 HOURS Resulted 12/02/18 15:40 Blood Blood Culture - Preliminary NO GROWTH AFTER 24 HOURS Resulted Laboratory Tests Test 12/04/18 04:30 12/04/18 09:12 White Blood Count 7.8 K/UL (4.8-10.8) Red Blood Count 3.16 M/UL (4.70-6.10) L Hemoglobin 10.7 G/DL (14.2-18.0) L Hematocrit 32.8 % (42.0-52.0) L Mean Corpuscular Volume 104 FL (80-99) H Mean Corpuscular Hemoglobin 33.7 PG (27.0-31.0) H Mean Corpuscular Hemoglobin Concent 32.6 G/DL (32.0-36.0) Red Cell Distribution Width 16.5 % (11.6-14.8) H Platelet Count 412 K/UL (150-450) Mean Platelet Volume 5.8 FL (6.5-10.1) L Neutrophils (%) (Auto) 47.4 % (45.0-75.0) Lymphocytes (%) (Auto) 30.1 % (20.0-45.0) Monocytes (%) (Auto) 14.6 % (1.0-10.0) H Eosinophils (%) (Auto) 6.1 % (0.0-3.0) H Basophils (%) (Auto) 1.8 % (0.0-2.0) Sodium Level 138 MMOL/L (136-145) Potassium Level 4.3 MMOL/L (3.5-5.1) Chloride Level 95 MMOL/L (98-107) L Carbon Dioxide Level 29 MMOL/L (21-32) Anion Gap 14 mmol/L (5-15) Blood Urea Nitrogen 37 mg/dL (7-18) H Creatinine 6.4 MG/DL (0.55-1.30) H Estimat Glomerular Filtration Rate mL/min (>60) Glucose Level 137 MG/DL (74-106) H Uric Acid 4.2 MG/DL (2.6-7.2) Calcium Level 9.2 MG/DL (8.5-10.1) Phosphorus Level 6.5 MG/DL (2.5-4.9) H Magnesium Level 2.1 MG/DL (1.8-2.4) Total Bilirubin 0.7 MG/DL (0.2-1.0) Aspartate Amino Transf (AST/SGOT) 14 U/L (15-37) L Alanine Aminotransferase (ALT/SGPT) 10 U/L (12-78) L Alkaline Phosphatase 90 U/L (46-116) C-Reactive Protein, Quantitative 7.5 mg/dL (0.00-0.90) H Pro-B-Type Natriuretic Peptide 40174 pg/mL (0-125) H Total Protein 8.2 G/DL (6.4-8.2) Albumin 2.9 G/DL (3.4-5.0) L Globulin 5.3 g/dL Albumin/Globulin Ratio 0.5 (1.0-2.7) L Arterial Blood pH 7.501 (7.350-7.450) Arterial Blood Partial Pressure CO2 36.6 mmHg (35.0-45.0) Arterial Blood Partial Pressure O2 114.3 mmHg (75.0-100.0) H Arterial Blood HCO3 28.0 mmol/L (22.0-26.0) H Arterial Blood Oxygen Saturation 93.8 % (95-100) L Arterial Blood Base Excess 4.6 (-2-2) H Rashi Test Positive Current Medications Medications (Trade) Dose Ordered Sig/Amber Route PRN Reason Start Time Stop Time Status Last Admin Dose Admin Acetaminophen (Tylenol) 650 mg Q4H PRN NG fever 12/04/18 11:00 12/31/18 09:14 Albuterol/ Ipratropium (Albuterol/ Ipratropium) 3 ml Q4H PRN HHN Shortness of Breath 12/01/18 09:15 12/06/18 09:14 Amlodipine Besylate (Norvasc) 10 mg DAILY NG 12/04/18 11:00 01/03/19 10:59 12/04/18 11:10 Clonidine HCl (Catapres Tab) 0.1 mg EVERY 8 HOURS NG 12/04/18 14:00 01/03/19 13:59 Dextrose (Dextrose 50%) 25 ml Q30M PRN IV Hypoglycemia 12/01/18 09:15 12/31/18 09:14 Dextrose (Dextrose 50%) 50 ml Q30M PRN IV Hypoglycemia 12/01/18 09:15 12/31/18 09:14 Heparin Sodium (Porcine) (Heparin 5000 units/ml) 5,000 units EVERY 12 HOURS SUBQ 12/01/18 21:00 12/31/18 20:59 12/04/18 08:55 Hydralazine HCl (Apresoline) 10 mg Q4H PRN IV bp over 160 syst 12/03/18 08:00 01/02/19 07:59 12/04/18 09:16 Insulin Aspart (NovoLOG) BEFORE MEALS AND HS SUBQ 12/02/18 11:30 01/01/19 11:29 12/04/18 11:14 Lorazepam (Ativan 2mg/ml 1ml) 2 mg Q2H PRN IV For Anxiety 12/01/18 09:15 12/08/18 09:14 12/03/18 19:56 Losartan Potassium (Cozaar) 50 mg BID NG 12/04/18 18:00 01/03/19 17:59 Morphine Sulfate (Morphine Sulfate) 4 mg Q4H PRN IVP Severe Pain (Pain Scale 7-10) 12/01/18 09:15 12/08/18 09:14 12/03/18 19:56 Norepinephrine Bitartrate 4 mg/ Dextrose 254 ml @ 0 mls/hr Q24H IV 12/01/18 09:15 12/31/18 09:14 Ondansetron HCl (Zofran) 4 mg Q6H PRN IVP Nausea & Vomiting 12/01/18 09:15 12/31/18 09:14 Pantoprazole (Protonix) 40 mg DAILY IV 12/01/18 09:30 12/31/18 09:29 12/04/18 08:51 Polyethylene Glycol (Miralax) 17 gm DAILYPRN PRN NG Constipation 12/04/18 11:00 12/31/18 09:14 Sevelamer Carbonate (Renvela) 1,600 mg Q6HR NG 12/04/18 12:00 01/02/19 07:59 12/04/18 11:10 Vancomycin HCl (Vanco rx to dose) 1 ea DAILY PRN MISC Per rx protocol 12/01/18 12:30 12/31/18 12:29 Joyce Jnoes M.D. Dec 04, 2018 12:28
--- NOTE | 2018-12-04 12:31 | NUR ---
RESPIRATORY NOTE: Weaning ABG broadcasted and reported to RN. Awaiting further orders. Will continue to monitor.
--- NOTE | 2018-12-04 12:39 | Nephrology Progress Note ---
Assessment/Plan Problem List: (1) ESRD (end stage renal disease) on dialysis (2) Respiratory failure, acute (3) Sepsis (4) Left lower lobe pneumonia (5) Anemia in chronic kidney disease (CKD) (6) HTN (hypertension) Assessment: hypertensive kidney disease Assessment Respiratory failure on vent Left lower lobe pneumonia ESRD (end stage renal disease) on dialysis Hypoglycemia Hypocalcemia on admit Anemia Plan remains intubated- BP meds adjusted for high bp dialysed yesterday , next 12/05 start OG feeding with Nepro antibiotics hemodynamic support pulmonary support Objective Objective Last 24 Hour Vital Signs Date Time Temp Pulse Resp B/P (MAP) Pulse Ox O2 Delivery O2 Flow Rate FiO2 12/04/18 12:00 35 12/04/18 12:00 Mechanical Ventilator 12/04/18 12:00 70 12/04/18 12:00 97.6 67 11 165/46 (85) 100 12/04/18 11:10 70 171/43 12/04/18 11:03 35 12/04/18 11:00 75 18 171/43 (85) 100 12/04/18 10:50 71 22 35 12/04/18 10:00 76 19 183/54 (97) 100 12/04/18 09:30 74 15 170/49 (89) 100 12/04/18 09:18 66 21 35 12/04/18 09:16 210/56 12/04/18 09:00 67 17 210/56 (107) 100 12/04/18 08:53 65 18 163/35 (77) 100 12/04/18 08:00 64 12/04/18 08:00 Mechanical Ventilator 12/04/18 08:00 97.8 69 16 93/76 (82) 100 12/04/18 08:00 35 12/04/18 07:31 67 24 35 12/04/18 07:00 65 16 129/27 (61) 99 12/04/18 06:00 64 18 104/32 (56) 99 12/04/18 05:22 70 16 35 12/04/18 05:00 73 18 118/62 (80) 99 12/04/18 04:00 Mechanical Ventilator 12/04/18 04:00 71 12/04/18 04:00 99.1 71 15 118/19 (52) 100 12/04/18 04:00 35 12/04/18 03:01 69 16 35 12/04/18 03:00 65 16 160/44 (82) 100 12/04/18 02:00 64 16 137/29 (65) 100 12/04/18 01:00 70 16 134/29 (64) 100 12/04/18 01:00 65 16 35 12/04/18 00:00 98.5 62 16 119/51 (73) 100 12/04/18 00:00 35 12/04/18 00:00 Mechanical Ventilator 12/03/18 23:22 62 16 35 12/03/18 23:00 61 18 106/18 (47) 100 12/03/18 22:00 69 18 100/55 (70) 100 12/03/18 21:20 70 17 35 12/03/18 21:00 68 17 95/54 (68) 98 12/03/18 20:23 68 12/03/18 20:00 35 12/03/18 20:00 Mechanical Ventilator 12/03/18 20:00 99.2 77 14 129/86 (100) 100 12/03/18 19:18 75 17 35 12/03/18 19:00 76 19 119/31 (60) 100 12/03/18 18:00 81 19 134/72 (92) 100 12/03/18 17:29 69 18 35 12/03/18 17:00 76 19 149/88 (108) 96 12/03/18 16:00 98.2 79 17 105/74 (84) 98 12/03/18 16:00 Mechanical Ventilator 12/03/18 16:00 35 12/03/18 16:00 74 12/03/18 15:15 79 23 35 12/03/18 15:00 79 19 112/76 (88) 100 12/03/18 14:00 81 16 132/100 (111) 100 12/03/18 13:28 81 24 35 12/03/18 13:00 68 10 138/40 (72) 100 Intake and Output 12/03/18 12/04/18 18:59 06:59 Intake Total 420 ml 440 ml Output Total 2000 ml 0 ml Balance -1580 ml 440 ml Free Water 60 ml 80 ml Tube Feeding 360 ml 360 ml Output Urine Total 0 ml 0 ml Hemodialysis UF 2000 ml # Bowel Movements 10 2 Laboratory Tests 12/04/18 04:30: White Blood Count 7.8, Red Blood Count 3.16L, Hemoglobin 10.7L, Hematocrit 32.8L , Mean Corpuscular Volume 104H, Mean Corpuscular Hemoglobin 33.7H, Mean Corpuscular Hemoglobin Concent 32.6, Red Cell Distribution Width 16.5H, Platelet Count 412, Mean Platelet Volume 5.8L, Neutrophils (%) (Auto) 47.4, Lymphocytes (%) (Auto) 30.1, Monocytes (%) (Auto) 14.6H, Eosinophils (%) (Auto) 6.1H, Basophils (%) (Auto) 1.8, Sodium Level 138, Potassium Level 4.3, Chloride Level 95L, Carbon Dioxide Level 29, Anion Gap 14, Blood Urea Nitrogen 37H, Creatinine 6.4H, Estimat Glomerular Filtration Rate , Glucose Level 137H, Uric Acid 4.2, Calcium Level 9.2, Phosphorus Level 6.5H, Magnesium Level 2.1, Total Bilirubin 0.7, Aspartate Amino Transf (AST/SGOT) 14L, Alanine Aminotransferase ( ALT/SGPT) 10L, Alkaline Phosphatase 90, C-Reactive Protein, Quantitative 7.5H, Pro-B-Type Natriuretic Peptide 30752B, Total Protein 8.2, Albumin 2.9L, Globulin 5.3, Albumin/Globulin Ratio 0.5L 12/04/18 09:12: Arterial Blood pH 7.501H, Arterial Blood Partial Pressure CO2 36.6, Arterial Blood Partial Pressure O2 114.3H, Arterial Blood HCO3 28.0H, Arterial Blood Oxygen Saturation 93.8L, Arterial Blood Base Excess 4.6H, Rashi Test Positive 12/04/18 12:20: Arterial Blood pH 7.502H, Arterial Blood Partial Pressure CO2 37.1, Arterial Blood Partial Pressure O2 113.5H, Arterial Blood HCO3 28.4H, Arterial Blood Oxygen Saturation 93.5L, Arterial Blood Base Excess 5.0H, Rashi Test Positive Height (Feet): 5 Height (Inches): 3.00 Weight (Pounds): 123 EENT: other - vented Respiratory/Chest: decreased breath sounds Abdomen: distended Boo Fu MD Dec 04, 2018 12:39
--- NOTE | 2018-12-04 13:01 | Cardiac Electrophysiology PN ---
Assessment/Plan Assessment/Plan 1. Bradycardia. Resolved off clonidine patch Echo EF 55%. 2. History of hypertension, currently off antihypertensives. 3. Respiratory failure, on the vent and broad-spectrum antibiotic. Fu by Dr. Arcos. 4. Troponin leak, likely due to renal failure. 5. End-stage renal disease, on hemodialysis. JOSE ALEJANDRO RN Subjective Subjective In ICU on the vent off pressors. Had Dialysis yesterday with 2 liters out. Objective Last 24 Hour Vital Signs Date Time Temp Pulse Resp B/P (MAP) Pulse Ox O2 Delivery O2 Flow Rate FiO2 12/04/18 12:35 64 8 35 12/04/18 12:00 35 12/04/18 12:00 Mechanical Ventilator 12/04/18 12:00 70 12/04/18 12:00 97.6 67 11 165/46 (85) 100 12/04/18 11:10 70 171/43 12/04/18 11:03 35 12/04/18 11:00 75 18 171/43 (85) 100 12/04/18 10:50 71 22 35 12/04/18 10:00 76 19 183/54 (97) 100 12/04/18 09:30 74 15 170/49 (89) 100 12/04/18 09:18 66 21 35 12/04/18 09:16 210/56 12/04/18 09:00 67 17 210/56 (107) 100 12/04/18 08:53 65 18 163/35 (77) 100 12/04/18 08:00 64 12/04/18 08:00 Mechanical Ventilator 12/04/18 08:00 97.8 69 16 93/76 (82) 100 12/04/18 08:00 35 12/04/18 07:31 67 24 35 12/04/18 07:00 65 16 129/27 (61) 99 12/04/18 06:00 64 18 104/32 (56) 99 12/04/18 05:22 70 16 35 12/04/18 05:00 73 18 118/62 (80) 99 12/04/18 04:00 Mechanical Ventilator 12/04/18 04:00 71 12/04/18 04:00 99.1 71 15 118/19 (52) 100 12/04/18 04:00 35 12/04/18 03:01 69 16 35 12/04/18 03:00 65 16 160/44 (82) 100 12/04/18 02:00 64 16 137/29 (65) 100 12/04/18 01:00 70 16 134/29 (64) 100 12/04/18 01:00 65 16 35 12/04/18 00:00 98.5 62 16 119/51 (73) 100 12/04/18 00:00 35 12/04/18 00:00 Mechanical Ventilator 12/03/18 23:22 62 16 35 12/03/18 23:00 61 18 106/18 (47) 100 12/03/18 22:00 69 18 100/55 (70) 100 12/03/18 21:20 70 17 35 12/03/18 21:00 68 17 95/54 (68) 98 12/03/18 20:23 68 12/03/18 20:00 35 12/03/18 20:00 Mechanical Ventilator 12/03/18 20:00 99.2 77 14 129/86 (100) 100 12/03/18 19:18 75 17 35 12/03/18 19:00 76 19 119/31 (60) 100 12/03/18 18:00 81 19 134/72 (92) 100 12/03/18 17:29 69 18 35 12/03/18 17:00 76 19 149/88 (108) 96 12/03/18 16:00 98.2 79 17 105/74 (84) 98 12/03/18 16:00 Mechanical Ventilator 12/03/18 16:00 35 12/03/18 16:00 74 12/03/18 15:15 79 23 35 12/03/18 15:00 79 19 112/76 (88) 100 12/03/18 14:00 81 16 132/100 (111) 100 12/03/18 13:28 81 24 35 12/03/18 13:00 68 10 138/40 (72) 100 Intake and Output 12/03/18 12/04/18 18:59 06:59 Intake Total 420 ml 440 ml Output Total 2000 ml 0 ml Balance -1580 ml 440 ml Free Water 60 ml 80 ml Tube Feeding 360 ml 360 ml Output Urine Total 0 ml 0 ml Hemodialysis UF 2000 ml # Bowel Movements 10 2 Laboratory Tests Test 12/04/18 04:30 12/04/18 09:12 12/04/18 12:20 White Blood Count 7.8 K/UL (4.8-10.8) Red Blood Count 3.16 M/UL (4.70-6.10) L Hemoglobin 10.7 G/DL (14.2-18.0) L Hematocrit 32.8 % (42.0-52.0) L Mean Corpuscular Volume 104 FL (80-99) H Mean Corpuscular Hemoglobin 33.7 PG (27.0-31.0) H Mean Corpuscular Hemoglobin Concent 32.6 G/DL (32.0-36.0) Red Cell Distribution Width 16.5 % (11.6-14.8) H Platelet Count 412 K/UL (150-450) Mean Platelet Volume 5.8 FL (6.5-10.1) L Neutrophils (%) (Auto) 47.4 % (45.0-75.0) Lymphocytes (%) (Auto) 30.1 % (20.0-45.0) Monocytes (%) (Auto) 14.6 % (1.0-10.0) H Eosinophils (%) (Auto) 6.1 % (0.0-3.0) H Basophils (%) (Auto) 1.8 % (0.0-2.0) Sodium Level 138 MMOL/L (136-145) Potassium Level 4.3 MMOL/L (3.5-5.1) Chloride Level 95 MMOL/L (98-107) L Carbon Dioxide Level 29 MMOL/L (21-32) Anion Gap 14 mmol/L (5-15) Blood Urea Nitrogen 37 mg/dL (7-18) H Creatinine 6.4 MG/DL (0.55-1.30) H Estimat Glomerular Filtration Rate mL/min (>60) Glucose Level 137 MG/DL (74-106) H Uric Acid 4.2 MG/DL (2.6-7.2) Calcium Level 9.2 MG/DL (8.5-10.1) Phosphorus Level 6.5 MG/DL (2.5-4.9) H Magnesium Level 2.1 MG/DL (1.8-2.4) Total Bilirubin 0.7 MG/DL (0.2-1.0) Aspartate Amino Transf (AST/SGOT) 14 U/L (15-37) L Alanine Aminotransferase (ALT/SGPT) 10 U/L (12-78) L Alkaline Phosphatase 90 U/L (46-116) C-Reactive Protein, Quantitative 7.5 mg/dL (0.00-0.90) H Pro-B-Type Natriuretic Peptide 44147 pg/mL (0-125) H Total Protein 8.2 G/DL (6.4-8.2) Albumin 2.9 G/DL (3.4-5.0) L Globulin 5.3 g/dL Albumin/Globulin Ratio 0.5 (1.0-2.7) L Arterial Blood pH 7.501 (7.350-7.450) 7.502 (7.350-7.450) Arterial Blood Partial Pressure CO2 36.6 mmHg (35.0-45.0) 37.1 mmHg (35.0-45.0) Arterial Blood Partial Pressure O2 114.3 mmHg (75.0-100.0) H 113.5 mmHg (75.0-100.0) H Arterial Blood HCO3 28.0 mmol/L (22.0-26.0) H 28.4 mmol/L (22.0-26.0) H Arterial Blood Oxygen Saturation 93.8 % (95-100) L 93.5 % (95-100) L Arterial Blood Base Excess 4.6 (-2-2) H 5.0 (-2-2) H Rashi Test Positive Positive Microbiology Date/Time Source Procedure Growth Status 12/02/18 15:50 Blood Blood Culture - Preliminary NO GROWTH AFTER 24 HOURS Resulted 12/02/18 15:40 Blood Blood Culture - Preliminary NO GROWTH AFTER 24 HOURS Resulted Objective HEAD AND NECK: No JVD, orally intubated. LUNGS: Coarse rhonchi. CARDIOVASCULAR: Regular S1 and S2 with no gallop or murmur. ABDOMEN: Soft. EXTREMITIES: No pitting edema. Ryan Harley MD Dec 04, 2018 13:01
--- NOTE | 2018-12-04 13:09 | NUR ---
NURSE NOTES: Notified Dr Arcos regarding ABG result and low RR 10-11, lowest 7. Order for extubation received, noted, and carried out. Notified RT.
--- NOTE | 2018-12-04 13:10 | NUR ---
NURSE NOTES: Called [facility] dialysis center to inform HD order for tomorrow.
--- NOTE | 2018-12-04 13:24 | NUR ---
NURSE NOTES: Notified Dr Arcos regarding 3 episodes of slow breathing. Notified him that time between breaths is too long as per RT. Extubation is held for now per Dr Arcos. Pt is back on AC mode.
--- NOTE | 2018-12-04 13:45 | NUR ---
HAND-OFF: Report given to ZENAIDA Harrell.
--- NOTE | 2018-12-04 13:50 | NUR ---
NURSE NOTES: Received pt from Sharron Maciel RN in stable condition with no cardiopulmonary distress noted. Pt is wake in bed on vent, ETT 7.5- 24cm at the lip. AC 16 TV 500 FiO2 35% Peep 5. OGT noted running Nepro at 30cc/hr. No BM or urine noted at this time. Skin alterations noted. Pt has a AAYUSH AV shunt. Pt has a right wrist 20g IV patent and flushed. Bilat soft wrist restraints noted- radial pulses present bilaterally and skin on wrist is intact. Bed is in lowest position with alarm on, side rails up x 3, call light within reach. Daughter at bedside. Will continue to monitor pt.
--- NOTE | 2018-12-04 14:35 | NUR ---
Left a message for Hellen Balderrama from Case management about pt's family disposition preference- Daughter (Kiera Rios) states she does not want her father d/c back to [place] and [facility].
--- NOTE | 2018-12-04 15:26 | Diagnostic Imaging Report ---
Indication: Dyspnea Technique: One view of the chest Comparison: 12/03/2018 Findings: Stable satisfactory positions of endotracheal and nasogastric tubes. The lungs and pleural spaces are clear. Normal heart size. Left axillary stent again noted. Findings are unchanged. Impression: Unchanged, over one day, findings as above.
--- NOTE | 2018-12-04 16:30 | NUR ---
NURSE NOTES: Pt is asleep, aroused by voice. Oral care provided. Pt repositioned in bed. Bilat soft wrist restraints on, radial pulses present and bilat wrist skin intact. Pt HR currently 57 bpm on monitor. Bed in lowest position and alarm on, side rails up x3m, call light within reach, will continue to monitor pt.
--- NOTE | 2018-12-04 16:53 | Surgery Progress Note ---
Surgery Progress Note Subjective Symptoms: improved Objective Last 24 Hour Vital Signs Date Time Temp Pulse Resp B/P (MAP) Pulse Ox O2 Delivery O2 Flow Rate FiO2 12/04/18 16:00 Mechanical Ventilator 12/04/18 16:00 98.2 56 16 142/53 (82) 100 12/04/18 16:00 35 12/04/18 16:00 57 12/04/18 15:00 63 19 156/43 (80) 100 12/04/18 14:30 58 18 35 12/04/18 14:21 153/42 12/04/18 14:00 61 18 159/44 (82) 100 12/04/18 13:00 63 14 163/47 (85) 100 12/04/18 12:35 64 8 35 12/04/18 12:00 35 12/04/18 12:00 Mechanical Ventilator 12/04/18 12:00 70 12/04/18 12:00 97.6 67 11 165/46 (85) 100 12/04/18 11:10 70 171/43 12/04/18 11:03 35 12/04/18 11:00 75 18 171/43 (85) 100 12/04/18 10:50 71 22 35 12/04/18 10:00 76 19 183/54 (97) 100 12/04/18 09:30 74 15 170/49 (89) 100 12/04/18 09:18 66 21 35 12/04/18 09:16 210/56 12/04/18 09:00 67 17 210/56 (107) 100 12/04/18 08:53 65 18 163/35 (77) 100 12/04/18 08:00 64 12/04/18 08:00 Mechanical Ventilator 12/04/18 08:00 97.8 69 16 93/76 (82) 100 12/04/18 08:00 35 12/04/18 07:31 67 24 35 12/04/18 07:00 65 16 129/27 (61) 99 12/04/18 06:00 64 18 104/32 (56) 99 12/04/18 05:22 70 16 35 12/04/18 05:00 73 18 118/62 (80) 99 12/04/18 04:00 Mechanical Ventilator 12/04/18 04:00 71 12/04/18 04:00 99.1 71 15 118/19 (52) 100 12/04/18 04:00 35 12/04/18 03:01 69 16 35 12/04/18 03:00 65 16 160/44 (82) 100 12/04/18 02:00 64 16 137/29 (65) 100 12/04/18 01:00 70 16 134/29 (64) 100 12/04/18 01:00 65 16 35 12/04/18 00:00 98.5 62 16 119/51 (73) 100 12/04/18 00:00 35 12/04/18 00:00 Mechanical Ventilator 12/03/18 23:22 62 16 35 12/03/18 23:00 61 18 106/18 (47) 100 12/03/18 22:00 69 18 100/55 (70) 100 12/03/18 21:20 70 17 35 12/03/18 21:00 68 17 95/54 (68) 98 12/03/18 20:23 68 12/03/18 20:00 35 12/03/18 20:00 Mechanical Ventilator 12/03/18 20:00 99.2 77 14 129/86 (100) 100 12/03/18 19:18 75 17 35 12/03/18 19:00 76 19 119/31 (60) 100 12/03/18 18:00 81 19 134/72 (92) 100 12/03/18 17:29 69 18 35 12/03/18 17:00 76 19 149/88 (108) 96 I&O Intake and Output 12/03/18 12/04/18 18:59 06:59 Intake Total 420 ml 440 ml Output Total 2000 ml 0 ml Balance -1580 ml 440 ml Free Water 60 ml 80 ml Tube Feeding 360 ml 360 ml Output Urine Total 0 ml 0 ml Hemodialysis UF 2000 ml # Bowel Movements 10 2 Dressing: saturated Wound: other Drains: other Cardiovascular: RSR Respiratory: decreased breath sounds Abdomen: soft, present bowel sounds, non-distended Extremities: no cyanosis Laboratory Tests Test 12/04/18 04:30 12/04/18 09:12 12/04/18 12:20 White Blood Count 7.8 K/UL (4.8-10.8) Red Blood Count 3.16 M/UL (4.70-6.10) L Hemoglobin 10.7 G/DL (14.2-18.0) L Hematocrit 32.8 % (42.0-52.0) L Mean Corpuscular Volume 104 FL (80-99) H Mean Corpuscular Hemoglobin 33.7 PG (27.0-31.0) H Mean Corpuscular Hemoglobin Concent 32.6 G/DL (32.0-36.0) Red Cell Distribution Width 16.5 % (11.6-14.8) H Platelet Count 412 K/UL (150-450) Mean Platelet Volume 5.8 FL (6.5-10.1) L Neutrophils (%) (Auto) 47.4 % (45.0-75.0) Lymphocytes (%) (Auto) 30.1 % (20.0-45.0) Monocytes (%) (Auto) 14.6 % (1.0-10.0) H Eosinophils (%) (Auto) 6.1 % (0.0-3.0) H Basophils (%) (Auto) 1.8 % (0.0-2.0) Sodium Level 138 MMOL/L (136-145) Potassium Level 4.3 MMOL/L (3.5-5.1) Chloride Level 95 MMOL/L (98-107) L Carbon Dioxide Level 29 MMOL/L (21-32) Anion Gap 14 mmol/L (5-15) Blood Urea Nitrogen 37 mg/dL (7-18) H Creatinine 6.4 MG/DL (0.55-1.30) H Estimat Glomerular Filtration Rate mL/min (>60) Glucose Level 137 MG/DL (74-106) H Uric Acid 4.2 MG/DL (2.6-7.2) Calcium Level 9.2 MG/DL (8.5-10.1) Phosphorus Level 6.5 MG/DL (2.5-4.9) H Magnesium Level 2.1 MG/DL (1.8-2.4) Total Bilirubin 0.7 MG/DL (0.2-1.0) Aspartate Amino Transf (AST/SGOT) 14 U/L (15-37) L Alanine Aminotransferase (ALT/SGPT) 10 U/L (12-78) L Alkaline Phosphatase 90 U/L (46-116) C-Reactive Protein, Quantitative 7.5 mg/dL (0.00-0.90) H Pro-B-Type Natriuretic Peptide 23772 pg/mL (0-125) H Total Protein 8.2 G/DL (6.4-8.2) Albumin 2.9 G/DL (3.4-5.0) L Globulin 5.3 g/dL Albumin/Globulin Ratio 0.5 (1.0-2.7) L Arterial Blood pH 7.501 (7.350-7.450) 7.502 (7.350-7.450) Arterial Blood Partial Pressure CO2 36.6 mmHg (35.0-45.0) 37.1 mmHg (35.0-45.0) Arterial Blood Partial Pressure O2 114.3 mmHg (75.0-100.0) H 113.5 mmHg (75.0-100.0) H Arterial Blood HCO3 28.0 mmol/L (22.0-26.0) H 28.4 mmol/L (22.0-26.0) H Arterial Blood Oxygen Saturation 93.8 % (95-100) L 93.5 % (95-100) L Arterial Blood Base Excess 4.6 (-2-2) H 5.0 (-2-2) H Rashi Test Positive Positive Plan Problems: (1) Sacral decubitus ulcer, stage III Assessment & Plan: Pt presented on admission with Irregular shaped, full thickness Sacral pressure injury.Scattered areas of biofilm noted at base of wound .Other muñoz wound is moist and viable. Edges adherent to base of wound . Periwound with darker skin tone without induration or fluctuance. No odor or exudate noted.(L)7.5cm x (W)8.5cm.Significant portion of wound is partial thickness and small portion with full thickness breakdown approximately 1cm x 1cm at inferior yellow white portion. no drainage. periwound intact and stable. wound bed of partial thickness with healthy viable tissue. no signs of infection. no odor Non-blanchable erythema with fluctuance and delineated margins noted to R heel(L )3cm x (W)4cm.Periwound is pink and blanchable. Non-blanchable erythema with fluctuance noted to L heel. Periwound pink and blanchable without induration or fluctuance. (L)3.8cm x (W)4.5cm. Tx.Plan: Cleanse Sacral wound with Saline.Apply Therahoney. Apply Triad Paste periwound. Cover with Optifoam drsg Daily and prn. Apply Cavilon Skin Barrier to R and L heels.Cover each Heel with Optifoam drsg. Change every 7 days and prn. APM/BOOGIE Mattress overlay. Reposition at least every 2hours or as tolerated. Off-load heels with pillow. will follow with recs thank you (2) Hypoglycemia (3) Left lower lobe pneumonia (4) Hypocalcemia (5) COPD (chronic obstructive pulmonary disease) (6) HTN (hypertension) (7) DM (diabetes mellitus) (8) Respiratory failure Assessment & Plan: slowly improving will follow with recs thank you (9) ESRD (end stage renal disease) on dialysis (10) Bacteremia (11) Respiratory failure, acute (12) Sepsis Assessment & Plan: cont IV Abx trend labs (13) Anemia in chronic kidney disease (CKD) Florencio Herrera Dec 04, 2018 16:53
[2018-12-04] MEDS: Losartan 50mg tab NG SCH (17:08)
--- NOTE | 2018-12-04 18:12 | NUR ---
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 Sacral pressure injury skin care orders carried out. New optifoam applied at sacrum - dry and intact. No BM as of yet noted. Pt repositioned in bed. Bilat soft wrist restraints on, radial pulses present and bilat wrist skin intact. Pt asleep but arousable to name. No c/o pain or discomfort at this time. HR currently 57 bpm. Bed in lowest position with alarm on, call light within reach, side rails up x 3. Will continue to monitor pt.
--- NOTE | 2018-12-04 18:36 | NUR ---
CASE MANAGEMENT: REVIEW SI: RESP FAILURE . ESRD ON HD . COPD T 98.2 HR 56 RR 16 BP 156/43 SAT 100% MECH VENT FIO2 35 H/H 10.7/32.8 BUN 37 CR 6.4 BNP 06432 IS: LOSARTAN GT BID CLONIDINE GT Q8HR NORVASC GT QD LEVOPHED IV Q24HR HD PRN ICU STATUS DCP: [facility]: EXTUBATION ENDOTRACHEAL
--- NOTE | 2018-12-04 19:07 | NUR ---
RESPIRATORY NOTE: Received pt on AC 16, 500VT, 35%, PEEP +5. Pt intubated w/ ETT 7.5 @ 24cm lipline, secured by anchorfast. Pt asleep, responds to stimuli. B/S dalton. clear/diminished, sxn minimal amounts of thin, frothy, clear-white secretions. Both hands on soft restraints to prevent pt from self-extubation. Vent plugged into red outlet, ambubag at bedside. Pt in no apparent distress at this time. Will continue to monitor pt.
--- NOTE | 2018-12-04 19:22 | NUR ---
HAND-OFF: Report given to ZENAIDA Donald. Pt in stable condition.
--- NOTE | 2018-12-04 19:23 | NUR ---
NURSE NOTES: Endorsement received from ZENAIDA Harrell. Patient opens eyes to name, light touch. Follows simple commands. Orally intubated 7.5, 24 lipline. AC 16, Vt 500, PEEP 5, 35% FiO2. OGT present. Receiving Nepro 30ml/hr. No residual noted. With left upper arm shunt, bruit and thrill present. Dressing intact. Right wrist heplock g20. On P200 mattress. Head of bed elevated. Bed alarm on. Call light within reach. Bed locked and in low position.
--- NOTE | 2018-12-04 19:45 | NUR ---
NURSE NOTES: Called [facility] dialysis left a message with Jones. Received a return call for confirmation of dialysis tomorrow 12/05/18
--- NOTE | 2018-12-04 19:50 | Internal Med Progress Note ---
Subjective Date of Service: Dec 04, 2018 Physician Name Aryan Brody Attending Physician Tony Cyr MD Current Medications Medications (Trade) Dose Ordered Sig/Amber Route PRN Reason Start Time Stop Time Status Last Admin Dose Admin Acetaminophen (Tylenol) 650 mg Q4H PRN NG fever 12/04/18 11:00 12/31/18 09:14 Albuterol/ Ipratropium (Albuterol/ Ipratropium) 3 ml Q4H PRN HHN Shortness of Breath 12/01/18 09:15 12/06/18 09:14 Amlodipine Besylate (Norvasc) 10 mg DAILY NG 12/04/18 11:00 01/03/19 10:59 12/04/18 11:10 Clonidine HCl (Catapres Tab) 0.1 mg EVERY 8 HOURS NG 12/04/18 14:00 01/03/19 13:59 12/04/18 14:21 Dextrose (Dextrose 50%) 25 ml Q30M PRN IV Hypoglycemia 12/01/18 09:15 12/31/18 09:14 Dextrose (Dextrose 50%) 50 ml Q30M PRN IV Hypoglycemia 12/01/18 09:15 12/31/18 09:14 Heparin Sodium (Porcine) (Heparin 5000 units/ml) 5,000 units EVERY 12 HOURS SUBQ 12/01/18 21:00 12/31/18 20:59 12/04/18 08:55 Hydralazine HCl (Apresoline) 10 mg Q4H PRN IV bp over 160 syst 12/03/18 08:00 01/02/19 07:59 12/04/18 09:16 Insulin Aspart (NovoLOG) BEFORE MEALS AND HS SUBQ 12/02/18 11:30 01/01/19 11:29 12/04/18 16:49 Lorazepam (Ativan 2mg/ml 1ml) 2 mg Q2H PRN IV For Anxiety 12/01/18 09:15 12/08/18 09:14 12/03/18 19:56 Losartan Potassium (Cozaar) 50 mg BID NG 12/04/18 18:00 01/03/19 17:59 12/04/18 17:08 Morphine Sulfate (Morphine Sulfate) 4 mg Q4H PRN IVP Severe Pain (Pain Scale 7-10) 12/01/18 09:15 12/08/18 09:14 12/03/18 19:56 Norepinephrine Bitartrate 4 mg/ Dextrose 254 ml @ 0 mls/hr Q24H IV 12/01/18 09:15 12/31/18 09:14 Ondansetron HCl (Zofran) 4 mg Q6H PRN IVP Nausea & Vomiting 12/01/18 09:15 12/31/18 09:14 Pantoprazole (Protonix) 40 mg DAILY IV 12/01/18 09:30 12/31/18 09:29 12/04/18 08:51 Polyethylene Glycol (Miralax) 17 gm DAILYPRN PRN NG Constipation 12/04/18 11:00 12/31/18 09:14 Sevelamer Carbonate (Renvela) 1,600 mg Q6HR NG 12/04/18 12:00 01/02/19 07:59 12/04/18 17:07 Vancomycin HCl (Vanco rx to dose) 1 ea DAILY PRN MISC Per rx protocol 12/01/18 12:30 12/31/18 12:29 Allergies: Coded Allergies: NEOMYCIN (Verified Allergy, Mild, 12/01/18) Uncoded Allergies: plastics (Allergy, Mild, 12/01/18) ROS Limited/Unobtainable: Yes Subjective 73 YO M admitted with respiratory failure. Intubated and sedated. Cover for Int Med-Dr Cyr. ICU Objective Last Vital Signs Date Time Temp Pulse Resp B/P (MAP) Pulse Ox O2 Delivery O2 Flow Rate FiO2 12/04/18 19:05 54 16 35 12/04/18 19:00 126/42 (70) 100 12/04/18 16:00 Mechanical Ventilator 12/04/18 16:00 98.2 Laboratory Tests Test 12/04/18 04:30 12/04/18 09:12 12/04/18 12:20 White Blood Count 7.8 K/UL (4.8-10.8) Red Blood Count 3.16 M/UL (4.70-6.10) L Hemoglobin 10.7 G/DL (14.2-18.0) L Hematocrit 32.8 % (42.0-52.0) L Mean Corpuscular Volume 104 FL (80-99) H Mean Corpuscular Hemoglobin 33.7 PG (27.0-31.0) H Mean Corpuscular Hemoglobin Concent 32.6 G/DL (32.0-36.0) Red Cell Distribution Width 16.5 % (11.6-14.8) H Platelet Count 412 K/UL (150-450) Mean Platelet Volume 5.8 FL (6.5-10.1) L Neutrophils (%) (Auto) 47.4 % (45.0-75.0) Lymphocytes (%) (Auto) 30.1 % (20.0-45.0) Monocytes (%) (Auto) 14.6 % (1.0-10.0) H Eosinophils (%) (Auto) 6.1 % (0.0-3.0) H Basophils (%) (Auto) 1.8 % (0.0-2.0) Sodium Level 138 MMOL/L (136-145) Potassium Level 4.3 MMOL/L (3.5-5.1) Chloride Level 95 MMOL/L (98-107) L Carbon Dioxide Level 29 MMOL/L (21-32) Anion Gap 14 mmol/L (5-15) Blood Urea Nitrogen 37 mg/dL (7-18) H Creatinine 6.4 MG/DL (0.55-1.30) H Estimat Glomerular Filtration Rate mL/min (>60) Glucose Level 137 MG/DL (74-106) H Uric Acid 4.2 MG/DL (2.6-7.2) Calcium Level 9.2 MG/DL (8.5-10.1) Phosphorus Level 6.5 MG/DL (2.5-4.9) H Magnesium Level 2.1 MG/DL (1.8-2.4) Total Bilirubin 0.7 MG/DL (0.2-1.0) Aspartate Amino Transf (AST/SGOT) 14 U/L (15-37) L Alanine Aminotransferase (ALT/SGPT) 10 U/L (12-78) L Alkaline Phosphatase 90 U/L (46-116) C-Reactive Protein, Quantitative 7.5 mg/dL (0.00-0.90) H Pro-B-Type Natriuretic Peptide 45780 pg/mL (0-125) H Total Protein 8.2 G/DL (6.4-8.2) Albumin 2.9 G/DL (3.4-5.0) L Globulin 5.3 g/dL Albumin/Globulin Ratio 0.5 (1.0-2.7) L Arterial Blood pH 7.501 (7.350-7.450) 7.502 (7.350-7.450) Arterial Blood Partial Pressure CO2 36.6 mmHg (35.0-45.0) 37.1 mmHg (35.0-45.0) Arterial Blood Partial Pressure O2 114.3 mmHg (75.0-100.0) H 113.5 mmHg (75.0-100.0) H Arterial Blood HCO3 28.0 mmol/L (22.0-26.0) H 28.4 mmol/L (22.0-26.0) H Arterial Blood Oxygen Saturation 93.8 % (95-100) L 93.5 % (95-100) L Arterial Blood Base Excess 4.6 (-2-2) H 5.0 (-2-2) H Rashi Test Positive Positive Microbiology Date/Time Source Procedure Growth Status 12/02/18 15:50 Blood Blood Culture - Preliminary NO GROWTH AFTER 24 HOURS Resulted 12/02/18 15:40 Blood Blood Culture - Preliminary NO GROWTH AFTER 24 HOURS Resulted Intake and Output 12/03/18 12/04/18 18:59 06:59 Intake Total 420 ml 440 ml Output Total 2000 ml 0 ml Balance -1580 ml 440 ml Free Water 60 ml 80 ml Tube Feeding 360 ml 360 ml Output Urine Total 0 ml 0 ml Hemodialysis UF 2000 ml # Bowel Movements 10 2 Objective PHYSICAL EXAMINATION: VITAL SIGNS: Temperature 99.4 degrees, respirations 20, pulse 83, blood pressure 140/96, and pulse oximetry initially was 79 on room air. GENERAL: The patient is well-developed and well-nourished male, who is intubated and sedated. HEENT: Eyes, pupils equal and responsive to light and accommodation. Extraocular movements are intact. NECK: Supple without lymphadenopathy. CHEST: Mech vent; Coarse expiratory wheezes bilaterally with coarse upper airway sounds. Otherwise, without rales. Neurologically unable to assess. CARDIOVASCULAR: Bradycardic, regular rate. S1 and S2 normal without murmurs, rubs, or gallops. ABDOMEN: Soft, nontender, and nondistended. Positive bowel sounds. No evidence of hepatosplenomegaly. Currently, no rebound or guarding noted. RECTAL: Refused. GENITALIA: Refused. EXTREMITIES: Negative for clubbing, cyanosis, or edema. NEUROLOGIC: Unable to assess. Assessment/Plan Assessment/Plan ASSESSMENT: This is a 73-year-old male with: 1. Respiratory failure. 2. Altered mental status. 3. Acute congestive heart failure. 4. Hypoxia. 5. Diabetes. 6. Chronic obstructive pulmonary disease. 7. Hypertension. 8. End-stage renal disease. 9. Sacral decubitus ulcer. TREATMENT: 1. Respiratory failure/chronic obstructive pulmonary disease. A Pulmonary consultation has been obtained with Dr. Sulaiman Arcos. The patient is currently intubated and sedated. The patient has been started empirically on ertapenem. 2. Acute congestive heart failure. Cardiology consultation has been obtained with Dr. Ryan Harley. BNP will be performed. Congestive heart failure may be secondary to volume overload secondary to end-stage renal disease. 3. Diabetes type 2. The patient has been placed on NovoLog sliding scale. 4. Hypertension. Continue losartan as above. 5. End-stage renal disease. A Nephrology consultation has been obtained with Dr. Fu. 6. Sacral decubitus ulcer. Aryan Brody MD Dec 04, 2018 19:49
--- NOTE | 2018-12-04 22:00 | NUR ---
NURSE NOTES: Patient restless, constantly shifting position. Patient nodded his head when asked if he is in pain. PRN morphine given.
[2018-12-04] MEDS: Morphine Sulfate 4mg/ml Inj (IV USE ONLY) IVP PRN (22:18)
[2018-12-05] VITALS (24 sets, daily range): BP systolic 105–178; BP diastolic 38–50
--- NOTE | 2018-12-05 | NUR ---
NURSE NOTES: Patient asleep. Appears comfortable. Still sinus dona on the monitor. Arousable to name, heart rate 60s-70s when awake.
[2018-12-05] MEDS: HydrALAZINE 10mg Tab ORAL SCH ×2 (00:09→06:24)
[2018-12-05] MEDS: Renvela 800mg Pkt NG SCH ×5 (00:10→23:41)
--- NOTE | 2018-12-05 02:00 | NUR ---
NURSE NOTES: Bed bath, oral care, change of linens done.
[2018-12-05] MEDS: Morphine Sulfate 4mg/ml Inj (IV USE ONLY) IVP PRN (03:32)
--- NOTE | 2018-12-05 04:00 | NUR ---
NURSE NOTES: Patient asleep. No shortness of breath. Tolerating feeding.
--- NOTE | 2018-12-05 06:00 | NUR ---
NURSE NOTES: Blood sugar checked and covered with insulin as per sliding scale. Catapres not given du to heart rate 50-53. Patient asleep, arousable by name.
[2018-12-05] MEDS: NovoLOG Insulin Flexpen SUBQ SCH ×4 (06:26→21:09)
--- NOTE | 2018-12-05 06:59 | NUR ---
RESPIRATORY NOTE: received pt on current vent settings, intubated with ETT 7.5, placed 23cm at the lip. ETT is secured via anchor fast with no redness or skin tear visible around face, neck or mouth area. vent alarms are set and audible and also plugged into the red outlet and ambu bag at bedside. weaning order to be followed later this morning. will cont to monitor.
--- NOTE | 2018-12-05 07:09 | NUR ---
HAND-OFF: Report given to Sharron osorio RN.
--- NOTE | 2018-12-05 07:45 | NUR ---
NURSE NOTES: Received the patient from ZENAIAD Donald. Patient is asleep, easily arousable, able to follow commands. Patient is orally intubated, ETT size 7.5, 24cm at lip line, vent settings: AC 16, TV 500, FIO2 35%, PEEP 5, O2 sat 100%. No acute distress noted. SB HR 50s noted on the monitor. OGT intact, running Nepro at 30ml/hr. HOB elevated. Right wrist 20G intact, saline locked, Left upper arm AV shunt noted. Patient on bilateral soft wrist restraints, no skin breakdown noted, pulses present. On P200 for sacral wound. Dressing intact, clean and dry. Bed in lowest position, locked, side rails upx3. Bed alarm on. Will continue to monitor.
[2018-12-05 08:00] LABS: BASOPHILS % (AUTO) 1.2 % (0.0-2.0); EOSINOPHILS % (AUTO) 7.8 % (0.0-3.0); HEMATOCRIT 27.4 % (42.0-52.0); HEMOGLOBIN 9.1 G/DL (14.2-18.0); LYMPHOCYTES % (AUTO) 31.5 % (20.0-45.0); MEAN CORPUSCULAR VOLUME 102 FL (80-99); MONOCYTES % (AUTO) 13.9 % (1.0-10.0); NEUTROPHILS % (AUTO) 45.7 % (45.0-75.0); PLATELET COUNT 382 K/UL (150-450); RED BLOOD COUNT 2.68 M/UL (4.70-6.10); RED CELL DISTRIBUTION WIDTH 15.8 % (11.6-14.8); WHITE BLOOD COUNT 6.7 K/UL (4.8-10.8)
[2018-12-05 08:17] LABS: ALANINE AMINOTRANSFERASE 8 U/L (12-78); ALBUMIN 2.6 G/DL (3.4-5.0); ALBUMIN/GLOBULIN RATIO 0.5 (1.0-2.7); ALKALINE PHOSPHATASE 93 U/L (46-116); ANION GAP 14 mmol/L (5-15); ASPARTATE AMINO TRANSFERASE 15 U/L (15-37); BILIRUBIN,TOTAL 0.5 MG/DL (0.2-1.0); CALCIUM 9.1 MG/DL (8.5-10.1); CARBON DIOXIDE 28 MMOL/L (21-32); CHLORIDE 95 MMOL/L (98-107); CREATININE 8.2 MG/DL (0.55-1.30); POTASSIUM 4.5 MMOL/L (3.5-5.1); SODIUM 136 MMOL/L (136-145)
[2018-12-05 08:28] LABS: BLOOD UREA NITROGEN 58 mg/dL (7-18)
[2018-12-05] MEDS: Pantoprazole Inj IV SCH (08:51)
[2018-12-05] MEDS: Losartan 50mg tab NG SCH ×2 (08:52→17:02)
[2018-12-05] MEDS: Heparin 5000 units/ml inj SUBQ SCH ×2 (08:54→21:08)
--- NOTE | 2018-12-05 09:07 | NUR ---
RESPIRATORY NOTE: placed pt on cpap ps8 with RN at bedside to clarify what is being done to the pt. no resp distress into 8 mins of weaning. will cont to monitor.
--- NOTE | 2018-12-05 09:23 | NUR ---
NURSE NOTES: Patient on CPAP PS 8, No acute distress noted. VSS. Will continue to monitor.
--- NOTE | 2018-12-05 10:01 | NUR ---
RESPIRATORY NOTE: pt placed back on AC mode. did not tolerate CPAP. Apnea noted on vent. RN aware
--- NOTE | 2018-12-05 10:10 | NUR ---
NURSE NOTES: Dr. Harley at bedside to see the patient, Notified that AM BP meds were held due to HD later today, BP 163/40. New order to change PRN hydralazine parameter to sbp>170.
--- NOTE | 2018-12-05 10:24 | NUR ---
RD ASSESSMENT & RECOMMENDATIONS SEE CARE ACTIVITY FOR COMPLETE ASSESSMENT DAILY ESTIMATED NEEDS: Needs based on ESRD, HD, wounds, critical care 50kg 25-30 kcals/kg 6540-2161 total kcals 1.25-2 g protein/kg 63-100 g total protein Fluid per MD, on HD NUTRITION DIAGNOSIS: 1) Swallowing difficulty r/t respiratory status as evidenced by s/p acute resp failure w/ oral intubation, pending NGT/ OGT feeds. 2) Increased kcal and protein needs r/t renal dysfuntion, wound healing as evidenced by pt w/ ESRD on HD, w/ full thickness sacral and buttock wound, refer to WC eval. CURRENT TF: Nepro @30 ENTERAL NUTRITION RECOMMENDATIONS: NEPRO @35ml/hr x24 hrs + Prosource 1 pack daily to provide 840ml, 1512 kcal, 68g + 11g pro, 611ml free fluid per day - With stability rec to INCREASE NEPRO to goal of 35ml/hr - add PROSOURCE 1 pack daily to better meet est pro needs - Flush per MD, HOB over 30 degrees ADDITIONAL RECOMMENDATIONS: 1) TF recs as above 2) F/up w/ WC eval -> rec to add VERONICA BID + Nephrovite x1 daily 3) Per SNF: weight 110#/ 50kg (11/11/18) 4) Feed w/ hemodynamic stability 5) Weekly weights on calibrated bed scale 6) Wound care: Vit C as per nephrology
--- NOTE | 2018-12-05 10:27 | Pulmonolgy Critical Care Note ---
Critical Care - Asmt/Plan Problems: (1) Respiratory failure, acute (2) Sepsis (3) ESRD (end stage renal disease) on dialysis (4) HTN (hypertension) (5) COPD (chronic obstructive pulmonary disease) (6) DM (diabetes mellitus) (7) Bacteremia (8) Sacral decubitus ulcer, stage III Respiratory: monitor respiratory rate Cardiac: start pressors, continue pressors, continue to monitor HR/BP Renal: F/U I&O, keep IV fluid Infectious Disease: check cultures Gastrointestinal: continue feedings/current rate, hold feedings Endocrine: monitor blood sugar Hematologic: transfuse if hgb<8.5 Neurologic: PRN Ativan, PRN Morphine, keep patient comfortable Affect: PRN ativan Prophylaxis: Heparin Time Spent (Minutes): 40 Notes 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, 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 Discussed with: nurses, consultants, manager rn casecommissions manager - Objective Last 24 Hour Vital Signs Date Time Temp Pulse Resp B/P (MAP) Pulse Ox O2 Delivery O2 Flow Rate FiO2 12/05/18 10:00 55 16 160/40 (80) 100 12/05/18 10:00 35 12/05/18 09:04 35 12/05/18 09:00 54 16 147/46 (79) 100 12/05/18 08:52 128/43 12/05/18 08:52 52 128/43 12/05/18 08:52 128/43 12/05/18 08:00 Mechanical Ventilator 12/05/18 08:00 35 12/05/18 08:00 98.0 53 16 128/43 (71) 100 12/05/18 08:00 53 12/05/18 07:00 53 16 141/41 (74) 100 53 12/05/18 06:58 52 17 35 12/05/18 06:24 147/42 12/05/18 06:00 51 16 147/42 (77) 100 51 12/05/18 06:00 147/42 12/05/18 05:00 54 16 147/40 (75) 100 54 12/05/18 04:46 98.0 12/05/18 04:46 55 16 35 12/05/18 04:00 35 12/05/18 04:00 66 12/05/18 04:00 Mechanical Ventilator 12/05/18 04:00 98.0 56 16 157/44 (81) 100 56 12/05/18 03:00 65 21 178/46 (90) 100 65 12/05/18 03:00 60 20 35 12/05/18 02:00 53 17 136/42 (73) 100 53 12/05/18 01:00 53 16 151/42 (78) 100 53 12/05/18 01:00 53 16 35 12/05/18 00:09 136/40 12/05/18 00:00 53 12/05/18 00:00 Mechanical Ventilator 12/05/18 00:00 98.0 52 16 136/40 (72) 100 52 12/05/18 00:00 35 12/04/18 23:20 53 16 35 12/04/18 23:00 56 16 118/40 (66) 100 56 12/04/18 22:17 172/46 12/04/18 22:00 73 18 172/46 (88) 100 73 12/04/18 21:45 75 20 35 12/04/18 21:19 57 16 135/46 (75) 100 57 12/04/18 21:00 57 16 146/42 (76) 100 57 12/04/18 20:00 54 12/04/18 20:00 35 12/04/18 20:00 98.1 54 16 137/42 (73) 100 12/04/18 20:00 Mechanical Ventilator 12/04/18 19:05 54 16 35 12/04/18 19:00 56 16 126/42 (70) 100 12/04/18 18:00 57 16 136/42 (73) 100 12/04/18 17:08 137/41 12/04/18 17:05 59 16 35 12/04/18 17:00 56 16 140/47 (78) 100 12/04/18 16:00 Mechanical Ventilator 12/04/18 16:00 98.2 56 16 142/53 (82) 100 12/04/18 16:00 35 12/04/18 16:00 57 12/04/18 15:00 63 19 156/43 (80) 100 12/04/18 14:30 58 18 35 12/04/18 14:21 153/42 12/04/18 14:00 61 18 159/44 (82) 100 12/04/18 13:00 63 14 163/47 (85) 100 12/04/18 12:35 64 8 35 12/04/18 12:00 35 12/04/18 12:00 Mechanical Ventilator 12/04/18 12:00 70 12/04/18 12:00 97.6 67 11 165/46 (85) 100 12/04/18 11:10 70 171/43 12/04/18 11:03 35 12/04/18 11:00 75 18 171/43 (85) 100 12/04/18 10:50 71 22 35 Status: awake Condition: critical HEENT: atraumatic, normocephalic Neck: full ROM Lungs: chest wall tender Heart: HR/BP stable Abdomen: soft, non-tender, feeding tube Extremities: edema Micro: Microbiology Date/Time Source Procedure Growth Status 12/02/18 15:50 Blood Blood Culture - Preliminary NO GROWTH AFTER 48 HOURS Resulted 12/02/18 15:40 Blood Blood Culture - Preliminary NO GROWTH AFTER 48 HOURS Resulted 12/04/18 20:00 Rectum Received Accucheck: 164 Critical Care - Subjective ROS Limited/Unobtainable: Yes Condition: critical EKG Rhythm: Sinus Rhythm FI02: 35 Vent Support Breath Rate: 16 Vent Support Mode: AC Vent Tidal Volume: 500 Sputum Amount: Scant PEEP: 5.0 PIP: 19 Tube Feeding Amount: 30 I&O: Intake and Output 12/04/18 12/05/18 19:00 07:00 Intake Total 440 ml 470 ml Output Total 0 ml 0 ml Balance 440 ml 470 ml Free Water 80 ml 50 ml Tube Feeding 360 ml 360 ml Other 60 ml Output Urine Total 0 ml 0 ml CXR: no change ET-Tube: 7.5 ET Position: 24 Labs: Laboratory Tests Test 12/04/18 12:20 12/05/18 03:45 Arterial Blood pH 7.502 (7.350-7.450) Arterial Blood Partial Pressure CO2 37.1 mmHg (35.0-45.0) Arterial Blood Partial Pressure O2 113.5 mmHg (75.0-100.0) H Arterial Blood HCO3 28.4 mmol/L (22.0-26.0) H Arterial Blood Oxygen Saturation 93.5 % (95-100) L Arterial Blood Base Excess 5.0 (-2-2) H Rashi Test Positive White Blood Count 6.7 K/UL (4.8-10.8) Red Blood Count 2.68 M/UL (4.70-6.10) L Hemoglobin 9.1 G/DL (14.2-18.0) L Hematocrit 27.4 % (42.0-52.0) L Mean Corpuscular Volume 102 FL (80-99) H Mean Corpuscular Hemoglobin 33.9 PG (27.0-31.0) H Mean Corpuscular Hemoglobin Concent 33.2 G/DL (32.0-36.0) Red Cell Distribution Width 15.8 % (11.6-14.8) H Platelet Count 382 K/UL (150-450) Mean Platelet Volume 5.8 FL (6.5-10.1) L Neutrophils (%) (Auto) 45.7 % (45.0-75.0) Lymphocytes (%) (Auto) 31.5 % (20.0-45.0) Monocytes (%) (Auto) 13.9 % (1.0-10.0) H Eosinophils (%) (Auto) 7.8 % (0.0-3.0) H Basophils (%) (Auto) 1.2 % (0.0-2.0) Sodium Level 136 MMOL/L (136-145) Potassium Level 4.5 MMOL/L (3.5-5.1) Chloride Level 95 MMOL/L (98-107) L Carbon Dioxide Level 28 MMOL/L (21-32) Anion Gap 14 mmol/L (5-15) Blood Urea Nitrogen 58 mg/dL (7-18) H Creatinine 8.2 MG/DL (0.55-1.30) H Estimat Glomerular Filtration Rate mL/min (>60) Glucose Level 135 MG/DL (74-106) H Calcium Level 9.1 MG/DL (8.5-10.1) Total Bilirubin 0.5 MG/DL (0.2-1.0) Aspartate Amino Transf (AST/SGOT) 15 U/L (15-37) Alanine Aminotransferase (ALT/SGPT) 8 U/L (12-78) L Alkaline Phosphatase 93 U/L (46-116) Total Protein 7.4 G/DL (6.4-8.2) Albumin 2.6 G/DL (3.4-5.0) L Globulin 4.8 g/dL Albumin/Globulin Ratio 0.5 (1.0-2.7) L Random Vancomycin Level 21.3 ug/mL Sulaiman Arcos MD Dec 05, 2018 10:27
--- NOTE | 2018-12-05 10:30 | NUR ---
NURSE NOTES: Dr. Arcos here to see the patient, updated on pt's condition and weaning trial this morning.
--- NOTE | 2018-12-05 10:31 | Cardiac Electrophysiology PN ---
Assessment/Plan Assessment/Plan 1. Bradycardia. Resolved off clonidine patch EF 55%. 2. History of hypertension, currently off antihypertensives. 3. Respiratory failure, on the vent and broad-spectrum antibiotic. Fu by Dr. Arcos. Weaning in progress 4. Troponin leak, likely due to renal failure. 5. End-stage renal disease, on hemodialysis. JOSE ALEJANDRO RN and Dr Arcos Subjective Subjective In ICU on the vent off pressors. Has dialysis scheduled today Objective Last 24 Hour Vital Signs Date Time Temp Pulse Resp B/P (MAP) Pulse Ox O2 Delivery O2 Flow Rate FiO2 12/05/18 10:00 55 16 160/40 (80) 100 12/05/18 10:00 35 12/05/18 09:04 35 12/05/18 09:00 54 16 147/46 (79) 100 12/05/18 08:52 128/43 12/05/18 08:52 52 128/43 12/05/18 08:52 128/43 12/05/18 08:00 Mechanical Ventilator 12/05/18 08:00 35 12/05/18 08:00 98.0 53 16 128/43 (71) 100 12/05/18 08:00 53 12/05/18 07:00 53 16 141/41 (74) 100 53 12/05/18 06:58 52 17 35 12/05/18 06:24 147/42 12/05/18 06:00 51 16 147/42 (77) 100 51 12/05/18 06:00 147/42 12/05/18 05:00 54 16 147/40 (75) 100 54 12/05/18 04:46 98.0 12/05/18 04:46 55 16 35 12/05/18 04:00 35 12/05/18 04:00 66 12/05/18 04:00 Mechanical Ventilator 12/05/18 04:00 98.0 56 16 157/44 (81) 100 56 12/05/18 03:00 65 21 178/46 (90) 100 65 12/05/18 03:00 60 20 35 12/05/18 02:00 53 17 136/42 (73) 100 53 12/05/18 01:00 53 16 151/42 (78) 100 53 12/05/18 01:00 53 16 35 12/05/18 00:09 136/40 12/05/18 00:00 53 12/05/18 00:00 Mechanical Ventilator 12/05/18 00:00 98.0 52 16 136/40 (72) 100 52 12/05/18 00:00 35 12/04/18 23:20 53 16 35 12/04/18 23:00 56 16 118/40 (66) 100 56 12/04/18 22:17 172/46 12/04/18 22:00 73 18 172/46 (88) 100 73 12/04/18 21:45 75 20 35 12/04/18 21:19 57 16 135/46 (75) 100 57 12/04/18 21:00 57 16 146/42 (76) 100 57 12/04/18 20:00 54 12/04/18 20:00 35 12/04/18 20:00 98.1 54 16 137/42 (73) 100 12/04/18 20:00 Mechanical Ventilator 12/04/18 19:05 54 16 35 12/04/18 19:00 56 16 126/42 (70) 100 12/04/18 18:00 57 16 136/42 (73) 100 12/04/18 17:08 137/41 12/04/18 17:05 59 16 35 12/04/18 17:00 56 16 140/47 (78) 100 12/04/18 16:00 Mechanical Ventilator 12/04/18 16:00 98.2 56 16 142/53 (82) 100 12/04/18 16:00 35 12/04/18 16:00 57 12/04/18 15:00 63 19 156/43 (80) 100 12/04/18 14:30 58 18 35 12/04/18 14:21 153/42 12/04/18 14:00 61 18 159/44 (82) 100 12/04/18 13:00 63 14 163/47 (85) 100 12/04/18 12:35 64 8 35 12/04/18 12:00 35 12/04/18 12:00 Mechanical Ventilator 12/04/18 12:00 70 12/04/18 12:00 97.6 67 11 165/46 (85) 100 12/04/18 11:10 70 171/43 12/04/18 11:03 35 12/04/18 11:00 75 18 171/43 (85) 100 12/04/18 10:50 71 22 35 Intake and Output 12/04/18 12/05/18 19:00 07:00 Intake Total 440 ml 470 ml Output Total 0 ml 0 ml Balance 440 ml 470 ml Free Water 80 ml 50 ml Tube Feeding 360 ml 360 ml Other 60 ml Output Urine Total 0 ml 0 ml Laboratory Tests Test 12/04/18 12:20 12/05/18 03:45 Arterial Blood pH 7.502 (7.350-7.450) Arterial Blood Partial Pressure CO2 37.1 mmHg (35.0-45.0) Arterial Blood Partial Pressure O2 113.5 mmHg (75.0-100.0) H Arterial Blood HCO3 28.4 mmol/L (22.0-26.0) H Arterial Blood Oxygen Saturation 93.5 % (95-100) L Arterial Blood Base Excess 5.0 (-2-2) H Rashi Test Positive White Blood Count 6.7 K/UL (4.8-10.8) Red Blood Count 2.68 M/UL (4.70-6.10) L Hemoglobin 9.1 G/DL (14.2-18.0) L Hematocrit 27.4 % (42.0-52.0) L Mean Corpuscular Volume 102 FL (80-99) H Mean Corpuscular Hemoglobin 33.9 PG (27.0-31.0) H Mean Corpuscular Hemoglobin Concent 33.2 G/DL (32.0-36.0) Red Cell Distribution Width 15.8 % (11.6-14.8) H Platelet Count 382 K/UL (150-450) Mean Platelet Volume 5.8 FL (6.5-10.1) L Neutrophils (%) (Auto) 45.7 % (45.0-75.0) Lymphocytes (%) (Auto) 31.5 % (20.0-45.0) Monocytes (%) (Auto) 13.9 % (1.0-10.0) H Eosinophils (%) (Auto) 7.8 % (0.0-3.0) H Basophils (%) (Auto) 1.2 % (0.0-2.0) Sodium Level 136 MMOL/L (136-145) Potassium Level 4.5 MMOL/L (3.5-5.1) Chloride Level 95 MMOL/L (98-107) L Carbon Dioxide Level 28 MMOL/L (21-32) Anion Gap 14 mmol/L (5-15) Blood Urea Nitrogen 58 mg/dL (7-18) H Creatinine 8.2 MG/DL (0.55-1.30) H Estimat Glomerular Filtration Rate mL/min (>60) Glucose Level 135 MG/DL (74-106) H Calcium Level 9.1 MG/DL (8.5-10.1) Total Bilirubin 0.5 MG/DL (0.2-1.0) Aspartate Amino Transf (AST/SGOT) 15 U/L (15-37) Alanine Aminotransferase (ALT/SGPT) 8 U/L (12-78) L Alkaline Phosphatase 93 U/L (46-116) Total Protein 7.4 G/DL (6.4-8.2) Albumin 2.6 G/DL (3.4-5.0) L Globulin 4.8 g/dL Albumin/Globulin Ratio 0.5 (1.0-2.7) L Random Vancomycin Level 21.3 ug/mL Microbiology Date/Time Source Procedure Growth Status 12/02/18 15:50 Blood Blood Culture - Preliminary NO GROWTH AFTER 48 HOURS Resulted 12/02/18 15:40 Blood Blood Culture - Preliminary NO GROWTH AFTER 48 HOURS Resulted 12/04/18 20:00 Rectum Received Objective HEAD AND NECK: No JVD orally intubated. LUNGS: Coarse rhonchi. CARDIOVASCULAR: Regular S1 and S2 with no gallop or murmur. ABDOMEN: Soft. EXTREMITIES: No pitting edema. Ryan Harley MD Dec 05, 2018 10:31
--- NOTE | 2018-12-05 10:34 | NUR ---
NURSE NOTES: Dr. Harley made aware of pt's bradycardia HR in 50s. BP meds adjusted.
--- NOTE | 2018-12-05 10:37 | Infectious Diseases Prog Note ---
Assessment/Plan Assessment/Plan Abx: IV Vancomycin 12/01- Zosyn 12/01- Ertapenem x1 12/01 Azithromycin x1 12/01 Cefepime x1 12/01 Assessment: Probable Sepsis Gram positive bacteremia- ? real vs contaminant -12/01 10/14 Staph capitis; 12/02 Bcx NTD Acute hypoxic respiratory failure s/p intubation 12/01- likely 2ry to Acute CHF and COPD exacerbation- no obvious PNA on CXR -12/05 CXR: The lungs and pleural spaces are clear -12/02 CXR: Stable satisfactory position of endotracheal tube. Lungs and pleural spaces remain clear. No significant interim change -influenza sc neg -sp cx p Afebrile Leukocytosis , SP Diarrhea -cdiff neg Bradycardia Acute encephalopathy Sacral decubitus ulcer- not infected -wound cx: Group G strep, diphteroids HTN COPD DM2 R femur fx s/p ORIF ESRD on HD via L arm shunt pAfib on amiodarone SNF resident Plan: -Continue empiric IV Vancomycin #5/5 -12/02 SP ZOsyn #2 -12/01 SP Ertapenem, Cefepime, azithromycin x1 -f/u Repeat Bcx x2 -f/u cx -Monitor CBC/CMP, temperatures -ICU/ETT care -wound care per surgical team Thank you for this consultation. Will continue to follow along with you. Discussed with RN. Subjective Allergies: Coded Allergies: NEOMYCIN (Verified Allergy, Mild, 12/01/18) Uncoded Allergies: plastics (Allergy, Mild, 12/01/18) Subjective afebrile no leukocytosis repeat Bcx NTD Objective Vital Signs Last 24 Hour Vital Signs Date Time Temp Pulse Resp B/P (MAP) Pulse Ox O2 Delivery O2 Flow Rate FiO2 12/05/18 10:00 55 16 160/40 (80) 100 12/05/18 10:00 35 12/05/18 09:04 35 12/05/18 09:00 54 16 147/46 (79) 100 12/05/18 08:52 128/43 12/05/18 08:52 52 128/43 12/05/18 08:52 128/43 12/05/18 08:00 Mechanical Ventilator 12/05/18 08:00 35 12/05/18 08:00 98.0 53 16 128/43 (71) 100 12/05/18 08:00 53 12/05/18 07:00 53 16 141/41 (74) 100 53 12/05/18 06:58 52 17 35 12/05/18 06:24 147/42 12/05/18 06:00 51 16 147/42 (77) 100 51 12/05/18 06:00 147/42 12/05/18 05:00 54 16 147/40 (75) 100 54 12/05/18 04:46 98.0 12/05/18 04:46 55 16 35 12/05/18 04:00 35 12/05/18 04:00 66 12/05/18 04:00 Mechanical Ventilator 12/05/18 04:00 98.0 56 16 157/44 (81) 100 56 12/05/18 03:00 65 21 178/46 (90) 100 65 12/05/18 03:00 60 20 35 12/05/18 02:00 53 17 136/42 (73) 100 53 12/05/18 01:00 53 16 151/42 (78) 100 53 12/05/18 01:00 53 16 35 12/05/18 00:09 136/40 12/05/18 00:00 53 12/05/18 00:00 Mechanical Ventilator 12/05/18 00:00 98.0 52 16 136/40 (72) 100 52 12/05/18 00:00 35 12/04/18 23:20 53 16 35 12/04/18 23:00 56 16 118/40 (66) 100 56 12/04/18 22:17 172/46 12/04/18 22:00 73 18 172/46 (88) 100 73 12/04/18 21:45 75 20 35 12/04/18 21:19 57 16 135/46 (75) 100 57 12/04/18 21:00 57 16 146/42 (76) 100 57 12/04/18 20:00 54 12/04/18 20:00 35 12/04/18 20:00 98.1 54 16 137/42 (73) 100 12/04/18 20:00 Mechanical Ventilator 12/04/18 19:05 54 16 35 12/04/18 19:00 56 16 126/42 (70) 100 12/04/18 18:00 57 16 136/42 (73) 100 12/04/18 17:08 137/41 4/24/19 17:05 59 16 35 12/04/18 17:00 56 16 140/47 (78) 100 12/04/18 16:00 Mechanical Ventilator 12/04/18 16:00 98.2 56 16 142/53 (82) 100 12/04/18 16:00 35 12/04/18 16:00 57 12/04/18 15:00 63 19 156/43 (80) 100 12/04/18 14:30 58 18 35 12/04/18 14:21 153/42 12/04/18 14:00 61 18 159/44 (82) 100 12/04/18 13:00 63 14 163/47 (85) 100 12/04/18 12:35 64 8 35 12/04/18 12:00 35 12/04/18 12:00 Mechanical Ventilator 12/04/18 12:00 70 12/04/18 12:00 97.6 67 11 165/46 (85) 100 12/04/18 11:10 70 171/43 12/04/18 11:03 35 12/04/18 11:00 75 18 171/43 (85) 100 12/04/18 10:50 71 22 35 Height (Feet): 5 Height (Inches): 3.00 Weight (Pounds): 120 Objective GENERAL: The patient is well-developed and well-nourished male, who is intubated and sedated. HEENT: Eyes, pupils equal and responsive to light and accommodation. Extraocular movements are intact. NECK: Supple without lymphadenopathy. CHEST: Coarse expiratory wheezes bilaterally with coarse upper airway sounds. Otherwise, without rales. Neurologically unable to assess. CARDIOVASCULAR: Bradycardic, regular rate. S1 and S2 normal without murmurs, rubs, or gallops. ABDOMEN: Soft, nontender, and nondistended. Positive bowel sounds. No evidence of hepatosplenomegaly. Currently, no rebound or guarding noted. EXTREMITIES: Negative for clubbing, cyanosis, or edema. NEUROLOGIC: Unable to assess. Microbiology Date/Time Source Procedure Growth Status 12/02/18 15:50 Blood Blood Culture - Preliminary NO GROWTH AFTER 48 HOURS Resulted 12/02/18 15:40 Blood Blood Culture - Preliminary NO GROWTH AFTER 48 HOURS Resulted 12/04/18 20:00 Rectum Received Laboratory Tests Test 12/04/18 12:20 12/05/18 03:45 Arterial Blood pH 7.502 (7.350-7.450) Arterial Blood Partial Pressure CO2 37.1 mmHg (35.0-45.0) Arterial Blood Partial Pressure O2 113.5 mmHg (75.0-100.0) H Arterial Blood HCO3 28.4 mmol/L (22.0-26.0) H Arterial Blood Oxygen Saturation 93.5 % (95-100) L Arterial Blood Base Excess 5.0 (-2-2) H Rashi Test Positive White Blood Count 6.7 K/UL (4.8-10.8) Red Blood Count 2.68 M/UL (4.70-6.10) L Hemoglobin 9.1 G/DL (14.2-18.0) L Hematocrit 27.4 % (42.0-52.0) L Mean Corpuscular Volume 102 FL (80-99) H Mean Corpuscular Hemoglobin 33.9 PG (27.0-31.0) H Mean Corpuscular Hemoglobin Concent 33.2 G/DL (32.0-36.0) Red Cell Distribution Width 15.8 % (11.6-14.8) H Platelet Count 382 K/UL (150-450) Mean Platelet Volume 5.8 FL (6.5-10.1) L Neutrophils (%) (Auto) 45.7 % (45.0-75.0) Lymphocytes (%) (Auto) 31.5 % (20.0-45.0) Monocytes (%) (Auto) 13.9 % (1.0-10.0) H Eosinophils (%) (Auto) 7.8 % (0.0-3.0) H Basophils (%) (Auto) 1.2 % (0.0-2.0) Sodium Level 136 MMOL/L (136-145) Potassium Level 4.5 MMOL/L (3.5-5.1) Chloride Level 95 MMOL/L (98-107) L Carbon Dioxide Level 28 MMOL/L (21-32) Anion Gap 14 mmol/L (5-15) Blood Urea Nitrogen 58 mg/dL (7-18) H Creatinine 8.2 MG/DL (0.55-1.30) H Estimat Glomerular Filtration Rate mL/min (>60) Glucose Level 135 MG/DL (74-106) H Calcium Level 9.1 MG/DL (8.5-10.1) Total Bilirubin 0.5 MG/DL (0.2-1.0) Aspartate Amino Transf (AST/SGOT) 15 U/L (15-37) Alanine Aminotransferase (ALT/SGPT) 8 U/L (12-78) L Alkaline Phosphatase 93 U/L (46-116) Total Protein 7.4 G/DL (6.4-8.2) Albumin 2.6 G/DL (3.4-5.0) L Globulin 4.8 g/dL Albumin/Globulin Ratio 0.5 (1.0-2.7) L Random Vancomycin Level 21.3 ug/mL Current Medications Medications (Trade) Dose Ordered Sig/Amber Route PRN Reason Start Time Stop Time Status Last Admin Dose Admin Acetaminophen (Tylenol) 650 mg Q4H PRN NG fever 12/04/18 11:00 12/31/18 09:14 Albuterol/ Ipratropium (Albuterol/ Ipratropium) 3 ml Q4H PRN HHN Shortness of Breath 12/01/18 09:15 12/06/18 09:14 Amlodipine Besylate (Norvasc) 10 mg DAILY NG 12/04/18 11:00 01/03/19 10:59 12/04/18 11:10 Dextrose (Dextrose 50%) 25 ml Q30M PRN IV Hypoglycemia 12/01/18 09:15 12/31/18 09:14 Dextrose (Dextrose 50%) 50 ml Q30M PRN IV Hypoglycemia 12/01/18 09:15 12/31/18 09:14 Heparin Sodium (Porcine) (Heparin 5000 units/ml) 5,000 units EVERY 12 HOURS SUBQ 12/01/18 21:00 12/31/18 20:59 12/05/18 08:54 Hydralazine HCl (Apresoline) 10 mg Q4H PRN IV bp over 170 syst 12/05/18 10:22 01/04/19 10:21 Hydralazine HCl (Apresoline) 25 mg Q8HR ORAL 12/05/18 14:00 01/04/19 00:00 UNV Insulin Aspart (NovoLOG) BEFORE MEALS AND HS SUBQ 12/02/18 11:30 01/01/19 11:29 12/05/18 06:26 Lorazepam (Ativan 2mg/ml 1ml) 2 mg Q2H PRN IV For Anxiety 12/01/18 09:15 12/08/18 09:14 12/03/18 19:56 Losartan Potassium (Cozaar) 50 mg BID NG 12/04/18 18:00 01/03/19 17:59 12/04/18 17:08 Morphine Sulfate (Morphine Sulfate) 4 mg Q4H PRN IVP Severe Pain (Pain Scale 7-10) 12/01/18 09:15 12/08/18 09:14 12/05/18 03:32 Norepinephrine Bitartrate 4 mg/ Dextrose 254 ml @ 0 mls/hr Q24H IV 12/01/18 09:15 12/31/18 09:14 Ondansetron HCl (Zofran) 4 mg Q6H PRN IVP Nausea & Vomiting 12/01/18 09:15 12/31/18 09:14 Pantoprazole (Protonix) 40 mg DAILY IV 12/01/18 09:30 12/31/18 09:29 12/05/18 08:51 Polyethylene Glycol (Miralax) 17 gm DAILYPRN PRN NG Constipation 12/04/18 11:00 12/31/18 09:14 Sevelamer Carbonate (Renvela) 1,600 mg Q6HR NG 12/04/18 12:00 01/02/19 07:59 12/05/18 06:23 Vancomycin HCl (Vanco rx to dose) 1 ea DAILY PRN MISC Per rx protocol 12/01/18 12:30 12/31/18 12:29 Joyce Jones M.D. Dec 05, 2018 10:37
--- NOTE | 2018-12-05 11:57 | NUR ---
NURSE NOTES: Patient awake, resting in bed. Patient was turned and repositioned. Sacral dressing intact.
--- NOTE | 2018-12-05 12:56 | Nephrology Progress Note ---
Assessment/Plan Problem List: (1) ESRD (end stage renal disease) on dialysis (2) Respiratory failure, acute (3) Sepsis (4) Left lower lobe pneumonia (5) Anemia in chronic kidney disease (CKD) (6) HTN (hypertension) Assessment: hypertensive kidney disease Assessment Respiratory failure on vent Left lower lobe pneumonia ESRD (end stage renal disease) on dialysis Hypoglycemia Hypocalcemia on admit Anemia Plan remains intubated- due dialysis today- clonidin was held for low HR , hydralazine dose increased BP meds adjusted for high bp dialysed yesterday , next 12/05 weaning?? start OG feeding with Nepro antibiotics hemodynamic support pulmonary support Subjective ROS Limited/Unobtainable: Yes Objective Objective Last 24 Hour Vital Signs Date Time Temp Pulse Resp B/P (MAP) Pulse Ox O2 Delivery O2 Flow Rate FiO2 12/05/18 12:00 Mechanical Ventilator 12/05/18 12:00 98.5 62 17 166/49 (88) 100 12/05/18 12:00 35 12/05/18 11:00 53 16 156/41 (79) 100 12/05/18 10:46 56 16 35 12/05/18 10:00 55 16 160/40 (80) 100 12/05/18 10:00 35 12/05/18 09:04 35 12/05/18 09:00 54 16 147/46 (79) 100 12/05/18 08:52 128/43 12/05/18 08:52 52 128/43 12/05/18 08:52 128/43 12/05/18 08:00 Mechanical Ventilator 12/05/18 08:00 35 12/05/18 08:00 98.0 53 16 128/43 (71) 100 12/05/18 08:00 53 12/05/18 07:00 53 16 141/41 (74) 100 53 12/05/18 06:58 52 17 35 12/05/18 06:24 147/42 12/05/18 06:00 51 16 147/42 (77) 100 51 12/05/18 06:00 147/42 12/05/18 05:00 54 16 147/40 (75) 100 54 12/05/18 04:46 98.0 12/05/18 04:46 55 16 35 12/05/18 04:00 35 12/05/18 04:00 66 12/05/18 04:00 Mechanical Ventilator 12/05/18 04:00 98.0 56 16 157/44 (81) 100 56 12/05/18 03:00 65 21 178/46 (90) 100 65 12/05/18 03:00 60 20 35 12/05/18 02:00 53 17 136/42 (73) 100 53 12/05/18 01:00 53 16 151/42 (78) 100 53 12/05/18 01:00 53 16 35 12/05/18 00:09 136/40 12/05/18 00:00 53 12/05/18 00:00 Mechanical Ventilator 12/05/18 00:00 98.0 52 16 136/40 (72) 100 52 12/05/18 00:00 35 12/04/18 23:20 53 16 35 12/04/18 23:00 56 16 118/40 (66) 100 56 12/04/18 22:17 172/46 12/04/18 22:00 73 18 172/46 (88) 100 73 12/04/18 21:45 75 20 35 12/04/18 21:19 57 16 135/46 (75) 100 57 12/04/18 21:00 57 16 146/42 (76) 100 57 12/04/18 20:00 54 12/04/18 20:00 35 12/04/18 20:00 98.1 54 16 137/42 (73) 100 12/04/18 20:00 Mechanical Ventilator 12/04/18 19:05 54 16 35 12/04/18 19:00 56 16 126/42 (70) 100 12/04/18 18:00 57 16 136/42 (73) 100 12/04/18 17:08 137/41 12/04/18 17:05 59 16 35 12/04/18 17:00 56 16 140/47 (78) 100 12/04/18 16:00 Mechanical Ventilator 12/04/18 16:00 98.2 56 16 142/53 (82) 100 12/04/18 16:00 35 12/04/18 16:00 57 12/04/18 15:00 63 19 156/43 (80) 100 12/04/18 14:30 58 18 35 12/04/18 14:21 153/42 12/04/18 14:00 61 18 159/44 (82) 100 12/04/18 13:00 63 14 163/47 (85) 100 Intake and Output 12/04/18 12/05/18 19:00 07:00 Intake Total 440 ml 470 ml Output Total 0 ml 0 ml Balance 440 ml 470 ml Free Water 80 ml 50 ml Tube Feeding 360 ml 360 ml Other 60 ml Output Urine Total 0 ml 0 ml Laboratory Tests 12/05/18 03:45: White Blood Count 6.7, Red Blood Count 2.68L, Hemoglobin 9.1L, Hematocrit 27.4L , Mean Corpuscular Volume 102H, Mean Corpuscular Hemoglobin 33.9H, Mean Corpuscular Hemoglobin Concent 33.2, Red Cell Distribution Width 15.8H, Platelet Count 382, Mean Platelet Volume 5.8L, Neutrophils (%) (Auto) 45.7, Lymphocytes (%) (Auto) 31.5, Monocytes (%) (Auto) 13.9H, Eosinophils (%) (Auto) 7.8H, Basophils (%) (Auto) 1.2, Sodium Level 136, Potassium Level 4.5, Chloride Level 95L, Carbon Dioxide Level 28, Anion Gap 14, Blood Urea Nitrogen 58H, Creatinine 8.2H, Estimat Glomerular Filtration Rate , Glucose Level 135H, Calcium Level 9.1, Total Bilirubin 0.5, Aspartate Amino Transf (AST/SGOT) 15, Alanine Aminotransferase (ALT/SGPT) 8L, Alkaline Phosphatase 93, Total Protein 7.4, Albumin 2.6L, Globulin 4.8, Albumin/Globulin Ratio 0.5L, Random Vancomycin Level 21.3 Height (Feet): 5 Height (Inches): 3.00 Weight (Pounds): 120 EENT: other - vented Cardiovascular: bradycardia Respiratory/Chest: decreased breath sounds Abdomen: distended Boo Fu MD Dec 05, 2018 12:56
--- NOTE | 2018-12-05 13:00 | NUR ---
NURSE NOTES: HD ongoing, dialysis nurse at bedside.
[2018-12-05] MEDS: HydrALAZINE 50mg tab ORAL SCH ×2 (13:27→21:33)
--- NOTE | 2018-12-05 13:55 | Surgery Progress Note ---
Surgery Progress Note Subjective Additional Comments in icu on vent support. plan HD today. no acute events. comfortable. exam unchanged. Objective Last 24 Hour Vital Signs Date Time Temp Pulse Resp B/P (MAP) Pulse Ox O2 Delivery O2 Flow Rate FiO2 12/05/18 13:00 56 16 118/38 (64) 100 12/05/18 12:57 55 16 35 12/05/18 12:00 56 12/05/18 12:00 Mechanical Ventilator 12/05/18 12:00 98.5 62 17 166/49 (88) 100 12/05/18 12:00 35 12/05/18 11:00 53 16 156/41 (79) 100 12/05/18 10:46 56 16 35 12/05/18 10:00 55 16 160/40 (80) 100 12/05/18 10:00 35 12/05/18 09:04 35 12/05/18 09:00 54 16 147/46 (79) 100 12/05/18 08:52 128/43 12/05/18 08:52 52 128/43 12/05/18 08:52 128/43 12/05/18 08:00 Mechanical Ventilator 12/05/18 08:00 35 12/05/18 08:00 98.0 53 16 128/43 (71) 100 12/05/18 08:00 53 12/05/18 07:00 53 16 141/41 (74) 100 53 12/05/18 06:58 52 17 35 12/05/18 06:24 147/42 12/05/18 06:00 51 16 147/42 (77) 100 51 12/05/18 06:00 147/42 12/05/18 05:00 54 16 147/40 (75) 100 54 12/05/18 04:46 98.0 12/05/18 04:46 55 16 35 12/05/18 04:00 35 12/05/18 04:00 66 12/05/18 04:00 Mechanical Ventilator 12/05/18 04:00 98.0 56 16 157/44 (81) 100 56 12/05/18 03:00 65 21 178/46 (90) 100 65 12/05/18 03:00 60 20 35 12/05/18 02:00 53 17 136/42 (73) 100 53 12/05/18 01:00 53 16 151/42 (78) 100 53 12/05/18 01:00 53 16 35 12/05/18 00:09 136/40 12/05/18 00:00 53 12/05/18 00:00 Mechanical Ventilator 12/05/18 00:00 98.0 52 16 136/40 (72) 100 52 12/05/18 00:00 35 12/04/18 23:20 53 16 35 12/04/18 23:00 56 16 118/40 (66) 100 56 12/04/18 22:17 172/46 12/04/18 22:00 73 18 172/46 (88) 100 73 12/04/18 21:45 75 20 35 12/04/18 21:19 57 16 135/46 (75) 100 57 12/04/18 21:00 57 16 146/42 (76) 100 57 12/04/18 20:00 54 12/04/18 20:00 35 12/04/18 20:00 98.1 54 16 137/42 (73) 100 12/04/18 20:00 Mechanical Ventilator 12/04/18 19:05 54 16 35 12/04/18 19:00 56 16 126/42 (70) 100 12/04/18 18:00 57 16 136/42 (73) 100 12/04/18 17:08 137/41 12/04/18 17:05 59 16 35 12/04/18 17:00 56 16 140/47 (78) 100 12/04/18 16:00 Mechanical Ventilator 12/04/18 16:00 98.2 56 16 142/53 (82) 100 12/04/18 16:00 35 12/04/18 16:00 57 12/04/18 15:00 63 19 156/43 (80) 100 12/04/18 14:30 58 18 35 12/04/18 14:21 153/42 12/04/18 14:00 61 18 159/44 (82) 100 I&O Intake and Output 12/04/18 12/05/18 19:00 07:00 Intake Total 440 ml 470 ml Output Total 0 ml 0 ml Balance 440 ml 470 ml Free Water 80 ml 50 ml Tube Feeding 360 ml 360 ml Other 60 ml Output Urine Total 0 ml 0 ml Dressing: saturated Wound: other Drains: other Cardiovascular: RSR Respiratory: decreased breath sounds Abdomen: soft, decreased bowel sounds Extremities: no cyanosis Laboratory Tests Test 12/05/18 03:45 White Blood Count 6.7 K/UL (4.8-10.8) Red Blood Count 2.68 M/UL (4.70-6.10) L Hemoglobin 9.1 G/DL (14.2-18.0) L Hematocrit 27.4 % (42.0-52.0) L Mean Corpuscular Volume 102 FL (80-99) H Mean Corpuscular Hemoglobin 33.9 PG (27.0-31.0) H Mean Corpuscular Hemoglobin Concent 33.2 G/DL (32.0-36.0) Red Cell Distribution Width 15.8 % (11.6-14.8) H Platelet Count 382 K/UL (150-450) Mean Platelet Volume 5.8 FL (6.5-10.1) L Neutrophils (%) (Auto) 45.7 % (45.0-75.0) Lymphocytes (%) (Auto) 31.5 % (20.0-45.0) Monocytes (%) (Auto) 13.9 % (1.0-10.0) H Eosinophils (%) (Auto) 7.8 % (0.0-3.0) H Basophils (%) (Auto) 1.2 % (0.0-2.0) Sodium Level 136 MMOL/L (136-145) Potassium Level 4.5 MMOL/L (3.5-5.1) Chloride Level 95 MMOL/L (98-107) L Carbon Dioxide Level 28 MMOL/L (21-32) Anion Gap 14 mmol/L (5-15) Blood Urea Nitrogen 58 mg/dL (7-18) H Creatinine 8.2 MG/DL (0.55-1.30) H Estimat Glomerular Filtration Rate mL/min (>60) Glucose Level 135 MG/DL (74-106) H Calcium Level 9.1 MG/DL (8.5-10.1) Total Bilirubin 0.5 MG/DL (0.2-1.0) Aspartate Amino Transf (AST/SGOT) 15 U/L (15-37) Alanine Aminotransferase (ALT/SGPT) 8 U/L (12-78) L Alkaline Phosphatase 93 U/L (46-116) Total Protein 7.4 G/DL (6.4-8.2) Albumin 2.6 G/DL (3.4-5.0) L Globulin 4.8 g/dL Albumin/Globulin Ratio 0.5 (1.0-2.7) L Random Vancomycin Level 21.3 ug/mL Plan Problems: (1) Sacral decubitus ulcer, stage III Assessment & Plan: Pt presented on admission with Irregular shaped, full thickness Sacral pressure injury.Scattered areas of biofilm noted at base of wound .Other muñoz wound is moist and viable. Edges adherent to base of wound . Periwound with darker skin tone without induration or fluctuance. No odor or exudate noted.(L)7.5cm x (W)8.5cm.Significant portion of wound is partial thickness and small portion with full thickness breakdown approximately 1cm x 1cm at inferior yellow white portion. no drainage. periwound intact and stable. wound bed of partial thickness with healthy viable tissue. no signs of infection. no odor Non-blanchable erythema with fluctuance and delineated margins noted to R heel(L )3cm x (W)4cm.Periwound is pink and blanchable. Non-blanchable erythema with fluctuance noted to L heel. Periwound pink and blanchable without induration or fluctuance. (L)3.8cm x (W)4.5cm. Tx.Plan: Cleanse Sacral wound with Saline.Apply Therahoney. Apply Triad Paste periwound. Cover with Optifoam drsg Daily and prn. Apply Cavilon Skin Barrier to R and L heels.Cover each Heel with Optifoam drsg. Change every 7 days and prn. APM/BOOGIE Mattress overlay. Reposition at least every 2hours or as tolerated. Off-load heels with pillow. will follow with recs thank you (2) Hypoglycemia (3) Left lower lobe pneumonia (4) Hypocalcemia (5) COPD (chronic obstructive pulmonary disease) (6) HTN (hypertension) (7) DM (diabetes mellitus) (8) Respiratory failure Assessment & Plan: slowly improving will follow with recs thank you (9) ESRD (end stage renal disease) on dialysis (10) Bacteremia (11) Respiratory failure, acute (12) Sepsis Assessment & Plan: cont IV Abx trend labs (13) Anemia in chronic kidney disease (CKD) Florencio Herrera Dec 05, 2018 13:55
[2018-12-05] MEDS ORDERED: HydrALAZINE 25mg tab ORAL SCH (14:00)
--- NOTE | 2018-12-05 14:13 | NUR ---
NURSE NOTES: Patient resting in bed. No acute distress noted. VSS. HD ongoing. pt's daughter at bedside.
--- NOTE | 2018-12-05 14:26 | NUR ---
NURSE NOTES: Patient's daughter requesting patient to be discharged to [facility], left a message to CM.
--- NOTE | 2018-12-05 15:13 | NUR ---
NURSE NOTES: HD done, patient resting in bed comfortably. 2L out. VSS.
--- NOTE | 2018-12-05 15:44 | NUR ---
NURSE NOTES: Patient was turned and repositioned. No BM at this time. VSS.
--- NOTE | 2018-12-05 17:00 | NUR ---
NURSE NOTES: Patient tried to remove ETT, patient on bilateral soft wrist restraints. no skin breakdown noted. pulses present. patient education reinforced.
--- NOTE | 2018-12-05 19:02 | NUR ---
RESPIRATORY NOTE: Received pt on AC 16, 500VT, 35%, PEEP +5. Pt intubated w/ ETT 7.5 @ 24cm lipline, secured by anchorfast. Pt alert/awake, follows commands. B/S dalton. clear/diminished, sxn minimal amounts of thin, frothy, clear-white secretions. Both hands on soft restraints to prevent pt from self-extubation. Vent plugged into red outlet, ambubag at bedside. Pt in no apparent distress at this time. Will continue to monitor pt.
--- NOTE | 2018-12-05 19:15 | NUR ---
HAND-OFF: Report given to ZENAIDA Gallagher.
--- NOTE | 2018-12-05 19:35 | NUR ---
NURSE NOTES: PATIENT OPEN EYES, DENIED PAIN OR DISTRESS AT THIS TIME, ON ETT TO VENT AC 16/ TV 500/ FIO2 35%/PEEP 5 STATUS, O2 SATURATION 100% NOTED,OGT INTACT AND PATENT, ONGOING NEPRO AT 30ML/HR, RESIDUE 20 ML NOTED, ABDOMEN SOFT, NON TENDER, HYPOACTIVE BOWEL SOUND TO 4 QUADRANTS, NO BOWEL MOVEMENT STATUS, KEPT 2 POINT SOFT RESTRAINTS FOR SAFETY AND HOB 30 DEGREE, ON P200 BED, MADE LOWER BED POSITION, PROVIDED CALL LIGHT WITHIN REACH, WILL CONTINUE TO MONITOR.
--- NOTE | 2018-12-05 20:12 | NUR ---
NURSE NOTES: AV SHUNT TO LEFT UPPER ARM, KEPT LEFT ARM PRECAUTION, PERIPHERAL LINE TO RIGHT WRIST, INTACT AND PATENT.
--- NOTE | 2018-12-05 20:54 | Internal Med Progress Note ---
Subjective Date of Service: Dec 05, 2018 Physician Name Aryan Brody Attending Physician Tony Cyr MD Current Medications Medications (Trade) Dose Ordered Sig/Amber Route PRN Reason Start Time Stop Time Status Last Admin Dose Admin Acetaminophen (Tylenol) 650 mg Q4H PRN NG fever 12/04/18 11:00 12/31/18 09:14 Albuterol/ Ipratropium (Albuterol/ Ipratropium) 3 ml Q4H PRN HHN Shortness of Breath 12/01/18 09:15 12/06/18 09:14 Amlodipine Besylate (Norvasc) 10 mg DAILY NG 12/04/18 11:00 01/03/19 10:59 12/04/18 11:10 Dextrose (Dextrose 50%) 25 ml Q30M PRN IV Hypoglycemia 12/01/18 09:15 12/31/18 09:14 Dextrose (Dextrose 50%) 50 ml Q30M PRN IV Hypoglycemia 12/01/18 09:15 12/31/18 09:14 Heparin Sodium (Porcine) (Heparin 5000 units/ml) 5,000 units EVERY 12 HOURS SUBQ 12/01/18 21:00 12/31/18 20:59 12/05/18 08:54 Hydralazine HCl (Apresoline) 10 mg Q4H PRN IV bp over 170 syst 12/05/18 10:22 01/04/19 10:21 Hydralazine HCl (Apresoline) 50 mg Q8HR ORAL 12/05/18 14:00 01/04/19 00:00 Insulin Aspart (NovoLOG) BEFORE MEALS AND HS SUBQ 12/02/18 11:30 01/01/19 11:29 12/05/18 16:57 Lorazepam (Ativan 2mg/ml 1ml) 2 mg Q2H PRN IV For Anxiety 12/01/18 09:15 12/08/18 09:14 12/03/18 19:56 Losartan Potassium (Cozaar) 50 mg BID NG 12/04/18 18:00 01/03/19 17:59 12/05/18 17:02 Morphine Sulfate (Morphine Sulfate) 4 mg Q4H PRN IVP Severe Pain (Pain Scale 7-10) 12/01/18 09:15 12/08/18 09:14 12/05/18 03:32 Norepinephrine Bitartrate 4 mg/ Dextrose 254 ml @ 0 mls/hr Q24H IV 12/01/18 09:15 12/31/18 09:14 Ondansetron HCl (Zofran) 4 mg Q6H PRN IVP Nausea & Vomiting 12/01/18 09:15 12/31/18 09:14 Pantoprazole (Protonix) 40 mg DAILY IV 12/01/18 09:30 12/31/18 09:29 12/05/18 08:51 Polyethylene Glycol (Miralax) 17 gm DAILYPRN PRN NG Constipation 12/04/18 11:00 12/31/18 09:14 Sevelamer Carbonate (Renvela) 1,600 mg Q6HR NG 12/04/18 12:00 01/02/19 07:59 12/05/18 17:01 Vancomycin HCl (Vanco rx to dose) 1 ea DAILY PRN MISC Per rx protocol 12/01/18 12:30 12/31/18 12:29 Allergies: Coded Allergies: NEOMYCIN (Verified Allergy, Mild, 12/01/18) Uncoded Allergies: plastics (Allergy, Mild, 12/01/18) ROS Limited/Unobtainable: Yes Subjective 73 YO M admitted with respiratory failure. Intubated and sedated. Cover for Int Med-Dr Cyr. ICU Objective Last Vital Signs Date Time Temp Pulse Resp B/P (MAP) Pulse Ox O2 Delivery O2 Flow Rate FiO2 12/05/18 19:00 62 16 35 12/05/18 19:00 149/45 (79) 100 12/05/18 16:00 98.3 12/05/18 16:00 Mechanical Ventilator Laboratory Tests Test 12/05/18 03:45 White Blood Count 6.7 K/UL (4.8-10.8) Red Blood Count 2.68 M/UL (4.70-6.10) L Hemoglobin 9.1 G/DL (14.2-18.0) L Hematocrit 27.4 % (42.0-52.0) L Mean Corpuscular Volume 102 FL (80-99) H Mean Corpuscular Hemoglobin 33.9 PG (27.0-31.0) H Mean Corpuscular Hemoglobin Concent 33.2 G/DL (32.0-36.0) Red Cell Distribution Width 15.8 % (11.6-14.8) H Platelet Count 382 K/UL (150-450) Mean Platelet Volume 5.8 FL (6.5-10.1) L Neutrophils (%) (Auto) 45.7 % (45.0-75.0) Lymphocytes (%) (Auto) 31.5 % (20.0-45.0) Monocytes (%) (Auto) 13.9 % (1.0-10.0) H Eosinophils (%) (Auto) 7.8 % (0.0-3.0) H Basophils (%) (Auto) 1.2 % (0.0-2.0) Sodium Level 136 MMOL/L (136-145) Potassium Level 4.5 MMOL/L (3.5-5.1) Chloride Level 95 MMOL/L (98-107) L Carbon Dioxide Level 28 MMOL/L (21-32) Anion Gap 14 mmol/L (5-15) Blood Urea Nitrogen 58 mg/dL (7-18) H Creatinine 8.2 MG/DL (0.55-1.30) H Estimat Glomerular Filtration Rate mL/min (>60) Glucose Level 135 MG/DL (74-106) H Calcium Level 9.1 MG/DL (8.5-10.1) Total Bilirubin 0.5 MG/DL (0.2-1.0) Aspartate Amino Transf (AST/SGOT) 15 U/L (15-37) Alanine Aminotransferase (ALT/SGPT) 8 U/L (12-78) L Alkaline Phosphatase 93 U/L (46-116) Total Protein 7.4 G/DL (6.4-8.2) Albumin 2.6 G/DL (3.4-5.0) L Globulin 4.8 g/dL Albumin/Globulin Ratio 0.5 (1.0-2.7) L Random Vancomycin Level 21.3 ug/mL Microbiology Date/Time Source Procedure Growth Status 12/04/18 20:00 Rectum Received Intake and Output 12/04/18 12/05/18 18:59 06:59 Intake Total 440 ml 470 ml Output Total 0 ml 0 ml Balance 440 ml 470 ml Free Water 80 ml 50 ml Tube Feeding 360 ml 360 ml Other 60 ml Output Urine Total 0 ml 0 ml Objective PHYSICAL EXAMINATION: VITAL SIGNS: Temperature 99.4 degrees, respirations 20, pulse 83, blood pressure 140/96, and pulse oximetry initially was 79 on room air. GENERAL: The patient is well-developed and well-nourished male, who is intubated and sedated. HEENT: Eyes, pupils equal and responsive to light and accommodation. Extraocular movements are intact. NECK: Supple without lymphadenopathy. CHEST: Mech vent; Coarse expiratory wheezes bilaterally with coarse upper airway sounds. Otherwise, without rales. Neurologically unable to assess. CARDIOVASCULAR: Bradycardic, regular rate. S1 and S2 normal without murmurs, rubs, or gallops. ABDOMEN: Soft, nontender, and nondistended. Positive bowel sounds. No evidence of hepatosplenomegaly. Currently, no rebound or guarding noted. RECTAL: Refused. GENITALIA: Refused. EXTREMITIES: Negative for clubbing, cyanosis, or edema. NEUROLOGIC: Unable to assess. Assessment/Plan Assessment/Plan ASSESSMENT: This is a 73-year-old male with: 1. Respiratory failure. 2. Altered mental status. 3. Acute congestive heart failure. 4. Hypoxia. 5. Diabetes. 6. Chronic obstructive pulmonary disease. 7. Hypertension. 8. End-stage renal disease. 9. Sacral decubitus ulcer. TREATMENT: 1. Respiratory failure/chronic obstructive pulmonary disease. A Pulmonary consultation has been obtained with Dr. Sulaiman Arcos. The patient is currently intubated and sedated. The patient has been started empirically on ertapenem. 2. Acute congestive heart failure. Cardiology consultation has been obtained with Dr. Ryan Harley. BNP will be performed. Congestive heart failure may be secondary to volume overload secondary to end-stage renal disease. 3. Diabetes type 2. The patient has been placed on NovoLog sliding scale. 4. Hypertension. Continue losartan as above. 5. End-stage renal disease. A Nephrology consultation has been obtained with Dr. Fu. 6. Sacral decubitus ulcer. Aryan Brody MD Dec 05, 2018 20:54
--- NOTE | 2018-12-05 22:00 | NUR ---
NURSE NOTES: REPOSITIONED, ORAL CARE WAS DONE.
[2018-12-06] VITALS (25 sets, daily range): BP systolic 119–187; BP diastolic 39–125
--- NOTE | 2018-12-06 00:20 | NUR ---
NURSE NOTES: PATIENT AWOKE, NO PAIN OR DISTRESS NOTED AT THIS TIME, WILL CONTINUE PLAN OF CARE.
--- NOTE | 2018-12-06 00:45 | NUR ---
HAND-OFF: Report given to ZENAIDA MARTIN.
--- NOTE | 2018-12-06 01:00 | NUR ---
NURSE NOTES: Received pt for continuity of care. Pt awake, alert, agitated and restless but not in any distress. Remains orally intubated, saturating 100% on .35fiO2. Tolerating current Tf rate of 30ml/h with 0 residuals. Bilateral soft wrist restraints on. Ativan 2mg IVP given for agitation and restlesness
[2018-12-06] MEDS: LORazepam Inj 2mg/ml 1ml IV PRN (01:10)
--- NOTE | 2018-12-06 02:00 | NUR ---
NURSE NOTES: Calm,asleep, no distress, VSS.
--- NOTE | 2018-12-06 03:33 | NUR ---
NURSE NOTES: Pt awake and mildly restless.No distress otherwise. Reendorsed back to Alyse Guevara RN.
--- NOTE | 2018-12-06 05:00 | NUR ---
NURSE NOTES: MORNING CARE WAS DONE, NO BOWEL MOVEMENT STATUS, WILL CONTINUE TO MONITOR.
[2018-12-06 05:04] LABS: BASOPHILS % (AUTO) 1.3 % (0.0-2.0); HEMATOCRIT 27.6 % (42.0-52.0); HEMOGLOBIN 8.9 G/DL (14.2-18.0); MEAN CORPUSCULAR VOLUME 104 FL (80-99); MONOCYTES % (AUTO) 12.4 % (1.0-10.0); NEUTROPHILS % (AUTO) 46.3 % (45.0-75.0); PLATELET COUNT 356 K/UL (150-450); RED BLOOD COUNT 2.65 M/UL (4.70-6.10); RED CELL DISTRIBUTION WIDTH 15.1 % (11.6-14.8); WHITE BLOOD COUNT 7.4 K/UL (4.8-10.8)
[2018-12-06 05:30] LABS: PHOSPHORUS 6.4 MG/DL (2.5-4.9)
[2018-12-06 05:34] LABS: ALANINE AMINOTRANSFERASE 12 U/L (12-78); ALBUMIN 2.7 G/DL (3.4-5.0); ALBUMIN/GLOBULIN RATIO 0.6 (1.0-2.7); ALKALINE PHOSPHATASE 94 U/L (46-116); ANION GAP 11 mmol/L (5-15); ASPARTATE AMINO TRANSFERASE 17 U/L (15-37); BILIRUBIN,TOTAL 0.5 MG/DL (0.2-1.0); BLOOD UREA NITROGEN 40 mg/dL (7-18); CALCIUM 8.7 MG/DL (8.5-10.1); CARBON DIOXIDE 31 MMOL/L (21-32); CHLORIDE 95 MMOL/L (98-107); CREATININE 6.8 MG/DL (0.55-1.30); POTASSIUM 4.3 MMOL/L (3.5-5.1); SODIUM 137 MMOL/L (136-145)
[2018-12-06] MEDS: Renvela 800mg Pkt NG SCH ×3 (06:08→17:41)
[2018-12-06] MEDS: HydrALAZINE 50mg tab ORAL SCH (06:08)
[2018-12-06] MEDS: NovoLOG Insulin Flexpen SUBQ SCH ×4 (06:10→20:36)
--- NOTE | 2018-12-06 06:53 | NUR ---
NURSE NOTES: ASLEEP STATUS, NO PAIN OR DISTRESS NOTED.
--- NOTE | 2018-12-06 07:10 | NUR ---
HAND-OFF: Report given to ZENAIDA PETERSEN.
--- NOTE | 2018-12-06 07:17 | NUR ---
NURSE NOTES: Patient report received from ZENAIDA Winters.Afebrile an orally intubated ETT 7.5 AC 16 Vt 500 FiO2 35 peep 5. HOB elevated to prevent aspiration.OGT in place running Nepro at 30cc/hr. GT placement intact, 15cc residual.RFA /@0G , AAYUSH AV shunt,thrill and bruit present.Mouth care done.Non behavioral restraints both wrist with no apparent skin impairment.Capillary refill less than 3 s, no cyanosis.Abdomen rounded with hypoactive sound and bilateral lungs sounds clear. Call light within easy reach.Kept clean dry and comfortable.
[2018-12-06] MEDS: Pantoprazole Inj IV SCH (08:14)
[2018-12-06] MEDS: Losartan 50mg tab NG SCH ×2 (08:15→17:41)
[2018-12-06] MEDS: Heparin 5000 units/ml inj SUBQ SCH ×2 (08:17→20:35)
--- NOTE | 2018-12-06 09:09 | NUR ---
NURSE NOTES: Patient turned and repositioned.HOB elevated to prevent aspiration.Seen by Dr Harley will follow up with new orders.Kept clean dry and comfortable. Will continue to monitor.
--- NOTE | 2018-12-06 09:14 | Cardiac Electrophysiology PN ---
Assessment/Plan Assessment/Plan 1. Bradycardia. Resolved off clonidine patch EF 55%. 2. History of hypertension, currently off antihypertensives. 3. Respiratory failure, on the vent and broad-spectrum antibiotic. Fu by Dr. Arcos. Weaning in progress again 4. Troponin leak, due to renal failure. 5. End-stage renal disease, on hemodialysis. JOSE ALEJANDRO RN and Dr Arcos Subjective Subjective In ICU on the vent off pressors.Had dialysis yesterday Objective Last 24 Hour Vital Signs Date Time Temp Pulse Resp B/P (MAP) Pulse Ox O2 Delivery O2 Flow Rate FiO2 12/06/18 09:08 72 17 35 12/06/18 09:00 61 18 166/52 (90) 100 12/06/18 08:15 166/52 12/06/18 08:15 60 166/52 12/06/18 08:00 35 12/06/18 08:00 Mechanical Ventilator 12/06/18 08:00 98.0 60 18 125/45 (71) 100 12/06/18 07:25 67 17 35 12/06/18 07:00 60 16 125/45 (71) 100 12/06/18 06:30 60 16 126/42 (70) 100 12/06/18 06:08 186/47 12/06/18 06:00 65 17 186/47 (93) 100 12/06/18 05:00 72 16 175/48 (90) 100 12/06/18 04:48 75 21 35 12/06/18 04:00 98.1 72 18 148/42 (77) 100 12/06/18 04:00 Mechanical Ventilator 12/06/18 04:00 35 12/06/18 03:12 173/54 12/06/18 03:09 69 12/06/18 03:01 61 16 173/54 (93) 100 12/06/18 03:01 68 16 35 12/06/18 02:00 57 16 119/39 (65) 100 12/06/18 01:07 68 20 35 12/06/18 01:07 68 20 Mechanical Ventilator 35 12/06/18 01:00 67 17 178/44 (88) 97 12/06/18 00:00 66 12/06/18 00:00 35 12/06/18 00:00 Mechanical Ventilator 12/06/18 00:00 98.0 66 16 156/49 (84) 100 12/05/18 23:10 66 16 35 12/05/18 23:00 67 16 128/43 (71) 100 12/05/18 22:00 69 16 124/40 (68) 100 12/05/18 21:33 165/50 12/05/18 21:07 63 16 35 12/05/18 21:00 98.2 62 16 165/50 (88) 100 12/05/18 20:24 61 12/05/18 20:00 63 16 151/47 (81) 100 12/05/18 20:00 35 12/05/18 20:00 Mechanical Ventilator 12/05/18 19:00 62 16 35 12/05/18 19:00 64 16 149/45 (79) 100 12/05/18 18:00 62 16 122/40 (67) 100 12/05/18 17:02 175/44 12/05/18 17:00 73 17 175/44 (87) 100 12/05/18 16:52 85 16 35 12/05/18 16:00 71 12/05/18 16:00 98.3 70 17 105/38 (60) 95 12/05/18 16:00 Mechanical Ventilator 12/05/18 16:00 35 12/05/18 15:00 67 16 152/41 (78) 100 12/05/18 14:59 66 16 35 12/05/18 14:00 67 21 149/41 (77) 100 12/05/18 13:00 56 16 118/38 (64) 100 12/05/18 12:57 55 16 35 12/05/18 12:00 56 12/05/18 12:00 Mechanical Ventilator 12/05/18 12:00 98.5 62 17 166/49 (88) 100 12/05/18 12:00 35 12/05/18 11:00 53 16 156/41 (79) 100 12/05/18 10:46 56 16 35 12/05/18 10:00 55 16 160/40 (80) 100 12/05/18 10:00 35 Intake and Output 12/05/18 12/06/18 19:00 07:00 Intake Total 490 ml 560 ml Output Total 0 ml 0 ml Balance 490 ml 560 ml Free Water 130 ml Tube Feeding 360 ml 360 ml Other 200 ml Output Urine Total 0 ml 0 ml Laboratory Tests Test 12/06/18 03:35 White Blood Count 7.4 K/UL (4.8-10.8) Red Blood Count 2.65 M/UL (4.70-6.10) L Hemoglobin 8.9 G/DL (14.2-18.0) L Hematocrit 27.6 % (42.0-52.0) L Mean Corpuscular Volume 104 FL (80-99) H Mean Corpuscular Hemoglobin 33.5 PG (27.0-31.0) H Mean Corpuscular Hemoglobin Concent 32.2 G/DL (32.0-36.0) Red Cell Distribution Width 15.1 % (11.6-14.8) H Platelet Count 356 K/UL (150-450) Mean Platelet Volume 6.1 FL (6.5-10.1) L Neutrophils (%) (Auto) 46.3 % (45.0-75.0) Lymphocytes (%) (Auto) 34.0 % (20.0-45.0) Monocytes (%) (Auto) 12.4 % (1.0-10.0) H Eosinophils (%) (Auto) 6.0 % (0.0-3.0) H Basophils (%) (Auto) 1.3 % (0.0-2.0) Sodium Level 137 MMOL/L (136-145) Potassium Level 4.3 MMOL/L (3.5-5.1) Chloride Level 95 MMOL/L (98-107) L Carbon Dioxide Level 31 MMOL/L (21-32) Anion Gap 11 mmol/L (5-15) Blood Urea Nitrogen 40 mg/dL (7-18) H Creatinine 6.8 MG/DL (0.55-1.30) H Estimat Glomerular Filtration Rate mL/min (>60) Glucose Level 155 MG/DL (74-106) H Uric Acid 3.8 MG/DL (2.6-7.2) Calcium Level 8.7 MG/DL (8.5-10.1) Phosphorus Level 6.4 MG/DL (2.5-4.9) H Magnesium Level 2.5 MG/DL (1.8-2.4) H Total Bilirubin 0.5 MG/DL (0.2-1.0) Aspartate Amino Transf (AST/SGOT) 17 U/L (15-37) Alanine Aminotransferase (ALT/SGPT) 12 U/L (12-78) Alkaline Phosphatase 94 U/L (46-116) Troponin I 0.088 ng/mL (0.000-0.056) C-Reactive Protein, Quantitative 5.2 mg/dL (0.00-0.90) H Pro-B-Type Natriuretic Peptide 61838 pg/mL (0-125) H Total Protein 6.9 G/DL (6.4-8.2) Albumin 2.7 G/DL (3.4-5.0) L Globulin 4.2 g/dL Albumin/Globulin Ratio 0.6 (1.0-2.7) L Microbiology Date/Time Source Procedure Growth Status 12/04/18 20:00 Rectum Received Objective HEAD AND NECK: No JVD orally intubated. LUNGS: Coarse rhonchi. CARDIOVASCULAR: Regular S1 and S2 with no gallop or murmur. ABDOMEN: Soft. EXTREMITIES: No pitting edema. Ryan Harley MD Dec 06, 2018 09:14
--- NOTE | 2018-12-06 09:34 | Pulmonolgy Critical Care Note ---
Critical Care - Asmt/Plan Problems: (1) Respiratory failure, acute (2) Sepsis (3) ESRD (end stage renal disease) on dialysis (4) HTN (hypertension) (5) COPD (chronic obstructive pulmonary disease) (6) DM (diabetes mellitus) (7) Bacteremia (8) Sacral decubitus ulcer, stage III Respiratory: monitor respiratory rate Cardiac: continue to monitor HR/BP Renal: F/U I&O Infectious Disease: check cultures Gastrointestinal: continue feedings/current rate Endocrine: check TSH Hematologic: transfuse if hgb<8.5 Neurologic: PRN Ativan, keep patient comfortable Time Spent (Minutes): 40 Notes Reviewed: cardio, renal Discussed with: 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, 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 - Objective Last 24 Hour Vital Signs Date Time Temp Pulse Resp B/P (MAP) Pulse Ox O2 Delivery O2 Flow Rate FiO2 12/06/18 09:15 166/54 12/06/18 09:08 72 17 35 12/06/18 09:00 61 18 166/52 (90) 100 12/06/18 08:15 166/52 12/06/18 08:15 60 166/52 12/06/18 08:00 35 12/06/18 08:00 Mechanical Ventilator 12/06/18 08:00 98.0 60 18 125/45 (71) 100 12/06/18 07:25 67 17 35 12/06/18 07:00 60 16 125/45 (71) 100 12/06/18 06:30 60 16 126/42 (70) 100 12/06/18 06:08 186/47 12/06/18 06:00 65 17 186/47 (93) 100 12/06/18 05:00 72 16 175/48 (90) 100 12/06/18 04:48 75 21 35 12/06/18 04:00 98.1 72 18 148/42 (77) 100 12/06/18 04:00 Mechanical Ventilator 12/06/18 04:00 35 12/06/18 03:12 173/54 12/06/18 03:09 69 12/06/18 03:01 61 16 173/54 (93) 100 12/06/18 03:01 68 16 35 12/06/18 02:00 57 16 119/39 (65) 100 12/06/18 01:07 68 20 35 12/06/18 01:07 68 20 Mechanical Ventilator 35 12/06/18 01:00 67 17 178/44 (88) 97 12/06/18 00:00 66 12/06/18 00:00 35 12/06/18 00:00 Mechanical Ventilator 12/06/18 00:00 98.0 66 16 156/49 (84) 100 12/05/18 23:10 66 16 35 12/05/18 23:00 67 16 128/43 (71) 100 12/05/18 22:00 69 16 124/40 (68) 100 12/05/18 21:33 165/50 12/05/18 21:07 63 16 35 12/05/18 21:00 98.2 62 16 165/50 (88) 100 12/05/18 20:24 61 12/05/18 20:00 63 16 151/47 (81) 100 12/05/18 20:00 35 12/05/18 20:00 Mechanical Ventilator 12/05/18 19:00 62 16 35 12/05/18 19:00 64 16 149/45 (79) 100 12/05/18 18:00 62 16 122/40 (67) 100 12/05/18 17:02 175/44 12/05/18 17:00 73 17 175/44 (87) 100 12/05/18 16:52 85 16 35 12/05/18 16:00 71 12/05/18 16:00 98.3 70 17 105/38 (60) 95 12/05/18 16:00 Mechanical Ventilator 12/05/18 16:00 35 12/05/18 15:00 67 16 152/41 (78) 100 12/05/18 14:59 66 16 35 12/05/18 14:00 67 21 149/41 (77) 100 12/05/18 13:00 56 16 118/38 (64) 100 12/05/18 12:57 55 16 35 12/05/18 12:00 56 12/05/18 12:00 Mechanical Ventilator 12/05/18 12:00 98.5 62 17 166/49 (88) 100 12/05/18 12:00 35 12/05/18 11:00 53 16 156/41 (79) 100 12/05/18 10:46 56 16 35 12/05/18 10:00 55 16 160/40 (80) 100 12/05/18 10:00 35 Status: awake Condition: critical HEENT: atraumatic Neck: full ROM Lungs: clear, rhonchi Heart: HR/BP stable Abdomen: soft, active bowel sounds Extremities: edema Micro: Microbiology Date/Time Source Procedure Growth Status 12/04/18 20:00 Rectum Received Accucheck: 150 Critical Care - Subjective ROS Limited/Unobtainable: Yes Condition: critical EKG Rhythm: Sinus Rhythm FI02: 35 Vent Support Breath Rate: 16 Vent Support Mode: AC Vent Tidal Volume: 500 Sputum Amount: Small PEEP: 5.0 PIP: 28 Tube Feeding Amount: 30 I&O: Intake and Output 12/05/18 12/06/18 19:00 07:00 Intake Total 490 ml 560 ml Output Total 0 ml 0 ml Balance 490 ml 560 ml Free Water 130 ml Tube Feeding 360 ml 360 ml Other 200 ml Output Urine Total 0 ml 0 ml CXR: no change ET-Tube: 7.5 ET Position: 24 Labs: Laboratory Tests Test 12/06/18 03:35 White Blood Count 7.4 K/UL (4.8-10.8) Red Blood Count 2.65 M/UL (4.70-6.10) L Hemoglobin 8.9 G/DL (14.2-18.0) L Hematocrit 27.6 % (42.0-52.0) L Mean Corpuscular Volume 104 FL (80-99) H Mean Corpuscular Hemoglobin 33.5 PG (27.0-31.0) H Mean Corpuscular Hemoglobin Concent 32.2 G/DL (32.0-36.0) Red Cell Distribution Width 15.1 % (11.6-14.8) H Platelet Count 356 K/UL (150-450) Mean Platelet Volume 6.1 FL (6.5-10.1) L Neutrophils (%) (Auto) 46.3 % (45.0-75.0) Lymphocytes (%) (Auto) 34.0 % (20.0-45.0) Monocytes (%) (Auto) 12.4 % (1.0-10.0) H Eosinophils (%) (Auto) 6.0 % (0.0-3.0) H Basophils (%) (Auto) 1.3 % (0.0-2.0) Sodium Level 137 MMOL/L (136-145) Potassium Level 4.3 MMOL/L (3.5-5.1) Chloride Level 95 MMOL/L (98-107) L Carbon Dioxide Level 31 MMOL/L (21-32) Anion Gap 11 mmol/L (5-15) Blood Urea Nitrogen 40 mg/dL (7-18) H Creatinine 6.8 MG/DL (0.55-1.30) H Estimat Glomerular Filtration Rate mL/min (>60) Glucose Level 155 MG/DL (74-106) H Uric Acid 3.8 MG/DL (2.6-7.2) Calcium Level 8.7 MG/DL (8.5-10.1) Phosphorus Level 6.4 MG/DL (2.5-4.9) H Magnesium Level 2.5 MG/DL (1.8-2.4) H Total Bilirubin 0.5 MG/DL (0.2-1.0) Aspartate Amino Transf (AST/SGOT) 17 U/L (15-37) Alanine Aminotransferase (ALT/SGPT) 12 U/L (12-78) Alkaline Phosphatase 94 U/L (46-116) Troponin I 0.088 ng/mL (0.000-0.056) C-Reactive Protein, Quantitative 5.2 mg/dL (0.00-0.90) H Pro-B-Type Natriuretic Peptide 00924 pg/mL (0-125) H Total Protein 6.9 G/DL (6.4-8.2) Albumin 2.7 G/DL (3.4-5.0) L Globulin 4.2 g/dL Albumin/Globulin Ratio 0.6 (1.0-2.7) L Sulaiman Arcos MD Dec 06, 2018 09:33
--- NOTE | 2018-12-06 09:45 | NUR ---
RESPIRATORY NOTE:pt placed on weaning trial no SOB or discomfort noted, pt is alert , CPAP +5 PS10 100% sat will continue to monior the pts progress
--- NOTE | 2018-12-06 09:55 | NUR ---
NURSE NOTES: Pt placed on Cpap PS 10, tolerate well at this time.Deep breathing exercise teaching provided.Kept on close monitoring
--- NOTE | 2018-12-06 10:49 | NUR ---
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 ESRD ON HD . COPD VS: BP 175/46, P 72, T 98.0, RR 18, SpO2 100 on VENT AC 16, TV 500, PEEP 5.0, FiO2 35 RBC 2.65, Hgb 8.9, Hct 27.6, TROPONIN I 0.088 CXR Findings: Stable satisfactory positions of endotracheal and nasogastric tube IS:APRESOLINE 10mg IV COZAAR 50mg NG RENVELA 1,600mg NG NORVASC 10mg NG HEPARIN SUBQ PROTONIX 40mg IV Weaning in progress ICU STATUS
--- NOTE | 2018-12-06 10:57 | Nephrology Progress Note ---
Assessment/Plan Problem List: (1) ESRD (end stage renal disease) on dialysis (2) Respiratory failure, acute (3) Sepsis (4) Left lower lobe pneumonia (5) Anemia in chronic kidney disease (CKD) (6) HTN (hypertension) Assessment: hypertensive kidney disease Assessment Respiratory failure on vent Left lower lobe pneumonia ESRD (end stage renal disease) on dialysis Hypoglycemia Hypocalcemia on admit Anemia Plan remains intubated- due dialysis 12/07 done 12/05 clonidin was held for low HR , hydralazine dose increased BP meds adjusted for high bp per orders weaning?? start OG feeding with Nepro antibiotics hemodynamic support pulmonary support Subjective ROS Limited/Unobtainable: Yes Objective Objective Last 24 Hour Vital Signs Date Time Temp Pulse Resp B/P (MAP) Pulse Ox O2 Delivery O2 Flow Rate FiO2 12/06/18 09:15 166/54 12/06/18 09:08 72 17 35 12/06/18 09:00 61 18 166/52 (90) 100 12/06/18 08:15 166/52 12/06/18 08:15 60 166/52 12/06/18 08:00 35 12/06/18 08:00 Mechanical Ventilator 12/06/18 08:00 98.0 60 18 125/45 (71) 100 12/06/18 07:25 67 17 35 12/06/18 07:00 60 16 125/45 (71) 100 12/06/18 06:30 60 16 126/42 (70) 100 12/06/18 06:08 186/47 12/06/18 06:00 65 17 186/47 (93) 100 12/06/18 05:00 72 16 175/48 (90) 100 12/06/18 04:48 75 21 35 12/06/18 04:00 98.1 72 18 148/42 (77) 100 12/06/18 04:00 Mechanical Ventilator 12/06/18 04:00 35 12/06/18 03:12 173/54 12/06/18 03:09 69 12/06/18 03:01 61 16 173/54 (93) 100 12/06/18 03:01 68 16 35 12/06/18 02:00 57 16 119/39 (65) 100 12/06/18 01:07 68 20 35 12/06/18 01:07 68 20 Mechanical Ventilator 35 12/06/18 01:00 67 17 178/44 (88) 97 12/06/18 00:00 66 12/06/18 00:00 35 12/06/18 00:00 Mechanical Ventilator 12/06/18 00:00 98.0 66 16 156/49 (84) 100 12/05/18 23:10 66 16 35 12/05/18 23:00 67 16 128/43 (71) 100 12/05/18 22:00 69 16 124/40 (68) 100 12/05/18 21:33 165/50 12/05/18 21:07 63 16 35 12/05/18 21:00 98.2 62 16 165/50 (88) 100 12/05/18 20:24 61 12/05/18 20:00 63 16 151/47 (81) 100 12/05/18 20:00 35 12/05/18 20:00 Mechanical Ventilator 12/05/18 19:00 62 16 35 12/05/18 19:00 64 16 149/45 (79) 100 12/05/18 18:00 62 16 122/40 (67) 100 12/05/18 17:02 175/44 12/05/18 17:00 73 17 175/44 (87) 100 12/05/18 16:52 85 16 35 12/05/18 16:00 71 12/05/18 16:00 98.3 70 17 105/38 (60) 95 12/05/18 16:00 Mechanical Ventilator 12/05/18 16:00 35 12/05/18 15:00 67 16 152/41 (78) 100 12/05/18 14:59 66 16 35 12/05/18 14:00 67 21 149/41 (77) 100 12/05/18 13:00 56 16 118/38 (64) 100 12/05/18 12:57 55 16 35 12/05/18 12:00 56 12/05/18 12:00 Mechanical Ventilator 12/05/18 12:00 98.5 62 17 166/49 (88) 100 12/05/18 12:00 35 12/05/18 11:00 53 16 156/41 (79) 100 Intake and Output 12/05/18 12/06/18 19:00 07:00 Intake Total 490 ml 560 ml Output Total 0 ml 0 ml Balance 490 ml 560 ml Free Water 130 ml Tube Feeding 360 ml 360 ml Other 200 ml Output Urine Total 0 ml 0 ml Laboratory Tests 12/06/18 03:35: White Blood Count 7.4, Red Blood Count 2.65L, Hemoglobin 8.9L, Hematocrit 27.6L , Mean Corpuscular Volume 104H, Mean Corpuscular Hemoglobin 33.5H, Mean Corpuscular Hemoglobin Concent 32.2, Red Cell Distribution Width 15.1H, Platelet Count 356, Mean Platelet Volume 6.1L, Neutrophils (%) (Auto) 46.3, Lymphocytes (%) (Auto) 34.0, Monocytes (%) (Auto) 12.4H, Eosinophils (%) (Auto) 6.0H, Basophils (%) (Auto) 1.3, Sodium Level 137, Potassium Level 4.3, Chloride Level 95L, Carbon Dioxide Level 31, Anion Gap 11, Blood Urea Nitrogen 40H, Creatinine 6.8H, Estimat Glomerular Filtration Rate , Glucose Level 155H, Uric Acid 3.8, Calcium Level 8.7, Phosphorus Level 6.4H, Magnesium Level 2.5H, Total Bilirubin 0.5, Aspartate Amino Transf (AST/SGOT) 17, Alanine Aminotransferase ( ALT/SGPT) 12, Alkaline Phosphatase 94, Troponin I 0.088H, C-Reactive Protein, Quantitative 5.2H, Pro-B-Type Natriuretic Peptide 94366A, Total Protein 6.9, Albumin 2.7L, Globulin 4.2, Albumin/Globulin Ratio 0.6L Height (Feet): 5 Height (Inches): 3.00 Weight (Pounds): 115 EENT: other Cardiovascular: normal rate Respiratory/Chest: decreased breath sounds Abdomen: distended Boo Fu MD Dec 06, 2018 10:57
--- NOTE | 2018-12-06 12:01 | NUR ---
NURSE NOTES: Restraints release and skin assessment done.Patient turned and repositioned.Mouth care done. Call light within easy reach.On CPAP PS 8 and tolerated well.
--- NOTE | 2018-12-06 12:10 | Diagnostic Imaging Report ---
Indication: Dyspnea Comparison: 12/04/2018 A single view chest radiograph was obtained. Findings: Tubes and lines are stable. Lungs remain clear. Heart size is stable and normal. IMPRESSION: No change from the prior
[2018-12-06] MEDS: HydrALAZINE 50mg tab NG SCH ×2 (12:34→17:42)
--- NOTE | 2018-12-06 12:48 | Surgery Progress Note ---
Surgery Progress Note Subjective Additional Comments more alert and awake today. on spont breathing trial. wean vent. labs improved Objective Last 24 Hour Vital Signs Date Time Temp Pulse Resp B/P (MAP) Pulse Ox O2 Delivery O2 Flow Rate FiO2 12/06/18 12:35 153/42 12/06/18 12:34 153/43 12/06/18 12:00 97.6 67 18 152/43 (79) 100 12/06/18 11:30 97.6 12/06/18 11:24 75 11 35 12/06/18 11:00 175/46 12/06/18 11:00 75 18 152/42 (78) 100 12/06/18 10:00 61 18 175/54 (94) 100 12/06/18 09:15 166/54 12/06/18 09:08 72 17 35 12/06/18 09:00 61 18 166/52 (90) 100 12/06/18 08:15 166/52 12/06/18 08:15 60 166/52 12/06/18 08:00 35 12/06/18 08:00 60 12/06/18 08:00 Mechanical Ventilator 12/06/18 08:00 98.0 60 18 125/45 (71) 100 12/06/18 07:25 67 17 35 12/06/18 07:00 60 16 125/45 (71) 100 12/06/18 06:30 60 16 126/42 (70) 100 12/06/18 06:08 186/47 12/06/18 06:00 65 17 186/47 (93) 100 12/06/18 05:00 72 16 175/48 (90) 100 12/06/18 04:48 75 21 35 12/06/18 04:00 98.1 72 18 148/42 (77) 100 12/06/18 04:00 Mechanical Ventilator 12/06/18 04:00 35 12/06/18 03:12 173/54 12/06/18 03:09 69 12/06/18 03:01 61 16 173/54 (93) 100 12/06/18 03:01 68 16 35 12/06/18 02:00 57 16 119/39 (65) 100 12/06/18 01:07 68 20 35 12/06/18 01:07 68 20 Mechanical Ventilator 35 12/06/18 01:00 67 17 178/44 (88) 97 12/06/18 00:00 66 12/06/18 00:00 35 12/06/18 00:00 Mechanical Ventilator 12/06/18 00:00 98.0 66 16 156/49 (84) 100 12/05/18 23:10 66 16 35 12/05/18 23:00 67 16 128/43 (71) 100 12/05/18 22:00 69 16 124/40 (68) 100 12/05/18 21:33 165/50 12/05/18 21:07 63 16 35 12/05/18 21:00 98.2 62 16 165/50 (88) 100 12/05/18 20:24 61 12/05/18 20:00 63 16 151/47 (81) 100 12/05/18 20:00 35 12/05/18 20:00 Mechanical Ventilator 12/05/18 19:00 62 16 35 12/05/18 19:00 64 16 149/45 (79) 100 12/05/18 18:00 62 16 122/40 (67) 100 12/05/18 17:02 175/44 12/05/18 17:00 73 17 175/44 (87) 100 12/05/18 16:52 85 16 35 12/05/18 16:00 71 12/05/18 16:00 98.3 70 17 105/38 (60) 95 12/05/18 16:00 Mechanical Ventilator 12/05/18 16:00 35 12/05/18 15:00 67 16 152/41 (78) 100 12/05/18 14:59 66 16 35 12/05/18 14:00 67 21 149/41 (77) 100 12/05/18 13:00 56 16 118/38 (64) 100 12/05/18 12:57 55 16 35 I&O Intake and Output 12/05/18 12/06/18 19:00 07:00 Intake Total 490 ml 560 ml Output Total 0 ml 0 ml Balance 490 ml 560 ml Free Water 130 ml Tube Feeding 360 ml 360 ml Other 200 ml Output Urine Total 0 ml 0 ml Dressing: saturated Wound: clean Drains: other Cardiovascular: RSR Respiratory: clear Abdomen: soft, present bowel sounds Extremities: no tenderness, no cyanosis Laboratory Tests Test 12/06/18 03:35 White Blood Count 7.4 K/UL (4.8-10.8) Red Blood Count 2.65 M/UL (4.70-6.10) L Hemoglobin 8.9 G/DL (14.2-18.0) L Hematocrit 27.6 % (42.0-52.0) L Mean Corpuscular Volume 104 FL (80-99) H Mean Corpuscular Hemoglobin 33.5 PG (27.0-31.0) H Mean Corpuscular Hemoglobin Concent 32.2 G/DL (32.0-36.0) Red Cell Distribution Width 15.1 % (11.6-14.8) H Platelet Count 356 K/UL (150-450) Mean Platelet Volume 6.1 FL (6.5-10.1) L Neutrophils (%) (Auto) 46.3 % (45.0-75.0) Lymphocytes (%) (Auto) 34.0 % (20.0-45.0) Monocytes (%) (Auto) 12.4 % (1.0-10.0) H Eosinophils (%) (Auto) 6.0 % (0.0-3.0) H Basophils (%) (Auto) 1.3 % (0.0-2.0) Sodium Level 137 MMOL/L (136-145) Potassium Level 4.3 MMOL/L (3.5-5.1) Chloride Level 95 MMOL/L (98-107) L Carbon Dioxide Level 31 MMOL/L (21-32) Anion Gap 11 mmol/L (5-15) Blood Urea Nitrogen 40 mg/dL (7-18) H Creatinine 6.8 MG/DL (0.55-1.30) H Estimat Glomerular Filtration Rate mL/min (>60) Glucose Level 155 MG/DL (74-106) H Uric Acid 3.8 MG/DL (2.6-7.2) Calcium Level 8.7 MG/DL (8.5-10.1) Phosphorus Level 6.4 MG/DL (2.5-4.9) H Magnesium Level 2.5 MG/DL (1.8-2.4) H Total Bilirubin 0.5 MG/DL (0.2-1.0) Aspartate Amino Transf (AST/SGOT) 17 U/L (15-37) Alanine Aminotransferase (ALT/SGPT) 12 U/L (12-78) Alkaline Phosphatase 94 U/L (46-116) Troponin I 0.088 ng/mL (0.000-0.056) C-Reactive Protein, Quantitative 5.2 mg/dL (0.00-0.90) H Pro-B-Type Natriuretic Peptide 22005 pg/mL (0-125) H Total Protein 6.9 G/DL (6.4-8.2) Albumin 2.7 G/DL (3.4-5.0) L Globulin 4.2 g/dL Albumin/Globulin Ratio 0.6 (1.0-2.7) L Plan Problems: (1) Sacral decubitus ulcer, stage III Assessment & Plan: Pt presented on admission with Irregular shaped, full thickness Sacral pressure injury.Scattered areas of biofilm noted at base of wound .Other muñoz wound is moist and viable. Edges adherent to base of wound . Periwound with darker skin tone without induration or fluctuance. No odor or exudate noted.(L)7.5cm x (W)8.5cm.Significant portion of wound is partial thickness and small portion with full thickness breakdown approximately 1cm x 1cm at inferior yellow white portion. no drainage. periwound intact and stable. wound bed of partial thickness with healthy viable tissue. no signs of infection. no odor Non-blanchable erythema with fluctuance and delineated margins noted to R heel(L )3cm x (W)4cm.Periwound is pink and blanchable. Non-blanchable erythema with fluctuance noted to L heel. Periwound pink and blanchable without induration or fluctuance. (L)3.8cm x (W)4.5cm. Tx.Plan: Cleanse Sacral wound with Saline.Apply Therahoney. Apply Triad Paste periwound. Cover with Optifoam drsg Daily and prn. Apply Cavilon Skin Barrier to R and L heels.Cover each Heel with Optifoam drsg. Change every 7 days and prn. APM/BOOGIE Mattress overlay. Reposition at least every 2hours or as tolerated. Off-load heels with pillow. will follow with recs thank you (2) Hypoglycemia (3) Left lower lobe pneumonia (4) Hypocalcemia (5) COPD (chronic obstructive pulmonary disease) (6) HTN (hypertension) (7) DM (diabetes mellitus) (8) Respiratory failure Assessment & Plan: slowly improving weaning off vent possible extubation today will follow with recs thank you (9) ESRD (end stage renal disease) on dialysis (10) Bacteremia (11) Respiratory failure, acute (12) Sepsis Assessment & Plan: cont IV Abx trend labs (13) Anemia in chronic kidney disease (CKD) Florencio Herrera Dec 06, 2018 12:48
--- NOTE | 2018-12-06 13:10 | NUR ---
NURSE NOTES: Patient extubated and deep breathing exercises provided.Tolerated well.Kept on close monitoring.
--- NOTE | 2018-12-06 14:11 | NUR ---
NURSE NOTES: Patient turned and repositioned.S/P intubation and tolerated well.Call light within easy reach. Addendum: 12/06/18 at 1620 by Beckie Natarajan RN Restraints D/C
--- NOTE | 2018-12-06 14:51 | Infectious Diseases Prog Note ---
Assessment/Plan Assessment/Plan Abx: IV Vancomycin 12/01- Zosyn 12/01- Ertapenem x1 12/01 Azithromycin x1 12/01 Cefepime x1 12/01 Assessment: Probable Sepsis Gram positive bacteremia- ? real vs contaminant -12/01 10/14 Staph capitis; 12/02 Bcx NTD Acute hypoxic respiratory failure s/p intubation 12/01- likely 2ry to Acute CHF and COPD exacerbation- no obvious PNA on CXR -12/05 CXR: The lungs and pleural spaces are clear -12/02 CXR: Stable satisfactory position of endotracheal tube. Lungs and pleural spaces remain clear. No significant interim change -influenza sc neg -sp cx p Afebrile Leukocytosis , SP Diarrhea -cdiff neg Bradycardia Acute encephalopathy Sacral decubitus ulcer- not infected -wound cx: Group G strep, diphteroids HTN COPD DM2 R femur fx s/p ORIF ESRD on HD via L arm shunt pAfib on amiodarone SNF resident Plan: -Continue to monitor off abx -12/05 SP IV Vancomycin #5 -12/02 SP ZOsyn #2 -12/01 SP Ertapenem, Cefepime, azithromycin x1 -f/u Repeat Bcx x2 -f/u cx -Monitor CBC/CMP, temperatures -ICU/ETT care -wound care per surgical team Thank you for this consultation. Will continue to follow along with you. Discussed with RN. Subjective Allergies: Coded Allergies: NEOMYCIN (Verified Allergy, Mild, 12/01/18) Uncoded Allergies: plastics (Allergy, Mild, 12/01/18) Subjective afebrile no leukocytosis repeat Bcx NTD Objective Vital Signs Last 24 Hour Vital Signs Date Time Temp Pulse Resp B/P (MAP) Pulse Ox O2 Delivery O2 Flow Rate FiO2 12/06/18 14:00 70 16 162/44 (83) 99 12/06/18 13:00 80 18 145/42 (76) 100 12/06/18 12:35 153/42 12/06/18 12:34 153/43 12/06/18 12:00 97.6 67 18 152/43 (79) 100 12/06/18 12:00 35 12/06/18 12:00 68 12/06/18 12:00 Mechanical Ventilator 12/06/18 11:30 97.6 12/06/18 11:24 75 11 35 12/06/18 11:00 175/46 12/06/18 11:00 35 12/06/18 11:00 75 18 152/42 (78) 100 12/06/18 10:00 61 18 175/54 (94) 100 12/06/18 09:45 35 12/06/18 09:15 166/54 12/06/18 09:08 72 17 35 12/06/18 09:00 61 18 166/52 (90) 100 12/06/18 08:15 166/52 12/06/18 08:15 60 166/52 12/06/18 08:00 35 12/06/18 08:00 60 12/06/18 08:00 Mechanical Ventilator 12/06/18 08:00 98.0 60 18 125/45 (71) 100 12/06/18 07:25 67 17 35 12/06/18 07:00 60 16 125/45 (71) 100 12/06/18 06:30 60 16 126/42 (70) 100 12/06/18 06:08 186/47 12/06/18 06:00 65 17 186/47 (93) 100 12/06/18 05:00 72 16 175/48 (90) 100 12/06/18 04:48 75 21 35 12/06/18 04:00 98.1 72 18 148/42 (77) 100 12/06/18 04:00 Mechanical Ventilator 12/06/18 04:00 35 12/06/18 03:12 173/54 12/06/18 03:09 69 12/06/18 03:01 61 16 173/54 (93) 100 12/06/18 03:01 68 16 35 12/06/18 02:00 57 16 119/39 (65) 100 12/06/18 01:07 68 20 35 12/06/18 01:07 68 20 Mechanical Ventilator 35 12/06/18 01:00 67 17 178/44 (88) 97 12/06/18 00:00 66 12/06/18 00:00 35 12/06/18 00:00 Mechanical Ventilator 12/06/18 00:00 98.0 66 16 156/49 (84) 100 12/05/18 23:10 66 16 35 12/05/18 23:00 67 16 128/43 (71) 100 12/05/18 22:00 69 16 124/40 (68) 100 12/05/18 21:33 165/50 12/05/18 21:07 63 16 35 12/05/18 21:00 98.2 62 16 165/50 (88) 100 12/05/18 20:24 61 12/05/18 20:00 63 16 151/47 (81) 100 12/05/18 20:00 35 12/05/18 20:00 Mechanical Ventilator 12/05/18 19:00 62 16 35 12/05/18 19:00 64 16 149/45 (79) 100 12/05/18 18:00 62 16 122/40 (67) 100 12/05/18 17:02 175/44 12/05/18 17:00 73 17 175/44 (87) 100 12/05/18 16:52 85 16 35 12/05/18 16:00 71 12/05/18 16:00 98.3 70 17 105/38 (60) 95 12/05/18 16:00 Mechanical Ventilator 12/05/18 16:00 35 12/05/18 15:00 67 16 152/41 (78) 100 12/05/18 14:59 66 16 35 Height (Feet): 5 Height (Inches): 3.00 Weight (Pounds): 115 Objective GENERAL: The patient is well-developed and well-nourished male, who is intubated and sedated. HEENT: Eyes, pupils equal and responsive to light and accommodation. Extraocular movements are intact. NECK: Supple without lymphadenopathy. CHEST: Coarse expiratory wheezes bilaterally with coarse upper airway sounds. Otherwise, without rales. Neurologically unable to assess. CARDIOVASCULAR: Bradycardic, regular rate. S1 and S2 normal without murmurs, rubs, or gallops. ABDOMEN: Soft, nontender, and nondistended. Positive bowel sounds. No evidence of hepatosplenomegaly. Currently, no rebound or guarding noted. EXTREMITIES: Negative for clubbing, cyanosis, or edema. NEUROLOGIC: Unable to assess. Microbiology Date/Time Source Procedure Growth Status 12/04/18 20:00 Rectum Received Laboratory Tests Test 12/06/18 03:35 White Blood Count 7.4 K/UL (4.8-10.8) Red Blood Count 2.65 M/UL (4.70-6.10) L Hemoglobin 8.9 G/DL (14.2-18.0) L Hematocrit 27.6 % (42.0-52.0) L Mean Corpuscular Volume 104 FL (80-99) H Mean Corpuscular Hemoglobin 33.5 PG (27.0-31.0) H Mean Corpuscular Hemoglobin Concent 32.2 G/DL (32.0-36.0) Red Cell Distribution Width 15.1 % (11.6-14.8) H Platelet Count 356 K/UL (150-450) Mean Platelet Volume 6.1 FL (6.5-10.1) L Neutrophils (%) (Auto) 46.3 % (45.0-75.0) Lymphocytes (%) (Auto) 34.0 % (20.0-45.0) Monocytes (%) (Auto) 12.4 % (1.0-10.0) H Eosinophils (%) (Auto) 6.0 % (0.0-3.0) H Basophils (%) (Auto) 1.3 % (0.0-2.0) Sodium Level 137 MMOL/L (136-145) Potassium Level 4.3 MMOL/L (3.5-5.1) Chloride Level 95 MMOL/L (98-107) L Carbon Dioxide Level 31 MMOL/L (21-32) Anion Gap 11 mmol/L (5-15) Blood Urea Nitrogen 40 mg/dL (7-18) H Creatinine 6.8 MG/DL (0.55-1.30) H Estimat Glomerular Filtration Rate mL/min (>60) Glucose Level 155 MG/DL (74-106) H Uric Acid 3.8 MG/DL (2.6-7.2) Calcium Level 8.7 MG/DL (8.5-10.1) Phosphorus Level 6.4 MG/DL (2.5-4.9) H Magnesium Level 2.5 MG/DL (1.8-2.4) H Total Bilirubin 0.5 MG/DL (0.2-1.0) Aspartate Amino Transf (AST/SGOT) 17 U/L (15-37) Alanine Aminotransferase (ALT/SGPT) 12 U/L (12-78) Alkaline Phosphatase 94 U/L (46-116) Troponin I 0.088 ng/mL (0.000-0.056) C-Reactive Protein, Quantitative 5.2 mg/dL (0.00-0.90) H Pro-B-Type Natriuretic Peptide 80979 pg/mL (0-125) H Total Protein 6.9 G/DL (6.4-8.2) Albumin 2.7 G/DL (3.4-5.0) L Globulin 4.2 g/dL Albumin/Globulin Ratio 0.6 (1.0-2.7) L Current Medications Medications (Trade) Dose Ordered Sig/Amber Route PRN Reason Start Time Stop Time Status Last Admin Dose Admin Acetaminophen (Tylenol) 650 mg Q4H PRN NG fever 12/04/18 11:00 12/31/18 09:14 12/06/18 11:00 Amlodipine Besylate (Norvasc) 10 mg DAILY NG 12/04/18 11:00 01/03/19 10:59 12/06/18 08:15 Dextrose (Dextrose 50%) 25 ml Q30M PRN IV Hypoglycemia 12/01/18 09:15 12/31/18 09:14 Dextrose (Dextrose 50%) 50 ml Q30M PRN IV Hypoglycemia 12/01/18 09:15 12/31/18 09:14 Heparin Sodium (Porcine) (Heparin 5000 units/ml) 5,000 units EVERY 12 HOURS SUBQ 12/01/18 21:00 12/31/18 20:59 12/06/18 08:17 Hydralazine HCl (Apresoline) 10 mg Q4H PRN IV bp over 170 syst 12/05/18 10:22 01/04/19 10:21 12/06/18 11:00 Hydralazine HCl (Apresoline) 50 mg Q6HR NG 12/06/18 12:00 01/04/19 00:00 12/06/18 12:34 Insulin Aspart (NovoLOG) BEFORE MEALS AND HS SUBQ 12/02/18 11:30 01/01/19 11:29 12/06/18 06:10 Isosorbide Dinitrate (Isordil) 10 mg Q6HR NG 12/06/18 12:00 01/05/19 11:59 12/06/18 12:35 Lorazepam (Ativan 2mg/ml 1ml) 2 mg Q2H PRN IV For Anxiety 12/01/18 09:15 12/08/18 09:14 12/06/18 01:10 Losartan Potassium (Cozaar) 50 mg BID NG 12/04/18 18:00 01/03/19 17:59 12/06/18 08:15 Morphine Sulfate (Morphine Sulfate) 4 mg Q4H PRN IVP Severe Pain (Pain Scale 7-10) 12/01/18 09:15 12/08/18 09:14 12/05/18 03:32 Norepinephrine Bitartrate 4 mg/ Dextrose 254 ml @ 0 mls/hr Q24H IV 12/01/18 09:15 12/31/18 09:14 Ondansetron HCl (Zofran) 4 mg Q6H PRN IVP Nausea & Vomiting 12/01/18 09:15 12/31/18 09:14 Pantoprazole (Protonix) 40 mg DAILY IV 12/01/18 09:30 12/31/18 09:29 12/06/18 08:14 Polyethylene Glycol (Miralax) 17 gm DAILYPRN PRN NG Constipation 12/04/18 11:00 12/31/18 09:14 Sevelamer Carbonate (Renvela) 1,600 mg Q6HR NG 12/04/18 12:00 01/02/19 07:59 12/06/18 12:00 Vancomycin HCl (Vanco rx to dose) 1 ea DAILY PRN MISC Per rx protocol 12/01/18 12:30 12/31/18 12:29 Joyce Jones M.D. Dec 06, 2018 14:51
--- NOTE | 2018-12-06 14:56 | Cardiology Report ---
APPROVED REPORT EXAM: Two-dimensional and M-mode echocardiogram with Doppler and color Doppler. INDICATION ALTRED MENTAL M-Mode DIMENSIONS IVSd1.3 (0.7-1.1cm)Left Atrium (MM)2.9 (1.6-4.0cm) LVDd4.4 (3.5-5.6cm)Aortic Root3.1 (2.0-3.7cm) PWd0.9 (0.7-1.1cm)Aortic Cusp Exc.1.4 (1.5-2.0cm) IVSs0.6 cm LVDs3.1 (2.5-4.0cm) PWs1.5 cm Study quality precludes accurate assessment of regional wall motion. Normal left ventricular chamber size, systolic function and wall motion to extent visualized. Left ventricular ejection fraction estimated to be 55 %. Mild left ventricular hypertrophy by 2-D. No evidence of pricardial effusion . Mild left atrial enlargement. Right cardiac chamber sizes are within normal limits. Focal aortic valve sclerosis with reduced cusp excursion. Thickened mitral valve leaflets with normal excursion. Mitral annulus and aortic root calcification. Normal pulmonic valve structure. Normal tricuspid valve structure. IVC at size 2.3 cm with physiologic collapse. A color flow and spectral Doppler study was performed and revealed: No aortic regurgitation. Peak aortic valve gradient of 6 mm Hg and a mean of 4 mmHg. Aortic valve area 1.9 cm2 calculated by continuity equation. Trace mitral regurgitation. Mitral diastolic velocities suggest reduced left ventricular relaxation c/w mild LV diastolic dysfunction (Grade I ). Trace tricuspid regurgitation. Tricuspid systolic velocities suggests peak right ventricular systolic pressure of 17mmHg.
--- NOTE | 2018-12-06 16:03 | NUR ---
NURSE NOTES: Seen by Dr Cyr, will follow up with new orders.Kept clean dry and comfortable.
--- NOTE | 2018-12-06 16:11 | Internal Med Progress Note ---
Subjective Physician Name Tony Cyr Attending Physician Tony Cyr MD Current Medications Medications (Trade) Dose Ordered Sig/Amber Route PRN Reason Start Time Stop Time Status Last Admin Dose Admin Acetaminophen (Tylenol) 650 mg Q4H PRN NG fever 12/04/18 11:00 12/31/18 09:14 12/06/18 11:00 Amlodipine Besylate (Norvasc) 10 mg DAILY NG 12/04/18 11:00 01/03/19 10:59 12/06/18 08:15 Dextrose (Dextrose 50%) 25 ml Q30M PRN IV Hypoglycemia 12/01/18 09:15 12/31/18 09:14 Dextrose (Dextrose 50%) 50 ml Q30M PRN IV Hypoglycemia 12/01/18 09:15 12/31/18 09:14 Heparin Sodium (Porcine) (Heparin 5000 units/ml) 5,000 units EVERY 12 HOURS SUBQ 12/01/18 21:00 12/31/18 20:59 12/06/18 08:17 Hydralazine HCl (Apresoline) 10 mg Q4H PRN IV bp over 170 syst 12/05/18 10:22 01/04/19 10:21 12/06/18 11:00 Hydralazine HCl (Apresoline) 50 mg Q6HR NG 12/06/18 12:00 01/04/19 00:00 12/06/18 12:34 Insulin Aspart (NovoLOG) BEFORE MEALS AND HS SUBQ 12/02/18 11:30 01/01/19 11:29 12/06/18 06:10 Isosorbide Dinitrate (Isordil) 10 mg Q6HR NG 12/06/18 12:00 01/05/19 11:59 12/06/18 12:35 Lorazepam (Ativan 2mg/ml 1ml) 2 mg Q2H PRN IV For Anxiety 12/01/18 09:15 12/08/18 09:14 12/06/18 01:10 Losartan Potassium (Cozaar) 50 mg BID NG 12/04/18 18:00 01/03/19 17:59 12/06/18 08:15 Morphine Sulfate (Morphine Sulfate) 4 mg Q4H PRN IVP Severe Pain (Pain Scale 7-10) 12/01/18 09:15 12/08/18 09:14 12/05/18 03:32 Norepinephrine Bitartrate 4 mg/ Dextrose 254 ml @ 0 mls/hr Q24H IV 12/01/18 09:15 12/31/18 09:14 Ondansetron HCl (Zofran) 4 mg Q6H PRN IVP Nausea & Vomiting 12/01/18 09:15 12/31/18 09:14 Pantoprazole (Protonix) 40 mg DAILY IV 12/01/18 09:30 12/31/18 09:29 12/06/18 08:14 Polyethylene Glycol (Miralax) 17 gm DAILYPRN PRN NG Constipation 12/04/18 11:00 12/31/18 09:14 Sevelamer Carbonate (Renvela) 1,600 mg Q6HR NG 12/04/18 12:00 01/02/19 07:59 12/06/18 12:00 Allergies: Coded Allergies: NEOMYCIN (Verified Allergy, Mild, 12/01/18) Uncoded Allergies: plastics (Allergy, Mild, 12/01/18) Subjective Patient is awake, alert, responsive, family member at the bedside, extubated earlier today. Objective Last Vital Signs Date Time Temp Pulse Resp B/P (MAP) Pulse Ox O2 Delivery O2 Flow Rate FiO2 12/06/18 15:00 73 16 157/46 (83) 95 12/06/18 12:00 97.6 12/06/18 12:00 35 12/06/18 12:00 Mechanical Ventilator Laboratory Tests Test 12/06/18 03:35 White Blood Count 7.4 K/UL (4.8-10.8) Red Blood Count 2.65 M/UL (4.70-6.10) L Hemoglobin 8.9 G/DL (14.2-18.0) L Hematocrit 27.6 % (42.0-52.0) L Mean Corpuscular Volume 104 FL (80-99) H Mean Corpuscular Hemoglobin 33.5 PG (27.0-31.0) H Mean Corpuscular Hemoglobin Concent 32.2 G/DL (32.0-36.0) Red Cell Distribution Width 15.1 % (11.6-14.8) H Platelet Count 356 K/UL (150-450) Mean Platelet Volume 6.1 FL (6.5-10.1) L Neutrophils (%) (Auto) 46.3 % (45.0-75.0) Lymphocytes (%) (Auto) 34.0 % (20.0-45.0) Monocytes (%) (Auto) 12.4 % (1.0-10.0) H Eosinophils (%) (Auto) 6.0 % (0.0-3.0) H Basophils (%) (Auto) 1.3 % (0.0-2.0) Sodium Level 137 MMOL/L (136-145) Potassium Level 4.3 MMOL/L (3.5-5.1) Chloride Level 95 MMOL/L (98-107) L Carbon Dioxide Level 31 MMOL/L (21-32) Anion Gap 11 mmol/L (5-15) Blood Urea Nitrogen 40 mg/dL (7-18) H Creatinine 6.8 MG/DL (0.55-1.30) H Estimat Glomerular Filtration Rate mL/min (>60) Glucose Level 155 MG/DL (74-106) H Uric Acid 3.8 MG/DL (2.6-7.2) Calcium Level 8.7 MG/DL (8.5-10.1) Phosphorus Level 6.4 MG/DL (2.5-4.9) H Magnesium Level 2.5 MG/DL (1.8-2.4) H Total Bilirubin 0.5 MG/DL (0.2-1.0) Aspartate Amino Transf (AST/SGOT) 17 U/L (15-37) Alanine Aminotransferase (ALT/SGPT) 12 U/L (12-78) Alkaline Phosphatase 94 U/L (46-116) Troponin I 0.088 ng/mL (0.000-0.056) C-Reactive Protein, Quantitative 5.2 mg/dL (0.00-0.90) H Pro-B-Type Natriuretic Peptide 60062 pg/mL (0-125) H Total Protein 6.9 G/DL (6.4-8.2) Albumin 2.7 G/DL (3.4-5.0) L Globulin 4.2 g/dL Albumin/Globulin Ratio 0.6 (1.0-2.7) L Microbiology Date/Time Source Procedure Growth Status 12/04/18 20:00 Rectum Received Intake and Output 12/05/18 12/06/18 19:00 07:00 Intake Total 490 ml 560 ml Output Total 0 ml 0 ml Balance 490 ml 560 ml Free Water 130 ml Tube Feeding 360 ml 360 ml Other 200 ml Output Urine Total 0 ml 0 ml Objective General: No acute distress, awake and alert HEENT: NCAT, sclera anicteric, PERRL, EOMI. OG tube intact Neck: Supple, no significant jugular venous distention, Lungs: Good inspiratory effort, no accessory muscle use, clear to auscultation bilaterally, no Wheeze or Rales. Heart: Regular rate and rhythm, normal S1/S2, no murmur Abdomen: soft, nontender, nondistended. Normoactive bowel sounds. Extremities: No Cyanosis , clubbing or edema. Left upper extremity AV fistula. Neuro: A&O x 3, Able to move all extremities Skin: warm, no rash. Assessment/Plan Assessment/Plan ASSESSMENT: This is a 73-year-old male with: 1. Acute respiratory failure s/p extubation on December 06, 2018. 2. Altered mental status. 3. Acute congestive heart failure. 4. Hypoxia. 5. Diabetes. 6. Chronic obstructive pulmonary disease. 7. Hypertension. 8. End-stage renal disease on hemodialysis. 9. Sacral decubitus ulcer. TREATMENT: 1. Respiratory failure/chronic obstructive pulmonary disease. A Pulmonary consultation has been obtained with Dr. Sulaiman Arcos. The patient is currently intubated and sedated. The patient has been started empirically on ertapenem. 2. Acute congestive heart failure. Cardiology consultation has been obtained with Dr. Ryan Harley. BNP will be performed. Congestive heart failure may be secondary to volume overload secondary to end-stage renal disease. 3. Diabetes type 2. The patient has been placed on NovoLog sliding scale. 4. Hypertension. Continue losartan as above. 5. End-stage renal disease. A Nephrology consultation has been obtained with Dr. Fu. 6. Sacral decubitus ulcer. Consider bedside swallow study in order to start diet, removal of the OG tube. Will monitor patient off antibiotics at this time. Wound care. Tony Cyr MD Dec 06, 2018 16:11
--- NOTE | 2018-12-06 18:04 | NUR ---
NURSE NOTES: Patient turned and repositioned.ADLs done,mouth care performs.Kept on close monitoring
--- NOTE | 2018-12-06 19:04 | NUR ---
HAND-OFF: Report given to ZENAIDA Davis.
--- NOTE | 2018-12-06 19:43 | NUR ---
NURSE NOTES: PATIENT OPEN EYES, DENIED PAIN OR DISTRESS AT THIS TIME, ON O2 2LPM VIA NC, O2 SATURATION 98% NOTED, ABDOMEN SOFT, NON TENDER, HYPOACTIVE BOWEL SOUND TO 4 QUADRANTS, NO BOWEL MOVEMENT STATUS, AV SHUNT TO LEFT UPPER ARM, POSITIVE THRILL AND BRUI, ON P200 BED, MADE LOWER BED POSITION, PROVIDED CALL LIGHT WITHIN REACH, WILL CONTINUE TO MONITOR.
--- NOTE | 2018-12-06 21:16 | NUR ---
NURSE NOTES: PATIENT DISORIENTED, TRIED TO OUT OF BED THAT GIVEN ORIENTATION, CLL LIGHT WITHIN REACH AND KEPT BED ALARM, WILL CONTINUE TO MONITOR.
--- NOTE | 2018-12-06 22:39 | NUR ---
NURSE NOTES: PATIENT CALM, WATCHING TV AT THIS TIME, WILL CONTINUE TO MONITOR.
[2018-12-07] VITALS (22 sets, daily range): BP systolic 115–191; BP diastolic 31–74
[2018-12-07] MEDS: HydrALAZINE 50mg tab NG SCH ×2 (00:06→05:46)
[2018-12-07] MEDS: Renvela 800mg Pkt NG SCH ×4 (00:07→18:00)
--- NOTE | 2018-12-07 00:30 | NUR ---
NURSE NOTES: NO PAIN OR DISTRESS NOTED AT THIS TIME.
--- NOTE | 2018-12-07 02:10 | NUR ---
NURSE NOTES: PATIENT CONFUSED TO PLACE, TIME AND SITUATION AT THIS TIME, WILL CONTINUE TO MONITOR.
--- NOTE | 2018-12-07 03:10 | NUR ---
NURSE NOTES: GIVEN APRESOLINE 10MG BY IVP PRN ORDERED, KEPT HOB OVER 45 DEGREE.
--- NOTE | 2018-12-07 03:25 | NUR ---
NURSE NOTES: PATIENT TRIED TO OUT OF BED, WANTED TO GO HOME AND LOOKING FOR SHOES THAT GIVEN ORIENTATION AND DIRECTION, FOLLOWED COMMANDS, WILL CONTINUE TO MONITOR.
[2018-12-07] MEDS: LORazepam Inj 2mg/ml 1ml IV PRN ×2 (03:37→22:24)
--- NOTE | 2018-12-07 03:37 | NUR ---
NURSE NOTES: PATIENT AGITATED, ANXIOUS, IRRITABLE AND SHOUTING STATUS THAT GIVEN ATIVAN 2MG BY IVP SLOWLY PRN ORDERED, ENCOURAGED CALM DOWN, MADE CALM ENVIRONMENT, ON BED ALARM AND WILL CONTINUE TO MONITOR.
--- NOTE | 2018-12-07 05:13 | NUR ---
NURSE NOTES: PATIENT CALM STATUS, MORNING CARE WAS DONE, NO DISTRESS NOTED AT THIS TIME.
[2018-12-07] MEDS: NovoLOG Insulin Flexpen SUBQ SCH ×4 (06:11→20:49)
--- NOTE | 2018-12-07 06:46 | NUR ---
NURSE NOTES: PATIENT ASLEEP STATUS.
--- NOTE | 2018-12-07 07:18 | NUR ---
HAND-OFF: Report given to ZENAIDA GROSS.
--- NOTE | 2018-12-07 07:45 | NUR ---
NURSE NOTES: Report received from Elliott RN. Pt confused and forgetful, hungarian speaking. Pt connected to security monitor, SR. Pt SBP in the 130s. Pt on 2L O2 via NC at 98%. Pt has sacral stage III covered with dressing clear, dry and intact. Pt is on a P200 mattress. RFA 22 G heplock noted and intact. Safety measures in place with bed locked and in lowest position, side rails x3 up and bed alarm on. Will continue to monitor and continue plan of care.
[2018-12-07] MEDS: Losartan 50mg tab NG SCH ×2 (08:05→18:39)
[2018-12-07] MEDS: Pantoprazole Inj IV SCH (08:19)
[2018-12-07] MEDS: Heparin 5000 units/ml inj SUBQ SCH ×2 (08:20→20:53)
--- NOTE | 2018-12-07 09:37 | Pulmonolgy Critical Care Note ---
Critical Care - Asmt/Plan Problems: (1) Respiratory failure, acute (2) Sepsis (3) ESRD (end stage renal disease) on dialysis (4) HTN (hypertension) (5) COPD (chronic obstructive pulmonary disease) (6) DM (diabetes mellitus) (7) Bacteremia (8) Sacral decubitus ulcer, stage III Respiratory: monitor respiratory rate, adjust FIO2 Cardiac: continue to monitor HR/BP Renal: F/U I&O Infectious Disease: check cultures, continue antibiotics Gastrointestinal: continue feedings/current rate Endocrine: monitor blood sugar Hematologic: monitor H/H Neurologic: PRN Ativan Affect: PRN ativan Prophylaxis: Heparin Disposition: transfer to Time Spent (Minutes): 40 Discussed with: nurses, consultants, telephonic case managerstrategy manager - Objective Last 24 Hour Vital Signs Date Time Temp Pulse Resp B/P (MAP) Pulse Ox O2 Delivery O2 Flow Rate FiO2 12/07/18 09:00 79 22 183/46 (91) 97 12/07/18 08:21 139/57 12/07/18 08:06 Nasal Cannula 2.0 28 12/07/18 08:06 99 Nasal Cannula 2.0 28 12/07/18 08:06 70 139/57 12/07/18 08:00 Nasal Cannula 2.0 12/07/18 08:00 98.2 71 23 154/54 (87) 98 12/07/18 08:00 2.0 12/07/18 08:00 72 12/07/18 07:00 70 20 139/57 (84) 97 12/07/18 06:00 72 19 150/52 (84) 98 12/07/18 05:46 163/50 12/07/18 05:46 163/50 12/07/18 05:00 72 22 163/50 (87) 96 12/07/18 04:00 98.3 72 24 181/47 (91) 98 12/07/18 04:00 2.0 12/07/18 04:00 Nasal Cannula 2.0 12/07/18 03:10 185/51 12/07/18 03:03 71 12/07/18 03:00 74 35 185/51 (95) 98 12/07/18 02:00 69 30 158/44 (82) 98 12/07/18 01:00 70 24 166/41 (82) 98 12/07/18 00:06 178/38 4/27/19 00:06 178/38 12/07/18 00:00 Nasal Cannula 2.0 12/07/18 00:00 98.0 71 20 178/38 (84) 98 12/07/18 00:00 2.0 12/07/18 00:00 71 12/06/18 23:00 71 17 171/125 (140) 97 12/06/18 22:00 72 24 171/48 (89) 98 12/06/18 21:00 75 14 156/41 (79) 98 12/06/18 20:00 98.0 71 24 163/51 (88) 94 12/06/18 20:00 Nasal Cannula 2.0 12/06/18 20:00 2.0 12/06/18 20:00 98 Nasal Cannula 2.0 28 12/06/18 20:00 Nasal Cannula 2.0 28 12/06/18 19:50 70 12/06/18 19:00 70 16 168/49 (88) 95 12/06/18 18:00 73 16 127/76 (93) 100 12/06/18 17:42 187/58 12/06/18 17:41 187/58 12/06/18 17:41 187/58 12/06/18 17:00 79 16 187/58 (101) 95 12/06/18 16:00 Simple Mask 12.0 12/06/18 16:00 12.0 12/06/18 16:00 71 12/06/18 16:00 97.8 70 18 168/47 (87) 92 12/06/18 15:00 73 16 157/46 (83) 95 12/06/18 14:00 70 16 162/44 (83) 99 12/06/18 13:00 80 18 145/42 (76) 100 12/06/18 12:35 153/42 12/06/18 12:34 153/43 12/06/18 12:00 97.6 67 18 152/43 (79) 100 12/06/18 12:00 35 12/06/18 12:00 68 12/06/18 12:00 Mechanical Ventilator 12/06/18 11:30 97.6 12/06/18 11:24 75 11 35 12/06/18 11:00 175/46 12/06/18 11:00 35 12/06/18 11:00 75 18 152/42 (78) 100 12/06/18 10:00 61 18 175/54 (94) 100 12/06/18 09:45 35 Status: awake Condition: critical HEENT: atraumatic Lungs: clear Heart: HR/BP stable, regular Abdomen: non-tender, feeding tube Extremities: no C/C/E Micro: Microbiology Date/Time Source Procedure Growth Status 12/04/18 20:00 Nasal Nares MRSA Culture - Final NO METHICILLIN RESISTANT STAPH AUREUS... Complete 12/05/18 18:00 Rectum - Final NO CARBAPENEM-RESISTANT ENTEROBACTERI... Complete 12/04/18 20:00 Rectum VRE Culture - Final Enterococcus Faecium - Vre Complete Accucheck: 109 Critical Care - Subjective ROS Limited/Unobtainable: No Condition: critical EKG Rhythm: Sinus Rhythm FI02: 28 Vent Support Breath Rate: 16 Vent Support Mode: CPAP Vent Tidal Volume: 500 Sputum Amount: Small PEEP: 5.0 PIP: 8 Tube Feeding Amount: 30 I&O: Intake and Output 12/06/18 12/07/18 19:00 07:00 Intake Total 240 ml 50 ml Output Total 0 ml 0 ml Balance 240 ml 50 ml Intake Oral 120 ml 50 ml Free Water 60 ml Tube Feeding 60 ml Output Urine Total 0 ml 0 ml CXR: no change ET-Tube: 7.5 ET Position: 24 Labs: Laboratory Tests Test 12/07/18 08:25 Arterial Blood pH 7.479 (7.350-7.450) Arterial Blood Partial Pressure CO2 41.2 mmHg (35.0-45.0) Arterial Blood Partial Pressure O2 66.7 mmHg (75.0-100.0) L Arterial Blood HCO3 29.9 mmol/L (22.0-26.0) H Arterial Blood Oxygen Saturation 88.8 % (95-100) *L Arterial Blood Base Excess 5.9 (-2-2) H Rashi Test Positive Sulaiman Arcos MD Dec 07, 2018 09:37
--- NOTE | 2018-12-07 09:39 | NUR ---
NURSE NOTES: Dr Arcos here to see pt. Dr beck pt for transfer to tele. No acute distress. Will continue to monitor.
[2018-12-07] MEDS ORDERED: Sterile Water Irrig 1000ml IRRIG ONE (09:42)
--- NOTE | 2018-12-07 09:46 | Diagnostic Imaging Report ---
EXAM: XR Chest, 1 View CLINICAL HISTORY: DYSPNEA TECHNIQUE: Frontal view of the chest. COMPARISON: Chest x-rays dated 12/06/18 FINDINGS: Lungs: Interval development of patchy opacity along the lateral aspect of the right lung base, concerning for atelectasis versus pneumonia. Lungs otherwise appear clear. Pleural space: Unremarkable. The costophrenic angles are sharp. No visible pneumothorax. Heart: Unremarkable. No cardiomegaly. Mediastinum: Unremarkable. Bones/joints: Degenerative changes throughout the visualized spine and shoulder joints. Vasculature: Atherosclerotic calcifications within the aortic arch. Tubes, lines and devices: Telemetry leads overlie the thorax. IMPRESSION: Interval development of patchy opacity along the lateral aspect of the right lung base, concerning for atelectasis versus pneumonia.
--- NOTE | 2018-12-07 09:48 | Infectious Diseases Prog Note ---
Assessment/Plan Assessment/Plan Abx: IV Vancomycin 12/01- Zosyn 12/01- Ertapenem x1 12/01 Azithromycin x1 12/01 Cefepime x1 12/01 Assessment: Probable Sepsis Gram positive bacteremia- ? real vs contaminant -12/01 10/14 Staph capitis; 12/02 Bcx NTD Acute hypoxic respiratory failure s/p intubation 12/01- likely 2ry to Acute CHF and COPD exacerbation- no obvious PNA on CXR -12/06 extubated -12/05 CXR: The lungs and pleural spaces are clear -12/02 CXR: Stable satisfactory position of endotracheal tube. Lungs and pleural spaces remain clear. No significant interim change -influenza sc neg -sp cx p Afebrile Leukocytosis , SP Diarrhea -cdiff neg Bradycardia Acute encephalopathy Sacral decubitus ulcer- not infected -wound cx: Group G strep, diphteroids HTN COPD DM2 R femur fx s/p ORIF ESRD on HD via L arm shunt pAfib on amiodar[facility] SN[facility] resident Plan: -Continue to monitor off abx -12/05 SP IV Vancomycin #5 -12/02 SP ZOsyn #2 -12/01 SP Ertapenem, Cefepime, azithromycin x1 -f/u Repeat Bcx x2 -f/u cx -Monitor CBC/CMP, temperatures -wound care per surgical team -aspiration precautions Thank you for this consultation. Will continue to follow along with you. Discussed with RN. Subjective Allergies: Coded Allergies: NEOMYCIN (Verified Allergy, Mild, 12/01/18) Uncoded Allergies: plastics (Allergy, Mild, 12/01/18) Subjective afebrile no leukocytosis repeat Bcx NTD pt extubated yesterday Objective Vital Signs Last 24 Hour Vital Signs Date Time Temp Pulse Resp B/P (MAP) Pulse Ox O2 Delivery O2 Flow Rate FiO2 12/07/18 09:00 79 22 183/46 (91) 97 12/07/18 08:21 139/57 12/07/18 08:06 Nasal Cannula 2.0 28 12/07/18 08:06 99 Nasal Cannula 2.0 28 12/07/18 08:06 70 139/57 12/07/18 08:00 Nasal Cannula 2.0 12/07/18 08:00 98.2 71 23 154/54 (87) 98 12/07/18 08:00 2.0 12/07/18 08:00 72 4/27/19 07:00 70 20 139/57 (84) 97 12/07/18 06:00 72 19 150/52 (84) 98 12/07/18 05:46 163/50 12/07/18 05:46 163/50 12/07/18 05:00 72 22 163/50 (87) 96 12/07/18 04:00 98.3 72 24 181/47 (91) 98 12/07/18 04:00 2.0 12/07/18 04:00 Nasal Cannula 2.0 12/07/18 03:10 185/51 12/07/18 03:03 71 12/07/18 03:00 74 35 185/51 (95) 98 12/07/18 02:00 69 30 158/44 (82) 98 12/07/18 01:00 70 24 166/41 (82) 98 12/07/18 00:06 178/38 12/07/18 00:06 178/38 12/07/18 00:00 Nasal Cannula 2.0 12/07/18 00:00 98.0 71 20 178/38 (84) 98 12/07/18 00:00 2.0 12/07/18 00:00 71 12/06/18 23:00 71 17 171/125 (140) 97 12/06/18 22:00 72 24 171/48 (89) 98 12/06/18 21:00 75 14 156/41 (79) 98 12/06/18 20:00 98.0 71 24 163/51 (88) 94 12/06/18 20:00 Nasal Cannula 2.0 12/06/18 20:00 2.0 12/06/18 20:00 98 Nasal Cannula 2.0 28 12/06/18 20:00 Nasal Cannula 2.0 28 12/06/18 19:50 70 12/06/18 19:00 70 16 168/49 (88) 95 12/06/18 18:00 73 16 127/76 (93) 100 12/06/18 17:42 187/58 12/06/18 17:41 187/58 12/06/18 17:41 187/58 12/06/18 17:00 79 16 187/58 (101) 95 12/06/18 16:00 Simple Mask 12.0 12/06/18 16:00 12.0 12/06/18 16:00 71 12/06/18 16:00 97.8 70 18 168/47 (87) 92 12/06/18 15:00 73 16 157/46 (83) 95 12/06/18 14:00 70 16 162/44 (83) 99 12/06/18 13:00 80 18 145/42 (76) 100 12/06/18 12:35 153/42 12/06/18 12:34 153/43 12/06/18 12:00 97.6 67 18 152/43 (79) 100 12/06/18 12:00 35 12/06/18 12:00 68 12/06/18 12:00 Mechanical Ventilator 12/06/18 11:30 97.6 12/06/18 11:24 75 11 35 12/06/18 11:00 175/46 12/06/18 11:00 35 12/06/18 11:00 75 18 152/42 (78) 100 12/06/18 10:00 61 18 175/54 (94) 100 Height (Feet): 5 Height (Inches): 3.00 Weight (Pounds): 121 Objective GENERAL: The patient is well-developed and well-nourished male, who is intubated and sedated. HEENT: Eyes, pupils equal and responsive to light and accommodation. Extraocular movements are intact. NECK: Supple without lymphadenopathy. CHEST: Coarse expiratory wheezes bilaterally with coarse upper airway sounds. Otherwise, without rales. Neurologically unable to assess. CARDIOVASCULAR: Bradycardic, regular rate. S1 and S2 normal without murmurs, rubs, or gallops. ABDOMEN: Soft, nontender, and nondistended. Positive bowel sounds. No evidence of hepatosplenomegaly. Currently, no rebound or guarding noted. EXTREMITIES: Negative for clubbing, cyanosis, or edema. Microbiology Date/Time Source Procedure Growth Status 12/04/18 20:00 Nasal Nares MRSA Culture - Final NO METHICILLIN RESISTANT STAPH AUREUS... Complete 12/05/18 18:00 Rectum - Final NO CARBAPENEM-RESISTANT ENTEROBACTERI... Complete 12/04/18 20:00 Rectum VRE Culture - Final Enterococcus Faecium - Vre Complete Laboratory Tests Test 12/07/18 08:25 Arterial Blood pH 7.479 (7.350-7.450) Arterial Blood Partial Pressure CO2 41.2 mmHg (35.0-45.0) Arterial Blood Partial Pressure O2 66.7 mmHg (75.0-100.0) L Arterial Blood HCO3 29.9 mmol/L (22.0-26.0) H Arterial Blood Oxygen Saturation 88.8 % (95-100) *L Arterial Blood Base Excess 5.9 (-2-2) H Rashi Test Positive Current Medications Medications (Trade) Dose Ordered Sig/Amber Route PRN Reason Start Time Stop Time Status Last Admin Dose Admin Acetaminophen (Tylenol) 650 mg Q4H PRN NG fever 12/04/18 11:00 12/31/18 09:14 12/06/18 11:00 Amlodipine Besylate (Norvasc) 10 mg DAILY NG 12/04/18 11:00 01/03/19 10:59 12/06/18 08:15 Dextrose (Dextrose 50%) 25 ml Q30M PRN IV Hypoglycemia 12/01/18 09:15 12/31/18 09:14 Dextrose (Dextrose 50%) 50 ml Q30M PRN IV Hypoglycemia 12/01/18 09:15 12/31/18 09:14 Heparin Sodium (Porcine) (Heparin 5000 units/ml) 5,000 units EVERY 12 HOURS SUBQ 12/01/18 21:00 12/31/18 20:59 12/07/18 08:20 Hydralazine HCl (Apresoline) 10 mg Q4H PRN IV bp over 170 syst 12/05/18 10:22 01/04/19 10:21 12/07/18 03:10 Hydralazine HCl (Apresoline) 50 mg Q6HR NG 12/06/18 12:00 01/04/19 00:00 12/07/18 05:46 Insulin Aspart (NovoLOG) BEFORE MEALS AND HS SUBQ 12/02/18 11:30 01/01/19 11:29 12/06/18 20:36 Isosorbide Dinitrate (Isordil) 10 mg Q6HR NG 12/06/18 12:00 01/05/19 11:59 12/07/18 05:46 Lorazepam (Ativan 2mg/ml 1ml) 2 mg Q2H PRN IV For Anxiety 12/01/18 09:15 12/08/18 09:14 12/07/18 03:37 Losartan Potassium (Cozaar) 50 mg BID NG 12/04/18 18:00 01/03/19 17:59 12/06/18 17:41 Morphine Sulfate (Morphine Sulfate) 4 mg Q4H PRN IVP Severe Pain (Pain Scale 7-10) 12/01/18 09:15 12/08/18 09:14 12/05/18 03:32 Norepinephrine Bitartrate 4 mg/ Dextrose 254 ml @ 0 mls/hr Q24H IV 12/01/18 09:15 12/31/18 09:14 Ondansetron HCl (Zofran) 4 mg Q6H PRN IVP Nausea & Vomiting 12/01/18 09:15 12/31/18 09:14 Pantoprazole (Protonix) 40 mg DAILY IV 12/01/18 09:30 12/31/18 09:29 12/07/18 08:19 Polyethylene Glycol (Miralax) 17 gm DAILYPRN PRN NG Constipation 12/04/18 11:00 12/31/18 09:14 Sevelamer Carbonate (Renvela) 1,600 mg Q6HR NG 12/04/18 12:00 01/02/19 07:59 12/07/18 05:46 Joyce Jones M.D. Dec 07, 2018 09:48
[2018-12-07] MEDS ORDERED: Tubing IV Secondary IV ONE (09:54)
[2018-12-07] MEDS ORDERED: D5 1/2NS 1000ml IV ONE (09:55)
[2018-12-07 10:24] LABS: BASOPHILS % (AUTO) 1.7 % (0.0-2.0); EOSINOPHILS % (AUTO) 5.6 % (0.0-3.0); HEMATOCRIT 32.3 % (42.0-52.0); HEMOGLOBIN 10.4 G/DL (14.2-18.0); LYMPHOCYTES % (AUTO) 22.6 % (20.0-45.0); MEAN CORPUSCULAR VOLUME 103 FL (80-99); MONOCYTES % (AUTO) 12.7 % (1.0-10.0); NEUTROPHILS % (AUTO) 57.5 % (45.0-75.0); PLATELET COUNT 389 K/UL (150-450); RED BLOOD COUNT 3.15 M/UL (4.70-6.10); WHITE BLOOD COUNT 10.7 K/UL (4.8-10.8)
[2018-12-07 10:35] LABS: ALANINE AMINOTRANSFERASE 11 U/L (12-78); ALBUMIN 2.9 G/DL (3.4-5.0); ALBUMIN/GLOBULIN RATIO 0.5 (1.0-2.7); ALKALINE PHOSPHATASE 89 U/L (46-116); ANION GAP 14 mmol/L (5-15); ASPARTATE AMINO TRANSFERASE 17 U/L (15-37); BILIRUBIN,TOTAL 0.6 MG/DL (0.2-1.0); BLOOD UREA NITROGEN 57 mg/dL (7-18); CALCIUM 9.5 MG/DL (8.5-10.1); CARBON DIOXIDE 29 MMOL/L (21-32); CHLORIDE 92 MMOL/L (98-107); CREATININE 9.4 MG/DL (0.55-1.30); PHOSPHORUS 7.9 MG/DL (2.5-4.9); POTASSIUM 4.5 MMOL/L (3.5-5.1); SODIUM 135 MMOL/L (136-145)
--- NOTE | 2018-12-07 11:00 | NUR ---
NURSE NOTES: Dialysis started. No acute distress. Will continue to monitor.
--- NOTE | 2018-12-07 12:19 | Nephrology Progress Note ---
Assessment/Plan Problem List: (1) ESRD (end stage renal disease) on dialysis (2) Respiratory failure, acute (3) Sepsis (4) Left lower lobe pneumonia (5) Anemia in chronic kidney disease (CKD) (6) HTN (hypertension) Assessment: hypertensive kidney disease Assessment Respiratory failure on vent, was extubated 12/06 Left lower lobe pneumonia ESRD (end stage renal disease) on dialysis Hypoglycemia Hypocalcemia on admit Anemia Plan remains intubated- due dialysis 12/07 done 12/05 clonidin was held for low HR , hydralazine dose increased BP meds adjusted for high bp per orders Renal diet antibiotics hemodynamic support pulmonary support Subjective ROS Limited/Unobtainable: No Constitutional: Reports: malaise, other - extubated Objective Objective Last 24 Hour Vital Signs Date Time Temp Pulse Resp B/P (MAP) Pulse Ox O2 Delivery O2 Flow Rate FiO2 12/07/18 11:00 84 23 141/39 (73) 81 12/07/18 10:00 76 14 168/74 (105) 100 12/07/18 09:00 79 22 183/46 (91) 97 12/07/18 08:21 139/57 12/07/18 08:06 Nasal Cannula 2.0 28 12/07/18 08:06 99 Nasal Cannula 2.0 28 12/07/18 08:06 70 139/57 12/07/18 08:00 Nasal Cannula 2.0 12/07/18 08:00 98.2 71 23 154/54 (87) 98 12/07/18 08:00 2.0 12/07/18 08:00 72 12/07/18 07:00 70 20 139/57 (84) 97 12/07/18 06:00 72 19 150/52 (84) 98 12/07/18 05:46 163/50 12/07/18 05:46 163/50 12/07/18 05:00 72 22 163/50 (87) 96 12/07/18 04:00 98.3 72 24 181/47 (91) 98 12/07/18 04:00 2.0 12/07/18 04:00 Nasal Cannula 2.0 12/07/18 03:10 185/51 12/07/18 03:03 71 12/07/18 03:00 74 35 185/51 (95) 98 4/27/19 02:00 69 30 158/44 (82) 98 12/07/18 01:00 70 24 166/41 (82) 98 12/07/18 00:06 178/38 12/07/18 00:06 178/38 12/07/18 00:00 Nasal Cannula 2.0 12/07/18 00:00 98.0 71 20 178/38 (84) 98 12/07/18 00:00 2.0 12/07/18 00:00 71 12/06/18 23:00 71 17 171/125 (140) 97 12/06/18 22:00 72 24 171/48 (89) 98 12/06/18 21:00 75 14 156/41 (79) 98 12/06/18 20:00 98.0 71 24 163/51 (88) 94 12/06/18 20:00 Nasal Cannula 2.0 12/06/18 20:00 2.0 12/06/18 20:00 98 Nasal Cannula 2.0 28 12/06/18 20:00 Nasal Cannula 2.0 28 12/06/18 19:50 70 12/06/18 19:00 70 16 168/49 (88) 95 12/06/18 18:00 73 16 127/76 (93) 100 12/06/18 17:42 187/58 12/06/18 17:41 187/58 12/06/18 17:41 187/58 12/06/18 17:00 79 16 187/58 (101) 95 12/06/18 16:00 Simple Mask 12.0 12/06/18 16:00 12.0 12/06/18 16:00 71 12/06/18 16:00 97.8 70 18 168/47 (87) 92 12/06/18 15:00 73 16 157/46 (83) 95 12/06/18 14:00 70 16 162/44 (83) 99 12/06/18 13:00 80 18 145/42 (76) 100 12/06/18 12:35 153/42 12/06/18 12:34 153/43 Intake and Output 12/06/18 12/07/18 19:00 07:00 Intake Total 240 ml 50 ml Output Total 0 ml 0 ml Balance 240 ml 50 ml Intake Oral 120 ml 50 ml Free Water 60 ml Tube Feeding 60 ml Output Urine Total 0 ml 0 ml Laboratory Tests 12/07/18 08:25: Arterial Blood pH 7.479H, Arterial Blood Partial Pressure CO2 41.2, Arterial Blood Partial Pressure O2 66.7L, Arterial Blood HCO3 29.9H, Arterial Blood Oxygen Saturation 88.8*L, Arterial Blood Base Excess 5.9H, Rashi Test Positive 12/07/18 09:50: White Blood Count 10.7, Red Blood Count 3.15L, Hemoglobin 10.4L, Hematocrit 32.3L, Mean Corpuscular Volume 103H, Mean Corpuscular Hemoglobin 33.1H, Mean Corpuscular Hemoglobin Concent 32.2, Red Cell Distribution Width 15.0H, Platelet Count 389, Mean Platelet Volume 5.8L, Neutrophils (%) (Auto) 57.5, Lymphocytes (%) (Auto) 22.6, Monocytes (%) (Auto) 12.7H, Eosinophils (%) (Auto) 5.6H, Basophils (%) (Auto) 1.7, Sodium Level 135L, Potassium Level 4.5, Chloride Level 92L, Carbon Dioxide Level 29, Anion Gap 14, Blood Urea Nitrogen 57H, Creatinine 9.4H, Estimat Glomerular Filtration Rate , Glucose Level 109H, Calcium Level 9.5, Phosphorus Level 7.9H, Magnesium Level 2.9H, Total Bilirubin 0.6, Aspartate Amino Transf (AST/SGOT) 17, Alanine Aminotransferase (ALT/SGPT) 11L, Alkaline Phosphatase 89, Total Protein 8.4H, Albumin 2.9L, Globulin 5.5, Albumin/Globulin Ratio 0.5L Height (Feet): 5 Height (Inches): 3.00 Weight (Pounds): 121 Boo Fu MD Dec 07, 2018 12:19
--- NOTE | 2018-12-07 12:48 | NUR ---
NURSE NOTES: Dialysis ongoing. VSS. Will continue to monitor.
--- NOTE | 2018-12-07 13:20 | Surgery Progress Note ---
Surgery Progress Note Subjective Additional Comments extubated. receiving HD. looks better. comfortable. labs noted Objective Last 24 Hour Vital Signs Date Time Temp Pulse Resp B/P (MAP) Pulse Ox O2 Delivery O2 Flow Rate FiO2 12/07/18 13:18 115/50 12/07/18 12:00 87 12/07/18 12:00 98.0 88 23 115/50 (71) 100 12/07/18 12:00 Nasal Cannula 2.0 12/07/18 12:00 2.0 12/07/18 11:00 84 23 141/39 (73) 81 12/07/18 10:00 76 14 168/74 (105) 100 12/07/18 09:00 79 22 183/46 (91) 97 12/07/18 08:21 139/57 12/07/18 08:06 Nasal Cannula 2.0 28 12/07/18 08:06 99 Nasal Cannula 2.0 28 12/07/18 08:06 70 139/57 12/07/18 08:00 Nasal Cannula 2.0 12/07/18 08:00 98.2 71 23 154/54 (87) 98 12/07/18 08:00 2.0 12/07/18 08:00 72 12/07/18 07:00 70 20 139/57 (84) 97 12/07/18 06:00 72 19 150/52 (84) 98 12/07/18 05:46 163/50 12/07/18 05:46 163/50 12/07/18 05:00 72 22 163/50 (87) 96 12/07/18 04:00 98.3 72 24 181/47 (91) 98 12/07/18 04:00 2.0 12/07/18 04:00 Nasal Cannula 2.0 12/07/18 03:10 185/51 12/07/18 03:03 71 12/07/18 03:00 74 35 185/51 (95) 98 12/07/18 02:00 69 30 158/44 (82) 98 12/07/18 01:00 70 24 166/41 (82) 98 12/07/18 00:06 178/38 12/07/18 00:06 178/38 12/07/18 00:00 Nasal Cannula 2.0 12/07/18 00:00 98.0 71 20 178/38 (84) 98 12/07/18 00:00 2.0 12/07/18 00:00 71 12/06/18 23:00 71 17 171/125 (140) 97 12/06/18 22:00 72 24 171/48 (89) 98 12/06/18 21:00 75 14 156/41 (79) 98 12/06/18 20:00 98.0 71 24 163/51 (88) 94 12/06/18 20:00 Nasal Cannula 2.0 12/06/18 20:00 2.0 12/06/18 20:00 98 Nasal Cannula 2.0 28 12/06/18 20:00 Nasal Cannula 2.0 28 12/06/18 19:50 70 12/06/18 19:00 70 16 168/49 (88) 95 12/06/18 18:00 73 16 127/76 (93) 100 12/06/18 17:42 187/58 12/06/18 17:41 187/58 12/06/18 17:41 187/58 12/06/18 17:00 79 16 187/58 (101) 95 12/06/18 16:00 Simple Mask 12.0 12/06/18 16:00 12.0 12/06/18 16:00 71 12/06/18 16:00 97.8 70 18 168/47 (87) 92 12/06/18 15:00 73 16 157/46 (83) 95 12/06/18 14:00 70 16 162/44 (83) 99 I&O Intake and Output 12/06/18 12/07/18 19:00 07:00 Intake Total 240 ml 50 ml Output Total 0 ml 0 ml Balance 240 ml 50 ml Intake Oral 120 ml 50 ml Free Water 60 ml Tube Feeding 60 ml Output Urine Total 0 ml 0 ml Dressing: saturated Wound: other Drains: other Cardiovascular: RSR Respiratory: decreased breath sounds Abdomen: soft, present bowel sounds, non-distended Extremities: no cyanosis Laboratory Tests Test 12/07/18 08:25 12/07/18 09:50 Arterial Blood pH 7.479 (7.350-7.450) Arterial Blood Partial Pressure CO2 41.2 mmHg (35.0-45.0) Arterial Blood Partial Pressure O2 66.7 mmHg (75.0-100.0) L Arterial Blood HCO3 29.9 mmol/L (22.0-26.0) H Arterial Blood Oxygen Saturation 88.8 % (95-100) *L Arterial Blood Base Excess 5.9 (-2-2) H Rashi Test Positive White Blood Count 10.7 K/UL (4.8-10.8) Red Blood Count 3.15 M/UL (4.70-6.10) L Hemoglobin 10.4 G/DL (14.2-18.0) L Hematocrit 32.3 % (42.0-52.0) L Mean Corpuscular Volume 103 FL (80-99) H Mean Corpuscular Hemoglobin 33.1 PG (27.0-31.0) H Mean Corpuscular Hemoglobin Concent 32.2 G/DL (32.0-36.0) Red Cell Distribution Width 15.0 % (11.6-14.8) H Platelet Count 389 K/UL (150-450) Mean Platelet Volume 5.8 FL (6.5-10.1) L Neutrophils (%) (Auto) 57.5 % (45.0-75.0) Lymphocytes (%) (Auto) 22.6 % (20.0-45.0) Monocytes (%) (Auto) 12.7 % (1.0-10.0) H Eosinophils (%) (Auto) 5.6 % (0.0-3.0) H Basophils (%) (Auto) 1.7 % (0.0-2.0) Sodium Level 135 MMOL/L (136-145) L Potassium Level 4.5 MMOL/L (3.5-5.1) Chloride Level 92 MMOL/L (98-107) L Carbon Dioxide Level 29 MMOL/L (21-32) Anion Gap 14 mmol/L (5-15) Blood Urea Nitrogen 57 mg/dL (7-18) H Creatinine 9.4 MG/DL (0.55-1.30) H Estimat Glomerular Filtration Rate mL/min (>60) Glucose Level 109 MG/DL (74-106) H Calcium Level 9.5 MG/DL (8.5-10.1) Phosphorus Level 7.9 MG/DL (2.5-4.9) H Magnesium Level 2.9 MG/DL (1.8-2.4) H Total Bilirubin 0.6 MG/DL (0.2-1.0) Aspartate Amino Transf (AST/SGOT) 17 U/L (15-37) Alanine Aminotransferase (ALT/SGPT) 11 U/L (12-78) L Alkaline Phosphatase 89 U/L (46-116) Total Protein 8.4 G/DL (6.4-8.2) H Albumin 2.9 G/DL (3.4-5.0) L Globulin 5.5 g/dL Albumin/Globulin Ratio 0.5 (1.0-2.7) L Plan Problems: (1) Sacral decubitus ulcer, stage III Assessment & Plan: Pt presented on admission with Irregular shaped, full thickness Sacral pressure injury.Scattered areas of biofilm noted at base of wound .Other muñoz wound is moist and viable. Edges adherent to base of wound . Periwound with darker skin tone without induration or fluctuance. No odor or exudate noted.(L)7.5cm x (W)8.5cm.Significant portion of wound is partial thickness and small portion with full thickness breakdown approximately 1cm x 1cm at inferior yellow white portion. no drainage. periwound intact and stable. wound bed of partial thickness with healthy viable tissue. no signs of infection. no odor Non-blanchable erythema with fluctuance and delineated margins noted to R heel(L )3cm x (W)4cm.Periwound is pink and blanchable. Non-blanchable erythema with fluctuance noted to L heel. Periwound pink and blanchable without induration or fluctuance. (L)3.8cm x (W)4.5cm. Tx.Plan: Cleanse Sacral wound with Saline.Apply Therahoney. Apply Triad Paste periwound. Cover with Optifoam drsg Daily and prn. Apply Cavilon Skin Barrier to R and L heels.Cover each Heel with Optifoam drsg. Change every 7 days and prn. APM/BOOGIE Mattress overlay. Reposition at least every 2hours or as tolerated. Off-load heels with pillow. will follow with recs thank you (2) Hypoglycemia (3) Left lower lobe pneumonia (4) Hypocalcemia (5) COPD (chronic obstructive pulmonary disease) (6) HTN (hypertension) (7) DM (diabetes mellitus) (8) Respiratory failure Assessment & Plan: extubated and doing okay cont with O2 and breathing treatments will follow with recs thank you (9) ESRD (end stage renal disease) on dialysis (10) Bacteremia (11) Respiratory failure, acute (12) Sepsis Assessment & Plan: cont IV Abx trend labs (13) Anemia in chronic kidney disease (CKD) Florencio Herrera Dec 07, 2018 13:20
--- NOTE | 2018-12-07 13:53 | NUR ---
NURSE NOTES:WOUND CARE FOLLOW-UP: Unable to re-assess pt's skin as pt is being dialyzed at bedside.
[2018-12-07] MEDS ORDERED: HydrALAZINE 50mg tab NG SCH ×2 (14:00→22:00)
--- NOTE | 2018-12-07 14:15 | NUR ---
NURSE NOTES: Pt sleepy after dialysis. Pt didn't want to eat lunch. VSS otherwise. Will continue to monitor.
--- NOTE | 2018-12-07 14:53 | Cardiac Electrophysiology PN ---
Assessment/Plan Assessment/Plan 1. Bradycardia. Resolved off clonidine patch EF 55%. 2. History of hypertension, currently off antihypertensives. 3. Respiratory failure, Extubated on broad-spectrum antibiotic. Fu by Dr. Arcos. 4. Troponin leak, due to renal failure. 5. End-stage renal disease, on hemodialysis. JOSE ALEJANDRO RN Subjective Subjective In ICU extubated now off pressors. Objective Last 24 Hour Vital Signs Date Time Temp Pulse Resp B/P (MAP) Pulse Ox O2 Delivery O2 Flow Rate FiO2 12/07/18 14:00 70 27 117/31 (59) 90 12/07/18 13:18 115/50 12/07/18 13:00 78 20 149/33 (71) 93 12/07/18 12:00 87 12/07/18 12:00 98.0 88 23 115/50 (71) 100 12/07/18 12:00 Nasal Cannula 2.0 12/07/18 12:00 2.0 12/07/18 11:00 84 23 141/39 (73) 81 12/07/18 10:00 76 14 168/74 (105) 100 12/07/18 09:00 79 22 183/46 (91) 97 12/07/18 08:21 139/57 12/07/18 08:06 Nasal Cannula 2.0 28 12/07/18 08:06 99 Nasal Cannula 2.0 28 12/07/18 08:06 70 139/57 12/07/18 08:00 Nasal Cannula 2.0 12/07/18 08:00 98.2 71 23 154/54 (87) 98 12/07/18 08:00 2.0 12/07/18 08:00 72 12/07/18 07:00 70 20 139/57 (84) 97 12/07/18 06:00 72 19 150/52 (84) 98 12/07/18 05:46 163/50 12/07/18 05:46 163/50 12/07/18 05:00 72 22 163/50 (87) 96 12/07/18 04:00 98.3 72 24 181/47 (91) 98 12/07/18 04:00 2.0 12/07/18 04:00 Nasal Cannula 2.0 12/07/18 03:10 185/51 12/07/18 03:03 71 12/07/18 03:00 74 35 185/51 (95) 98 12/07/18 02:00 69 30 158/44 (82) 98 12/07/18 01:00 70 24 166/41 (82) 98 12/07/18 00:06 178/38 12/07/18 00:06 178/38 12/07/18 00:00 Nasal Cannula 2.0 12/07/18 00:00 98.0 71 20 178/38 (84) 98 12/07/18 00:00 2.0 12/07/18 00:00 71 12/06/18 23:00 71 17 171/125 (140) 97 12/06/18 22:00 72 24 171/48 (89) 98 12/06/18 21:00 75 14 156/41 (79) 98 12/06/18 20:00 98.0 71 24 163/51 (88) 94 12/06/18 20:00 Nasal Cannula 2.0 12/06/18 20:00 2.0 12/06/18 20:00 98 Nasal Cannula 2.0 28 12/06/18 20:00 Nasal Cannula 2.0 28 12/06/18 19:50 70 12/06/18 19:00 70 16 168/49 (88) 95 12/06/18 18:00 73 16 127/76 (93) 100 12/06/18 17:42 187/58 12/06/18 17:41 187/58 12/06/18 17:41 187/58 12/06/18 17:00 79 16 187/58 (101) 95 12/06/18 16:00 Simple Mask 12.0 12/06/18 16:00 12.0 12/06/18 16:00 71 12/06/18 16:00 97.8 70 18 168/47 (87) 92 12/06/18 15:00 73 16 157/46 (83) 95 Intake and Output 12/06/18 12/07/18 19:00 07:00 Intake Total 240 ml 50 ml Output Total 0 ml 0 ml Balance 240 ml 50 ml Intake Oral 120 ml 50 ml Free Water 60 ml Tube Feeding 60 ml Output Urine Total 0 ml 0 ml Laboratory Tests Test 12/07/18 08:25 12/07/18 09:50 Arterial Blood pH 7.479 (7.350-7.450) Arterial Blood Partial Pressure CO2 41.2 mmHg (35.0-45.0) Arterial Blood Partial Pressure O2 66.7 mmHg (75.0-100.0) L Arterial Blood HCO3 29.9 mmol/L (22.0-26.0) H Arterial Blood Oxygen Saturation 88.8 % (95-100) *L Arterial Blood Base Excess 5.9 (-2-2) H Rashi Test Positive White Blood Count 10.7 K/UL (4.8-10.8) Red Blood Count 3.15 M/UL (4.70-6.10) L Hemoglobin 10.4 G/DL (14.2-18.0) L Hematocrit 32.3 % (42.0-52.0) L Mean Corpuscular Volume 103 FL (80-99) H Mean Corpuscular Hemoglobin 33.1 PG (27.0-31.0) H Mean Corpuscular Hemoglobin Concent 32.2 G/DL (32.0-36.0) Red Cell Distribution Width 15.0 % (11.6-14.8) H Platelet Count 389 K/UL (150-450) Mean Platelet Volume 5.8 FL (6.5-10.1) L Neutrophils (%) (Auto) 57.5 % (45.0-75.0) Lymphocytes (%) (Auto) 22.6 % (20.0-45.0) Monocytes (%) (Auto) 12.7 % (1.0-10.0) H Eosinophils (%) (Auto) 5.6 % (0.0-3.0) H Basophils (%) (Auto) 1.7 % (0.0-2.0) Sodium Level 135 MMOL/L (136-145) L Potassium Level 4.5 MMOL/L (3.5-5.1) Chloride Level 92 MMOL/L (98-107) L Carbon Dioxide Level 29 MMOL/L (21-32) Anion Gap 14 mmol/L (5-15) Blood Urea Nitrogen 57 mg/dL (7-18) H Creatinine 9.4 MG/DL (0.55-1.30) H Estimat Glomerular Filtration Rate mL/min (>60) Glucose Level 109 MG/DL (74-106) H Calcium Level 9.5 MG/DL (8.5-10.1) Phosphorus Level 7.9 MG/DL (2.5-4.9) H Magnesium Level 2.9 MG/DL (1.8-2.4) H Total Bilirubin 0.6 MG/DL (0.2-1.0) Aspartate Amino Transf (AST/SGOT) 17 U/L (15-37) Alanine Aminotransferase (ALT/SGPT) 11 U/L (12-78) L Alkaline Phosphatase 89 U/L (46-116) Total Protein 8.4 G/DL (6.4-8.2) H Albumin 2.9 G/DL (3.4-5.0) L Globulin 5.5 g/dL Albumin/Globulin Ratio 0.5 (1.0-2.7) L Microbiology Date/Time Source Procedure Growth Status 12/04/18 20:00 Nasal Nares MRSA Culture - Final NO METHICILLIN RESISTANT STAPH AUREUS... Complete 12/05/18 18:00 Rectum - Final NO CARBAPENEM-RESISTANT ENTEROBACTERI... Complete 12/04/18 20:00 Rectum VRE Culture - Final Enterococcus Faecium - Vre Complete Objective HEAD AND NECK: No JVD . LUNGS: Coarse rhonchi. CARDIOVASCULAR: Regular S1 and S2 with no gallop or murmur. ABDOMEN: Soft. EXTREMITIES: No pitting edema. Ryan Harley MD Dec 07, 2018 14:53
--- NOTE | 2018-12-07 15:26 | NUR ---
NURSE NOTES: Pt turned and repositioned. VSS. Will continue to monitor.
--- NOTE | 2018-12-07 16:55 | Internal Med Progress Note ---
Subjective Date of Service: Dec 07, 2018 Physician Name Aryan Brody Attending Physician Tony Cyr MD Current Medications Medications (Trade) Dose Ordered Sig/Amber Route PRN Reason Start Time Stop Time Status Last Admin Dose Admin Acetaminophen (Tylenol) 650 mg Q4H PRN NG fever 12/04/18 11:00 12/31/18 09:14 12/06/18 11:00 Amlodipine Besylate (Norvasc) 10 mg DAILY NG 12/04/18 11:00 01/03/19 10:59 12/06/18 08:15 Dextrose (Dextrose 50%) 25 ml Q30M PRN IV Hypoglycemia 12/01/18 09:15 12/31/18 09:14 Dextrose (Dextrose 50%) 50 ml Q30M PRN IV Hypoglycemia 12/01/18 09:15 12/31/18 09:14 Heparin Sodium (Porcine) (Heparin 5000 units/ml) 5,000 units EVERY 12 HOURS SUBQ 12/01/18 21:00 12/31/18 20:59 12/07/18 08:20 Hydralazine HCl (Apresoline) 10 mg Q4H PRN IV bp over 170 syst 12/05/18 10:22 01/04/19 10:21 12/07/18 03:10 Hydralazine HCl (Apresoline) 75 mg Q8HR NG 12/07/18 14:00 01/04/19 00:00 Insulin Aspart (NovoLOG) BEFORE MEALS AND HS SUBQ 12/02/18 11:30 01/01/19 11:29 12/06/18 20:36 Isosorbide Dinitrate (Isordil) 20 mg Q6HR NG 12/07/18 18:00 01/05/19 11:59 Lorazepam (Ativan 2mg/ml 1ml) 2 mg Q2H PRN IV For Anxiety 12/01/18 09:15 12/08/18 09:14 12/07/18 03:37 Losartan Potassium (Cozaar) 50 mg BID NG 12/04/18 18:00 01/03/19 17:59 12/06/18 17:41 Morphine Sulfate (Morphine Sulfate) 4 mg Q4H PRN IVP Severe Pain (Pain Scale 7-10) 12/01/18 09:15 12/08/18 09:14 12/05/18 03:32 Norepinephrine Bitartrate 4 mg/ Dextrose 254 ml @ 0 mls/hr Q24H IV 12/01/18 09:15 12/31/18 09:14 Ondansetron HCl (Zofran) 4 mg Q6H PRN IVP Nausea & Vomiting 12/01/18 09:15 12/31/18 09:14 Pantoprazole (Protonix) 40 mg EVERY 12 HOURS ORAL 12/07/18 21:00 01/06/19 20:59 Polyethylene Glycol (Miralax) 17 gm DAILYPRN PRN NG Constipation 12/04/18 11:00 12/31/18 09:14 Sevelamer Carbonate (Renvela) 2,400 mg TID NG 12/07/18 13:00 01/02/19 07:59 Allergies: Coded Allergies: NEOMYCIN (Verified Allergy, Mild, 12/01/18) Uncoded Allergies: plastics (Allergy, Mild, 12/01/18) ROS Limited/Unobtainable: Yes Subjective 73 YO M admitted with respiratory failure. Extubated 12/06/18. Cover for Int Med-Dr Cyr. ICU Tolerating nasal canula Objective Last Vital Signs Date Time Temp Pulse Resp B/P (MAP) Pulse Ox O2 Delivery O2 Flow Rate FiO2 12/07/18 16:00 98.2 71 29 123/50 (74) 100 12/07/18 16:00 2.0 12/07/18 16:00 Nasal Cannula 12/07/18 08:06 28 Laboratory Tests Test 12/07/18 08:25 12/07/18 09:50 Arterial Blood pH 7.479 (7.350-7.450) Arterial Blood Partial Pressure CO2 41.2 mmHg (35.0-45.0) Arterial Blood Partial Pressure O2 66.7 mmHg (75.0-100.0) L Arterial Blood HCO3 29.9 mmol/L (22.0-26.0) H Arterial Blood Oxygen Saturation 88.8 % (95-100) *L Arterial Blood Base Excess 5.9 (-2-2) H Rashi Test Positive White Blood Count 10.7 K/UL (4.8-10.8) Red Blood Count 3.15 M/UL (4.70-6.10) L Hemoglobin 10.4 G/DL (14.2-18.0) L Hematocrit 32.3 % (42.0-52.0) L Mean Corpuscular Volume 103 FL (80-99) H Mean Corpuscular Hemoglobin 33.1 PG (27.0-31.0) H Mean Corpuscular Hemoglobin Concent 32.2 G/DL (32.0-36.0) Red Cell Distribution Width 15.0 % (11.6-14.8) H Platelet Count 389 K/UL (150-450) Mean Platelet Volume 5.8 FL (6.5-10.1) L Neutrophils (%) (Auto) 57.5 % (45.0-75.0) Lymphocytes (%) (Auto) 22.6 % (20.0-45.0) Monocytes (%) (Auto) 12.7 % (1.0-10.0) H Eosinophils (%) (Auto) 5.6 % (0.0-3.0) H Basophils (%) (Auto) 1.7 % (0.0-2.0) Sodium Level 135 MMOL/L (136-145) L Potassium Level 4.5 MMOL/L (3.5-5.1) Chloride Level 92 MMOL/L (98-107) L Carbon Dioxide Level 29 MMOL/L (21-32) Anion Gap 14 mmol/L (5-15) Blood Urea Nitrogen 57 mg/dL (7-18) H Creatinine 9.4 MG/DL (0.55-1.30) H Estimat Glomerular Filtration Rate mL/min (>60) Glucose Level 109 MG/DL (74-106) H Calcium Level 9.5 MG/DL (8.5-10.1) Phosphorus Level 7.9 MG/DL (2.5-4.9) H Magnesium Level 2.9 MG/DL (1.8-2.4) H Total Bilirubin 0.6 MG/DL (0.2-1.0) Aspartate Amino Transf (AST/SGOT) 17 U/L (15-37) Alanine Aminotransferase (ALT/SGPT) 11 U/L (12-78) L Alkaline Phosphatase 89 U/L (46-116) Total Protein 8.4 G/DL (6.4-8.2) H Albumin 2.9 G/DL (3.4-5.0) L Globulin 5.5 g/dL Albumin/Globulin Ratio 0.5 (1.0-2.7) L Microbiology Date/Time Source Procedure Growth Status 12/04/18 20:00 Nasal Nares MRSA Culture - Final NO METHICILLIN RESISTANT STAPH AUREUS... Complete 12/05/18 18:00 Rectum - Final NO CARBAPENEM-RESISTANT ENTEROBACTERI... Complete 12/04/18 20:00 Rectum VRE Culture - Final Enterococcus Faecium - Vre Complete Intake and Output 12/06/18 12/07/18 19:00 07:00 Intake Total 240 ml 50 ml Output Total 0 ml 0 ml Balance 240 ml 50 ml Intake Oral 120 ml 50 ml Free Water 60 ml Tube Feeding 60 ml Output Urine Total 0 ml 0 ml Objective PHYSICAL EXAMINATION: VITAL SIGNS: Temperature 99.4 degrees, respirations 20, pulse 83, blood pressure 140/96, and pulse oximetry initially was 79 on room air. GENERAL: The patient is well-developed and well-nourished male, who is intubated and sedated. HEENT: Eyes, pupils equal and responsive to light and accommodation. Extraocular movements are intact. NECK: Supple without lymphadenopathy. CHEST: Nasal canula; Coarse expiratory wheezes bilaterally with coarse upper airway sounds. Otherwise, without rales. Neurologically unable to assess. CARDIOVASCULAR: Bradycardic, regular rate. S1 and S2 normal without murmurs, rubs, or gallops. ABDOMEN: Soft, nontender, and nondistended. Positive bowel sounds. No evidence of hepatosplenomegaly. Currently, no rebound or guarding noted. RECTAL: Refused. GENITALIA: Refused. EXTREMITIES: Negative for clubbing, cyanosis, or edema. NEUROLOGIC: Unable to assess. Assessment/Plan Assessment/Plan ASSESSMENT: This is a 73-year-old male with: 1. Respiratory failure. 2. Altered mental status. 3. Acute congestive heart failure. 4. Hypoxia. 5. Diabetes. 6. Chronic obstructive pulmonary disease. 7. Hypertension. 8. End-stage renal disease. 9. Sacral decubitus ulcer. TREATMENT: 1. Respiratory failure/chronic obstructive pulmonary disease. A Pulmonary consultation has been obtained with Dr. Sulaiman Arcos. The patient is currently intubated and sedated. The patient has been started empirically on ertapenem. 2. Acute congestive heart failure. Cardiology consultation has been obtained with Dr. Ryan Harley. BNP will be performed. Congestive heart failure may be secondary to volume overload secondary to end-stage renal disease. 3. Diabetes type 2. The patient has been placed on NovoLog sliding scale. 4. Hypertension. Continue losartan as above. 5. End-stage renal disease. A Nephrology consultation has been obtained with Dr. Fu. 6. Sacral decubitus ulcer. Aryan Brody MD Dec 07, 2018 16:55
--- NOTE | 2018-12-07 16:58 | NUR ---
NURSE NOTES: Pt resting comfortably. No acute distress. Will continue to monitor.
[2018-12-07] MEDS ORDERED: Acetaminophen 650mg/20.3ml NG PRN (19:30)
[2018-12-07] MEDS ORDERED: Morphine Sulfate 4mg/ml Inj (IV USE ONLY) IVP PRN (19:30)
--- NOTE | 2018-12-07 19:38 | NUR ---
HAND-OFF: Report given to Sameer ESTEVEZ.
--- NOTE | 2018-12-07 20:20 | NUR ---
NURSE NOTES: BEDSIDE REPORT RECEIVED FROM ZENAIDA DIAZ. PT IS TURKISH SPEAKING, UNABLE TO DETERMINE ORIENTATION, PT SEEMS CONFUSED TRYING TO GET OUT OF BED. BED ALARM ON ZONE 2 FOR SENSITIVITY. DELI MANAGER SHOWING NSR. SATING WELL ON 2L NC. SKIN IS CLEAN, DRY, DRESSINGS INTACT. SACRAL STAGE 2 NOTED. ACCUCHEK ACHS, 171 ON MY SHIFT SEE OCT. AAYUSH SHUNT NOTED THRILL/BRUIT PRESENT. RFA 22G NOTED, ASYMPTOMATIC. BED IS LOCKED IN LOWEST POSITION, SR X3, BED ALARM ON, CALL CARBAJAL W/ IN REACH. WILL CONTINUE TO MONITOR AND FOLLOW PLAN OF CARE.
--- NOTE | 2018-12-07 21:34 | NUR ---
TRANSFER TO FLOOR: Patient transferred to TELEMTRY Report given to ZENAIDA DIAZ. Belongings and medications given to ZENAIDA DIAZ. Family and or S/O informed of transfer.
[2018-12-07] MEDS: HydrALAZINE 50mg tab ORAL SCH (22:26)
[2018-12-08] VITALS: BP 144/60
[2018-12-08 04:00] VITALS: BP 139/77
[2018-12-08] MEDS ORDERED: HydrALAZINE 50mg tab ORAL SCH (06:00)
[2018-12-08] MEDS: HydrALAZINE 50mg tab ORAL SCH ×3 (06:17→21:11)
[2018-12-08] MEDS: NovoLOG Insulin Flexpen SUBQ SCH ×4 (06:29→20:50)
--- NOTE | 2018-12-08 07:15 | NUR ---
HAND-OFF: Report given to ZENAIDA Ashley.
--- NOTE | 2018-12-08 07:17 | NUR ---
NURSE NOTES: Received report from ZENAIDA Estrella. Patient in bed resting, no active s/s cardiac, respiratory distress noticed at this time. Patient confuse, trying to pull out wires of custom stock maker, SR with HR 69. Patient refuse to wear NC. Patient on P200 mattress, bed alarm on zone 2. IV on right FA 22G, asymptomatic, patent, intact. Bed in lowest position, side rails upx3, call light within reach, bed alarm on. Will continue to monitor.
[2018-12-08 08:00] VITALS: BP 163/106
--- NOTE | 2018-12-08 08:00 | NUR ---
NURSE NOTES: Dr. Arcos made aware patient extubated on 12/06/18, no NG tube present, able to tolerate PO intake. Per Dr. Arcos, okay to change all medication via NG-tube to PO.
[2018-12-08] MEDS ORDERED: Miralax 17gm pkt ORAL PRN (08:30)
[2018-12-08] MEDS ORDERED: Acetaminophen 650mg/20.3ml ORAL PRN (08:30)
[2018-12-08] MEDS ORDERED: D5 1/2NS 1000ml IV ONE (08:44)
[2018-12-08] MEDS ORDERED: Tubing IV Secondary IV ONE (08:44)
[2018-12-08] MEDS: Losartan 50mg tab ORAL SCH ×2 (08:52→17:34)
[2018-12-08] MEDS: Renvela 2400 mg pkt ORAL SCH ×3 (08:52→17:35)
[2018-12-08] MEDS: Heparin 5000 units/ml inj SUBQ SCH ×2 (08:53→20:49)
[2018-12-08] MEDS ORDERED: Renvela 2400 mg pkt NG SCH (09:00)
[2018-12-08] MEDS ORDERED: Losartan 50mg tab NG SCH (09:00)
[2018-12-08 12:00] VITALS: BP 166/64
--- NOTE | 2018-12-08 12:32 | Cardiac Electrophysiology PN ---
Assessment/Plan Assessment/Plan 1. Bradycardia. Resolved off clonidine patch EF 55%. 2. Hypertension, currently off antihypertensives. 3. Respiratory failure, Extubated on broad-spectrum antibiotic. Fu by Dr. Arcos. 4. Troponin leak, due to renal failure. 5. End-stage renal disease, on hemodialysis. JOSE ALEJANDRO RN Subjective Subjective Transferred to [facility]. Extubated, in SR Objective Last 24 Hour Vital Signs Date Time Temp Pulse Resp B/P (MAP) Pulse Ox O2 Delivery O2 Flow Rate FiO2 12/08/18 12:18 166/64 12/08/18 12:00 97.7 77 21 166/64 (98) 94 12/08/18 09:00 Nasal Cannula 2.0 12/08/18 08:52 163/106 12/08/18 08:51 76 163/106 12/08/18 08:00 97.7 76 18 163/106 (125) 95 12/08/18 08:00 74 12/08/18 07:15 Nasal Cannula 2.0 28 12/08/18 07:15 97 Nasal Cannula 2.0 12/08/18 06:18 137/70 12/08/18 06:17 137/70 12/08/18 04:00 69 12/08/18 04:00 98.0 69 18 139/77 (97) 6 12/08/18 00:45 142/62 12/08/18 00:00 74 12/08/18 00:00 97.3 74 18 144/60 (88) 100 12/07/18 23:00 72 155/55 (88) 12/07/18 22:26 165/58 12/07/18 22:00 98.4 76 18 165/58 (93) 99 12/07/18 21:12 Nasal Cannula 2.0 12/07/18 20:00 Nasal Cannula 2.0 12/07/18 20:00 2.0 12/07/18 20:00 73 12/07/18 19:00 72 32 163/49 (87) 99 12/07/18 18:50 Nasal Cannula 2.0 28 12/07/18 18:50 95 Nasal Cannula 2.0 28 12/07/18 18:39 173/53 12/07/18 18:38 173/53 12/07/18 18:00 75 170/52 (91) 100 12/07/18 17:00 76 37 173/53 (93) 95 12/07/18 16:00 98.2 71 29 123/50 (74) 100 12/07/18 16:00 2.0 12/07/18 16:00 71 12/07/18 16:00 Nasal Cannula 2.0 12/07/18 15:00 72 26 191/51 (97) 12/07/18 14:00 70 27 117/31 (59) 90 12/07/18 13:18 115/50 12/07/18 13:00 78 20 149/33 (71) 93 Intake and Output 12/07/18 12/08/18 19:00 07:00 Intake Total 120 ml Output Total 2000 ml Balance -2000 ml 120 ml Intake Oral 120 ml Output Urine Total 0 ml Hemodialysis UF 2000 ml # Voids 2 # Bowel Movements 1 Microbiology Date/Time Source Procedure Growth Status 12/05/18 18:00 Rectum - Final NO CARBAPENEM-RESISTANT ENTEROBACTERI... Complete Objective HEAD AND NECK: No JVD . LUNGS: Coarse rhonchi. CARDIOVASCULAR: Regular S1 and S2 with no gallop or murmur. ABDOMEN: Soft. EXTREMITIES: No pitting edema. Ryan Harley MD Dec 08, 2018 12:32
--- NOTE | 2018-12-08 12:57 | Surgery Progress Note ---
Surgery Progress Note Subjective Additional Comments downgraded. overall improved. family at bedside. wounds stable. dressing changes going well. renal insufficiency. labs noted. Objective Last 24 Hour Vital Signs Date Time Temp Pulse Resp B/P (MAP) Pulse Ox O2 Delivery O2 Flow Rate FiO2 12/08/18 12:18 166/64 12/08/18 12:00 97.7 77 21 166/64 (98) 94 12/08/18 09:00 Nasal Cannula 2.0 12/08/18 08:52 163/106 12/08/18 08:51 76 163/106 12/08/18 08:00 97.7 76 18 163/106 (125) 95 12/08/18 08:00 74 12/08/18 07:15 Nasal Cannula 2.0 28 12/08/18 07:15 97 Nasal Cannula 2.0 28 12/08/18 06:18 137/70 12/08/18 06:17 137/70 12/08/18 04:00 69 12/08/18 04:00 98.0 69 18 139/77 (97) 6 12/08/18 00:45 142/62 12/08/18 00:00 74 12/08/18 00:00 97.3 74 18 144/60 (88) 100 12/07/18 23:00 72 155/55 (88) 12/07/18 22:26 165/58 12/07/18 22:00 98.4 76 18 165/58 (93) 99 12/07/18 21:12 Nasal Cannula 2.0 12/07/18 20:00 Nasal Cannula 2.0 12/07/18 20:00 2.0 12/07/18 20:00 73 12/07/18 19:00 72 32 163/49 (87) 99 12/07/18 18:50 Nasal Cannula 2.0 28 12/07/18 18:50 95 Nasal Cannula 2.0 28 12/07/18 18:39 173/53 12/07/18 18:38 173/53 12/07/18 18:00 75 170/52 (91) 100 12/07/18 17:00 76 37 173/53 (93) 95 12/07/18 16:00 98.2 71 29 123/50 (74) 100 12/07/18 16:00 2.0 12/07/18 16:00 71 12/07/18 16:00 Nasal Cannula 2.0 12/07/18 15:00 72 26 191/51 (97) 12/07/18 14:00 70 27 117/31 (59) 90 12/07/18 13:18 115/50 12/07/18 13:00 78 20 149/33 (71) 93 I&O Intake and Output 12/07/18 12/08/18 19:00 07:00 Intake Total 120 ml Output Total 2000 ml Balance -2000 ml 120 ml Intake Oral 120 ml Output Urine Total 0 ml Hemodialysis UF 2000 ml # Voids 2 # Bowel Movements 1 Dressing: saturated Wound: clean Drains: other Cardiovascular: RSR Respiratory: clear Abdomen: soft, non-tender, present bowel sounds, non-distended Extremities: no tenderness, no cyanosis Plan Problems: (1) Sacral decubitus ulcer, stage III Assessment & Plan: Pt presented on admission with Irregular shaped, full thickness Sacral pressure injury.Scattered areas of biofilm noted at base of wound .Other muñoz wound is moist and viable. Edges adherent to base of wound . Periwound with darker skin tone without induration or fluctuance. No odor or exudate noted.(L)7.5cm x (W)8.5cm.Significant portion of wound is partial thickness and small portion with full thickness breakdown approximately 1cm x 1cm at inferior yellow white portion. no drainage. periwound intact and stable. wound bed of partial thickness with healthy viable tissue. no signs of infection. no odor Non-blanchable erythema with fluctuance and delineated margins noted to R heel(L )3cm x (W)4cm.Periwound is pink and blanchable. Non-blanchable erythema with fluctuance noted to L heel. Periwound pink and blanchable without induration or fluctuance. (L)3.8cm x (W)4.5cm. Tx.Plan: Cleanse Sacral wound with Saline.Apply Therahoney. Apply Triad Paste periwound. Cover with Optifoam drsg Daily and prn. Apply Cavilon Skin Barrier to R and L heels.Cover each Heel with Optifoam drsg. Change every 7 days and prn. APM/BOOGIE Mattress overlay. Reposition at least every 2hours or as tolerated. Off-load heels with pillow. will follow with recs thank you (2) Hypoglycemia (3) Left lower lobe pneumonia (4) Hypocalcemia (5) COPD (chronic obstructive pulmonary disease) (6) HTN (hypertension) (7) DM (diabetes mellitus) (8) Respiratory failure Assessment & Plan: extubated and doing okay cont with O2 and breathing treatments will follow with recs thank you (9) ESRD (end stage renal disease) on dialysis (10) Bacteremia (11) Respiratory failure, acute (12) Sepsis Assessment & Plan: cont IV Abx trend labs (13) Anemia in chronic kidney disease (CKD) Florencio Herrera Dec 08, 2018 12:57
--- NOTE | 2018-12-08 14:08 | Nephrology Progress Note ---
Assessment/Plan Problem List: (1) ESRD (end stage renal disease) on dialysis (2) Respiratory failure, acute (3) Sepsis (4) Left lower lobe pneumonia (5) Anemia in chronic kidney disease (CKD) (6) HTN (hypertension) Assessment: hypertensive kidney disease Assessment Respiratory failure on vent, was extubated 12/06 Left lower lobe pneumonia ESRD (end stage renal disease) on dialysis Hypoglycemia Hypocalcemia on admit Anemia Plan due dialysis 12/09 clonidine was held for low HR , hydralazine dose increased BP meds adjusted for high bp per orders Renal diet antibiotics hemodynamic support pulmonary support Subjective ROS Limited/Unobtainable: No Objective Objective Last 24 Hour Vital Signs Date Time Temp Pulse Resp B/P (MAP) Pulse Ox O2 Delivery O2 Flow Rate FiO2 12/08/18 12:18 166/64 12/08/18 12:00 71 12/08/18 12:00 97.7 77 21 166/64 (98) 94 12/08/18 09:00 Nasal Cannula 2.0 12/08/18 08:52 163/106 12/08/18 08:51 76 163/106 12/08/18 08:00 97.7 76 18 163/106 (125) 95 12/08/18 08:00 74 12/08/18 07:15 Nasal Cannula 2.0 28 12/08/18 07:15 97 Nasal Cannula 2.0 28 12/08/18 06:18 137/70 12/08/18 06:17 137/70 12/08/18 04:00 69 12/08/18 04:00 98.0 69 18 139/77 (97) 6 12/08/18 00:45 142/62 12/08/18 00:00 74 12/08/18 00:00 97.3 74 18 144/60 (88) 100 12/07/18 23:00 72 155/55 (88) 12/07/18 22:26 165/58 12/07/18 22:00 98.4 76 18 165/58 (93) 99 12/07/18 21:12 Nasal Cannula 2.0 12/07/18 20:00 Nasal Cannula 2.0 12/07/18 20:00 2.0 12/07/18 20:00 73 12/07/18 19:00 72 32 163/49 (87) 99 12/07/18 18:50 Nasal Cannula 2.0 28 12/07/18 18:50 95 Nasal Cannula 2.0 28 12/07/18 18:39 173/53 12/07/18 18:38 173/53 12/07/18 18:00 75 170/52 (91) 100 12/07/18 17:00 76 37 173/53 (93) 95 12/07/18 16:00 98.2 71 29 123/50 (74) 100 12/07/18 16:00 2.0 12/07/18 16:00 71 12/07/18 16:00 Nasal Cannula 2.0 12/07/18 15:00 72 26 191/51 (97) 12/07/18 14:00 70 27 117/31 (59) 90 Intake and Output 12/07/18 12/08/18 19:00 07:00 Intake Total 120 ml Output Total 2000 ml Balance -2000 ml 120 ml Intake Oral 120 ml Output Urine Total 0 ml Hemodialysis UF 2000 ml # Voids 2 # Bowel Movements 1 Height (Feet): 5 Height (Inches): 3.00 Weight (Pounds): 121 General Appearance: no apparent distress Cardiovascular: normal rate Respiratory/Chest: decreased breath sounds Abdomen: soft Objective no other change Boo Fu MD Dec 08, 2018 14:08
--- NOTE | 2018-12-08 14:26 | Pulmonology Progress Note ---
Assessment/Plan Problems: (1) Respiratory failure, acute (2) ESRD (end stage renal disease) on dialysis (3) COPD (chronic obstructive pulmonary disease) (4) Anemia in chronic kidney disease (CKD) (5) Sacral decubitus ulcer, stage III (6) DM (diabetes mellitus) (7) HTN (hypertension) Assessment/Plan improving tolerating extubation HD by nephrology sliding scale diabetic diet monitor BP pt/ot Subjective ROS Limited/Unobtainable: No Constitutional: Reports: no symptoms HEENT: Repors: no symptoms Respiratory: Reports: no symptoms Allergies: Coded Allergies: NEOMYCIN (Verified Allergy, Mild, 12/01/18) Uncoded Allergies: plastics (Allergy, Mild, 12/01/18) Objective Last 24 Hour Vital Signs Date Time Temp Pulse Resp B/P (MAP) Pulse Ox O2 Delivery O2 Flow Rate FiO2 12/08/18 13:59 126/59 12/08/18 12:18 166/64 12/08/18 12:00 71 12/08/18 12:00 97.7 77 21 166/64 (98) 94 12/08/18 09:00 Nasal Cannula 2.0 12/08/18 08:52 163/106 12/08/18 08:51 76 163/106 12/08/18 08:00 97.7 76 18 163/106 (125) 95 12/08/18 08:00 74 12/08/18 07:15 Nasal Cannula 2.0 28 12/08/18 07:15 97 Nasal Cannula 2.0 28 12/08/18 06:18 137/70 12/08/18 06:17 137/70 12/08/18 04:00 69 12/08/18 04:00 98.0 69 18 139/77 (97) 6 12/08/18 00:45 142/62 12/08/18 00:00 74 12/08/18 00:00 97.3 74 18 144/60 (88) 100 12/07/18 23:00 72 155/55 (88) 12/07/18 22:26 165/58 12/07/18 22:00 98.4 76 18 165/58 (93) 99 12/07/18 21:12 Nasal Cannula 2.0 12/07/18 20:00 Nasal Cannula 2.0 12/07/18 20:00 2.0 12/07/18 20:00 73 12/07/18 19:00 72 32 163/49 (87) 99 12/07/18 18:50 Nasal Cannula 2.0 28 12/07/18 18:50 95 Nasal Cannula 2.0 28 12/07/18 18:39 173/53 12/07/18 18:38 173/53 12/07/18 18:00 75 170/52 (91) 100 12/07/18 17:00 76 37 173/53 (93) 95 12/07/18 16:00 98.2 71 29 123/50 (74) 100 12/07/18 16:00 2.0 12/07/18 16:00 71 12/07/18 16:00 Nasal Cannula 2.0 12/07/18 15:00 72 26 191/51 (97) Intake and Output 12/07/18 12/08/18 19:00 07:00 Intake Total 120 ml Output Total 2000 ml Balance -2000 ml 120 ml Intake Oral 120 ml Output Urine Total 0 ml Hemodialysis UF 2000 ml # Voids 2 # Bowel Movements 1 Objective General Appearance: WD/WN HEENT: normocephalic, atraumatic Cardiovascular: normal peripheral pulses, normal rate Abdomen: normal bowel sounds, soft, non tender Genitourinary: normal external genitalia Extremities: no clubbing Skin: no rash Neurologic/Psychiatric: plater barrel II-XII grossly normal Musculoskeletal: normal muscle bulk Microbiology Date/Time Source Procedure Growth Status 12/05/18 18:00 Rectum - Final NO CARBAPENEM-RESISTANT ENTEROBACTERI... Complete Current Medications Medications (Trade) Dose Ordered Sig/Amber Route PRN Reason Start Time Stop Time Status Last Admin Dose Admin Acetaminophen (Tylenol) 650 mg Q4H PRN ORAL T>100.5 12/08/18 08:30 12/31/18 08:29 Amlodipine Besylate (Norvasc) 10 mg DAILY ORAL 12/08/18 09:00 01/03/19 10:59 12/08/18 08:51 Dextrose (Dextrose 50%) 25 ml Q30M PRN IV Hypoglycemia 12/07/18 19:45 12/31/18 09:14 Dextrose (Dextrose 50%) 50 ml Q30M PRN IV Hypoglycemia 12/07/18 19:45 12/31/18 09:14 Heparin Sodium (Porcine) (Heparin 5000 units/ml) 5,000 units EVERY 12 HOURS SUBQ 12/07/18 21:00 12/31/18 20:59 12/08/18 08:53 Hydralazine HCl (Apresoline) 10 mg Q4H PRN IV bp over 170 syst 12/07/18 19:30 01/04/19 19:29 Hydralazine HCl (Apresoline) 75 mg Q8HR ORAL 12/07/18 22:15 01/04/19 00:00 12/08/18 13:59 Insulin Aspart (NovoLOG) BEFORE MEALS AND HS SUBQ 12/07/18 21:00 01/01/19 11:29 12/08/18 11:58 Isosorbide Dinitrate (Isordil) 20 mg Q6HR ORAL 12/08/18 00:00 01/05/19 11:59 12/08/18 12:18 Lorazepam (Ativan 2mg/ml 1ml) 2 mg Q2H PRN IV For Anxiety 12/07/18 19:30 12/08/18 19:29 12/07/18 22:24 Losartan Potassium (Cozaar) 50 mg BID ORAL 12/08/18 09:00 01/03/19 17:59 12/08/18 08:52 Morphine Sulfate (Morphine Sulfate) 4 mg Q4H PRN IVP Severe Pain (Pain Scale 7-10) 12/07/18 19:30 12/08/18 19:29 Ondansetron HCl (Zofran) 4 mg Q6H PRN IVP Nausea & Vomiting 12/07/18 19:30 12/31/18 19:29 Pantoprazole (Protonix) 40 mg EVERY 12 HOURS ORAL 12/07/18 21:00 01/06/19 20:59 12/08/18 08:52 Polyethylene Glycol (Miralax) 17 gm DAILYPRN PRN ORAL Constipation 12/08/18 08:30 12/31/18 08:29 Sevelamer Carbonate (Renvela) 2,400 mg TID ORAL 12/08/18 09:00 01/02/19 07:59 12/08/18 12:18 Sulaiman Arcos MD Dec 08, 2018 14:26
--- NOTE | 2018-12-08 14:36 | NUR ---
NURSE NOTES: Patient pulled out IV, patient confuse stated "I need to go home". New IV inserted right hand 24G, asymptomatic, patent, intact.
--- NOTE | 2018-12-08 14:46 | NUR ---
NURSE NOTES: Called [facility] nephrology tele: [phone], spoke with Jerry and informed patient schedule for 12/09/[address] Fu. Will continue to monitor.
[2018-12-08] MEDS: LORazepam Inj 2mg/ml 1ml IV PRN (15:55)
--- NOTE | 2018-12-08 15:55 | NUR ---
NURSE NOTES: Patient pulled out IV second time, tried to get out of bed, pulled out dressing for wound. New IV inserted right FA 24G, Ativan 1mL given.
[2018-12-08 16:00] VITALS: BP 153/67
--- NOTE | 2018-12-08 16:03 | Internal Med Progress Note ---
Subjective Date of Service: Dec 08, 2018 Physician Name Aryan Brody Attending Physician Tony Cyr MD Current Medications Medications (Trade) Dose Ordered Sig/Amber Route PRN Reason Start Time Stop Time Status Last Admin Dose Admin Acetaminophen (Tylenol) 650 mg Q4H PRN ORAL T>100.5 12/08/18 08:30 12/31/18 08:29 Amlodipine Besylate (Norvasc) 10 mg DAILY ORAL 12/08/18 09:00 01/03/19 10:59 12/08/18 08:51 Dextrose (Dextrose 50%) 25 ml Q30M PRN IV Hypoglycemia 12/07/18 19:45 12/31/18 09:14 Dextrose (Dextrose 50%) 50 ml Q30M PRN IV Hypoglycemia 12/07/18 19:45 12/31/18 09:14 Heparin Sodium (Porcine) (Heparin 5000 units/ml) 5,000 units EVERY 12 HOURS SUBQ 12/07/18 21:00 12/31/18 20:59 12/08/18 08:53 Hydralazine HCl (Apresoline) 10 mg Q4H PRN IV bp over 170 syst 12/07/18 19:30 01/04/19 19:29 Hydralazine HCl (Apresoline) 75 mg Q8HR ORAL 12/07/18 22:15 01/04/19 00:00 12/08/18 13:59 Insulin Aspart (NovoLOG) BEFORE MEALS AND HS SUBQ 12/07/18 21:00 01/01/19 11:29 12/08/18 11:58 Isosorbide Dinitrate (Isordil) 20 mg Q6HR ORAL 12/08/18 00:00 01/05/19 11:59 12/08/18 12:18 Lorazepam (Ativan 2mg/ml 1ml) 2 mg Q2H PRN IV For Anxiety 12/07/18 19:30 12/08/18 19:29 12/08/18 15:55 Losartan Potassium (Cozaar) 50 mg BID ORAL 12/08/18 09:00 01/03/19 17:59 12/08/18 08:52 Morphine Sulfate (Morphine Sulfate) 4 mg Q4H PRN IVP Severe Pain (Pain Scale 7-10) 12/07/18 19:30 12/08/18 19:29 Ondansetron HCl (Zofran) 4 mg Q6H PRN IVP Nausea & Vomiting 12/07/18 19:30 12/31/18 19:29 Pantoprazole (Protonix) 40 mg EVERY 12 HOURS ORAL 12/07/18 21:00 01/06/19 20:59 12/08/18 08:52 Polyethylene Glycol (Miralax) 17 gm DAILYPRN PRN ORAL Constipation 12/08/18 08:30 12/31/18 08:29 Sevelamer Carbonate (Renvela) 2,400 mg TID ORAL 12/08/18 09:00 01/02/19 07:59 12/08/18 12:18 Allergies: Coded Allergies: NEOMYCIN (Verified Allergy, Mild, 12/01/18) Uncoded Allergies: plastics (Allergy, Mild, 12/01/18) ROS Limited/Unobtainable: No Constitutional: Reports: no symptoms HEENT: Reports: no symptoms Cardiovascular: Reports: no symptoms Respiratory: Reports: no symptoms Gastrointestinal/Abdominal: Reports: no symptoms Genitourinary: Reports: no symptoms Neurologic/Psychiatric: Reports: no symptoms Subjective 73 YO M admitted with respiratory failure. Extubated 12/06/18. Cover for Int Med-Dr Cyr. Tolerating nasal canula Objective Last Vital Signs Date Time Temp Pulse Resp B/P (MAP) Pulse Ox O2 Delivery O2 Flow Rate FiO2 12/08/18 13:59 126/59 12/08/18 12:00 71 12/08/18 12:00 97.7 21 94 12/08/18 09:00 Nasal Cannula 2.0 12/08/18 07:15 28 Microbiology Date/Time Source Procedure Growth Status 12/05/18 18:00 Rectum - Final NO CARBAPENEM-RESISTANT ENTEROBACTERI... Complete Intake and Output 12/07/18 12/08/18 19:00 07:00 Intake Total 120 ml Output Total 2000 ml Balance -2000 ml 120 ml Intake Oral 120 ml Output Urine Total 0 ml Hemodialysis UF 2000 ml # Voids 2 # Bowel Movements 1 Objective PHYSICAL EXAMINATION: VITAL SIGNS: Temperature 99.4 degrees, respirations 20, pulse 83, blood pressure 140/96, and pulse oximetry initially was 79 on room air. GENERAL: The patient is well-developed and well-nourished male, who is intubated and sedated. HEENT: Eyes, pupils equal and responsive to light and accommodation. Extraocular movements are intact. NECK: Supple without lymphadenopathy. CHEST: Nasal canula; Coarse expiratory wheezes bilaterally with coarse upper airway sounds. Otherwise, without rales. Neurologically unable to assess. CARDIOVASCULAR: Bradycardic, regular rate. S1 and S2 normal without murmurs, rubs, or gallops. ABDOMEN: Soft, nontender, and nondistended. Positive bowel sounds. No evidence of hepatosplenomegaly. Currently, no rebound or guarding noted. RECTAL: Refused. GENITALIA: Refused. EXTREMITIES: Negative for clubbing, cyanosis, or edema. NEUROLOGIC: Unable to assess. Assessment/Plan Assessment/Plan ASSESSMENT: This is a 73-year-old male with: 1. Respiratory failure. 2. Altered mental status. 3. Acute congestive heart failure. 4. Hypoxia. 5. Diabetes. 6. Chronic obstructive pulmonary disease. 7. Hypertension. 8. End-stage renal disease. 9. Sacral decubitus ulcer. TREATMENT: 1. Respiratory failure/chronic obstructive pulmonary disease. A Pulmonary consultation has been obtained with Dr. Sulaiman Arcos. The patient is currently tolerating nasal canula. The patient has been started empirically on ertapenem. 2. Acute congestive heart failure. Cardiology consultation has been obtained with Dr. Ryan Harley. BNP will be performed. Congestive heart failure may be secondary to volume overload secondary to end-stage renal disease. 3. Diabetes type 2. The patient has been placed on NovoLog sliding scale. 4. Hypertension. Continue losartan as above. 5. End-stage renal disease. A Nephrology consultation has been obtained with Dr. Fu. 6. Sacral decubitus ulcer. Aryan Brody MD Dec 08, 2018 16:03
--- NOTE | 2018-12-08 19:10 | NUR ---
NURSE NOTES: Pt report Received from ZENAIDA Ashley. Pt appears to be resting in bed comfortably with no distress noted. Pt is alert and oriented times 1. Pt has a quality assurance monitor final on and active, no signs or symptoms of cardiac distress noted. Pt is on 2L Nasal canula and is saturating at 98%, no respiratory distress noted. Pt has a R forearm 24 G that is able to flush, no abnormalities noted. All safety precautions are taken, such as bed is placed in lowest position, Call light is within easy reach, Bed rails are up times 3, bed alarm is active. RN is at bed side as well as GRAPE PICKER for fall risk. Will continue plan of care.
--- NOTE | 2018-12-08 19:22 | NUR ---
HAND-OFF: Report given to ZENAIDA Fairbanks.
[2018-12-08] MEDS ORDERED: Miralax 17gm pkt NG PRN (19:30)
[2018-12-08 20:00] VITALS: BP 136/61
[2018-12-09] VITALS: BP 151/52
[2018-12-09 04:00] VITALS: BP 155/49
[2018-12-09] MEDS: HydrALAZINE 50mg tab ORAL SCH ×3 (06:40→22:51)
[2018-12-09] MEDS: NovoLOG Insulin Flexpen SUBQ SCH ×4 (06:42→21:41)
--- NOTE | 2018-12-09 07:10 | NUR ---
HAND-OFF: Report given to ZENAIDA OCONNOR.
[2018-12-09 07:11] LABS: BASOPHILS % (AUTO) 1.8 % (0.0-2.0); EOSINOPHILS % (AUTO) 7.1 % (0.0-3.0); HEMOGLOBIN 9.8 G/DL (14.2-18.0); LYMPHOCYTES % (AUTO) 28.8 % (20.0-45.0); MEAN CORPUSCULAR VOLUME 102 FL (80-99); MONOCYTES % (AUTO) 14.2 % (1.0-10.0); NEUTROPHILS % (AUTO) 48.1 % (45.0-75.0); PLATELET COUNT 386 K/UL (150-450); RED BLOOD COUNT 2.94 M/UL (4.70-6.10); RED CELL DISTRIBUTION WIDTH 14.5 % (11.6-14.8); WHITE BLOOD COUNT 7.9 K/UL (4.8-10.8)
[2018-12-09 07:38] LABS: ALANINE AMINOTRANSFERASE 13 U/L (12-78); ALBUMIN/GLOBULIN RATIO 0.5 (1.0-2.7); ALKALINE PHOSPHATASE 84 U/L (46-116); ANION GAP 17 mmol/L (5-15); ASPARTATE AMINO TRANSFERASE 19 U/L (15-37); BILIRUBIN,TOTAL 0.5 MG/DL (0.2-1.0); CALCIUM 9.4 MG/DL (8.5-10.1); CARBON DIOXIDE 24 MMOL/L (21-32); CHLORIDE 94 MMOL/L (98-107); CREATININE 11.1 MG/DL (0.55-1.30); GAMMA GLUTAMYL TRANSPEPTIDASE 36 U/L (5-85); PHOSPHORUS 7.7 MG/DL (2.5-4.9); POTASSIUM 4.7 MMOL/L (3.5-5.1); SODIUM 135 MMOL/L (136-145)
--- NOTE | 2018-12-09 07:43 | NUR ---
NURSE NOTES: Received report from Magdi, Patient in bed resting, no active s/s cardiac, respiratory distress noticed at this time. Patient on room air, refused to wear NC, O2 sat. 95%. Endorsed patient pulled out cardiac monitors, and IV line, patient schedule for HD today. Patient AOX1, confuse. Bed in lowest position, side rails upx3, call light within reach. Will continue to monitor.
[2018-12-09 08:00] VITALS: BP_SYST 137; BP_SYST 138; BP_DIAS 56; BP_DIAS 67
[2018-12-09 08:13] LABS: BLOOD UREA NITROGEN 62 mg/dL (7-18)
--- NOTE | 2018-12-09 08:19 | NUR ---
NURSE NOTES: Called [facility] nephrology tele : [phone] to clarify patient schedule for HD today 12/09/[address] Fu. Will continue to monitor.
[2018-12-09] MEDS: Renvela 2400 mg pkt ORAL SCH ×3 (08:45→17:55)
[2018-12-09] MEDS: Heparin 5000 units/ml inj SUBQ SCH ×2 (08:46→20:29)
[2018-12-09] MEDS: Losartan 50mg tab ORAL SCH ×2 (09:00→17:56)
[2018-12-09] MEDS ORDERED: LORazepam Inj 2mg/ml 1ml IV PRN ×2 (11:15→18:30)
--- NOTE | 2018-12-09 11:17 | Pulmonology Progress Note ---
Assessment/Plan Problems: (1) Respiratory failure, acute (2) ESRD (end stage renal disease) on dialysis (3) COPD (chronic obstructive pulmonary disease) (4) Anemia in chronic kidney disease (CKD) (5) Sacral decubitus ulcer, stage III (6) DM (diabetes mellitus) (7) HTN (hypertension) Assessment/Plan Heart rate BP controlled improving tolerating extubation HD by nephrology sliding scale diabetic diet monitor BP pt/ot Subjective ROS Limited/Unobtainable: No Constitutional: Reports: no symptoms HEENT: Repors: no symptoms Respiratory: Reports: no symptoms Allergies: Coded Allergies: NEOMYCIN (Verified Allergy, Mild, 12/01/18) Uncoded Allergies: plastics (Allergy, Mild, 12/01/18) Objective Last 24 Hour Vital Signs Date Time Temp Pulse Resp B/P (MAP) Pulse Ox O2 Delivery O2 Flow Rate FiO2 12/09/18 09:00 137/56 12/09/18 09:00 81 137/56 12/09/18 06:40 155/49 12/09/18 06:39 155/49 12/09/18 04:00 90 12/09/18 04:00 98.0 84 20 155/49 (84) 98 84 12/09/18 00:00 98.1 71 19 151/52 (85) 98 12/09/18 00:00 80 12/08/18 23:28 151/52 12/08/18 21:11 136/61 12/08/18 21:00 Nasal Cannula 2.0 12/08/18 20:00 98.9 77 20 136/61 (86) 98 12/08/18 20:00 76 12/08/18 19:37 98 Nasal Cannula 2.0 28 12/08/18 19:37 Nasal Cannula 2.0 28 12/08/18 17:35 153/67 12/08/18 17:34 153/67 12/08/18 16:00 79 12/08/18 16:00 97.2 74 20 153/67 (95) 93 12/08/18 13:59 126/59 12/08/18 12:18 166/64 12/08/18 12:00 71 12/08/18 12:00 97.7 77 21 166/64 (98) 94 Intake and Output 12/08/18 12/09/18 19:00 07:00 Intake Total 240 ml Balance 240 ml Intake Oral 240 ml # Voids 3 2 Objective General Appearance: WD/WN HEENT: normocephalic, atraumatic Cardiovascular: normal peripheral pulses, normal rate Abdomen: normal bowel sounds, soft, non tender Genitourinary: normal external genitalia Extremities: no clubbing Skin: no rash Neurologic/Psychiatric: supervisor stitching department II-XII grossly normal Musculoskeletal: normal muscle bulk Laboratory Tests 12/09/18 06:50: White Blood Count 7.9, Red Blood Count 2.94L, Hemoglobin 9.8L, Hematocrit 30.0L , Mean Corpuscular Volume 102H, Mean Corpuscular Hemoglobin 33.2H, Mean Corpuscular Hemoglobin Concent 32.6, Red Cell Distribution Width 14.5, Platelet Count 386, Mean Platelet Volume 5.6L, Neutrophils (%) (Auto) 48.1, Lymphocytes ( %) (Auto) 28.8, Monocytes (%) (Auto) 14.2H, Eosinophils (%) (Auto) 7.1H, Basophils (%) (Auto) 1.8, Sodium Level 135L, Potassium Level 4.7, Chloride Level 94L, Carbon Dioxide Level 24, Anion Gap 17H, Blood Urea Nitrogen 62H, Creatinine 11.1H, Estimat Glomerular Filtration Rate , Glucose Level 126H, Uric Acid 6.2, Calcium Level 9.4, Phosphorus Level 7.7H, Magnesium Level 2.7H, Total Bilirubin 0.5, Gamma Glutamyl Transpeptidase 36, Aspartate Amino Transf (AST/ SGOT) 19, Alanine Aminotransferase (ALT/SGPT) 13, Alkaline Phosphatase 84, C- Reactive Protein, Quantitative 5.2H, Pro-B-Type Natriuretic Peptide 60743S, Total Protein 8.5H, Albumin 3.0L, Globulin 5.5, Albumin/Globulin Ratio 0.5L Current Medications Medications (Trade) Dose Ordered Sig/Amber Route PRN Reason Start Time Stop Time Status Last Admin Dose Admin Acetaminophen (Tylenol) 650 mg Q4H PRN ORAL T>100.5 12/08/18 08:30 12/31/18 08:29 Amlodipine Besylate (Norvasc) 10 mg DAILY ORAL 12/08/18 09:00 01/03/19 10:59 12/08/18 08:51 Dextrose (Dextrose 50%) 25 ml Q30M PRN IV Hypoglycemia 12/07/18 19:45 5/21/19 09:14 Dextrose (Dextrose 50%) 50 ml Q30M PRN IV Hypoglycemia 12/07/18 19:45 12/31/18 09:14 Heparin Sodium (Porcine) (Heparin 5000 units/ml) 5,000 units EVERY 12 HOURS SUBQ 12/07/18 21:00 12/31/18 20:59 12/09/18 08:46 Hydralazine HCl (Apresoline) 10 mg Q4H PRN IV bp over 170 syst 12/07/18 19:30 01/04/19 19:29 Hydralazine HCl (Apresoline) 75 mg Q8HR ORAL 12/07/18 22:15 01/04/19 00:00 12/09/18 06:40 Insulin Aspart (NovoLOG) BEFORE MEALS AND HS SUBQ 12/07/18 21:00 01/01/19 11:29 12/09/18 06:42 Isosorbide Dinitrate (Isordil) 20 mg Q6HR ORAL 12/08/18 00:00 01/05/19 11:59 12/09/18 06:39 Losartan Potassium (Cozaar) 50 mg BID ORAL 12/08/18 09:00 01/03/19 17:59 12/08/18 17:34 Ondansetron HCl (Zofran) 4 mg Q6H PRN IVP Nausea & Vomiting 12/07/18 19:30 12/31/18 19:29 Pantoprazole (Protonix) 40 mg EVERY 12 HOURS ORAL 12/07/18 21:00 01/06/19 20:59 12/09/18 08:45 Polyethylene Glycol (Miralax) 17 gm DAILYPRN PRN ORAL Constipation 12/08/18 08:30 12/31/18 08:29 Quetiapine Fumarate (SEROquel) 25 mg Q12HR ORAL 12/09/18 11:15 01/08/19 11:14 UNV Sevelamer Carbonate (Renvela) 2,400 mg TID ORAL 12/08/18 09:00 01/02/19 07:59 12/09/18 08:45 Sulaiman Arcos MD Dec 09, 2018 11:17
--- NOTE | 2018-12-09 11:23 | Nephrology Progress Note ---
Assessment/Plan Problem List: (1) ESRD (end stage renal disease) on dialysis (2) Respiratory failure, acute (3) Sepsis (4) Left lower lobe pneumonia (5) Anemia in chronic kidney disease (CKD) (6) HTN (hypertension) Assessment: hypertensive kidney disease Assessment Respiratory failure on vent, was extubated 12/06 Left lower lobe pneumonia ESRD (end stage renal disease) on dialysis Hypoglycemia Hypocalcemia on admit Anemia Plan due dialysis 12/09 clonidine was held for low HR , hydralazine dose increased BP meds adjusted for high bp per orders Renal diet antibiotics hemodynamic support pulmonary support Subjective ROS Limited/Unobtainable: No Constitutional: Reports: malaise, weakness Objective Objective Last 24 Hour Vital Signs Date Time Temp Pulse Resp B/P (MAP) Pulse Ox O2 Delivery O2 Flow Rate FiO2 12/09/18 09:00 137/56 12/09/18 09:00 81 137/56 12/09/18 06:40 155/49 12/09/18 06:39 155/49 12/09/18 04:00 90 12/09/18 04:00 98.0 84 20 155/49 (84) 98 84 12/09/18 00:00 98.1 71 19 151/52 (85) 98 12/09/18 00:00 80 12/08/18 23:28 151/52 12/08/18 21:11 136/61 12/08/18 21:00 Nasal Cannula 2.0 12/08/18 20:00 98.9 77 20 136/61 (86) 98 12/08/18 20:00 76 12/08/18 19:37 98 Nasal Cannula 2.0 28 12/08/18 19:37 Nasal Cannula 2.0 28 12/08/18 17:35 153/67 12/08/18 17:34 153/67 12/08/18 16:00 79 12/08/18 16:00 97.2 74 20 153/67 (95) 93 12/08/18 13:59 126/59 12/08/18 12:18 166/64 12/08/18 12:00 71 12/08/18 12:00 97.7 77 21 166/64 (98) 94 Intake and Output 12/08/18 12/09/18 19:00 07:00 Intake Total 240 ml Balance 240 ml Intake Oral 240 ml # Voids 3 2 Laboratory Tests 4/29/19 06:50: White Blood Count 7.9, Red Blood Count 2.94L, Hemoglobin 9.8L, Hematocrit 30.0L , Mean Corpuscular Volume 102H, Mean Corpuscular Hemoglobin 33.2H, Mean Corpuscular Hemoglobin Concent 32.6, Red Cell Distribution Width 14.5, Platelet Count 386, Mean Platelet Volume 5.6L, Neutrophils (%) (Auto) 48.1, Lymphocytes ( %) (Auto) 28.8, Monocytes (%) (Auto) 14.2H, Eosinophils (%) (Auto) 7.1H, Basophils (%) (Auto) 1.8, Sodium Level 135L, Potassium Level 4.7, Chloride Level 94L, Carbon Dioxide Level 24, Anion Gap 17H, Blood Urea Nitrogen 62H, Creatinine 11.1H, Estimat Glomerular Filtration Rate , Glucose Level 126H, Uric Acid 6.2, Calcium Level 9.4, Phosphorus Level 7.7H, Magnesium Level 2.7H, Total Bilirubin 0.5, Gamma Glutamyl Transpeptidase 36, Aspartate Amino Transf (AST/ SGOT) 19, Alanine Aminotransferase (ALT/SGPT) 13, Alkaline Phosphatase 84, C- Reactive Protein, Quantitative 5.2H, Pro-B-Type Natriuretic Peptide 44699J, Total Protein 8.5H, Albumin 3.0L, Globulin 5.5, Albumin/Globulin Ratio 0.5L Height (Feet): 5 Height (Inches): 3.00 Weight (Pounds): 142 General Appearance: no apparent distress Neck: limited range of motion Cardiovascular: normal rate Respiratory/Chest: decreased breath sounds Abdomen: soft, distended Objective no other change Boo Fu MD Dec 09, 2018 11:23
--- NOTE | 2018-12-09 11:27 | NUR ---
SWALLOW/SPEECH THERAPY NOTE: REFERRED BY DR JONES (PRIMARY DR TRUONG) FOR SWALLOW EVAL, SEE REPORT IN ST CARE ACTIVITY SECTION. DYSPHAGIA RISK FACTORS FOR THIS 73 Y.O. MALAY-SPEAKING MALE: ACUTE L LL PNA (INFILTRATE), RESP FAILURE EMERGENTLY INTUBATED 12/01- NOW ON ROOM AIR GOOD SATS, ISSUES WITH LOW BP, SEPSIS, ESRD WITH HD. H/O DYSPHAGIA (DYSPHASIA?), COPD, PNA, HTN, P-C MALNUTRITION AND WAS ON MEGACE, DM2, GERD MEDS, CHF, PSYCH (PANIC D/O, VIOLENT BEHAVIOR, DEPRESSION). PER POLST OK FOR ARTIFICIAL NUTRITION IF NEEDS. WAS ON TF OF NEPRO UNTIL 12/06. THEN 12/07/18 PLACED ON RENAL REG TEXTURE DIET AND THIN LIQUIDS WITH 50-100% SLOW INTAKE (SELF-FEEDS BUT IS CONFUSED). PER RN, COUGHS ON THIN LIQUIDS BUT TAKE PILL CRUSHED W/O OVERT ASPIRATION. ALERT BUT CONFUSED PER MALAY-SPEAKING RN (SPEECH IS INTELLIGIBLE). INITIAL IMPRESSIONS: S/S OF AT LEAST A MILD-MODERATE OROPHARYNGEAL DYSPHAGIA WITH INCREASED ORAL PREP AND OROPHARYNGEAL TRANSIT TIMES. S/S OF ASPIRATION WITH THIN LIQUIDS VIA CUP PER RN (WILL HOLD ON PO TRIALS DUE TO POSSIBLE PNA) NECTAR THICK LIQUIDS MILDLY INCREASED OP TRANSIT TIMES WITH SEQUENTIAL SIPS VIA CUP WITH FAIR HYOLARYNGEAL EXCURSIONS, EXTRA (FOR ORAL OR PHARYNGEAL RESIDUE) AND DELAYED LAST SWALLOW WITH NO OVERT ASPIRATION. PUREED TSP MILDLY-MOD INCREASED ORAL PREP AND OP TRANSIT TIMES SINCE HE CHEWS IT UNNECESSARILY AND HAS FAIR HYOLARYNGEAL EXCURSION AND MIN ORAL RESIDUE ON LEFT SIDE OF TONGUE, CLEARED WITH EXTRA SWALLOW, NO OVERT ASP MASTICATED SOLID (1/2 CRACKER) SLOWER CHEWING (MILD-MOD) WITH MIN ORAL RESIDUE ON MID TONGUE, EXTRA GROSSLY FUNCTIONAL SWALLOW, W/O OVERT ASP. TALKS WITH FOOD IN MOUTH INCREASES ASP RISK WITH CHEWABLE SOLIDS. HAS SILENT ASPIRATION RISK GIVEN NEURO (CONFUSION DEFICITS) RECOMMENDATIONS: COMPLETED MOD BARIUM SWALLOW STUDY TO FURTHER ASSESS SWALLOW, DETERMINE SILENT ASP RISK/ETIOLOGY, AND ATTEMPT TRIAL TX IF PO CONTINUES FOR QUALITY OF LIFE, DOWNGRADE TO RENAL MECH SOFT GROUND AND HONEY THICK LIQUIDS WITH POSTED ASP PRECAUTIONS AND ASSIST WITH MEALS. SEND HIGH FERCHO SUP PER RD IF NEEDED. DYSPHAGIA MANAGEMENT AND TX AND COG-COM EVAL/TX FOR COM TIPS D/W RN (EDUCATED/TRAINED IN ASP PREC) AND PT (USING RN TO INTERPRET BUT HE IS CONFUSED). D/W DR JONES WHO AGREES WITH PLAN Addendum: 12/09/18 at 1131 by LISA CORTES BOARDING MOTHER addendum and correction Patient had throat clearing (possible aspiration) after drinking nectar thick liquids after the swallow, did not cough after HONEY thick liquid via cup.
[2018-12-09 12:00] VITALS: BP 138/67
--- NOTE | 2018-12-09 13:11 | NUR ---
RD ASSESSMENT & RECOMMENDATIONS SEE CARE ACTIVITY FOR COMPLETE ASSESSMENT DAILY ESTIMATED NEEDS: Needs based on ESRD, HD, wounds 50kg 30-35 kcals/kg 2824-8496 total kcals 1.25-1.8 g protein/kg 63-90 g total protein Fluid per MD, on HD mL/kg total fluid mLs NUTRITION DIAGNOSIS: 1) Swallowing difficulty r/t respiratory status as evidenced by s/p acute resp failure w/ oral intubation, now extubated, on mech soft ground texture, HTL per OPTICAL MANAGER rec. 2) Increased kcal and protein needs r/t renal dysfuntion, wound healing as evidenced by pt w/ ESRD on HD, w/ full thickness sacral and buttock wound, refer to WC eval. CURRENT DIET:RENAL, mech soft ground, HTL PO DIET RECOMMENDATIONS: RENAL + CCHO MED/ texture per OPTICAL MANAGER ADDITIONAL RECOMMENDATIONS: 1) Weekly weights on calibrated bed scale 2) Per SNF: weight 110#/ 50kg (11/11/18) 3) Wound healing: add VERONICA BID + Nephrovite x1 daily 4) Wound care: Vit C as per nephrology 5) Monitor lytes and renal fxn closely 6) Nepro 1 dede daily w/ variable PO intake (425kcal, 19g prot per dede)
--- NOTE | 2018-12-09 13:24 | Cardiac Electrophysiology PN ---
Assessment/Plan Assessment/Plan 1. Bradycardia. Resolved off clonidine patch EF 55%. 2. Hypertension, currently off antihypertensives. 3. Respiratory failure, Extubated on broad-spectrum antibiotic. Fu by Dr. Arcos. 4. Troponin leak, due to renal failure. 5. End-stage renal disease, on hemodialysis. JOSE ALEJANDRO RN DC tele Subjective Subjective On tele in SR. Family at bedside Objective Last 24 Hour Vital Signs Date Time Temp Pulse Resp B/P (MAP) Pulse Ox O2 Delivery O2 Flow Rate FiO2 12/09/18 09:00 137/56 12/09/18 09:00 81 137/56 12/09/18 06:40 155/49 12/09/18 06:39 155/49 12/09/18 04:00 90 12/09/18 04:00 98.0 84 20 155/49 (84) 98 84 12/09/18 00:00 98.1 71 19 151/52 (85) 98 12/09/18 00:00 80 12/08/18 23:28 151/52 12/08/18 21:11 136/61 12/08/18 21:00 Nasal Cannula 2.0 12/08/18 20:00 98.9 77 20 136/61 (86) 98 12/08/18 20:00 76 12/08/18 19:37 98 Nasal Cannula 2.0 28 12/08/18 19:37 Nasal Cannula 2.0 28 12/08/18 17:35 153/67 12/08/18 17:34 153/67 12/08/18 16:00 79 12/08/18 16:00 97.2 74 20 153/67 (95) 93 12/08/18 13:59 126/59 Intake and Output 12/08/18 12/09/18 19:00 07:00 Intake Total 240 ml Balance 240 ml Intake Oral 240 ml # Voids 3 2 Laboratory Tests Test 12/09/18 06:50 White Blood Count 7.9 K/UL (4.8-10.8) Red Blood Count 2.94 M/UL (4.70-6.10) L Hemoglobin 9.8 G/DL (14.2-18.0) L Hematocrit 30.0 % (42.0-52.0) L Mean Corpuscular Volume 102 FL (80-99) H Mean Corpuscular Hemoglobin 33.2 PG (27.0-31.0) H Mean Corpuscular Hemoglobin Concent 32.6 G/DL (32.0-36.0) Red Cell Distribution Width 14.5 % (11.6-14.8) Platelet Count 386 K/UL (150-450) Mean Platelet Volume 5.6 FL (6.5-10.1) L Neutrophils (%) (Auto) 48.1 % (45.0-75.0) Lymphocytes (%) (Auto) 28.8 % (20.0-45.0) Monocytes (%) (Auto) 14.2 % (1.0-10.0) H Eosinophils (%) (Auto) 7.1 % (0.0-3.0) H Basophils (%) (Auto) 1.8 % (0.0-2.0) Sodium Level 135 MMOL/L (136-145) L Potassium Level 4.7 MMOL/L (3.5-5.1) Chloride Level 94 MMOL/L (98-107) L Carbon Dioxide Level 24 MMOL/L (21-32) Anion Gap 17 mmol/L (5-15) H Blood Urea Nitrogen 62 mg/dL (7-18) H Creatinine 11.1 MG/DL (0.55-1.30) H Estimat Glomerular Filtration Rate mL/min (>60) Glucose Level 126 MG/DL (74-106) H Uric Acid 6.2 MG/DL (2.6-7.2) Calcium Level 9.4 MG/DL (8.5-10.1) Phosphorus Level 7.7 MG/DL (2.5-4.9) H Magnesium Level 2.7 MG/DL (1.8-2.4) H Total Bilirubin 0.5 MG/DL (0.2-1.0) Gamma Glutamyl Transpeptidase 36 U/L (5-85) Aspartate Amino Transf (AST/SGOT) 19 U/L (15-37) Alanine Aminotransferase (ALT/SGPT) 13 U/L (12-78) Alkaline Phosphatase 84 U/L (46-116) C-Reactive Protein, Quantitative 5.2 mg/dL (0.00-0.90) H Pro-B-Type Natriuretic Peptide 24586 pg/mL (0-125) H Total Protein 8.5 G/DL (6.4-8.2) H Albumin 3.0 G/DL (3.4-5.0) L Globulin 5.5 g/dL Albumin/Globulin Ratio 0.5 (1.0-2.7) L Objective HEAD AND NECK: No JVD . LUNGS: Coarse rhonchi. CARDIOVASCULAR: Regular S1 and S2 with no gallop or murmur. ABDOMEN: Soft. EXTREMITIES: No pitting edema. Ryan Harley MD Dec 09, 2018 13:24
--- NOTE | 2018-12-09 14:34 | Infectious Diseases Prog Note ---
Assessment/Plan Assessment/Plan Probable Sepsis Gram positive bacteremia- ? real vs contaminant -12/01 10/14 Staph capitis; 12/02 Bcx NTD Acute hypoxic respiratory failure s/p intubation 12/01- likely 2ry to Acute CHF and COPD exacerbation- no obvious PNA on CXR -12/06 extubated -12/05 CXR: The lungs and pleural spaces are clear -12/02 CXR: Stable satisfactory position of endotracheal tube. Lungs and pleural spaces remain clear. No significant interim change -influenza sc neg -sp cx p Afebrile Leukocytosis , SP Diarrhea -cdiff neg Bradycardia Acute encephalopathy Sacral decubitus ulcer- not infected -wound cx: Group G strep, diphteroids HTN COPD DM2 R femur fx s/p ORIF ESRD on HD via L arm shunt pAfib on amiodarone SNF resident Plan: -Continue to monitor off abx -12/05 SP IV Vancomycin #5 -12/02 SP ZOsyn #2 -12/01 SP Ertapenem, Cefepime, azithromycin x1 -Monitor CBC/CMP, temperatures -wound care per surgical team -aspiration precautions Subjective Allergies: Coded Allergies: NEOMYCIN (Verified Allergy, Mild, 12/01/18) Uncoded Allergies: plastics (Allergy, Mild, 12/01/18) Subjective comfortable Objective Vital Signs Last 24 Hour Vital Signs Date Time Temp Pulse Resp B/P (MAP) Pulse Ox O2 Delivery O2 Flow Rate FiO2 12/09/18 14:00 138/67 12/09/18 12:00 98.1 86 18 138/67 (90) 97 86 12/09/18 12:00 138/67 12/09/18 09:00 Nasal Cannula 2.0 12/09/18 09:00 137/56 12/09/18 09:00 81 137/56 12/09/18 08:00 97.9 81 18 137/56 (83) 95 81 12/09/18 06:40 155/49 12/09/18 06:39 155/49 12/09/18 04:00 90 12/09/18 04:00 98.0 84 20 155/49 (84) 98 84 12/09/18 00:00 98.1 71 19 151/52 (85) 98 12/09/18 00:00 80 12/08/18 23:28 151/52 12/08/18 21:11 136/61 12/08/18 21:00 Nasal Cannula 2.0 12/08/18 20:00 98.9 77 20 136/61 (86) 98 12/08/18 20:00 76 12/08/18 19:37 98 Nasal Cannula 2.0 12/08/18 19:37 Nasal Cannula 2.0 12/08/18 17:35 153/67 12/08/18 17:34 153/67 12/08/18 16:00 79 12/08/18 16:00 97.2 74 20 153/67 (95) 93 Height (Feet): 5 Height (Inches): 3.00 Weight (Pounds): 142 HEENT: mucous membranes moist Respiratory/Chest: no respiratory distress Cardiovascular: no gallop/murmur Abdomen: no organomegaly Laboratory Tests Test 12/09/18 06:50 White Blood Count 7.9 K/UL (4.8-10.8) Red Blood Count 2.94 M/UL (4.70-6.10) L Hemoglobin 9.8 G/DL (14.2-18.0) L Hematocrit 30.0 % (42.0-52.0) L Mean Corpuscular Volume 102 FL (80-99) H Mean Corpuscular Hemoglobin 33.2 PG (27.0-31.0) H Mean Corpuscular Hemoglobin Concent 32.6 G/DL (32.0-36.0) Red Cell Distribution Width 14.5 % (11.6-14.8) Platelet Count 386 K/UL (150-450) Mean Platelet Volume 5.6 FL (6.5-10.1) L Neutrophils (%) (Auto) 48.1 % (45.0-75.0) Lymphocytes (%) (Auto) 28.8 % (20.0-45.0) Monocytes (%) (Auto) 14.2 % (1.0-10.0) H Eosinophils (%) (Auto) 7.1 % (0.0-3.0) H Basophils (%) (Auto) 1.8 % (0.0-2.0) Sodium Level 135 MMOL/L (136-145) L Potassium Level 4.7 MMOL/L (3.5-5.1) Chloride Level 94 MMOL/L (98-107) L Carbon Dioxide Level 24 MMOL/L (21-32) Anion Gap 17 mmol/L (5-15) H Blood Urea Nitrogen 62 mg/dL (7-18) H Creatinine 11.1 MG/DL (0.55-1.30) H Estimat Glomerular Filtration Rate mL/min (>60) Glucose Level 126 MG/DL (74-106) H Uric Acid 6.2 MG/DL (2.6-7.2) Calcium Level 9.4 MG/DL (8.5-10.1) Phosphorus Level 7.7 MG/DL (2.5-4.9) H Magnesium Level 2.7 MG/DL (1.8-2.4) H Total Bilirubin 0.5 MG/DL (0.2-1.0) Gamma Glutamyl Transpeptidase 36 U/L (5-85) Aspartate Amino Transf (AST/SGOT) 19 U/L (15-37) Alanine Aminotransferase (ALT/SGPT) 13 U/L (12-78) Alkaline Phosphatase 84 U/L (46-116) C-Reactive Protein, Quantitative 5.2 mg/dL (0.00-0.90) H Pro-B-Type Natriuretic Peptide 37786 pg/mL (0-125) H Total Protein 8.5 G/DL (6.4-8.2) H Albumin 3.0 G/DL (3.4-5.0) L Globulin 5.5 g/dL Albumin/Globulin Ratio 0.5 (1.0-2.7) L Current Medications Medications (Trade) Dose Ordered Sig/Amber Route PRN Reason Start Time Stop Time Status Last Admin Dose Admin Acetaminophen (Tylenol) 650 mg Q4H PRN ORAL T>100.5 12/08/18 08:30 12/31/18 08:29 Amlodipine Besylate (Norvasc) 10 mg DAILY ORAL 12/08/18 09:00 01/03/19 10:59 12/08/18 08:51 Dextrose (Dextrose 50%) 25 ml Q30M PRN IV Hypoglycemia 12/07/18 19:45 12/31/18 09:14 Dextrose (Dextrose 50%) 50 ml Q30M PRN IV Hypoglycemia 12/07/18 19:45 12/31/18 09:14 Heparin Sodium (Porcine) (Heparin 5000 units/ml) 5,000 units EVERY 12 HOURS SUBQ 12/07/18 21:00 12/31/18 20:59 12/09/18 08:46 Hydralazine HCl (Apresoline) 10 mg Q4H PRN IV bp over 170 syst 12/07/18 19:30 01/04/19 19:29 Hydralazine HCl (Apresoline) 75 mg Q8HR ORAL 12/07/18 22:15 01/04/19 00:00 12/09/18 06:40 Insulin Aspart (NovoLOG) BEFORE MEALS AND HS SUBQ 12/07/18 21:00 01/01/19 11:29 12/09/18 14:15 Isosorbide Dinitrate (Isordil) 20 mg Q6HR ORAL 12/08/18 00:00 01/05/19 11:59 12/09/18 06:39 Lorazepam (Ativan 2mg/ml 1ml) 0.5 mg Q4H PRN IV For Anxiety 12/09/18 11:15 12/16/18 11:14 Losartan Potassium (Cozaar) 50 mg BID ORAL 12/08/18 09:00 01/03/19 17:59 12/08/18 17:34 Ondansetron HCl (Zofran) 4 mg Q6H PRN IVP Nausea & Vomiting 12/07/18 19:30 12/31/18 19:29 Pantoprazole (Protonix) 40 mg EVERY 12 HOURS ORAL 12/07/18 21:00 01/06/19 20:59 12/09/18 08:45 Polyethylene Glycol (Miralax) 17 gm DAILYPRN PRN ORAL Constipation 12/08/18 08:30 12/31/18 08:29 Quetiapine Fumarate (SEROquel) 25 mg Q12HR ORAL 12/09/18 11:30 01/08/19 11:29 12/09/18 14:14 Sevelamer Carbonate (Renvela) 2,400 mg TID ORAL 12/08/18 09:00 01/02/19 07:59 12/09/18 14:14 Myron Govea MD Dec 09, 2018 14:34
--- NOTE | 2018-12-09 15:04 | NUR ---
NURSE NOTES:WOUND CARE FOLLOW-UP NOTES:Pt has a full thickness sacral pressure injury that is irregular shaped.[place] granulation at base of wound with surrounding epithelial borders. Dark skin tone without erythema or induration periwound.No odor or exudate noted. (L)7cm x (W)7.3cm.Both heels are pink and blanchable . NO new skin concerns noted. Primary nurse reported pt has been non-compliant in keeping sacral drsg in place .Pt removes drsg per primary nurrse and has been scratching wound. Tx.Plan: Continue wound care Tx and Wound prevention protocols as implemented. AP/BOOGIE MAttress overlay.
[2018-12-09 16:00] VITALS: BP 118/46
--- NOTE | 2018-12-09 17:50 | NUR ---
NURSE NOTES: Patient received HD tolerating, last VS 110/50, HR 86, 2L out. Patient in bed resting, no active s/s cardiac, respiratory distress noticed.
[2018-12-09] MEDS ORDERED: Miralax 17gm pkt ORAL PRN (18:30)
[2018-12-09] MEDS ORDERED: Acetaminophen 650mg/20.3ml ORAL PRN (18:30)
--- NOTE | 2018-12-09 18:45 | NUR ---
NURSE NOTES: Receive patient into room 421 bed1 from 210 bed 2, patient alert to name,respiration unlabored,iv saline lock intact.Shunt to the left arm with strong bruit and thrill.Dressing to sacral area intact.Bed alarm is on,call light within reach.
--- NOTE | 2018-12-09 18:57 | NUR ---
TRANSFER TO FLOOR: Patient transferred to 4E , per Dr. Arcos. Report given to ZENAIDA Lee. Belongings and medications given to ZENAIDA Lee. Family and or S/O informed of transfer.
--- NOTE | 2018-12-09 19:12 | NUR ---
CASE MANAGEMENT: REVIEW SI: RESP FAILURE . ESRD ON HD . COPD T 97.0 HR 90 RR 18 BP 118/ SAT 98% NC/2L H/H 9.8/30.0 NA 135 BUN 62 CR 11.1 IS: LOSARTAN GT BID ISOSORBIDE PO Q6HR HEPARIN SQ Q12HR HD PRN ST EVAL ICU STATUS DCP: PATIENT IS FROM [facility]
--- NOTE | 2018-12-09 19:25 | NUR ---
HAND-OFF: Report given to Christal ESTEVEZ.
--- NOTE | 2018-12-09 19:30 | NUR ---
NURSE NOTES: Received patient in bed, awake, confused, disoriented, unable to make his needs known. Call light is within reach, bed is in low position, locked and alarm is on. Patient is noted with IV being pulled out by the patient. Will continue to monitor for safety and comfort.
--- NOTE | 2018-12-09 19:45 | Internal Med Progress Note ---
Subjective Date of Service: Dec 09, 2018 Physician Name BrodyArayn Attending Physician Tony Cyr MD Current Medications Medications (Trade) Dose Ordered Sig/Amber Route PRN Reason Start Time Stop Time Status Last Admin Dose Admin Acetaminophen (Tylenol) 650 mg Q4H PRN ORAL T>100.5 12/09/18 18:30 12/31/18 18:29 Amlodipine Besylate (Norvasc) 10 mg DAILY ORAL 12/10/18 09:00 01/03/19 10:59 Dextrose (Dextrose 50%) 25 ml Q30M PRN IV Hypoglycemia 12/09/18 18:45 12/31/18 09:14 Dextrose (Dextrose 50%) 50 ml Q30M PRN IV Hypoglycemia 12/09/18 18:45 12/31/18 09:14 Heparin Sodium (Porcine) (Heparin 5000 units/ml) 5,000 units EVERY 12 HOURS SUBQ 12/09/18 21:00 12/31/18 20:59 Hydralazine HCl (Apresoline) 75 mg Q8HR ORAL 12/09/18 22:00 01/04/19 00:00 Insulin Aspart (NovoLOG) BEFORE MEALS AND HS SUBQ 12/09/18 21:00 01/01/19 11:29 Isosorbide Dinitrate (Isordil) 20 mg Q6HR ORAL 12/10/18 00:00 01/05/19 11:59 Lorazepam (Ativan 2mg/ml 1ml) 0.5 mg Q4H PRN IV For Anxiety 12/09/18 18:30 12/16/18 18:29 Losartan Potassium (Cozaar) 50 mg BID ORAL 12/10/18 09:00 01/03/19 17:59 Ondansetron HCl (Zofran) 4 mg Q6H PRN IVP Nausea & Vomiting 12/09/18 18:30 12/31/18 18:29 Pantoprazole (Protonix) 40 mg EVERY 12 HOURS ORAL 12/09/18 21:00 01/06/19 20:59 Polyethylene Glycol (Miralax) 17 gm DAILYPRN PRN ORAL Constipation 12/09/18 18:30 01/08/19 18:29 Quetiapine Fumarate (SEROquel) 25 mg Q12HR ORAL 12/09/18 21:00 01/08/19 11:29 Sevelamer Carbonate (Renvela) 2,400 mg TID ORAL 12/10/18 09:00 01/02/19 07:59 Allergies: Coded Allergies: NEOMYCIN (Verified Allergy, Mild, 12/01/18) Uncoded Allergies: plastics (Allergy, Mild, 12/01/18) ROS Limited/Unobtainable: Yes Subjective 73 YO M admitted with respiratory failure. Extubated 12/06/18. Cover for Int Med-Dr Cyr. Tolerating nasal canula Objective Last Vital Signs Date Time Temp Pulse Resp B/P (MAP) Pulse Ox O2 Delivery O2 Flow Rate FiO2 12/09/18 17:56 131/67 12/09/18 16:00 97.0 90 18 100 90 12/09/18 15:45 Nasal Cannula 2.0 28 Laboratory Tests Test 12/09/18 06:50 White Blood Count 7.9 K/UL (4.8-10.8) Red Blood Count 2.94 M/UL (4.70-6.10) L Hemoglobin 9.8 G/DL (14.2-18.0) L Hematocrit 30.0 % (42.0-52.0) L Mean Corpuscular Volume 102 FL (80-99) H Mean Corpuscular Hemoglobin 33.2 PG (27.0-31.0) H Mean Corpuscular Hemoglobin Concent 32.6 G/DL (32.0-36.0) Red Cell Distribution Width 14.5 % (11.6-14.8) Platelet Count 386 K/UL (150-450) Mean Platelet Volume 5.6 FL (6.5-10.1) L Neutrophils (%) (Auto) 48.1 % (45.0-75.0) Lymphocytes (%) (Auto) 28.8 % (20.0-45.0) Monocytes (%) (Auto) 14.2 % (1.0-10.0) H Eosinophils (%) (Auto) 7.1 % (0.0-3.0) H Basophils (%) (Auto) 1.8 % (0.0-2.0) Sodium Level 135 MMOL/L (136-145) L Potassium Level 4.7 MMOL/L (3.5-5.1) Chloride Level 94 MMOL/L (98-107) L Carbon Dioxide Level 24 MMOL/L (21-32) Anion Gap 17 mmol/L (5-15) H Blood Urea Nitrogen 62 mg/dL (7-18) H Creatinine 11.1 MG/DL (0.55-1.30) H Estimat Glomerular Filtration Rate mL/min (>60) Glucose Level 126 MG/DL (74-106) H Uric Acid 6.2 MG/DL (2.6-7.2) Calcium Level 9.4 MG/DL (8.5-10.1) Phosphorus Level 7.7 MG/DL (2.5-4.9) H Magnesium Level 2.7 MG/DL (1.8-2.4) H Total Bilirubin 0.5 MG/DL (0.2-1.0) Gamma Glutamyl Transpeptidase 36 U/L (5-85) Aspartate Amino Transf (AST/SGOT) 19 U/L (15-37) Alanine Aminotransferase (ALT/SGPT) 13 U/L (12-78) Alkaline Phosphatase 84 U/L (46-116) C-Reactive Protein, Quantitative 5.2 mg/dL (0.00-0.90) H Pro-B-Type Natriuretic Peptide 33124 pg/mL (0-125) H Total Protein 8.5 G/DL (6.4-8.2) H Albumin 3.0 G/DL (3.4-5.0) L Globulin 5.5 g/dL Albumin/Globulin Ratio 0.5 (1.0-2.7) L Intake and Output 12/08/18 12/09/18 19:00 07:00 Intake Total 240 ml Balance 240 ml Intake Oral 240 ml # Voids 3 2 Objective PHYSICAL EXAMINATION: VITAL SIGNS: Temperature 99.4 degrees, respirations 20, pulse 83, blood pressure 140/96, and pulse oximetry initially was 79 on room air. GENERAL: The patient is well-developed and well-nourished male, who is intubated and sedated. HEENT: Eyes, pupils equal and responsive to light and accommodation. Extraocular movements are intact. NECK: Supple without lymphadenopathy. CHEST: Nasal canula; Coarse expiratory wheezes bilaterally with coarse upper airway sounds. Otherwise, without rales. Neurologically unable to assess. CARDIOVASCULAR: Bradycardic, regular rate. S1 and S2 normal without murmurs, rubs, or gallops. ABDOMEN: Soft, nontender, and nondistended. Positive bowel sounds. No evidence of hepatosplenomegaly. Currently, no rebound or guarding noted. RECTAL: Refused. GENITALIA: Refused. EXTREMITIES: Negative for clubbing, cyanosis, or edema. NEUROLOGIC: Unable to assess. Assessment/Plan Assessment/Plan ASSESSMENT: This is a 73-year-old male with: 1. Respiratory failure. 2. Altered mental status. 3. Acute congestive heart failure. 4. Hypoxia. 5. Diabetes. 6. Chronic obstructive pulmonary disease. 7. Hypertension. 8. End-stage renal disease. 9. Sacral decubitus ulcer. TREATMENT: 1. Respiratory failure/chronic obstructive pulmonary disease. A Pulmonary consultation has been obtained with Dr. Sulaiman Arcos. The patient is currently tolerating nasal canula. The patient has been started empirically on ertapenem. 2. Acute congestive heart failure. Cardiology consultation has been obtained with Dr. Ryan Harley. BNP will be performed. Congestive heart failure may be secondary to volume overload secondary to end-stage renal disease. 3. Diabetes type 2. The patient has been placed on NovoLog sliding scale. 4. Hypertension. Continue losartan as above. 5. End-stage renal disease. A Nephrology consultation has been obtained with Dr. Fu. 6. Sacral decubitus ulcer. Discharge planning: Aryan Cohen MD Dec 09, 2018 19:45
[2018-12-09 20:00] VITALS: BP 141/53
--- NOTE | 2018-12-09 20:41 | Surgery Progress Note ---
Surgery Progress Note Subjective Additional Comments no acute events. exam unchanged. doing okay Objective Last 24 Hour Vital Signs Date Time Temp Pulse Resp B/P (MAP) Pulse Ox O2 Delivery O2 Flow Rate FiO2 12/09/18 17:56 131/67 12/09/18 17:55 131/67 12/09/18 16:00 97.0 90 18 118/46 (70) 100 90 12/09/18 16:00 89 12/09/18 15:45 Nasal Cannula 2.0 28 12/09/18 15:45 98 Nasal Cannula 2.0 28 12/09/18 14:00 138/67 12/09/18 12:00 98.1 86 18 138/67 (90) 97 86 12/09/18 12:00 88 12/09/18 12:00 138/67 12/09/18 09:00 Nasal Cannula 2.0 12/09/18 09:00 137/56 12/09/18 09:00 81 137/56 12/09/18 08:00 97.9 81 18 137/56 (83) 95 81 12/09/18 08:00 79 12/09/18 06:40 155/49 12/09/18 06:39 155/49 12/09/18 04:00 90 12/09/18 04:00 98.0 84 20 155/49 (84) 98 84 12/09/18 00:00 98.1 71 19 151/52 (85) 98 12/09/18 00:00 80 12/08/18 23:28 151/52 12/08/18 21:11 136/61 12/08/18 21:00 Nasal Cannula 2.0 I&O Intake and Output 12/08/18 12/09/18 19:00 07:00 Intake Total 240 ml Balance 240 ml Intake Oral 240 ml # Voids 3 2 Laboratory Tests Test 12/09/18 06:50 White Blood Count 7.9 K/UL (4.8-10.8) Red Blood Count 2.94 M/UL (4.70-6.10) L Hemoglobin 9.8 G/DL (14.2-18.0) L Hematocrit 30.0 % (42.0-52.0) L Mean Corpuscular Volume 102 FL (80-99) H Mean Corpuscular Hemoglobin 33.2 PG (27.0-31.0) H Mean Corpuscular Hemoglobin Concent 32.6 G/DL (32.0-36.0) Red Cell Distribution Width 14.5 % (11.6-14.8) Platelet Count 386 K/UL (150-450) Mean Platelet Volume 5.6 FL (6.5-10.1) L Neutrophils (%) (Auto) 48.1 % (45.0-75.0) Lymphocytes (%) (Auto) 28.8 % (20.0-45.0) Monocytes (%) (Auto) 14.2 % (1.0-10.0) H Eosinophils (%) (Auto) 7.1 % (0.0-3.0) H Basophils (%) (Auto) 1.8 % (0.0-2.0) Sodium Level 135 MMOL/L (136-145) L Potassium Level 4.7 MMOL/L (3.5-5.1) Chloride Level 94 MMOL/L (98-107) L Carbon Dioxide Level 24 MMOL/L (21-32) Anion Gap 17 mmol/L (5-15) H Blood Urea Nitrogen 62 mg/dL (7-18) H Creatinine 11.1 MG/DL (0.55-1.30) H Estimat Glomerular Filtration Rate mL/min (>60) Glucose Level 126 MG/DL (74-106) H Uric Acid 6.2 MG/DL (2.6-7.2) Calcium Level 9.4 MG/DL (8.5-10.1) Phosphorus Level 7.7 MG/DL (2.5-4.9) H Magnesium Level 2.7 MG/DL (1.8-2.4) H Total Bilirubin 0.5 MG/DL (0.2-1.0) Gamma Glutamyl Transpeptidase 36 U/L (5-85) Aspartate Amino Transf (AST/SGOT) 19 U/L (15-37) Alanine Aminotransferase (ALT/SGPT) 13 U/L (12-78) Alkaline Phosphatase 84 U/L (46-116) C-Reactive Protein, Quantitative 5.2 mg/dL (0.00-0.90) H Pro-B-Type Natriuretic Peptide 56661 pg/mL (0-125) H Total Protein 8.5 G/DL (6.4-8.2) H Albumin 3.0 G/DL (3.4-5.0) L Globulin 5.5 g/dL Albumin/Globulin Ratio 0.5 (1.0-2.7) L Plan Problems: (1) Sacral decubitus ulcer, stage III Assessment & Plan: Pt presented on admission with Irregular shaped, full thickness Sacral pressure injury.Scattered areas of biofilm noted at base of wound .Other muñoz wound is moist and viable. Edges adherent to base of wound . Periwound with darker skin tone without induration or fluctuance. No odor or exudate noted.(L)7.5cm x (W)8.5cm.Significant portion of wound is partial thickness and small portion with full thickness breakdown approximately 1cm x 1cm at inferior yellow white portion. no drainage. periwound intact and stable. wound bed of partial thickness with healthy viable tissue. no signs of infection. no odor Non-blanchable erythema with fluctuance and delineated margins noted to R heel(L )3cm x (W)4cm.Periwound is pink and blanchable. Non-blanchable erythema with fluctuance noted to L heel. Periwound pink and blanchable without induration or fluctuance. (L)3.8cm x (W)4.5cm. Pt has a full thickness sacral pressure injury that is irregular shaped.[place] granulation at base of wound with surrounding epithelial borders. Dark skin tone without erythema or induration periwound.No odor or exudate noted. (L)7cm x (W)7.3cm.Both heels are pink and blanchable . NO new skin concerns noted. Primary nurse reported pt has been non-compliant in keeping sacral drsg in place .Pt removes drsg per primary nurrse and has been scratching wound. Tx.Plan: Cleanse Sacral wound with Saline.Apply Therahoney. Apply Triad Paste periwound. Cover with Optifoam drsg Daily and prn. Apply Cavilon Skin Barrier to R and L heels.Cover each Heel with Optifoam drsg. Change every 7 days and prn. APM/BOOGIE Mattress overlay. Reposition at least every 2hours or as tolerated. Off-load heels with pillow. will follow with recs thank you (2) Hypoglycemia (3) Left lower lobe pneumonia (4) Hypocalcemia (5) COPD (chronic obstructive pulmonary disease) (6) HTN (hypertension) (7) DM (diabetes mellitus) (8) Respiratory failure Assessment & Plan: extubated and doing okay cont with O2 and breathing treatments will follow with recs thank you (9) ESRD (end stage renal disease) on dialysis (10) Bacteremia (11) Respiratory failure, acute (12) Sepsis Assessment & Plan: cont IV Abx trend labs (13) Anemia in chronic kidney disease (CKD) Florencio Herrera Dec 09, 2018 20:41
--- NOTE | 2018-12-09 23:27 | NUR ---
NURSE NOTES: Patient is noted to be restless, and try to climb out of bed, order for non behavioral restraints is obtained from MD and been carried out. Will continue to monitor for safety and comfort.
[2018-12-10] VITALS (7 sets, daily range): BP systolic 106–170; BP diastolic 46–73
[2018-12-10] MEDS: HydrALAZINE 50mg tab ORAL SCH ×2 (06:26→13:45)
[2018-12-10] MEDS: NovoLOG Insulin Flexpen SUBQ SCH ×3 (06:42→17:25)
--- NOTE | 2018-12-10 06:57 | NUR ---
HAND-OFF: Report given to Meghan ESTEVEZ.
[2018-12-10 07:08] LABS: BASOPHILS % (AUTO) 0.9 % (0.0-2.0); EOSINOPHILS % (AUTO) 5.1 % (0.0-3.0); HEMATOCRIT 29.4 % (42.0-52.0); HEMOGLOBIN 9.5 G/DL (14.2-18.0); LYMPHOCYTES % (AUTO) 42.4 % (20.0-45.0); MEAN CORPUSCULAR VOLUME 102 FL (80-99); NEUTROPHILS % (AUTO) 38.6 % (45.0-75.0); PLATELET COUNT 356 K/UL (150-450); RED BLOOD COUNT 2.89 M/UL (4.70-6.10); WHITE BLOOD COUNT 8.6 K/UL (4.8-10.8)
[2018-12-10 07:09] LABS: ALANINE AMINOTRANSFERASE 11 U/L (12-78); ALBUMIN/GLOBULIN RATIO 0.5 (1.0-2.7); ALKALINE PHOSPHATASE 106 U/L (46-116); ANION GAP 12 mmol/L (5-15); ASPARTATE AMINO TRANSFERASE 16 U/L (15-37); BILIRUBIN,TOTAL 0.5 MG/DL (0.2-1.0); BLOOD UREA NITROGEN 49 mg/dL (7-18); CALCIUM 9.8 MG/DL (8.5-10.1); CARBON DIOXIDE 26 MMOL/L (21-32); CHLORIDE 98 MMOL/L (98-107); CREATININE 8.6 MG/DL (0.55-1.30); POTASSIUM 4.4 MMOL/L (3.5-5.1); SODIUM 136 MMOL/L (136-145)
--- NOTE | 2018-12-10 07:44 | NUR ---
NURSE NOTES: Patient alert to name but with confusion,reorient patient.Shunt to the left arm with strong bruit and thrill. patient on restraints,will assist with meals.Bed alarm is on.
[2018-12-10] MEDS: Losartan 50mg tab ORAL SCH ×2 (10:10→18:05)
[2018-12-10] MEDS: Renvela 2400 mg pkt ORAL SCH ×3 (10:18→18:00)
[2018-12-10 10:24] LABS: PHOSPHORUS 4.5 MG/DL (2.5-4.9)
[2018-12-10] MEDS: Heparin 5000 units/ml inj SUBQ SCH (10:30)
--- NOTE | 2018-12-10 11:05 | NUR ---
Patient seen for initial evaluation, see complete evaluation for details. Patient presents with generalized weakness and impaired functional mobility. Patient will benefit from 3 day trial of skilled inpatient PT intervention, then will re-assess, to address strength, balance, safety and functional mobility. Recommend discharge to SNF once medically cleared by MD. Addendum: 12/10/18 at 1311 by ANJUM WHITE PT Amended: Links added.
--- NOTE | 2018-12-10 13:05 | Pulmonology Progress Note ---
Assessment/Plan Problems: (1) Respiratory failure, acute (2) ESRD (end stage renal disease) on dialysis (3) COPD (chronic obstructive pulmonary disease) (4) Anemia in chronic kidney disease (CKD) (5) Sacral decubitus ulcer, stage III (6) DM (diabetes mellitus) (7) HTN (hypertension) Assessment/Plan more alert eating well Heart rate BP controlled improving tolerating extubation HD by nephrology sliding scale diabetic diet monitor BP pt/ot Subjective ROS Limited/Unobtainable: No Constitutional: Reports: no symptoms HEENT: Repors: no symptoms Respiratory: Reports: no symptoms Allergies: Coded Allergies: NEOMYCIN (Verified Allergy, Mild, 12/01/18) Uncoded Allergies: plastics (Allergy, Mild, 12/01/18) Objective Last 24 Hour Vital Signs Date Time Temp Pulse Resp B/P (MAP) Pulse Ox O2 Delivery O2 Flow Rate FiO2 12/10/18 12:47 Nasal Cannula 2.0 12/10/18 10:10 158/56 12/10/18 10:01 84 158/56 12/10/18 09:00 Nasal Cannula 2.0 12/10/18 08:30 96 Room Air 21 12/10/18 08:30 82 16 Room Air 21 12/10/18 08:30 Room Air 21 12/10/18 08:00 98.2 72 12 126/73 (90) 73 12/10/18 06:27 186/85 12/10/18 06:26 186/85 12/10/18 04:22 98.0 78 106/60 (75) 17 12/10/18 00:24 133/66 12/10/18 00:00 98.9 78 15 133/62 (85) 78 12/09/18 22:51 150/80 12/09/18 21:00 Nasal Cannula 2.0 12/09/18 20:50 86 16 Room Air 21 12/09/18 20:50 95 Room Air 21 12/09/18 20:50 Room Air 21 12/09/18 20:00 97.8 83 19 141/53 (82) 12/09/18 17:56 131/67 12/09/18 17:55 131/67 12/09/18 16:00 97.0 90 18 118/46 (70) 100 90 12/09/18 16:00 89 12/09/18 15:45 Nasal Cannula 2.0 12/09/18 15:45 98 Nasal Cannula 2.0 12/09/18 14:00 138/67 Intake and Output 12/09/18 12/10/18 18:59 06:59 Intake Total 480 ml 350 ml Output Total 2000 ml 2000 ml Balance -1520 ml -1650 ml Intake Oral 480 ml 240 ml Tube Feeding 30 ml Other 80 ml Output Urine Total 0 ml Hemodialysis UF 2000 ml 2000 ml # Voids 2 # Bowel Movements 1 1 Objective General Appearance: WD/WN HEENT: normocephalic, atraumatic Cardiovascular: normal peripheral pulses, normal rate Abdomen: normal bowel sounds, soft, non tender Genitourinary: normal external genitalia Extremities: no clubbing Skin: no rash Neurologic/Psychiatric: protection specialist II-XII grossly normal Musculoskeletal: normal muscle bulk Laboratory Tests 12/10/18 05:10: White Blood Count 8.6, Red Blood Count 2.89L, Hemoglobin 9.5L, Hematocrit 29.4L , Mean Corpuscular Volume 102H, Mean Corpuscular Hemoglobin 33.0H, Mean Corpuscular Hemoglobin Concent 32.5, Red Cell Distribution Width 14.0, Platelet Count 356, Mean Platelet Volume 5.5L, Neutrophils (%) (Auto) 38.6L, Lymphocytes (%) (Auto) 42.4, Monocytes (%) (Auto) 13.0H, Eosinophils (%) (Auto) 5.1H, Basophils (%) (Auto) 0.9, Sodium Level 136, Potassium Level 4.4, Chloride Level 98, Carbon Dioxide Level 26, Anion Gap 12, Blood Urea Nitrogen 49H, Creatinine 8.6H, Estimat Glomerular Filtration Rate , Glucose Level 170H, Calcium Level 9.8 , Phosphorus Level 4.5, Magnesium Level 2.5H, Total Bilirubin 0.5, Aspartate Amino Transf (AST/SGOT) 16, Alanine Aminotransferase (ALT/SGPT) 11L, Alkaline Phosphatase 106, Total Protein 8.6H, Albumin 3.0L, Globulin 5.6, Albumin/ Globulin Ratio 0.5L Current Medications Medications (Trade) Dose Ordered Sig/Amber Route PRN Reason Start Time Stop Time Status Last Admin Dose Admin Acetaminophen (Tylenol) 650 mg Q4H PRN ORAL T>100.5 12/09/18 18:30 12/31/18 18:29 Amlodipine Besylate (Norvasc) 10 mg DAILY ORAL 12/10/18 09:00 01/03/19 10:59 12/10/18 10:01 Dextrose (Dextrose 50%) 25 ml Q30M PRN IV Hypoglycemia 12/09/18 18:45 12/31/18 09:14 Dextrose (Dextrose 50%) 50 ml Q30M PRN IV Hypoglycemia 12/09/18 18:45 12/31/18 09:14 Heparin Sodium (Porcine) (Heparin 5000 units/ml) 5,000 units EVERY 12 HOURS SUBQ 12/09/18 21:00 12/31/18 20:59 12/10/18 10:30 Hydralazine HCl (Apresoline) 75 mg Q8HR ORAL 12/09/18 22:00 01/04/19 00:00 12/10/18 06:26 Insulin Aspart (NovoLOG) BEFORE MEALS AND HS SUBQ 12/09/18 21:00 01/01/19 11:29 12/10/18 11:30 Isosorbide Dinitrate (Isordil) 20 mg Q6HR ORAL 12/10/18 00:00 01/05/19 11:59 12/10/18 06:27 Lorazepam (Ativan 2mg/ml 1ml) 0.5 mg Q4H PRN IV For Anxiety 12/09/18 18:30 12/16/18 18:29 Losartan Potassium (Cozaar) 50 mg BID ORAL 12/10/18 09:00 01/03/19 17:59 12/10/18 10:10 Ondansetron HCl (Zofran) 4 mg Q6H PRN IVP Nausea & Vomiting 12/09/18 18:30 12/31/18 18:29 Pantoprazole (Protonix) 40 mg EVERY 12 HOURS ORAL 12/09/18 21:00 01/06/19 20:59 12/10/18 10:07 Polyethylene Glycol (Miralax) 17 gm DAILYPRN PRN ORAL Constipation 12/09/18 18:30 01/08/19 18:29 Quetiapine Fumarate (SEROquel) 25 mg Q12HR ORAL 12/09/18 21:00 01/08/19 11:29 12/10/18 09:54 Sevelamer Carbonate (Renvela) 2,400 mg TID ORAL 12/10/18 09:00 01/02/19 07:59 12/10/18 10:18 Sulaiman Arcos MD Dec 10, 2018 13:05
--- NOTE | 2018-12-10 14:32 | Surgery Progress Note ---
Surgery Progress Note Subjective Additional Comments no acute events. stable. comfortable. Objective Last 24 Hour Vital Signs Date Time Temp Pulse Resp B/P (MAP) Pulse Ox O2 Delivery O2 Flow Rate FiO2 12/10/18 13:33 98.1 92 116/46 (69) 97 12/10/18 12:47 Nasal Cannula 2.0 12/10/18 12:00 116/46 12/10/18 10:10 158/56 12/10/18 10:01 84 158/56 12/10/18 09:00 Nasal Cannula 2.0 12/10/18 08:30 96 Room Air 21 12/10/18 08:30 82 16 Room Air 21 12/10/18 08:30 Room Air 21 12/10/18 08:00 98.2 72 12 126/73 (90) 97 73 12/10/18 06:27 186/85 12/10/18 06:26 186/85 12/10/18 04:22 98.0 78 106/60 (75) 17 12/10/18 00:24 133/66 12/10/18 00:00 98.9 78 15 133/62 (85) 78 12/09/18 22:51 150/80 12/09/18 21:00 Nasal Cannula 2.0 12/09/18 20:50 86 16 Room Air 21 12/09/18 20:50 95 Room Air 21 12/09/18 20:50 Room Air 21 12/09/18 20:00 97.8 83 19 141/53 (82) 12/09/18 17:56 131/67 12/09/18 17:55 131/67 12/09/18 16:00 97.0 90 18 118/46 (70) 100 90 12/09/18 16:00 89 12/09/18 15:45 Nasal Cannula 2.0 28 12/09/18 15:45 98 Nasal Cannula 2.0 28 I&O Intake and Output 12/09/18 12/10/18 19:00 07:00 Intake Total 480 ml 350 ml Output Total 2000 ml 2000 ml Balance -1520 ml -1650 ml Intake Oral 480 ml 240 ml Tube Feeding 30 ml Other 80 ml Output Urine Total 0 ml Hemodialysis UF 2000 ml 2000 ml # Voids 2 # Bowel Movements 1 1 Dressing: saturated Wound: other Drains: other Cardiovascular: RSR Respiratory: clear Abdomen: soft, present bowel sounds, non-distended Extremities: no tenderness, no cyanosis Laboratory Tests Test 12/10/18 05:10 White Blood Count 8.6 K/UL (4.8-10.8) Red Blood Count 2.89 M/UL (4.70-6.10) L Hemoglobin 9.5 G/DL (14.2-18.0) L Hematocrit 29.4 % (42.0-52.0) L Mean Corpuscular Volume 102 FL (80-99) H Mean Corpuscular Hemoglobin 33.0 PG (27.0-31.0) H Mean Corpuscular Hemoglobin Concent 32.5 G/DL (32.0-36.0) Red Cell Distribution Width 14.0 % (11.6-14.8) Platelet Count 356 K/UL (150-450) Mean Platelet Volume 5.5 FL (6.5-10.1) L Neutrophils (%) (Auto) 38.6 % (45.0-75.0) L Lymphocytes (%) (Auto) 42.4 % (20.0-45.0) Monocytes (%) (Auto) 13.0 % (1.0-10.0) H Eosinophils (%) (Auto) 5.1 % (0.0-3.0) H Basophils (%) (Auto) 0.9 % (0.0-2.0) Sodium Level 136 MMOL/L (136-145) Potassium Level 4.4 MMOL/L (3.5-5.1) Chloride Level 98 MMOL/L (98-107) Carbon Dioxide Level 26 MMOL/L (21-32) Anion Gap 12 mmol/L (5-15) Blood Urea Nitrogen 49 mg/dL (7-18) H Creatinine 8.6 MG/DL (0.55-1.30) H Estimat Glomerular Filtration Rate mL/min (>60) Glucose Level 170 MG/DL (74-106) H Calcium Level 9.8 MG/DL (8.5-10.1) Phosphorus Level 4.5 MG/DL (2.5-4.9) Magnesium Level 2.5 MG/DL (1.8-2.4) H Total Bilirubin 0.5 MG/DL (0.2-1.0) Aspartate Amino Transf (AST/SGOT) 16 U/L (15-37) Alanine Aminotransferase (ALT/SGPT) 11 U/L (12-78) L Alkaline Phosphatase 106 U/L (46-116) Total Protein 8.6 G/DL (6.4-8.2) H Albumin 3.0 G/DL (3.4-5.0) L Globulin 5.6 g/dL Albumin/Globulin Ratio 0.5 (1.0-2.7) L Plan Problems: (1) Sacral decubitus ulcer, stage III Assessment & Plan: Pt presented on admission with Irregular shaped, full thickness Sacral pressure injury.Scattered areas of biofilm noted at base of wound .Other muñoz wound is moist and viable. Edges adherent to base of wound . Periwound with darker skin tone without induration or fluctuance. No odor or exudate noted.(L)7.5cm x (W)8.5cm.Significant portion of wound is partial thickness and small portion with full thickness breakdown approximately 1cm x 1cm at inferior yellow white portion. no drainage. periwound intact and stable. wound bed of partial thickness with healthy viable tissue. no signs of infection. no odor Non-blanchable erythema with fluctuance and delineated margins noted to R heel(L )3cm x (W)4cm.Periwound is pink and blanchable. Non-blanchable erythema with fluctuance noted to L heel. Periwound pink and blanchable without induration or fluctuance. (L)3.8cm x (W)4.5cm. Pt has a full thickness sacral pressure injury that is irregular shaped.Dearing granulation at base of wound with surrounding epithelial borders. Dark skin tone without erythema or induration periwound.No odor or exudate noted. (L)7cm x (W)7.3cm.Both heels are pink and blanchable . NO new skin concerns noted. Primary nurse reported pt has been non-compliant in keeping sacral drsg in place .Pt removes drsg per primary nurrse and has been scratching wound. Tx.Plan: Cleanse Sacral wound with Saline.Apply Therahoney. Apply Triad Paste periwound. Cover with Optifoam drsg Daily and prn. Apply Cavilon Skin Barrier to R and L heels.Cover each Heel with Optifoam drsg. Change every 7 days and prn. APM/BOOGIE Mattress overlay. Reposition at least every 2hours or as tolerated. Off-load heels with pillow. will follow with recs thank you (2) Hypoglycemia (3) Left lower lobe pneumonia (4) Hypocalcemia (5) COPD (chronic obstructive pulmonary disease) (6) HTN (hypertension) (7) DM (diabetes mellitus) (8) Respiratory failure Assessment & Plan: extubated and doing okay cont with O2 and breathing treatments will follow with recs thank you (9) ESRD (end stage renal disease) on dialysis (10) Bacteremia (11) Respiratory failure, acute (12) Sepsis Assessment & Plan: cont IV Abx trend labs (13) Anemia in chronic kidney disease (CKD) Florencio Herrera Dec 10, 2018 14:32
--- NOTE | 2018-12-10 15:15 | Cardiac Electrophysiology PN ---
Assessment/Plan Assessment/Plan 1. Bradycardia. Resolved off clonidine patch EF 55%. 2. Hypertension, stable off antihypertensives. 3. Respiratory failure, Extubated on broad-spectrum antibiotic. Fu by Dr. Arcos. 4. Troponin leak, due to renal failure. 5. End-stage renal disease, on hemodialysis. JOSE ALEJANDRO RN Subjective Subjective On tele in SR. Family at bedside Objective Last 24 Hour Vital Signs Date Time Temp Pulse Resp B/P (MAP) Pulse Ox O2 Delivery O2 Flow Rate FiO2 12/10/18 13:33 98.1 92 116/46 (69) 97 12/10/18 12:47 Nasal Cannula 2.0 12/10/18 12:00 116/46 12/10/18 10:10 158/56 12/10/18 10:01 84 158/56 12/10/18 09:00 Nasal Cannula 2.0 12/10/18 08:30 96 Room Air 21 12/10/18 08:30 82 16 Room Air 21 12/10/18 08:30 Room Air 21 12/10/18 08:00 98.2 72 12 126/73 (90) 97 73 12/10/18 06:27 186/85 12/10/18 06:26 186/85 12/10/18 04:22 98.0 78 106/60 (75) 17 12/10/18 00:24 133/66 12/10/18 00:00 98.9 78 15 133/62 (85) 78 12/09/18 22:51 150/80 12/09/18 21:00 Nasal Cannula 2.0 12/09/18 20:50 86 16 Room Air 21 12/09/18 20:50 95 Room Air 21 12/09/18 20:50 Room Air 21 12/09/18 20:00 97.8 83 19 141/53 (82) 12/09/18 17:56 131/67 12/09/18 17:55 131/67 12/09/18 16:00 97.0 90 18 118/46 (70) 100 90 12/09/18 16:00 89 12/09/18 15:45 Nasal Cannula 2.0 28 12/09/18 15:45 98 Nasal Cannula 2.0 28 Intake and Output 12/09/18 12/10/18 19:00 07:00 Intake Total 480 ml 350 ml Output Total 2000 ml 2000 ml Balance -1520 ml -1650 ml Intake Oral 480 ml 240 ml Tube Feeding 30 ml Other 80 ml Output Urine Total 0 ml Hemodialysis UF 2000 ml 2000 ml # Voids 2 # Bowel Movements 1 1 Laboratory Tests Test 12/10/18 05:10 White Blood Count 8.6 K/UL (4.8-10.8) Red Blood Count 2.89 M/UL (4.70-6.10) L Hemoglobin 9.5 G/DL (14.2-18.0) L Hematocrit 29.4 % (42.0-52.0) L Mean Corpuscular Volume 102 FL (80-99) H Mean Corpuscular Hemoglobin 33.0 PG (27.0-31.0) H Mean Corpuscular Hemoglobin Concent 32.5 G/DL (32.0-36.0) Red Cell Distribution Width 14.0 % (11.6-14.8) Platelet Count 356 K/UL (150-450) Mean Platelet Volume 5.5 FL (6.5-10.1) L Neutrophils (%) (Auto) 38.6 % (45.0-75.0) L Lymphocytes (%) (Auto) 42.4 % (20.0-45.0) Monocytes (%) (Auto) 13.0 % (1.0-10.0) H Eosinophils (%) (Auto) 5.1 % (0.0-3.0) H Basophils (%) (Auto) 0.9 % (0.0-2.0) Sodium Level 136 MMOL/L (136-145) Potassium Level 4.4 MMOL/L (3.5-5.1) Chloride Level 98 MMOL/L (98-107) Carbon Dioxide Level 26 MMOL/L (21-32) Anion Gap 12 mmol/L (5-15) Blood Urea Nitrogen 49 mg/dL (7-18) H Creatinine 8.6 MG/DL (0.55-1.30) H Estimat Glomerular Filtration Rate mL/min (>60) Glucose Level 170 MG/DL (74-106) H Calcium Level 9.8 MG/DL (8.5-10.1) Phosphorus Level 4.5 MG/DL (2.5-4.9) Magnesium Level 2.5 MG/DL (1.8-2.4) H Total Bilirubin 0.5 MG/DL (0.2-1.0) Aspartate Amino Transf (AST/SGOT) 16 U/L (15-37) Alanine Aminotransferase (ALT/SGPT) 11 U/L (12-78) L Alkaline Phosphatase 106 U/L (46-116) Total Protein 8.6 G/DL (6.4-8.2) H Albumin 3.0 G/DL (3.4-5.0) L Globulin 5.6 g/dL Albumin/Globulin Ratio 0.5 (1.0-2.7) L Objective HEAD AND NECK: No JVD . LUNGS: Coarse rhonchi. CARDIOVASCULAR: Regular S1 and S2 with no gallop or murmur. ABDOMEN: Soft. EXTREMITIES: No pitting edema. Ryan Harley MD Dec 10, 2018 15:15
--- NOTE | 2018-12-10 15:53 | Nephrology Progress Note ---
Assessment/Plan Problem List: (1) ESRD (end stage renal disease) on dialysis (2) Respiratory failure, acute (3) Sepsis (4) Left lower lobe pneumonia (5) Anemia in chronic kidney disease (CKD) (6) HTN (hypertension) Assessment: hypertensive kidney disease Assessment Respiratory failure on vent, was extubated 12/06 Left lower lobe pneumonia ESRD (end stage renal disease) on dialysis Hypoglycemia Hypocalcemia on admit Anemia Plan due dialysis 12/09 and the 12/11 clonidine was held for low HR , hydralazine dose increased BP meds adjusted for high bp per orders Renal diet antibiotics hemodynamic support pulmonary support Subjective ROS Limited/Unobtainable: No Constitutional: Reports: malaise, weakness Objective Objective Last 24 Hour Vital Signs Date Time Temp Pulse Resp B/P (MAP) Pulse Ox O2 Delivery O2 Flow Rate FiO2 12/10/18 13:33 98.1 92 116/46 (69) 97 12/10/18 12:47 Nasal Cannula 2.0 12/10/18 12:00 116/46 12/10/18 10:10 158/56 12/10/18 10:01 84 158/56 12/10/18 09:00 Nasal Cannula 2.0 12/10/18 08:30 96 Room Air 21 12/10/18 08:30 82 16 Room Air 21 12/10/18 08:30 Room Air 21 12/10/18 08:00 98.2 72 12 126/73 (90) 97 73 12/10/18 06:27 186/85 12/10/18 06:26 186/85 12/10/18 04:22 98.0 78 106/60 (75) 17 12/10/18 00:24 133/66 12/10/18 00:00 98.9 78 15 133/62 (85) 78 12/09/18 22:51 150/80 12/09/18 21:00 Nasal Cannula 2.0 12/09/18 20:50 86 16 Room Air 21 12/09/18 20:50 95 Room Air 21 12/09/18 20:50 Room Air 21 12/09/18 20:00 97.8 83 19 141/53 (82) 12/09/18 17:56 131/67 12/09/18 17:55 131/67 12/09/18 16:00 97.0 90 18 118/46 (70) 100 90 12/09/18 16:00 89 Intake and Output 12/09/18 12/10/18 19:00 07:00 Intake Total 480 ml 350 ml Output Total 2000 ml 2000 ml Balance -1520 ml -1650 ml Intake Oral 480 ml 240 ml Tube Feeding 30 ml Other 80 ml Output Urine Total 0 ml Hemodialysis UF 2000 ml 2000 ml # Voids 2 # Bowel Movements 1 1 Laboratory Tests 12/10/18 05:10: White Blood Count 8.6, Red Blood Count 2.89L, Hemoglobin 9.5L, Hematocrit 29.4L , Mean Corpuscular Volume 102H, Mean Corpuscular Hemoglobin 33.0H, Mean Corpuscular Hemoglobin Concent 32.5, Red Cell Distribution Width 14.0, Platelet Count 356, Mean Platelet Volume 5.5L, Neutrophils (%) (Auto) 38.6L, Lymphocytes (%) (Auto) 42.4, Monocytes (%) (Auto) 13.0H, Eosinophils (%) (Auto) 5.1H, Basophils (%) (Auto) 0.9, Sodium Level 136, Potassium Level 4.4, Chloride Level 98, Carbon Dioxide Level 26, Anion Gap 12, Blood Urea Nitrogen 49H, Creatinine 8.6H, Estimat Glomerular Filtration Rate , Glucose Level 170H, Calcium Level 9.8 , Phosphorus Level 4.5, Magnesium Level 2.5H, Total Bilirubin 0.5, Aspartate Amino Transf (AST/SGOT) 16, Alanine Aminotransferase (ALT/SGPT) 11L, Alkaline Phosphatase 106, Total Protein 8.6H, Albumin 3.0L, Globulin 5.6, Albumin/ Globulin Ratio 0.5L Height (Feet): 5 Height (Inches): 3.00 Weight (Pounds): 142 General Appearance: no apparent distress, lethargic Cardiovascular: tachycardia Respiratory/Chest: decreased breath sounds Abdomen: soft Objective no other change Boo Fu MD Dec 10, 2018 15:53
--- NOTE | 2018-12-10 16:19 | NUR ---
DISCHARGE PLANNING DISCHARGE ORDER NOTED Patient has been accepted to; [facility] [address] [place] [address] Bed:15-A Skilled for Nurse to Nurse report [facility] ETA for transportation: 17:00 Family notify of discharge plans, Kiera Blanca (daughter) [phone]
--- NOTE | 2018-12-10 17:50 | NUR ---
NURSE NOTES: [facility],patient daughter is aware.picture taken of patient sacral area.shunt to the left arm remains with strong bruit and thrill.[facility] personnel to take patient.patient has order for Dialysis order,will call [facility] Dialysis.
--- NOTE | 2018-12-10 18:08 | Infectious Diseases Prog Note ---
Assessment/Plan Assessment/Plan Probable Sepsis Gram positive bacteremia- ? real vs contaminant -12/01 10/14 Staph capitis; 12/02 Bcx NTD Acute hypoxic respiratory failure s/p intubation 12/01- likely 2ry to Acute CHF and COPD exacerbation- no obvious PNA on CXR -12/06 extubated -12/05 CXR: The lungs and pleural spaces are clear -12/02 CXR: Stable satisfactory position of endotracheal tube. Lungs and pleural spaces remain clear. No significant interim change -influenza sc neg -sp cx p Afebrile Leukocytosis , SP Diarrhea -cdiff neg Bradycardia Acute encephalopathy Sacral decubitus ulcer- not infected -wound cx: Group G strep, diphteroids HTN COPD DM2 R femur fx s/p ORIF ESRD on HD via L arm shunt pAfib on amiodarone SNF resident Plan: -Continue to monitor off abx -12/05 SP IV Vancomycin #5 -12/02 SP ZOsyn #2 -12/01 SP Ertapenem, Cefepime, azithromycin x1 -Monitor CBC/CMP, temperatures -wound care per surgical team -aspiration precautions Subjective Allergies: Coded Allergies: NEOMYCIN (Verified Allergy, Mild, 12/01/18) Uncoded Allergies: plastics (Allergy, Mild, 12/01/18) Subjective PROBABLE dc TODAY comfortable Objective Vital Signs Last 24 Hour Vital Signs Date Time Temp Pulse Resp B/P (MAP) Pulse Ox O2 Delivery O2 Flow Rate FiO2 12/10/18 13:33 98.1 92 116/46 (69) 97 12/10/18 12:47 Nasal Cannula 2.0 12/10/18 12:00 116/46 12/10/18 10:10 158/56 12/10/18 10:01 84 158/56 12/10/18 09:00 Nasal Cannula 2.0 12/10/18 08:30 96 Room Air 21 12/10/18 08:30 82 16 Room Air 21 12/10/18 08:30 Room Air 21 12/10/18 08:00 98.2 72 12 126/73 (90) 97 73 12/10/18 06:27 186/85 12/10/18 06:26 186/85 12/10/18 04:22 98.0 78 106/60 (75) 17 12/10/18 00:24 133/66 12/10/18 00:00 98.9 78 15 133/62 (85) 78 12/09/18 22:51 150/80 12/09/18 21:00 Nasal Cannula 2.0 12/09/18 20:50 86 16 Room Air 21 12/09/18 20:50 95 Room Air 21 12/09/18 20:50 Room Air 21 12/09/18 20:00 97.8 83 19 141/53 (82) Height (Feet): 5 Height (Inches): 3.00 Weight (Pounds): 142 HEENT: anicteric Respiratory/Chest: lungs clear Cardiovascular: regular rhythm Abdomen: no organomegaly Laboratory Tests Test 12/10/18 05:10 White Blood Count 8.6 K/UL (4.8-10.8) Red Blood Count 2.89 M/UL (4.70-6.10) L Hemoglobin 9.5 G/DL (14.2-18.0) L Hematocrit 29.4 % (42.0-52.0) L Mean Corpuscular Volume 102 FL (80-99) H Mean Corpuscular Hemoglobin 33.0 PG (27.0-31.0) H Mean Corpuscular Hemoglobin Concent 32.5 G/DL (32.0-36.0) Red Cell Distribution Width 14.0 % (11.6-14.8) Platelet Count 356 K/UL (150-450) Mean Platelet Volume 5.5 FL (6.5-10.1) L Neutrophils (%) (Auto) 38.6 % (45.0-75.0) L Lymphocytes (%) (Auto) 42.4 % (20.0-45.0) Monocytes (%) (Auto) 13.0 % (1.0-10.0) H Eosinophils (%) (Auto) 5.1 % (0.0-3.0) H Basophils (%) (Auto) 0.9 % (0.0-2.0) Sodium Level 136 MMOL/L (136-145) Potassium Level 4.4 MMOL/L (3.5-5.1) Chloride Level 98 MMOL/L (98-107) Carbon Dioxide Level 26 MMOL/L (21-32) Anion Gap 12 mmol/L (5-15) Blood Urea Nitrogen 49 mg/dL (7-18) H Creatinine 8.6 MG/DL (0.55-1.30) H Estimat Glomerular Filtration Rate mL/min (>60) Glucose Level 170 MG/DL (74-106) H Calcium Level 9.8 MG/DL (8.5-10.1) Phosphorus Level 4.5 MG/DL (2.5-4.9) Magnesium Level 2.5 MG/DL (1.8-2.4) H Total Bilirubin 0.5 MG/DL (0.2-1.0) Aspartate Amino Transf (AST/SGOT) 16 U/L (15-37) Alanine Aminotransferase (ALT/SGPT) 11 U/L (12-78) L Alkaline Phosphatase 106 U/L (46-116) Total Protein 8.6 G/DL (6.4-8.2) H Albumin 3.0 G/DL (3.4-5.0) L Globulin 5.6 g/dL Albumin/Globulin Ratio 0.5 (1.0-2.7) L Current Medications Medications (Trade) Dose Ordered Sig/Amber Route PRN Reason Start Time Stop Time Status Last Admin Dose Admin Acetaminophen (Tylenol) 650 mg Q4H PRN ORAL T>100.5 12/09/18 18:30 12/31/18 18:29 Amlodipine Besylate (Norvasc) 10 mg DAILY ORAL 12/10/18 09:00 01/03/19 10:59 12/10/18 10:01 Dextrose (Dextrose 50%) 25 ml Q30M PRN IV Hypoglycemia 12/09/18 18:45 12/31/18 09:14 Dextrose (Dextrose 50%) 50 ml Q30M PRN IV Hypoglycemia 12/09/18 18:45 12/31/18 09:14 Heparin Sodium (Porcine) (Heparin 5000 units/ml) 5,000 units EVERY 12 HOURS SUBQ 12/09/18 21:00 12/31/18 20:59 12/10/18 10:30 Hydralazine HCl (Apresoline) 75 mg Q8HR ORAL 12/09/18 22:00 01/04/19 00:00 12/10/18 06:26 Insulin Aspart (NovoLOG) BEFORE MEALS AND HS SUBQ 12/09/18 21:00 01/01/19 11:29 12/10/18 17:25 Isosorbide Dinitrate (Isordil) 20 mg Q6HR ORAL 12/10/18 00:00 01/05/19 11:59 12/10/18 06:27 Lorazepam (Ativan 2mg/ml 1ml) 0.5 mg Q4H PRN IV For Anxiety 12/09/18 18:30 12/16/18 18:29 Losartan Potassium (Cozaar) 50 mg BID ORAL 12/10/18 09:00 01/03/19 17:59 12/10/18 10:10 Ondansetron HCl (Zofran) 4 mg Q6H PRN IVP Nausea & Vomiting 12/09/18 18:30 12/31/18 18:29 Pantoprazole (Protonix) 40 mg EVERY 12 HOURS ORAL 12/09/18 21:00 01/06/19 20:59 12/10/18 10:07 Polyethylene Glycol (Miralax) 17 gm DAILYPRN PRN ORAL Constipation 12/09/18 18:30 01/08/19 18:29 Quetiapine Fumarate (SEROquel) 25 mg Q12HR ORAL 12/09/18 21:00 01/08/19 11:29 12/10/18 09:54 Sevelamer Carbonate (Renvela) 2,400 mg TID ORAL 12/10/18 09:00 01/02/19 07:59 12/10/18 14:11 Myron Govea MD Dec 10, 2018 18:08
--- NOTE | 2018-12-10 18:38 | Internal Med Progress Note ---
Subjective Date of Service: Dec 10, 2018 Physician Name Aryan Brody Attending Physician Tony Cyr MD Current Medications Medications (Trade) Dose Ordered Sig/Amber Route PRN Reason Start Time Stop Time Status Last Admin Dose Admin Acetaminophen (Tylenol) 650 mg Q4H PRN ORAL T>100.5 12/09/18 18:30 12/31/18 18:29 Amlodipine Besylate (Norvasc) 10 mg DAILY ORAL 12/10/18 09:00 01/03/19 10:59 12/10/18 10:01 Dextrose (Dextrose 50%) 25 ml Q30M PRN IV Hypoglycemia 12/09/18 18:45 12/31/18 09:14 Dextrose (Dextrose 50%) 50 ml Q30M PRN IV Hypoglycemia 12/09/18 18:45 12/31/18 09:14 Heparin Sodium (Porcine) (Heparin 5000 units/ml) 5,000 units EVERY 12 HOURS SUBQ 12/09/18 21:00 12/31/18 20:59 12/10/18 10:30 Hydralazine HCl (Apresoline) 75 mg Q8HR ORAL 12/09/18 22:00 01/04/19 00:00 12/10/18 06:26 Insulin Aspart (NovoLOG) BEFORE MEALS AND HS SUBQ 12/09/18 21:00 01/01/19 11:29 12/10/18 17:25 Isosorbide Dinitrate (Isordil) 20 mg Q6HR ORAL 12/10/18 00:00 01/05/19 11:59 12/10/18 18:07 Lorazepam (Ativan 2mg/ml 1ml) 0.5 mg Q4H PRN IV For Anxiety 12/09/18 18:30 12/16/18 18:29 Losartan Potassium (Cozaar) 50 mg BID ORAL 12/10/18 09:00 01/03/19 17:59 12/10/18 18:05 Ondansetron HCl (Zofran) 4 mg Q6H PRN IVP Nausea & Vomiting 12/09/18 18:30 12/31/18 18:29 Pantoprazole (Protonix) 40 mg EVERY 12 HOURS ORAL 12/09/18 21:00 01/06/19 20:59 12/10/18 10:07 Polyethylene Glycol (Miralax) 17 gm DAILYPRN PRN ORAL Constipation 12/09/18 18:30 01/08/19 18:29 Quetiapine Fumarate (SEROquel) 25 mg Q12HR ORAL 12/09/18 21:00 01/08/19 11:29 12/10/18 09:54 Sevelamer Carbonate (Renvela) 2,400 mg TID ORAL 12/10/18 09:00 01/02/19 07:59 12/10/18 14:11 Allergies: Coded Allergies: NEOMYCIN (Verified Allergy, Mild, 12/01/18) Uncoded Allergies: plastics (Allergy, Mild, 12/01/18) ROS Limited/Unobtainable: No Constitutional: Reports: no symptoms HEENT: Reports: no symptoms Cardiovascular: Reports: no symptoms Respiratory: Reports: shortness of breath Gastrointestinal/Abdominal: Reports: no symptoms Genitourinary: Reports: no symptoms Neurologic/Psychiatric: Reports: no symptoms Subjective 73 YO M admitted with respiratory failure. Extubated 12/06/18. Cover for Int Med-Dr Cyr. Tolerating nasal canula Objective Last Vital Signs Date Time Temp Pulse Resp B/P (MAP) Pulse Ox O2 Delivery O2 Flow Rate FiO2 12/10/18 18:07 131/64 12/10/18 13:33 98.1 92 97 12/10/18 12:47 Nasal Cannula 2.0 12/10/18 08:30 21 12/10/18 08:30 16 Laboratory Tests Test 12/10/18 05:10 White Blood Count 8.6 K/UL (4.8-10.8) Red Blood Count 2.89 M/UL (4.70-6.10) L Hemoglobin 9.5 G/DL (14.2-18.0) L Hematocrit 29.4 % (42.0-52.0) L Mean Corpuscular Volume 102 FL (80-99) H Mean Corpuscular Hemoglobin 33.0 PG (27.0-31.0) H Mean Corpuscular Hemoglobin Concent 32.5 G/DL (32.0-36.0) Red Cell Distribution Width 14.0 % (11.6-14.8) Platelet Count 356 K/UL (150-450) Mean Platelet Volume 5.5 FL (6.5-10.1) L Neutrophils (%) (Auto) 38.6 % (45.0-75.0) L Lymphocytes (%) (Auto) 42.4 % (20.0-45.0) Monocytes (%) (Auto) 13.0 % (1.0-10.0) H Eosinophils (%) (Auto) 5.1 % (0.0-3.0) H Basophils (%) (Auto) 0.9 % (0.0-2.0) Sodium Level 136 MMOL/L (136-145) Potassium Level 4.4 MMOL/L (3.5-5.1) Chloride Level 98 MMOL/L (98-107) Carbon Dioxide Level 26 MMOL/L (21-32) Anion Gap 12 mmol/L (5-15) Blood Urea Nitrogen 49 mg/dL (7-18) H Creatinine 8.6 MG/DL (0.55-1.30) H Estimat Glomerular Filtration Rate mL/min (>60) Glucose Level 170 MG/DL (74-106) H Calcium Level 9.8 MG/DL (8.5-10.1) Phosphorus Level 4.5 MG/DL (2.5-4.9) Magnesium Level 2.5 MG/DL (1.8-2.4) H Total Bilirubin 0.5 MG/DL (0.2-1.0) Aspartate Amino Transf (AST/SGOT) 16 U/L (15-37) Alanine Aminotransferase (ALT/SGPT) 11 U/L (12-78) L Alkaline Phosphatase 106 U/L (46-116) Total Protein 8.6 G/DL (6.4-8.2) H Albumin 3.0 G/DL (3.4-5.0) L Globulin 5.6 g/dL Albumin/Globulin Ratio 0.5 (1.0-2.7) L Intake and Output 12/09/18 12/10/18 19:00 07:00 Intake Total 480 ml 350 ml Output Total 2000 ml 2000 ml Balance -1520 ml -1650 ml Intake Oral 480 ml 240 ml Tube Feeding 30 ml Other 80 ml Output Urine Total 0 ml Hemodialysis UF 2000 ml 2000 ml # Voids 2 # Bowel Movements 1 1 Objective PHYSICAL EXAMINATION: VITAL SIGNS: Temperature 99.4 degrees, respirations 20, pulse 83, blood pressure 140/96, and pulse oximetry initially was 79 on room air. GENERAL: The patient is well-developed and well-nourished male, who is intubated and sedated. HEENT: Eyes, pupils equal and responsive to light and accommodation. Extraocular movements are intact. NECK: Supple without lymphadenopathy. CHEST: Nasal canula; Coarse expiratory wheezes bilaterally with coarse upper airway sounds. Otherwise, without rales. Neurologically unable to assess. CARDIOVASCULAR: Bradycardic, regular rate. S1 and S2 normal without murmurs, rubs, or gallops. ABDOMEN: Soft, nontender, and nondistended. Positive bowel sounds. No evidence of hepatosplenomegaly. Currently, no rebound or guarding noted. RECTAL: Refused. GENITALIA: Refused. EXTREMITIES: Negative for clubbing, cyanosis, or edema. NEUROLOGIC: Unable to assess. Assessment/Plan Assessment/Plan ASSESSMENT: This is a 73-year-old male with: 1. Respiratory failure. 2. Altered mental status. 3. Acute congestive heart failure. 4. Hypoxia. 5. Diabetes. 6. Chronic obstructive pulmonary disease. 7. Hypertension. 8. End-stage renal disease. 9. Sacral decubitus ulcer. TREATMENT: 1. Respiratory failure/chronic obstructive pulmonary disease. A Pulmonary consultation has been obtained with Dr. Sulaiman Arcos. The patient is currently tolerating nasal canula. The patient has been started empirically on ertapenem. 2. Acute congestive heart failure. Cardiology consultation has been obtained with Dr. Ryan Harley. BNP will be performed. Congestive heart failure may be secondary to volume overload secondary to end-stage renal disease. 3. Diabetes type 2. The patient has been placed on NovoLog sliding scale. 4. Hypertension. Continue losartan as above. 5. End-stage renal disease. A Nephrology consultation has been obtained with Dr. Fu. 6. Sacral decubitus ulcer. Discharge to [facility] Aryan Tovar MD Dec 10, 2018 18:38
--- NOTE | 2018-12-10 19:30 | NUR ---
NURSE NOTES: Received patient from ZENAIDA Christianson. Juan Jose Addendum: 12/10/18 at 2033 by Greta Andrade RN Patient is in bed, AAO X1, on room air, no s/s of distress or pain. Patient is on bilateral wrist restraints, no redness noted on both wrists. [facility] Called [facility] to confirm transportation. Will follow up.
--- NOTE | 2018-12-10 19:40 | NUR ---
HAND-OFF: Report given to INGE ESTEVEZ.
--- NOTE | 2018-12-10 20:40 | NUR ---
NURSE NOTES: Patient was picked up by ambulance to go to [facility] with belongings. Report given to EMS.
--- NOTE | 2018-12-11 08:40 | Discharge Summary ---
Discharge Summary Discharge Summary _ DATE OF ADMISSION: 12/01/2018 DATE OF DISCHARGE: 12/10/2018 DISCHARGED BY: Dr. Cyr REASON FOR ADMISSION: 73 y/old male with past medical history of hypertension, COPD, diabetes, end- stage renal disease, on hemodialysis, was sent from the alf [facility] for evaluation due to altered level of consciousness and hypoxia. Patient had a dialysis earlier prior to presentation to the emergency department. Pulse oximetry was 64% in the field and improved to 100% with nonrebreathing mask. On evaluation in emergency room patient was febrile, altered and hypoxic. Laboratory work-up revealed leukocytosis WBC 15.7, hemoglobin 10.7, hematocrit 32.8. Potassium 3.2. BUN 24, creatinine 2.9. Lactic acid 1.7. Glucose 55. Calcium 5.7. Stable LFT. Troponin minimally elevated 0.066. Pro BNP over 35,000. EKG revealed sinus rhythm , no acute ischemic changes Albumin 1.9. In emergency department patient required emergency oral intubation. Chest x-ray demonstrated endotracheal tube 4.8 cm above the casey, which was addressed and adjusted. Possible left lower lobe pneumonia. Patient received calcium gluconate. Patient subsequently was admitted to ICU for further management. CONSULTANTS: nurse emergency room Dr. Bardales pulmonary Dr. Arcos ID specialist Dr. Govea gold nib grinder Dr. Fu surgery Dr. Herrera [facility]RSE: Patient admitted to ICU. Ventilator support and pulmonary toilet provided. Echocardiogram demonstrated preserved ejection fraction of 55% with no evidence of wall motion abnormality and mild left ventricular hypertrophy. Right ventricular systolic pressure of 17. Venous duplex bilateral lower extremity revealed no evidence of acute DVT. Patient was followed-up with ABG and chest x-ray. Ventilator settings were titrated as needed. Patient started on empiric antibiotic as per ID specialist recommendation. Blood culture revealed Staphylococcus capitis and Staphylococcus epidermidis, real versus contaminant as per ID specialist. Stool for C. difficile was negative. Wound culture revealed Streptococci group G diphtheroids. Sacral decubitus did not appeared to be infected. Repeated blood culture on 12/02 were negative. Patient was able to be extubated on 12/06. Supplemental oxygen provided as needed to keep pulse oximetry above 92%. Pulmonary toilet provided as needed. DVT prophylaxis provided. Patient completed antibiotics at the hospital. Leukocytosis and fevers resolved. Infectious disease specialist recommended to observe patient off antibiotic. [employer] followed. Troponin pattern with minimal elevation , not suggestive of acute coronary syndrome. Per nurse emergency room elevated troponin was due to troponin leak secondary to renal failure. Blood pressure was managed as per gold nib grinder recommendation. Patient exhibited bradycardia and was taken off clonidine patch. Bradycardia resolved. Blood pressure was managed with calcium channel keo, hydralazine and angiotensin receptor keo. Isosorbide continued. Hemodialysis provided as per gold nib grinder recommendation with close monitoring of volumes , renal parameters and electrolytes. Electrolytes corrected as needed. Initial hypocalcemia resolved. Strict aspiration precautions were maintained. Wound care provided as per surgeon recommendation. Continue wound care at the facility. Hemoglobin and hematocrit were closely monitored. Anemia work-up revealed evidence of anemia of chronic disease with high ferritin 1007. Stable B12 and folate level. TSH within normal limits Blood sugar was managed with sliding scale of insulin only on as needed basis. Hemoglobin A1c 5.8, at goal. GI prophylaxis provided. Bowel regimen instituted. Supportive care provided. Initial altered level of consciousness was due to acute encephalopathy secondary to infectious process and resolved. Mental status back to baseline. Pulse oximetry was stable on oxygen via nasal cannula. No signs of respiratory distress. Patient clinically stabilized and was ready for transfer back to alf facility for continuation of care FINAL DIAGNOSES: Acute hypoxemic respiratory failure requiring intubation, s/p extubation Possible sepsis with gram positive bacteremia ( real vs contaminant) Pneumonia Acute encephalopathy - resolved Hypoglycemia in setting of diabetes mellitus Hypocalcemia, initially on admission -resolved COPD End-stage renal disease , on hemodialysis Troponin leak due to renal failure Anemia of chronic kidney disease Hypertension Sacral decubitus ulcer stage III , present on admission -not infected DISCHARGE MEDICATIONS: See Medication Reconciliation list. DISCHARGE INSTRUCTIONS: Patient was discharged to the alf facility. Follow up with medical doctor at the facility. Penny Mejia NP December 11, 2018 08:40
== END 2018-12-10 20:35 | DRG 870 ==
LOC: EDBD 23:59 → EMR 12-01 02:21 → ICU 12-01 02:50 → EDBEDREQ 12-01 02:55 → 2W 12-07 18:55 → 2E 12-07 21:20 → 4E 12-09 18:28
PROC: 5A1955Z Respiratory Ventilation, Greater than 96 Consecutive Hours (ICD-10-PCS; principal; 2018-12-01)
PROC: 0BH17EZ Insertion of Endotracheal Airway into Trachea, Via Natural or Artificial Opening (ICD-10-PCS; principal; 2018-12-01)
PROC: 5A1D70Z Performance of Urinary Filtration, Intermittent, Less than 6 Hours Per Day (ICD-10-PCS; 2018-12-03)
DX: A41.9 Sepsis, unspecified organism (principal); L89.153 Pressure ulcer of sacral region, stage 3; J18.9 Pneumonia, unspecified organism; J96.01 Acute respiratory failure with hypoxia; N18.6 End stage renal disease; I13.2 Hypertensive heart and chronic kidney disease with heart failure and with stage 5 chronic kidney disease, or end stage renal disease; E11.22 Type 2 diabetes mellitus with diabetic chronic kidney disease; I50.9 Heart failure, unspecified; Z99.2 Dependence on renal dialysis; E11.649 Type 2 diabetes mellitus with hypoglycemia without coma; E83.51 Hypocalcemia; J44.9 Chronic obstructive pulmonary disease, unspecified; I48.0 Paroxysmal atrial fibrillation; Z88.1 Allergy status to other antibiotic agents; D63.1 Anemia in chronic kidney disease
CPT/HCPCS: 31500; 36415; 36600; 71045; 74018; 80053; 80202; 82533; 82550; 82607; 82728; 82746; 82803; 82962; 82977; 83036; 83540; 83550; 83605; 83690; 83735; 83880; 84100; 84443; 84484; 84550; 85025; 85610; 85730; 86140; 86710; 87040; 87070; 87081; 87181; 87205; 87324; 93005; 93306; 93970; 94002; 94003; 94664; 94760; 96365; 96367; 96368; 96375; 99291; J1815